=== PATIENT | female | born 1945 | race Hispanic/Latino ===

== ENCOUNTER 2017-02-27 05:41 | Day surgery (SDC) | payer OTHER ==
[2017-02-26 15:01] VITALS: BP 131/53
[2017-02-26 15:30] LABS: BASOPHILS % (AUTO) 0.7 % (0.0-5.0); EOSINOPHILS % (AUTO) 3.9 % (0.0-8.0); HEMATOCRIT 36.3 % (36-48); LYMPHOCYTES % (AUTO) 27.4 % (21.0-51.0); MEAN CORPUSCULAR HEMOGLOBIN 27.2 pg (27.0-33.0); MEAN CORPUSCULAR HGB CONC 32.9 g/dL (32.0-36.0); MEAN CORPUSCULAR VOLUME 82.5 fL (79-99); MONOCYTES % (AUTO) 10.9 % (3.0-13.0); NEUTROPHILS % (AUTO) 57.1 % (40.0-77.0); PLATELET COUNT (AUTO) 232 K/uL (130-400); RED CELL DISTRIBUTION WIDTH 14.5 % (11.0-15.5); WHITE BLOOD COUNT (AUTO) 8.5 K/uL (4.8-10.8)
[2017-02-26 15:44] LABS: INR 0.96 (0.85-1.15); PARTIAL THROMBOPLASTIN TIME 24.7 SEC (26.3-35.5); PROTHROMBIN TIME 10.1 SEC (9.6-11.6)
[2017-02-26 15:48] LABS: POTASSIUM 4.9 mmol/L (3.5-5.1)
[2017-02-26 15:56] LABS: APPEARANCE,URINE Clear (CLEAR); BILIRUBIN,URINE Negative (NEGATIVE); COLOR,URINE Yellow (YELLOW); GLUCOSE, URINE (UA) Negative (NEGATIVE); KETONES,URINE Trace mg/dL (NEGATIVE); LEUKOCYTE ESTERASE ,URINE Negative (NEGATIVE); NITRATE,URINE Negative (NEGATIVE); OCCULT BLOOD,URINE Negative (NEGATIVE); PH,URINE 5.5 (5.0-8.0); PROTEIN,URINE Negative (NEGATIVE)
[~2017-02-27] VITALS: Ht 152.4 cm; Wt 66.0 kg
[2017-02-27] VITALS (11 sets, daily range): BP systolic 111–174; BP diastolic 41–57
[~2017-02-27 05:41] MED LIST: ASPI-1005 PO; ATEN100T PO; ATOR40TA69 PO; CLOP75TA14 PO; HYDR25TA PO; ISOS30TA6 PO; LISI-613 PO; MAGN250T2 PO; SODIUM CHLORIDE 0.9% 500ML 500 ML IV SCH; UBID100C45 PO
[2017-02-27] MEDS ORDERED: SODIUM CHLORIDE 0.9% 1000ML 1,000 ML IV ONE (06:53)
[2017-02-27] MEDS ORDERED: ISOVUE-370 50ML VIAL IV ONE (08:20)
[2017-02-27] MEDS ORDERED: LIDOCAINE HCL 2% 20ML ONE (08:20)
[2017-02-27] MEDS ORDERED: HEPARIN SODIUM 1000UNIT/ML 10ML VIAL ONE (08:20)
[2017-02-27] MEDS ORDERED: IOPAMIDOL-370 100 ML VIAL IV ONE (08:20)
[2017-02-27] MEDS ORDERED: SODIUM BICARB 50MEQ 50ML VIAL ONE (08:20)
[2017-02-27] MEDS ORDERED: SODIUM CHLORIDE 0.9% 1000ML 1,000 ML IV SCH (09:34)
[2017-02-27] MEDS ORDERED: HYDRALAZINE HCL 20 MG/ML VIAL ONE (09:44)
[2017-02-27] MEDS ORDERED: ACETAMINOPHEN 325 MG TAB PO SCH (10:45)
== END 2017-02-27 13:45 | disposition home or self-care (01) ==
LOC: DAH 05:41
PROVIDERS: ATTEND Internal Medicine Cardiovascular Disease
DX: R07.9 Chest pain, unspecified (principal); I10 Essential (primary) hypertension; E78.5 Hyperlipidemia, unspecified; Z85.3 Personal history of malignant neoplasm of breast; I51.89 Other ill-defined heart diseases
CPT/HCPCS: 36415; 71045; 80048; 81003; 85025; 85610; 85730; 93005; 93458; 99156; 99157; C1760; C1894; J0360; J1644; J3490 ×2; J7030; Q9967 ×2

== ENCOUNTER → 2017-04-18 | Outpatient (CLI) | payer OTHER ==
[~2017-04-18] MED LIST changes: -SODIUM CHLORIDE 0.9% 500ML 500 ML IV SCH
== END | disposition home or self-care (01) ==
LOC: RAH 14:11
PROVIDERS: ATTEND Internal Medicine Cardiovascular Disease
DX: M47.22 Other spondylosis with radiculopathy, cervical region (principal); M50.322 Other cervical disc degeneration at C5-C6 level; M48.02 Spinal stenosis, cervical region; M25.78 Osteophyte, vertebrae
CPT/HCPCS: 72141

== ENCOUNTER → 2019-11-27 | Outpatient (CLI) | payer OTHER | END | disposition home or self-care (01) | LOC: RAH 11:38 | PROVIDERS: ATTEND Family Medicine | DX: I70.203 Unspecified atherosclerosis of native arteries of extremities, bilateral legs (principal) | CPT/HCPCS: 93925 ==

== ENCOUNTER → 2020-04-13 | Outpatient (CLI) | payer OTHER ==
[~2020-04-13] MED LIST changes: -ISOS30TA6 PO; +ISOS30TA92 PO; -LISI-613 PO; +LISI20TA24 PO
== END | disposition home or self-care (01) ==
LOC: OIH 15:41
PROVIDERS: ATTEND Family Medicine
DX: M85.88 Other specified disorders of bone density and structure, other site (principal); M25.562 Pain in left knee
CPT/HCPCS: 73560

== ENCOUNTER → 2021-02-18 | Outpatient (CLI) | payer OTHER ==
[~2021-02-18] MED LIST changes: -MAGN250T2 PO; +MAGN250T35 PO; +REGADENOSON 0.4 MG/5 ML PF SYG IVP SCH
== END | disposition home or self-care (01) ==
LOC: SHCH 09:17
PROVIDERS: ATTEND Internal Medicine Cardiovascular Disease
DX: R06.00 Dyspnea, unspecified (principal); R53.83 Other fatigue; R06.02 Shortness of breath
CPT/HCPCS: 78452; 93017; 96374; A9500 ×2; J2785

== ENCOUNTER 2021-03-28 09:30 | Day surgery (SDC) | payer OTHER ==
[2021-03-24 10:45] VITALS: BP 149/81
[2021-03-24 16:58] LABS: BASOPHILS % (AUTO) 0.7 % (0.0-5.0); EOSINOPHILS % (AUTO) 1.4 % (0.0-8.0); HEMATOCRIT 33.4 % (36-48); MEAN CORPUSCULAR HGB CONC 31.1 g/dL (32.0-36.0); MEAN CORPUSCULAR VOLUME 86.8 fL (79-99); MONOCYTES % (AUTO) 12.5 % (3.0-13.0); NEUTROPHILS % (AUTO) 57.2 % (40.0-77.0); PLATELET COUNT (AUTO) 254 K/uL (130-400); RED BLOOD CELL COUNT(AUTO) 3.85 MIL/uL (4.00-5.50); RED CELL DISTRIBUTION WIDTH 14.1 % (11.0-15.5); WHITE BLOOD COUNT (AUTO) 8.8 K/uL (4.8-10.8)
[2021-03-24 16:58] LABS: APPEARANCE,URINE SL CLOUDY (CLEAR); BILIRUBIN,URINE NEGATIVE (NEGATIVE); COLOR,URINE YELLOW (YELLOW); GLUCOSE, URINE (UA) NEGATIVE (NEGATIVE); KETONES,URINE NEGATIVE (NEGATIVE); LEUKOCYTE ESTERASE ,URINE SMALL (NEGATIVE); NITRATE,URINE NEGATIVE (NEGATIVE); OCCULT BLOOD,URINE NEGATIVE (NEGATIVE); PROTEIN,URINE NEGATIVE (NEGATIVE); UROBILINOGEN,URINE 0.2 mg/dL (0.2-1.0)
[2021-03-24 17:05] LABS: RBC,URINE 0-1 /HPF (0-1)
[2021-03-24 17:06] LABS: BACTERIA,URINE Few /HPF (None Seen); MUCUS,URINE Few LPF (None Seen); SQUAMOUS EPITHELIAL CELL,UR Few /HPF (0-2)
[2021-03-24 17:11] LABS: INR 1.03 (0.85-1.15); PROTHROMBIN TIME 11.2 SEC (9.6-11.6)
[2021-03-24 17:12] LABS: PARTIAL THROMBOPLASTIN TIME 23.9 SEC (26.3-35.5)
[2021-03-24 17:15] LABS: CREATININE 1.3 mg/dL (0.5-1.5)
[2021-03-28] VITALS (9 sets, daily range): BP systolic 110–155; BP diastolic 43–55
[~2021-03-28] VITALS: Ht 152.4 cm; Wt 63.2 kg
[~2021-03-28 09:30] MED LIST changes: +0.9%NACL 1000ML 1,000 ML IV SCH; -REGADENOSON 0.4 MG/5 ML PF SYG IVP SCH
[2021-03-28] MEDS ORDERED: SODIUM BICARB 50MEQ 50ML VIAL 0 ML ONE (10:40)
[2021-03-28] MEDS ORDERED: NITROGLYCERIN 50MG VIAL ONE ×2 (10:40→14:41)
[2021-03-28] MEDS ORDERED: IOHEXOL-350 50ML VIAL IV ONE ×2 (10:41→14:41)
[2021-03-28] MEDS ORDERED: IOHEXOL 350 MG/ML 100ML INFUS..BTL IV ONE ×2 (10:41→14:41)
[2021-03-28] MEDS ORDERED: LIDOCAINE HCL 400MG/20ML VIAL ONE ×2 (10:41→14:42)
[2021-03-28] MEDS ORDERED: LISI40TA9 PO (11:04)
[2021-03-28] MEDS ORDERED: GABA-529 PO (11:04)
[2021-03-28] MEDS ORDERED: HYDR25TA PO (11:04)
[2021-03-28] MEDS ORDERED: AMLO-258 PO (11:04)
[2021-03-28] MEDS ORDERED: RANO10005 PO (11:04)
[2021-03-28] MEDS ORDERED: SODIUM BICARB 50MEQ 50ML VIAL 50 ML ONE (14:40)
[2021-03-28] MEDS ORDERED: MEPERIDINE-PF 25 MG/ML SYG ONE ×2 (14:41→15:22)
[2021-03-28] MEDS ORDERED: MIDAZOLAM HCL 1 MG/ML 2ML VIAL ONE ×2 (14:41→15:22)
[2021-03-28] MEDS ORDERED: HEPARIN 10,000 UNIT/10ML (1,000 UNIT/ML) VIAL ONE (14:41)
[2021-03-28] MEDS ORDERED: 0.9%NACL 1000ML 1,000 ML IV SCH (16:00)
== END 2021-03-28 20:00 | disposition home or self-care (01) ==
LOC: DAH 09:30
PROVIDERS: ATTEND Internal Medicine Cardiovascular Disease
DX: I25.119 Atherosclerotic heart disease of native coronary artery with unspecified angina pectoris (principal); I11.0 Hypertensive heart disease with heart failure; I50.32 Chronic diastolic (congestive) heart failure; E78.5 Hyperlipidemia, unspecified; Z79.82 Long term (current) use of aspirin; Z79.84 Long term (current) use of oral hypoglycemic drugs; Z85.3 Personal history of malignant neoplasm of breast; Z95.5 Presence of coronary angioplasty implant and graft; Z79.01 Long term (current) use of anticoagulants
CPT/HCPCS: 36415; 71045; 80048; 81001; 85025; 85610; 85730; 93005; 93458; A4215 ×2; A4216 ×2; A4221 ×2; A4222 ×2; A4223 ×6; A4606 ×2; A4663 ×2; C1760; C1894; J1644; J2175 ×2; J2250 ×2; J3490 ×3; Q9965; Q9967 ×2; 96360; 96361; 99156; 99157

== ENCOUNTER 2021-04-07 11:08 | Emergency (ER) | payer OTHER ==
[~2021-04-07] VITALS: Ht 152.4 cm; Wt 66.2 kg
[~2021-04-07 11:08] MED LIST changes: -0.9%NACL 1000ML 1,000 ML IV SCH; +AMLO-258 PO; -CLOP75TA14 PO; +GABA-529 PO; -LISI20TA24 PO; +LISI40TA9 PO; +RANO10005 PO; -UBID100C45 PO
[2021-04-07 12:15] LABS: APPEARANCE,URINE CLEAR (CLEAR); BILIRUBIN,URINE NEGATIVE (NEGATIVE); COLOR,URINE YELLOW (YELLOW); GLUCOSE, URINE (UA) NEGATIVE (NEGATIVE); KETONES,URINE NEGATIVE (NEGATIVE); LEUKOCYTE ESTERASE ,URINE NEGATIVE (NEGATIVE); NITRATE,URINE NEGATIVE (NEGATIVE); OCCULT BLOOD,URINE NEGATIVE (NEGATIVE); PROTEIN,URINE NEGATIVE (NEGATIVE); UROBILINOGEN,URINE 0.2 mg/dL (0.2-1.0)
[2021-04-07 12:35] LABS: BASOPHILS % (AUTO) 0.2 % (0.0-5.0); EOSINOPHILS % (AUTO) 1.3 % (0.0-8.0); HEMATOCRIT 33.2 % (36-48); LYMPHOCYTES % (AUTO) 17.7 % (21.0-51.0); MEAN CORPUSCULAR HEMOGLOBIN 27.6 pg (27.0-33.0); MONOCYTES % (AUTO) 12.6 % (3.0-13.0); NEUTROPHILS % (AUTO) 67.7 % (40.0-77.0); PLATELET COUNT (AUTO) 192 K/uL (130-400); RED BLOOD CELL COUNT(AUTO) 3.73 MIL/uL (4.00-5.50); RED CELL DISTRIBUTION WIDTH 14.2 % (11.0-15.5); WHITE BLOOD COUNT (AUTO) 8.6 K/uL (4.8-10.8)
[2021-04-07 12:50] LABS: CREATININE 1.7 mg/dL (0.5-1.5); POTASSIUM 4.8 mmol/L (3.5-5.1)
[2021-04-07 12:59] LABS: ALBUMIN 3.4 g/dL (3.5-5.0); BILIRUBIN,TOTAL 0.6 mg/dL (0.2-1.0); TOTAL PROTEIN, SERUM 6.7 g/dL (6.0-8.3)
[2021-04-07 13:23] VITALS: BP 113/58
[2021-04-07] MEDS ORDERED: TIZA-194 PO (13:53)
== END 2021-04-07 14:19 | disposition home or self-care (01) ==
LOC: EDH 11:18
DX: M62.838 Other muscle spasm (principal); E78.00 Pure hypercholesterolemia, unspecified; I10 Essential (primary) hypertension; Z79.82 Long term (current) use of aspirin; Z79.899 Other long term (current) drug therapy
CPT/HCPCS: 36415; 71045; 72040; 80053; 81003; 84484; 85025; 93005

== ENCOUNTER → 2021-04-26 | Outpatient (CLI) | payer OTHER ==
[~2021-04-26] MED LIST changes: +IOHEXOL 350 MG/ML 100ML INFUS..BTL IV ONE; +IOHEXOL-350 50ML VIAL IV ONE; +TIZA-194 PO
== END | disposition home or self-care (01) ==
LOC: RAH 07:32
PROVIDERS: ATTEND Internal Medicine Cardiovascular Disease
DX: I70.213 Atherosclerosis of native arteries of extremities with intermittent claudication, bilateral legs (principal); I70.0 Atherosclerosis of aorta; I70.8 Atherosclerosis of other arteries; I51.7 Cardiomegaly
CPT/HCPCS: 75635; Q9967 ×2

== ENCOUNTER → 2021-08-12 | Outpatient (CLI) | payer OTHER ==
[~2021-08-12] MED LIST changes: -IOHEXOL 350 MG/ML 100ML INFUS..BTL IV ONE; -IOHEXOL-350 50ML VIAL IV ONE
[2021-08-12 12:01] LABS: BASOPHILS % (AUTO) 0.4 % (0.0-5.0); EOSINOPHILS % (AUTO) 1.9 % (0.0-8.0); HEMATOCRIT 39.2 % (36-48); LYMPHOCYTES % (AUTO) 26.6 % (21.0-51.0); MEAN CORPUSCULAR HEMOGLOBIN 26.1 pg (27.0-33.0); MEAN CORPUSCULAR HGB CONC 31.1 g/dL (32.0-36.0); MEAN CORPUSCULAR VOLUME 83.8 fL (79-99); MONOCYTES % (AUTO) 10.9 % (3.0-13.0); NEUTROPHILS % (AUTO) 59.9 % (40.0-77.0); PLATELET COUNT (AUTO) 239 K/uL (130-400); RED BLOOD CELL COUNT(AUTO) 4.68 MIL/uL (4.00-5.50); RED CELL DISTRIBUTION WIDTH 14.2 % (11.0-15.5)
[2021-08-12 12:14] LABS: INR 0.94 (0.85-1.15); PROTHROMBIN TIME 10.3 SEC (9.6-11.6)
[2021-08-12 12:16] LABS: POTASSIUM 5.1 mmol/L (3.5-5.1)
[2021-08-12 12:21] LABS: CREATININE 0.9 mg/dL (0.5-1.5)
== END | disposition home or self-care (01) ==
LOC: LAB 10:02
PROVIDERS: ATTEND Internal Medicine Cardiovascular Disease
DX: I25.10 Atherosclerotic heart disease of native coronary artery without angina pectoris (principal); I51.7 Cardiomegaly
CPT/HCPCS: 36415; 80048; 85025; 85610; 85730

== ENCOUNTER → 2022-05-30 | Outpatient (CLI) | payer OTHER | END | disposition home or self-care (01) | LOC: SHCH 15:16 | PROVIDERS: ATTEND Internal Medicine Cardiovascular Disease | DX: I35.0 Nonrheumatic aortic (valve) stenosis (principal); R07.9 Chest pain, unspecified; I10 Essential (primary) hypertension; E78.5 Hyperlipidemia, unspecified | CPT/HCPCS: 93306 ==

== ENCOUNTER 2022-07-23 08:44 | Observation (INO) | payer OTHER ==
[~2022-07-23] VITALS: Ht 157.5 cm; Wt 63.5 kg
[2022-07-23 09:05] LABS: BASOPHILS % (AUTO) 0.6 % (0.0-5.0); EOSINOPHILS % (AUTO) 2.4 % (0.0-8.0); HEMATOCRIT 33.8 % (36-48); LYMPHOCYTES % (AUTO) 28.5 % (21.0-51.0); MEAN CORPUSCULAR HEMOGLOBIN 25.9 pg (27.0-33.0); MEAN CORPUSCULAR HGB CONC 30.8 g/dL (32.0-36.0); MEAN CORPUSCULAR VOLUME 84.3 fL (79-99); MONOCYTES % (AUTO) 9.4 % (3.0-13.0); NEUTROPHILS % (AUTO) 58.8 % (40.0-77.0); PLATELET COUNT (AUTO) 190 K/uL (130-400); RED BLOOD CELL COUNT(AUTO) 4.01 MIL/uL (4.00-5.50); WHITE BLOOD COUNT (AUTO) 6.7 K/uL (4.8-10.8)
[2022-07-23 09:18] LABS: CREATININE 0.6 mg/dL (0.5-1.5); POTASSIUM 4.6 mmol/L (3.5-5.1)
[2022-07-23 09:20] LABS: MAGNESIUM 1.8 mg/dL (1.80-2.40); TOTAL PROTEIN, SERUM 6.7 g/dL (6.0-8.3)
[2022-07-23] MEDS ORDERED: ASPIRIN 325MG TAB PO ONE ×2 (09:30→13:00)
[2022-07-23] MEDS ORDERED: FUROSEMIDE 40MG VIAL IV ONE (09:30)
[2022-07-23] MEDS ORDERED: NITROGLYCERIN 1GM OINT 1 INCH/1GM TD ONE (09:30)
[2022-07-23 10:05] LABS: APPEARANCE,URINE CLEAR (CLEAR); BILIRUBIN,URINE NEGATIVE (NEGATIVE); GLUCOSE, URINE (UA) NEGATIVE (NEGATIVE); KETONES,URINE NEGATIVE (NEGATIVE); LEUKOCYTE ESTERASE ,URINE NEGATIVE Leu/uL (NEGATIVE); NITRATE,URINE NEGATIVE (NEGATIVE); OCCULT BLOOD,URINE NEGATIVE (NEGATIVE); PROTEIN,URINE NEGATIVE (NEGATIVE); UROBILINOGEN,URINE 0.2 mg/dL (0.2-1.0)
[2022-07-23 10:08] LABS: COLOR,URINE LIGHT-YELLOW (YELLOW)
[2022-07-23] MEDS ORDERED: IOHEXOL 350 MG/ML 100ML INFUS..BTL IV ONE (10:56)
[2022-07-23] MEDS ORDERED: HYDRALAZINE 20MG/ML VIAL IV ONE (11:00)
[2022-07-23] MEDS ORDERED: IPRATROPIUM/ALBUTEROL SULFATE 3 ML SOLUTION IH ONE (11:00)
[2022-07-23] MEDS ORDERED: HYDRALAZINE 20MG/ML VIAL IV PRN (14:30)
[2022-07-23] MEDS ORDERED: ONDANSETRON 4MG INJ IVP PRN (14:30)
[2022-07-23] MEDS ORDERED: DOCUSATE SODIUM 100 MG CAP PO PRN ×2 (14:30)
[2022-07-23] MEDS ORDERED: LACTULOSE 20 GM/30 ML UDCUP PO PRN (14:30)
[2022-07-23] MEDS ORDERED: ACETAMINOPHEN 650 MG SUPPOSITORY RC PRN (14:30)
[2022-07-23] MEDS ORDERED: HYDROCODONE/ACETAMINOPHEN 5/325 MG TAB PO PRN (14:30)
[2022-07-23] MEDS ORDERED: ALBUTEROL 0.083% 2.5 MG/3 ML INH IH PRN (14:30)
[2022-07-23] MEDS ORDERED: CLONIDINE HCL 0.1 MG TABLET PO PRN (14:30)
[2022-07-23] MEDS ORDERED: LABETALOL 20MG SYG IV PRN (14:30)
[2022-07-23] MEDS: ACETAMINOPHEN 325 MG TAB PO PRN (15:49)
[2022-07-23] MEDS: INSULIN HUMULIN R 100 UNIT/ML 3ML SQ SCH ×2 (16:21→21:00)
[2022-07-23] MEDS: ARTIFICAL TEARS SOL 15 ML OU SCH ×2 (16:50→20:30)
[2022-07-23] MEDS ORDERED: [UNRECOGNIZED DRUG - CODE] PO (17:12)
[2022-07-23] MEDS ORDERED: CLOP-31 PO (17:12)
[2022-07-23] MEDS ORDERED: RANO10005 PO (17:12)
[2022-07-23] MEDS: FAMOTIDINE 20MG TAB PO SCH (21:13)
[2022-07-24] MEDS: ARTIFICAL TEARS SOL 15 ML OU SCH (02:30)
[2022-07-24] MEDS: INSULIN HUMULIN R 100 UNIT/ML 3ML SQ SCH ×2 (07:30→11:30)
[2022-07-24 07:33] LABS: HEMATOCRIT 34.6 % (36-48); MEAN CORPUSCULAR HEMOGLOBIN 26.7 pg (27.0-33.0); MEAN CORPUSCULAR HGB CONC 31.2 g/dL (32.0-36.0); MEAN CORPUSCULAR VOLUME 85.4 fL (79-99); RED BLOOD CELL COUNT(AUTO) 4.05 MIL/uL (4.00-5.50); RED CELL DISTRIBUTION WIDTH 15.2 % (11.0-15.5); WHITE BLOOD COUNT (AUTO) 6.6 K/uL (4.8-10.8)
[2022-07-24] MEDS: ACETAMINOPHEN 325 MG TAB PO PRN (07:41)
[2022-07-24 08:13] LABS: PHOSPHORUS 4.2 mg/dL (2.5-4.9); THYROID STIMULATING HORMONE 2.67 uIU/mL (0.36-3.74)
[2022-07-24] MEDS: FAMOTIDINE 20MG TAB PO SCH (08:41)
[2022-07-24] MEDS ORDERED: ISOSORBIDE MONO 30MG SR TAB PO SCH (09:00)
[2022-07-24] MEDS ORDERED: FUROSEMIDE 20MG VIAL IV SCH (09:00)
[2022-07-24] MEDS ORDERED: ASPIRIN 81MG CHEW TAB PO SCH (09:00)
[2022-07-24] MEDS ORDERED: LISINOPRIL 40 MG TABLET PO SCH (09:00)
[2022-07-24] MEDS ORDERED: HYDROCHLOROTHIAZIDE 25 MG TABLET PO SCH (09:00)
[2022-07-24] MEDS ORDERED: CLOPIDOGREL 75MG TAB PO SCH (09:00)
[2022-07-24] MEDS ORDERED: ATENOLOL 50 MG TABLET PO SCH (09:00)
[2022-07-24] MEDS ORDERED: ENOXAPARIN SODIUM 30 MG/0.3 ML SQ SCH (09:00)
[2022-07-24] MEDS ORDERED: RANOLAZINE 500 MG TAB.SR.12H PO SCH (09:00)
[2022-07-24] MEDS ORDERED: HYDRALAZINE 25MG TABLET PO SCH (09:30)
[2022-07-24 14:23] VITALS: BP 132/76
[2022-07-24] MEDS ORDERED: HYDR-4153 PO (14:36)
[2022-07-24] MEDS ORDERED: HYDR50TA PO (14:36)
[2022-07-25] MEDS ORDERED: HYDROCHLOROTHIAZIDE 25 MG TABLET PO SCH (09:00)
== END 2022-07-24 14:58 | disposition home or self-care (01) ==
LOC: EDH 08:44 → EDHIP 14:30
PROVIDERS: ADMIT Internal Medicine Critical Care Medicine; ATTEND Internal Medicine Critical Care Medicine
DX: I16.1 Hypertensive emergency (principal); Z20.822 Contact with and (suspected) exposure to COVID-19; I11.0 Hypertensive heart disease with heart failure; I50.9 Heart failure, unspecified; I25.10 Atherosclerotic heart disease of native coronary artery without angina pectoris; I25.2 Old myocardial infarction; J90 Pleural effusion, not elsewhere classified; E78.00 Pure hypercholesterolemia, unspecified; Z95.5 Presence of coronary angioplasty implant and graft; Z90.710 Acquired absence of both cervix and uterus; Z79.899 Other long term (current) drug therapy; Z98.890 Other specified postprocedural states; Z95.1 Presence of aortocoronary bypass graft; Z79.82 Long term (current) use of aspirin
CPT/HCPCS: 96374; 96375 ×2; 99285; 82550 ×3; 83735 ×2; 83874 ×3; 84484 ×4; 80053; 83880 ×2; 85025; 82948 ×4; 81003; 36415 ×2; 71045; 71270; 93005 ×2; 94640; 94664; 96376; 96372; 84443; 84100; 85027; 87804 ×2; 87635; 70450; G0378 ×24; J0360; J1940 ×2; Q9967; J1650; J2405

== ENCOUNTER 2022-10-20 06:55 | Day surgery (SDC) | payer OTHER ==
[2022-10-18 16:54] LABS: BASOPHILS # (AUTO) 0.05 K/uL (0.00-0.20); BASOPHILS % (AUTO) 0.6 % (0.0-5.0); EOSINOPHILS # (AUTO) 0.23 K/uL (0.00-0.70); EOSINOPHILS % (AUTO) 2.9 % (0.0-8.0); HEMATOCRIT 36.8 % (36-48); IMMATURE GRANULOCYTE ABSOLUTE 0.03 K/uL (0-1); LYMPHOCYTES # (AUTO) 2.5 K/uL (1.0-4.8); LYMPHOCYTES % (AUTO) 31.5 % (21.0-51.0); MEAN CORPUSCULAR HEMOGLOBIN 26.8 pg (27.0-33.0); MEAN CORPUSCULAR VOLUME 86.4 fL (79-99); MONOCYTES # (AUTO) 0.9 K/uL (0.1-1.0); MONOCYTES % (AUTO) 11.8 % (3.0-13.0); NEUTROPHILS # (AUTO) 4.2 K/uL (1.8-7.7); NEUTROPHILS % (AUTO) 52.8 % (40.0-77.0); PLATELET COUNT (AUTO) 248 K/uL (130-400); RED BLOOD CELL COUNT(AUTO) 4.26 MIL/uL (4.00-5.50); RED CELL DISTRIBUTION WIDTH 14.8 % (11.0-15.5)
[2022-10-18 17:04] LABS: APPEARANCE,URINE CLEAR (CLEAR); BILIRUBIN,URINE NEGATIVE (NEGATIVE); COLOR,URINE COLORLESS (YELLOW); GLUCOSE, URINE (UA) NEGATIVE (NEGATIVE); KETONES,URINE NEGATIVE (NEGATIVE); LEUKOCYTE ESTERASE ,URINE 500 Leu/uL (NEGATIVE); NITRATE,URINE NEGATIVE (NEGATIVE); OCCULT BLOOD,URINE NEGATIVE (NEGATIVE); PH,URINE 6.5 (5.0-8.0); PROTEIN,URINE NEGATIVE (NEGATIVE); UROBILINOGEN,URINE 0.2 mg/dL (0.2-1.0)
[2022-10-18 17:04] LABS: INR 0.94 (0.85-1.15); PROTHROMBIN TIME 10.9 SEC (9.6-11.6)
[2022-10-18 17:05] LABS: CREATININE 0.8 mg/dL (0.5-1.5); PARTIAL THROMBOPLASTIN TIME 25.8 SEC (26.3-35.5); POTASSIUM 4.5 mmol/L (3.5-5.1)
[2022-10-18 17:09] LABS: ADD UA MICROSCOPIC YES
[2022-10-18 17:21] LABS: BACTERIA,URINE RARE /HPF (None Seen); SQUAMOUS EPITHELIAL CELL,UR RARE /HPF (0-2); WBC,URINE 51-100 /HPF (0-1)
[2022-10-18 17:38] VITALS: BP 197/74; PULSE 82; RESP 14
[2022-10-18 18:42] LABS: B-TYPE NATRIURETIC PEPTIDE 61 pg/mL (0-100)
[~2022-10-20] VITALS: Ht 154.9 cm; Wt 64.2 kg
[2022-10-20] VITALS (10 sets, daily range): BP systolic 116–195; BP diastolic 46–74; PULSE 51–71; RESP 14–18
[~2022-10-20 06:55] MED LIST changes: +AEC81 PO; -AMLO-258 PO; -ASPI-1005 PO; -ATEN100T PO; +CLOP-31 PO; +HYDR-4153 PO; -HYDR25TA PO; +HYDR50TA PO; -TIZA-194 PO; +UBID50TA3 PO
[2022-10-20] MEDS ORDERED: 0.9%NACL 1000ML 1,000 ML IV ONE (07:39)
[2022-10-20] MEDS ORDERED: ATEN100T PO (08:26)
[2022-10-20] MEDS ORDERED: SODIUM BICARB 50MEQ 50ML VIAL 50 ML ONE (13:31)
[2022-10-20] MEDS ORDERED: NICARDIPINE 25MG INJ IV ONE (13:32)
[2022-10-20] MEDS ORDERED: HEPARIN 10,000 UNIT/10ML (1,000 UNIT/ML) VIAL ONE (13:32)
[2022-10-20] MEDS ORDERED: IOHEXOL 350 MG/ML 100ML INFUS..BTL IV ONE (13:32)
[2022-10-20] MEDS ORDERED: NITROGLYCERIN 50MG VIAL ONE (13:32)
[2022-10-20] MEDS ORDERED: LIDOCAINE HCL 400MG/20ML VIAL ONE (13:33)
[2022-10-20] MEDS ORDERED: MIDAZOLAM HCL 1 MG/ML 2ML VIAL ONE ×2 (13:44→14:04)
[2022-10-20] MEDS ORDERED: MEPERIDINE-PF 25 MG/ML SYG ONE ×2 (13:44→14:04)
== END 2022-10-20 18:40 | disposition home or self-care (01) ==
LOC: DAH 06:55
PROVIDERS: ATTEND Internal Medicine Cardiovascular Disease
DX: I25.119 Atherosclerotic heart disease of native coronary artery with unspecified angina pectoris (principal); I11.0 Hypertensive heart disease with heart failure; I50.32 Chronic diastolic (congestive) heart failure; E78.5 Hyperlipidemia, unspecified; Z79.899 Other long term (current) drug therapy; Z79.01 Long term (current) use of anticoagulants; Z95.5 Presence of coronary angioplasty implant and graft; Z98.890 Other specified postprocedural states; Z79.82 Long term (current) use of aspirin
CPT/HCPCS: 80048; 83880; 85025; 85610; 85730; 87088; 81001; 36415; 71045; 93005; 93458; 87077; 87186; C1769; A4649; C1894; Q9965; J3490 ×4; J7030; J1644 ×2; J2250; J2175; Q9967; A4215; A4222; A4221; A4663; A4216; A4606; A4223 ×3; 99156; 99157

== ENCOUNTER → 2022-12-11 | Outpatient (CLI) | payer OTHER ==
[~2022-12-11] MED LIST changes: +ATEN100T PO; -HYDR50TA PO
[2022-12-11 12:43] LABS: B-TYPE NATRIURETIC PEPTIDE 138 pg/mL (0-100)
[2022-12-11 12:44] LABS: ALBUMIN 3.8 g/dL (3.5-5.0); BILIRUBIN,TOTAL 0.3 mg/dL (0.2-1.0); POTASSIUM 4.5 mmol/L (3.5-5.1); TOTAL PROTEIN, SERUM 7.6 g/dL (6.0-8.3)
[2022-12-11 12:45] LABS: BASOPHILS # (AUTO) 0.05 K/uL (0.00-0.20); BASOPHILS % (AUTO) 0.7 % (0.0-5.0); EOSINOPHILS # (AUTO) 0.22 K/uL (0.00-0.70); HEMATOCRIT 39.4 % (36-48); IMMATURE GRANULOCYTE ABSOLUTE 0.02 K/uL (0-1); LYMPHOCYTES # (AUTO) 2.3 K/uL (1.0-4.8); LYMPHOCYTES % (AUTO) 31.3 % (21.0-51.0); MEAN CORPUSCULAR HEMOGLOBIN 26.9 pg (27.0-33.0); MEAN CORPUSCULAR HGB CONC 30.7 g/dL (32.0-36.0); MEAN CORPUSCULAR VOLUME 87.8 fL (79-99); MONOCYTES # (AUTO) 0.7 K/uL (0.1-1.0); NEUTROPHILS % (AUTO) 54.7 % (40.0-77.0); PLATELET COUNT (AUTO) 242 K/uL (130-400); RED BLOOD CELL COUNT(AUTO) 4.49 MIL/uL (4.00-5.50); RED CELL DISTRIBUTION WIDTH 14.3 % (11.0-15.5); WHITE BLOOD COUNT (AUTO) 7.4 K/uL (4.8-10.8)
== END | disposition home or self-care (01) ==
LOC: LAB 08:14
PROVIDERS: ATTEND Internal Medicine Cardiovascular Disease
DX: I11.0 Hypertensive heart disease with heart failure (principal); I25.10 Atherosclerotic heart disease of native coronary artery without angina pectoris
CPT/HCPCS: 36415; 80053; 83735; 83880; 85025

== ENCOUNTER → 2022-12-23 | Outpatient (CLI) | payer OTHER | END | disposition home or self-care (01) | LOC: SHCH 07:47 | PROVIDERS: ATTEND Internal Medicine Cardiovascular Disease | DX: I10 Essential (primary) hypertension (principal) | CPT/HCPCS: 93975 ==

== ENCOUNTER 2023-03-28 14:16 | Emergency (ER) | payer OTHER ==
[~2023-03-28] VITALS: Ht 149.9 cm; Wt 59.9 kg
[~2023-03-28 14:16] MED LIST changes: -HYDR-4153 PO; +HYDR25TA67 PO
[2023-03-28 14:20] VITALS: BP 122/43; PULSE 65; RESP 14; O2SAT 99
[2023-03-28 14:41] LABS: BASOPHILS # (AUTO) 0.05 K/uL (0.00-0.20); BASOPHILS % (AUTO) 0.3 % (0.0-5.0); EOSINOPHILS # (AUTO) 0.12 K/uL (0.00-0.70); EOSINOPHILS % (AUTO) 0.6 % (0.0-8.0); HEMATOCRIT 34.4 % (36-48); IMMATURE GRANULOCYTE ABSOLUTE 0.11 K/uL (0-1); LYMPHOCYTES # (AUTO) 1.9 K/uL (1.0-4.8); LYMPHOCYTES % (AUTO) 9.9 % (21.0-51.0); MEAN CORPUSCULAR HEMOGLOBIN 26.8 pg (27.0-33.0); MEAN CORPUSCULAR VOLUME 83.9 fL (79-99); MONOCYTES # (AUTO) 1.7 K/uL (0.1-1.0); MONOCYTES % (AUTO) 8.7 % (3.0-13.0); NEUTROPHILS # (AUTO) 15.3 K/uL (1.8-7.7); NEUTROPHILS % (AUTO) 79.9 % (40.0-77.0); PLATELET COUNT (AUTO) 396 K/uL (130-400); RED CELL DISTRIBUTION WIDTH 14.1 % (11.0-15.5); WHITE BLOOD COUNT (AUTO) 19.1 K/uL (4.8-10.8)
[2023-03-28 14:50] LABS: INR 0.94 (0.85-1.15); PROTHROMBIN TIME 10.9 SEC (9.6-11.6)
[2023-03-28 14:51] LABS: PARTIAL THROMBOPLASTIN TIME 27.4 SEC (26.3-35.5)
[2023-03-28 14:58] LABS: ALBUMIN 3.4 g/dL (3.5-5.0); BILIRUBIN,TOTAL 0.5 mg/dL (0.2-1.0); CREATININE 1.4 mg/dL (0.5-1.5); POTASSIUM 5.9 mmol/L (3.5-5.1)
[2023-03-28] MEDS: KETOROLAC 30MG VIAL (30MG/ML) IVP ONE (18:06)
[2023-03-28] MEDS: ZOSYN 3.375GM +NS 50ML IV ONE (18:06)
[2023-03-28] MEDS: 0.9%NACL 1000ML 1,000 ML IV ONE (18:06)
[2023-03-28] MEDS ORDERED: IOHEXOL-350 75 ML VIAL IV ONE (18:19)
[2023-03-28 20:31] LABS: CREATININE 1.2 mg/dL (0.5-1.5); POTASSIUM 5.3 mmol/L (3.5-5.1)
[2023-03-28] MEDS ORDERED: HYDR30SU8 RC (20:38)
== END 2023-03-28 20:51 | disposition home or self-care (01) ==
LOC: EDH 14:16
DX: K59.00 Constipation, unspecified (principal); K62.89 Other specified diseases of anus and rectum; R74.02 Elevation of levels of lactic acid dehydrogenase [LDH]
CPT/HCPCS: 99285; 74177; 96365; 96366; 80053; 83690; 85025; 85610; 85730; 87040 ×2; 83605 ×2; 36415; 80048; J7030; J1885; J2543; Q9967

== ENCOUNTER → 2023-08-28 | Outpatient (CLI) | payer OTHER ==
[~2023-08-28] MED LIST changes: +HYDR30SU8 RC
[2023-08-28] MEDS: REGADENOSON 0.4 MG/5 ML PF SYG IVP ONE (11:49)
== END | disposition home or self-care (01) ==
LOC: SHCH 07:49
PROVIDERS: ATTEND Internal Medicine Cardiovascular Disease
DX: I25.10 Atherosclerotic heart disease of native coronary artery without angina pectoris (principal); R94.31 Abnormal electrocardiogram [ECG] [EKG]; R06.00 Dyspnea, unspecified
CPT/HCPCS: 78452; 96374; 93017; J2785; A9500 ×2

== ENCOUNTER 2023-10-24 10:45 | Emergency (ER) | payer OTHER ==
[~2023-10-24] VITALS: Ht 149.9 cm; Wt 61.2 kg
[2023-10-24 11:13] LABS: BASOPHILS # (AUTO) 0.03 K/uL (0.00-0.20); BASOPHILS % (AUTO) 0.4 % (0.0-5.0); EOSINOPHILS # (AUTO) 0.16 K/uL (0.00-0.70); EOSINOPHILS % (AUTO) 2.3 % (0.0-8.0); HEMATOCRIT 35.8 % (36-48); IMMATURE GRANULOCYTE ABSOLUTE 0.03 K/uL (0-1); LYMPHOCYTES # (AUTO) 1.9 K/uL (1.0-4.8); LYMPHOCYTES % (AUTO) 26.8 % (21.0-51.0); MEAN CORPUSCULAR HEMOGLOBIN 28.5 pg (27.0-33.0); MEAN CORPUSCULAR HGB CONC 31.6 g/dL (32.0-36.0); MEAN CORPUSCULAR VOLUME 90.2 fL (79-99); MONOCYTES # (AUTO) 0.6 K/uL (0.1-1.0); MONOCYTES % (AUTO) 9.2 % (3.0-13.0); NEUTROPHILS # (AUTO) 4.2 K/uL (1.8-7.7); NEUTROPHILS % (AUTO) 60.9 % (40.0-77.0); PLATELET COUNT (AUTO) 240 K/uL (130-400); RED BLOOD CELL COUNT(AUTO) 3.97 MIL/uL (4.00-5.50); RED CELL DISTRIBUTION WIDTH 14.6 % (11.0-15.5); WHITE BLOOD COUNT (AUTO) 6.9 K/uL (4.8-10.8)
[2023-10-24 11:21] LABS: CREATININE 1.4 mg/dL (0.5-1.0)
[2023-10-24 11:26] LABS: BILIRUBIN,TOTAL 0.4 mg/dL (0.2-1.0)
[2023-10-24 11:42] LABS: B-TYPE NATRIURETIC PEPTIDE 424 pg/mL (0-100)
[2023-10-24] MEDS: furoSEMIDE 40MG VIAL IV ONE (13:17)
[2023-10-24 13:27] LABS: APPEARANCE,URINE CLEAR (CLEAR); BILIRUBIN,URINE NEGATIVE (NEGATIVE); COLOR,URINE COLORLESS (YELLOW); GLUCOSE, URINE (UA) NEGATIVE (NEGATIVE); KETONES,URINE NEGATIVE (NEGATIVE); LEUKOCYTE ESTERASE ,URINE NEGATIVE Leu/uL (NEGATIVE); NITRATE,URINE NEGATIVE (NEGATIVE); OCCULT BLOOD,URINE NEGATIVE (NEGATIVE); PH,URINE 6.5 (5.0-8.0); PROTEIN,URINE NEGATIVE (NEGATIVE); UROBILINOGEN,URINE 0.2 mg/dL (0.2-1.0)
[2023-10-24 13:29] LABS: ADD UA MICROSCOPIC NO
[2023-10-24 13:33] VITALS: BP 153/58; PULSE 80; RESP 18; TEMP 98.2; O2SAT 100
[2023-10-27] MEDS ORDERED: FURO40TA5 PO (17:27)
[2023-10-27] MEDS ORDERED: LETR2.5T7 PO (17:27)
[2023-10-27] MEDS ORDERED: SPIR25TA6 PO (17:27)
[2023-11-01] MEDS ORDERED: AMOX1TAB16 PO (11:48)
[2023-11-01] MEDS ORDERED: CILO100T3 PO (11:48)
[2023-11-01] MEDS ORDERED: VERA240T96 PO (11:48)
[2023-11-01] MEDS ORDERED: APIX5TAB PO (11:48)
[2023-11-01] MEDS ORDERED: GABApentin 300 MG CAP PO (11:48)
[2023-11-01] MEDS ORDERED: FURO40TA7 PO (11:48)
== END 2023-10-24 13:36 | disposition home or self-care (01) ==
LOC: EDH 10:45
DX: I11.0 Hypertensive heart disease with heart failure (principal); I50.9 Heart failure, unspecified; M25.512 Pain in left shoulder; M25.511 Pain in right shoulder; E78.5 Hyperlipidemia, unspecified; I25.10 Atherosclerotic heart disease of native coronary artery without angina pectoris; Z79.82 Long term (current) use of aspirin; Z79.899 Other long term (current) drug therapy; Z95.5 Presence of coronary angioplasty implant and graft; Z98.890 Other specified postprocedural states
CPT/HCPCS: 99285; 96374; 71045; 82550; 84484 ×3; 80053; 83880; 85025; 81003; 36415; 93005 ×2; J1940

== ENCOUNTER 2024-02-28 13:49 | Emergency (ER) | payer OTHER ==
[~2024-02-28] VITALS: Ht 152.4 cm; Wt 59.0 kg
[~2024-02-28 13:49] MED LIST changes: -AEC81 PO; +APIX5TAB PO; -ATEN100T PO; +CILO100T3 PO; +FURO40TA7 PO; -HYDR30SU8 RC; -LISI40TA9 PO; +SPIR25TA6 PO; +VERA80TA11 PO
--- NOTE | 2024-02-28 14:06 | EKG ---
[facility] Test Date: 2024-02-28 Test Time: 14:03:06 Pat Name: JOSUE SOSA Department: ED Room: Gender: F Youth Specialist: [id number] : [id number] Requested By: NANCY DIOR Order Number: [id number] Reading MD: Jabier Xiong Measurements Intervals [place] Rate: 63 P: 65 HI: 212 QRS: 60 QRSD: 112 T: 40 QT: 431 QTc: 443 Interpretive Statements Sinus rhythm Borderline prolonged HI interval Incomplete left bundle branch block Low voltage, extremity leads Anterior Q waves, possibly due to ILBBB Compared to ECG 11/10/2023 14:20:53 Left bundle-branch block now present Low QRS voltage now present Q waves now present Atrial premature complex(es) no longer present Electronically Signed On 03-01-2024 07:55:30 LEARNING FACILITATOR by Jabier Xiong Please click the below link to view image of tracing.
--- NOTE | 2024-02-28 14:10 | ERN ---
ED Note History of Present Illness Stated Complaint: WEAKNESS Chief Complaint: Weakness Time Seen by MD: 14:02 Dictation: Patient coming in with dizziness and generalized body weakness onset 2-3 hours prior to arrival. No headache no chest pain no back pain no SOB. Per the daughter, patient is was at a home making arrangements for her brother's who just the other day when she had the onset. She is neurologically intact speech is clear and moving all extremities 5/5 bilaterally. No ataxic gait Allergies: Coded Allergies: No Known Allergies (Unverified Allergy, Unknown, 05/12/14) Home Meds Active Scripts Verapamil HCl (Calan/Isoptin) 80 Mg Tab, 40 MG PO BID, #60 TAB Prov:BETINA ADEN 11/14/23 Furosemide (Lasix 40Mg Tab) 40 Mg Tablet, 40 MG PO DAILY, #30 TAB 0 Refills Prov:MEGHA DORAN COMBINATION MACHINE TENDER 11/01/23 Cilostazol (Cilostazol) 100 Mg Tablet, 100 MG PO BID, #60 TAB 1 Refill Prov:MEGHA DORAN [facility] 11/01/23 Apixaban (Eliquis) 5 Mg Tablet, 5 MG PO BID, #60 TAB 1 Refill Prov:MEGHA DORAN [facility] 11/01/23 Hydralazine HCl (Hydralazine HCl) 25 Mg Tablet, 25 MG PO Q8H PRN for IF SBP GREATER THAN 170, #30 TAB Prov:EMMA PERAZA PRINTED CIRCUIT BOARDS PINNER 07/24/22 Isosorbide Mononitrate (Isosorbide Mononitrate ER) 30 Mg Tab.er.24h, 30 MG PO DAILY, #30 TAB 3 Refills Prov:Izabela HARVEY II, MD 05/13/14 Reported Medications Gabapentin (Gabapentin) 100 Mg Capsule, 100 MG PO BID, CAP 11/04/23 Spironolactone (Spironolactone) 25 Mg Tablet, 25 MG PO BID, TAB 10/27/23 Ubidecarenone (Coq10) 50 Mg Tab.chew, 200 MG PO AM, TAB.CHEW 10/18/22 Clopidogrel Bisulfate (Plavix) 75 Mg Tablet, 75 MG PO DAILY, TAB 07/23/22 Ranolazine (Ranolazine ER) 1,000 Mg Tab.er.12h, 1000 MG PO BID, TAB 07/23/22 Magnesium (Magnesium) 250 Mg Tablet, 250 MG PO DAILY, TAB 02/26/17 Atorvastatin Calcium (LIPITOR) 40 Mg Tablet, 40 MG PO DAILY, TAB 05/12/14 Past Medical History Past Medical History: High Cholesterol, Hypertension, Other Additional Past Medical Hx: HX OF IRREGULAR HEARTBEAT Surgical History: Other Surgical History Other: RT MASTECTOMY Social History: Negative History: Not Applicable RN Note Reviewed/Agreed w/PFSH: Yes Review of System Dictation CONSTITUTIONAL: Negative except for HPI weak HEAD/FACE: Negative except for HPI EENT: Negative except for HPI RESPIRATORY: Negative except for HPI GASTROINTESTINAL/ABDOMINAL: Negative except for HPI GENITOURINARY: Negative except for HPI MUSCULOSKELETAL: Negative except for HPI INTEGUMENTARY: Negative except for HPI NEUROLOGICAL/PSYCH: Negative except for HPI dizzy HEMATOLOGIC/LYMPHATIC: Negative except for HPI All Systems Negative, Except as noted above. 13 point review of systems assessed and all negative except for above. Initial Vital Sign VS Vital Signs Date Time Temp Pulse Resp B/P (MAP) Pulse Ox O2 Delivery O2 Flow Rate FiO2 02/28/24 13:51 98.1 59 16 144/64 98 Room Air* 0 21 Physical Exam Dictation Vital Signs reviewed General Appearance: Alert, oriented x 3, no acute distress, well developed, nourished. Head and Face: non-traumatic. Eyes: PERRL, pink conjunctivas, eyelid no trauma, anterior chamber with arcus senilis. No nystagmus Ears: Pinnas intact and no signs of trauma or erythema ear canals clear and no discharge TM no erythema Nose: No discharge, no bleeding. Oropharynx: Mouth normal, tongue pink, pharynx clear,no erythema, tonsils no exudates, no abscesses noted, mucous membrane moist Neck: Supple, non-tender, no thyromegaly, no masses, no JVD, no bruits Breast:Deferred Chest:No tenderness, no crepitus, no paradoxical movement, no retractions Lungs:Clear, well-ventilated, symmetric, no rales, no wheezing, no rhonchi, no stridor, good breath sounds bilaterally Heart: Regular rate, regular rhythm, no murmur, no gallops Vascular: no peripheral edema, Abdomen: Soft, positive bowel sounds, nondistended, no guarding, nontender, no rebound, no masses no hepatomegaly, no splenomegaly, no Ellis's sign, no hernias. Rectal: Deferred Genital: Deferred Neurological: Normal speech, motor function intact, sensory function intact NIH is 0 Musculoskeletal: Neck nontender, full range of motion, back nontender, full range of motion, Extremities: nontender, full range of motion Skin: Color pink, dry, no turgor, no rash, no lacerations, no abrasions, no contusions. Lymphatic: Deferred Results (Laboratory/Radiology) Laboratory/Radiology Laboratory Tests Test 02/28/24 13:52 02/28/24 14:25 02/28/24 15:15 Whole Blood Glucose 113 MG/DL (70-110) H White Blood Count 7.0 K/uL (4.8-10.8) Red Blood Count 3.66 MIL/uL (4.00-5.50) L Hemoglobin 10.9 g/dL (12.0-16.0) L Hematocrit 33.7 % (36-48) L Mean Corpuscular Volume 92.1 fL (79-99) Mean Corpuscular Hemoglobin 29.8 pg (27.0-33.0) Mean Corpuscular Hemoglobin Concent 32.3 g/dL (32.0-36.0) Red Cell Distribution Width 13.7 % (11.0-15.5) Platelet Count 167 K/uL (130-400) Mean Platelet Volume 11.1 fL (7.5-10.5) H Immature Granulocyte % (Auto) 0.1 % (0-1) Neutrophils (%) (Auto) 62.9 % (40.0-77.0) Lymphocytes (%) (Auto) 22.4 % (21.0-51.0) Monocytes (%) (Auto) 13.9 % (3.0-13.0) H Eosinophils (%) (Auto) 0.4 % (0.0-8.0) Basophils (%) (Auto) 0.3 % (0.0-5.0) Neutrophils # (Auto) 4.4 K/uL (1.8-7.7) Lymphocytes # (Auto) 1.6 K/uL (1.0-4.8) Monocytes # (Auto) 1.0 K/uL (0.1-1.0) Eosinophils # (Auto) 0.03 K/uL (0.00-0.70) Basophils # (Auto) 0.02 K/uL (0.00-0.20) Absolute Immature Granulocyte (auto 0.01 K/uL (0-1) Nucleated Red Blood Cells 0.0 % (0.0-0.19) Sodium Level 138 mmol/L (136-145) Potassium Level 4.5 mmol/L (3.5-5.1) Chloride Level 101 mmol/L (101-111) Carbon Dioxide Level 26 mmol/L (21-32) Blood Urea Nitrogen 23 mg/dL (7-18) H Creatinine 1.2 mg/dL (0.5-1.0) H Glomerular Filtration Rate Calc 47 mL/min (>90) Random Glucose 112 mg/dL (70-105) H Total Calcium 9.0 mg/dL (8.5-10.1) Troponin I High Sensitivity 7 ng/L (4-50) Urine Color LIGHT-YELLOW (YELLOW) Urine Appearance CLEAR (CLEAR) Urine pH 5.5 (5.0-8.0) Urine Specific [place] 1.010 (1.001-1.031) Urine Protein NEGATIVE mg/dL (NEGATIVE) Urine Glucose (UA) NEGATIVE mg/dL (NEGATIVE) Urine Ketones NEGATIVE mg/dL (NEGATIVE) Urine Occult Blood NEGATIVE (NEGATIVE) Urine Nitrate 1+ (NEGATIVE) H Urine Bilirubin NEGATIVE mg/dL (NEGATIVE) Urine Urobilinogen 0.2 mg/dL (0.2-1.0) Urine Leukocyte Esterase 25 Micheline/uL (NEGATIVE) H Urine RBC 0-1 /HPF (0-1) Urine WBC 11-25 /HPF (0-1) H Urine Squamous Epithelial Cells FEW /HPF (0-2) Urine Bacteria FEW /HPF (None Seen) CHEST 1VW REASON: Chest pain COMPARISON: 11/13/2023 FINDINGS: Single view of the chest was obtained. Lungs are clear. Heart size is normal. There is no pulmonary vascular congestion. Mediastinum and bony thorax appear unremarkable. IMPRESSION: 1. Normal single view chest x-ray. FINDINGS: There is normal appearing brain parenchyma. There are no focal mass lesions. There is is no evidence of intracranial hemorrhage or acute stroke. Ventricles and sulci appear normal. Posterior fossa and brainstem structures are unremarkable. Paranasal sinuses and remaining extracranial soft tissues appear normal as well. IMPRESSION: 1. Normal noncontrast CT br Labs Reviewed?: Yes EKG Comment: EKG sinus rhythm/heart rate 63/incomplete left bundle branch block ED Course ED Course Orders Procedure Category Date Status Time 12 Lead Ekg Tracing- EKG 02/28/24 Complete Technical 13:50 Ct Head/Brain W/O CT 02/28/24 Resulted Contrast 14:06 Cbc With Differential LAB 02/28/24 Complete 14:06 Troponin I High LAB 02/28/24 Complete Sensitivity 14:06 Urinalysis Profile LAB 02/28/24 Complete 14:06 12 Lead Ekg Tracing- EKG 02/28/24 Logged Technical 14:06 0.9%Nacl 1000ml (Ns PHA 02/28/24 Complete 1000ml) 14:30 Chest 1vw RAD 02/28/24 Resulted 14:06 Basic Metabolic Panel LAB 02/28/24 Complete 14:06 Culture Urine TRI 02/28/24 In Process 15:24 Amox/Clav 875/125mg PHA 02/28/24 Complete Tab (Augmentin 875-1 15:30 Current Medications Medications (Trade) Dose Ordered Sig/Senia Route PRN Reason Start Time Stop Time Status Last Admin Dose Admin Amoxicillin/ Clavulanate Potassium (Augmentin 875-125 Tablet) 1 each ONCE ONCE PO 02/28/24 15:30 02/28/24 15:35 DC 02/28/24 15:38 Sodium Chloride 1,000 ml @ 0 mls/hr ONCE ONCE IV 02/28/24 14:30 02/28/24 14:31 DC 02/28/24 15:15 Vital Signs Date Time Temp Pulse Resp B/P (MAP) Pulse Ox O2 Delivery O2 Flow Rate FiO2 02/28/24 15:31 98.4 62 18 134/62 96 Room Air* 0 21 02/28/24 14:30 98.8 60 20 137/65 96 Room Air* 0 21 02/28/24 13:51 98.1 59 16 144/64 98 Room Air 0 02/28/24 13:51 98.1 59 16 144/64 98 Room Air* 0 21 FIFTEEN 50 SPOKE WITH PATIENT AND DAUGHTER AT LENGTH SHE FEELS 100% BETTER, NEUROLOGICALLY INTACT FLUIDS WERE GIVEN AN AUGMENTIN WAS INITIATED. HEART Score Response (Comments) Value EKG: Repolarization changes 1 Age: > 65yrs (+2) 2 Risk Factors: 1-2 risk factors (+1) 1 Initial Troponin: Normal limit (0) 0 Total 4 Medical Decision Making MDM MDM: DIFFERENTIAL DIAGNOSIS: CVA/ACS/AMI/ARRHYTHMIA/UTI/ELECTROLYTE IMBALANCE/D EHYDRATION RATIONALE: TESTS CONSIDERED AND ORDERED SECONDARY TO SHARED DECISION MAKING INCLUDE: RADIOLOGY/LABS/EKG PREVIOUS OUTSIDE RECORDS REVIEWED: OLD ER VISITS. RISK OF COMPLICATION AND/OR MORBIDITY OR MORTALITY OF PATIENT MANAGEMENT: NONE MEDICATIONS-PER MEDICATION RECONCILIATION NEED FOR HOSPITALIZATION: PATIENT DOES NOT MEET CRITERIA FOR HOSPITALIZATION. NO NEED FOR EMERGENCY MAJOR/MINOR SURGERY: NO THERE ARE NO SOCIAL CONCERNS WITH THIS PATIENT. PRESCRIPTION DRUG MANAGEMENT AUGMENTIN PRESCRIPTIONS WILL INCLUDE SYMPTOMATIC CARE PATIENT'S PRIOR EXTERNAL MEDICAL RECORDS FROM OTHER ER VISITS WERE REVIEWED BY ME INDICATED. PRIOR TESTING AND RESULTS FROM PREVIOUS VISITS WERE REVIEWED. PRIOR TESTS WERE TAKEN INTO ACCOUNT WITH MEDICAL DECISION MAKING AND RESOURCE UTILIZATION, INDEPENDENT HISTORIAN/HISTORIANS WERE USED TO OBTAIN COMPLETE MEDICAL HISTORY. I INDEPENDENTLY INTERPRETED THE TEST THAT WERE PERFORMED, RESULTS WERE REVIEWED BY ME AND CONSIDERED FINDINGS ON RADIOLOGY IF ORDERED. MEDICAL MANAGEMENT AND EXAMINATION INTERPRETATION DISCUSSIONS WERE HAD BY ME WITH OTHER QUALIFIED HEALTHCARE PROFESSIONALS INDICATED FOR THE PATIENT'S CARE. DX & DISP Disposition: Discharge Departure Impression: Primary Impression: Acute cystitis with hematuria Additional Impressions: Dehydration, Hyperglycemia Condition: Stable Scripts Amoxicillin/Potassium Clav (Amox Tr-K Clv 875-125 mg Tab) 875 Mg-125 Mg Tablet 1 EACH PO BID for 7 Days, #14 TAB 0 Refills Prov: LAXMI MARIE RESOURCE CENTER TEACHER 02/28/24 Additional Instructions: FOLLOW-UP WITH PRIMARY CARE PROVIDER IN 1 TO 2 DAYS. TAKE MEDICATIONS DIRECTED HERE IN THE EMERGENCY ROOM. OKAY TO CONTINUE HOME MEDICATIONS UNLESS OTHERWISE DISCUSSED DURING YOUR VISIT IN THE EMERGENCY ROOM TODAY. RETURN TO YOUR NEAREST EMERGENCY ROOM IF SYMPTOMS WORSEN OR IF THERE IS NO IMPROVEMENT. CALL 911 IF YOU NEED IMMEDIATE ASSISTANCE. TAKE TYLENOL OR MOTRIN [id number] NEEDED AND IF NO CONTRAINDICATIONS ARE PRESENT. INCREASE O RAL HYDRATION. A WOUND CULTURE OR URINE CULTURE WAS ORDERED HERE IN THE EMERGENCY ROOM DEPARTMENT PLEASE FOLLOW-UP WITH PRIMARY CARE PROVIDER AND ADVISE THEM TO GET REPEAT PORTS FROM OUR FACILITY. IF YOU HAD ANY MILLER WRAP/SPLINTS THAT WERE APPLIED HERE, PLEASE DO NOT REMOVE THEM UNTIL YOU SEE YOUR PRIMARY CARE OR SPECIALTY. INCREASE YOUR WATER INTAKE., TAKE ANTIBIOTICS DIRECTED UNTIL GONE., SEE YOUR PRIMARY CARE DOCTOR IN 1-2 DAYS. Referrals: TRISTEN RODGERS MD (PCP) LAXMI MARIE NP Feb 28, 2024 14:10
--- NOTE | 2024-02-28 14:32 | HMCIMG ---
CHEST 1VW REASON: Chest pain COMPARISON: 11/13/2023 FINDINGS: Single view of the chest was obtained. Lungs are clear. Heart size is normal. There is no pulmonary vascular congestion. Mediastinum and bony thorax appear unremarkable. IMPRESSION: 1. Normal single view chest x-ray.
[2024-02-28 14:49] LABS: BASOPHILS # (AUTO) 0.02 K/uL (0.00-0.20); BASOPHILS % (AUTO) 0.3 % (0.0-5.0); EOSINOPHILS # (AUTO) 0.03 K/uL (0.00-0.70); EOSINOPHILS % (AUTO) 0.4 % (0.0-8.0); HEMATOCRIT 33.7 % (36-48); IMMATURE GRANULOCYTE ABSOLUTE 0.01 K/uL (0-1); LYMPHOCYTES # (AUTO) 1.6 K/uL (1.0-4.8); LYMPHOCYTES % (AUTO) 22.4 % (21.0-51.0); MEAN CORPUSCULAR HEMOGLOBIN 29.8 pg (27.0-33.0); MEAN CORPUSCULAR HGB CONC 32.3 g/dL (32.0-36.0); MEAN CORPUSCULAR VOLUME 92.1 fL (79-99); MONOCYTES % (AUTO) 13.9 % (3.0-13.0); NEUTROPHILS # (AUTO) 4.4 K/uL (1.8-7.7); NEUTROPHILS % (AUTO) 62.9 % (40.0-77.0); PLATELET COUNT (AUTO) 167 K/uL (130-400); RED BLOOD CELL COUNT(AUTO) 3.66 MIL/uL (4.00-5.50); RED CELL DISTRIBUTION WIDTH 13.7 % (11.0-15.5)
[2024-02-28 15:04] LABS: CREATININE 1.2 mg/dL (0.5-1.0); POTASSIUM 4.5 mmol/L (3.5-5.1)
--- NOTE | 2024-02-28 15:11 | HMCIMG ---
Exam: NONCONTRAST CT BRAIN REASON: Acute onset dizziness. COMPARISON: 07/24/2022 TECHNIQUE: Images are obtained from vertex to the skull base. The exam was performed without IV contrast. FINDINGS: There is normal appearing brain parenchyma. There are no focal mass lesions. There is is no evidence of intracranial hemorrhage or acute stroke. Ventricles and sulci appear normal. Posterior fossa and brainstem structures are unremarkable. Paranasal sinuses and remaining extracranial soft tissues appear normal as well. IMPRESSION: 1. Normal noncontrast CT brain. CT was performed with one or more following dose reduction techniques: automated exposure control, adjustment of the mA and kv according to patient's size, or use of a iterative reconstruction technique.
[2024-02-28] MEDS: 0.9%NACL 1000ML 1,000 ML IV ONE (15:15)
[2024-02-28 15:22] LABS: APPEARANCE,URINE CLEAR (CLEAR); BILIRUBIN,URINE NEGATIVE (NEGATIVE); COLOR,URINE LIGHT-YELLOW (YELLOW); GLUCOSE, URINE (UA) NEGATIVE (NEGATIVE); KETONES,URINE NEGATIVE (NEGATIVE); LEUKOCYTE ESTERASE ,URINE 25 Leu/uL (NEGATIVE); NITRATE,URINE 1+ (NEGATIVE); OCCULT BLOOD,URINE NEGATIVE (NEGATIVE); PH,URINE 5.5 (5.0-8.0); PROTEIN,URINE NEGATIVE (NEGATIVE); UROBILINOGEN,URINE 0.2 mg/dL (0.2-1.0)
[2024-02-28 15:23] LABS: ADD UA MICROSCOPIC YES
[2024-02-28 15:25] LABS: BACTERIA,URINE FEW /HPF (None Seen); MUCUS,URINE RARE LPF (None Seen); RBC,URINE 0-1 /HPF (0-1); SQUAMOUS EPITHELIAL CELL,UR FEW /HPF (0-2)
[2024-02-28] MEDS: AMOX/CLAV 875/125MG TAB PO ONE (15:38)
[2024-02-28] MEDS ORDERED: AMOX1TAB16 PO (15:55)
[2024-02-28 17:01] VITALS: BP 131/65; PULSE 72; RESP 20; TEMP 98.1; O2SAT 97
== END 2024-02-28 17:01 | disposition home or self-care (01) ==
LOC: EDH 13:49
DX: N30.01 Acute cystitis with hematuria (principal); E86.0 Dehydration; E78.00 Pure hypercholesterolemia, unspecified; I10 Essential (primary) hypertension; Z79.01 Long term (current) use of anticoagulants; Z79.02 Long term (current) use of antithrombotics/antiplatelets; Z79.899 Other long term (current) drug therapy
CPT/HCPCS: 99285; 70450; 71045; 84484; 80048; 85025; 87086 ×2; 87186; 82948; 81001; 36415; 93005; J7030

== ENCOUNTER 2024-05-15 14:49 | Emergency (ER) | payer OTHER ==
[~2024-05-15] VITALS: Ht 149.9 cm; Wt 61.2 kg
[~2024-05-15 14:49] MED LIST changes: +AMOX1TAB16 PO
[2024-05-15 15:26] VITALS: BP 136/48; PULSE 70; RESP 20; TEMP 97.8; O2SAT 99
[2024-05-15] MEDS: acetaMINOPHEN 325 MG TAB PO ONE (16:04)
--- NOTE | 2024-05-15 16:29 | ERN ---
ED Note History of Present Illness Stated Complaint: LUMP ON KNEE Chief Complaint: Knee Injury/Swelling Time Seen by MD: 14:50 Time Seen by Midlevel: 14:50 Dictation: The patient is a 78-year-old female with a history of AFib on Eliquis, hy pertension, hyperlipidemia who presents to the emergency department with complaints of left knee pain after she accidentally bent down on her left knee and hit the floor. Patient denies completely falling. Denies any head trauma or LOC. no other injuries reported. Allergies: Coded Allergies: No Known Allergies (Unverified Allergy, Unknown, 05/12/14) Home Meds Active Scripts Amoxicillin/Potassium Clav (Amox Tr-K Clv 875-125 mg Tab) 875 Mg-125 Mg Tablet, 1 EACH PO BID for 7 Days, #14 TAB 0 Refills Prov:LAXMI MARIE ORTHODONTIC TECHNICIAN 02/28/24 Verapamil HCl (Calan/Isoptin) 80 Mg Tab, 40 MG PO BID, #60 TAB Prov:BETINA ADEN PA 11/14/23 Furosemide (Lasix 40Mg Tab) 40 Mg Tablet, 40 MG PO DAILY, #30 TAB 0 Refills Prov:MEGHA DORAN MEDICAL OPERATIONS SUPERVISOR 11/01/23 Cilostazol (Cilostazol) 100 Mg Tablet, 100 MG PO BID, #60 TAB 1 Refill Prov:MEGHA DORAN MEDICAL OPERATIONS SUPERVISOR 11/01/23 Apixaban (Eliquis) 5 Mg Tablet, 5 MG PO BID, #60 TAB 1 Refill Prov:MEGHA DORAN MEDICAL OPERATIONS SUPERVISOR 11/01/23 Hydralazine HCl (Hydralazine HCl) 25 Mg Tablet, 25 MG PO Q8H PRN for IF SBP GREATER THAN 170, #30 TAB Prov:EMMA PERAZA ORTHODONTIC TECHNICIAN 07/24/22 Isosorbide Mononitrate (Isosorbide Mononitrate ER) 30 Mg Tab.er.24h, 30 MG PO DAILY, #30 TAB 3 Refills Prov:Izabela HARVEY II, MD 05/13/14 Reported Medications Gabapentin (Gabapentin) 100 Mg Capsule, 100 MG PO BID, CAP 11/04/23 Spironolactone (Spironolactone) 25 Mg Tablet, 25 MG PO BID, TAB 10/27/23 Ubidecarenone (Coq10) 50 Mg Tab.chew, 200 MG PO AM, TAB.CHEW 10/18/22 Clopidogrel Bisulfate (Plavix) 75 Mg Tablet, 75 MG PO DAILY, TAB 07/23/22 Ranolazine (Ranolazine ER) 1,000 Mg Tab.er.12h, 1000 MG PO BID, TAB 07/23/22 Magnesium (Magnesium) 250 Mg Tablet, 250 MG PO DAILY, TAB 02/26/17 Atorvastatin Calcium (LIPITOR) 40 Mg Tablet, 40 MG PO DAILY, TAB 05/12/14 Past Medical History Past Medical History: A-Fib, High Cholesterol, Hypertension, Other Additional Past Medical Hx: HX OF IRREGULAR HEARTBEAT Surgical History: Hysterectomy, Other Surgical History Other: RT MASTECTOMY, STENTS Social History: Negative History: Not Applicable RN Note Reviewed/Agreed w/PFSH: Yes Review of System Dictation Constitutional: Negative for fever,chills, and weight loss Eyes: Negative for injury, pain,redness, and discharge ENT: Negative for injury,pain or swelling Cardiovascular: Negative for chest pain, palpitations, and edema Respiratory: Negative for shortness of breath, cough, and wheezing, Abdomen/GI: Negative for abdominal pain, nausea, vomiting, diarrhea, and constipation Back: Negative for injury and pain : Negative for injury, bleeding and discharge MS/Extremity: Positive for right knee pain Skin: Negative for rash, and discoloration Neuro: Negative for headache, weakness, numbness, tingling, and seizure Psych: Negative for suicide ideation, homicidal ideation, and hallucinations Initial Vital Sign VS Vital Signs Date Time Temp Pulse Resp B/P (MAP) Pulse Ox O2 Delivery O2 Flow Rate FiO2 05/15/24 15:17 97.9 70 20 136/48 99 Room Air 0 05/15/24 15:26 21 Physical Exam Dictation Vital Signs reviewed General Appearance: Alert, oriented x 3, no acute distress, well developed, nourished. Head and Face: non-traumatic. Eyes: PERRL, pink conjunctivas, eyelid no trauma, anterior chamber with arcus senilis. Ears: Pinnas intact and no signs of trauma or erythema ear canals clear and no discharge TM no erythema Nose: No discharge, no bleeding. Oropharynx: Mouth normal, tongue pink. pharynx clear,no erythema, tonsils no exudates, no abscesses noted, mucous membrane moist Neck: Supple, non-tender, no thyromegaly, no masses, no JVD, no bruits Breast:Deferred Chest:No tenderness, no crepitus, no paradoxical movement, no retractions Lungs:Clear, well-ventilated, symmetric, no rales, no wheezing, no rhonchi, no stridor, good breath sounds bilaterally Heart: Regular rate, regular rhythm, no murmur, no gallops Vascular: no peripheral edema, dorsalis pedis 3+. Labs Abdomen: Soft, positive bowel sounds, nondistended, no guarding, nontender, no rebound, no masses no hepatomegaly, no splenomegaly, no Ellis's sign, no hernias. Rectal: Deferred Genital: Deferred Neurological: Normal speech, motor function intact, sensory function intact Musculoskeletal: Neck nontender, full range of motion, back nontender, full range of motion, Extremities: nontender, full range of motion , swelling to right knee, full range of motion, cap refill less than 2 seconds Skin: Color pink, dry, no turgor, no rash, no lacerations, no abrasions, no contusions. Lymphatic: Deferred Results (Laboratory/Radiology) Labs Reviewed?: Yes ED Course ED Course Orders Procedure Category Date Status Time Knee 3vws Lt RAD 05/15/24 Taken 15:13 Tibia/Fibula 2vws Lt RAD 05/15/24 Taken 15:13 Acetaminophen 325 Tab PHA 05/15/24 Complete (Tylenol 325mg Tab 15:30 Apply Savage Wrap (Er) CPOE 05/15/24 Transmitted 16:22 Current Medications Medications (Trade) Dose Ordered Sig/Senia Route PRN Reason Start Time Stop Time Status Last Admin Dose Admin Acetaminophen (TYLenol 325MG TAB) 650 mg ONCE ONCE PO 05/15/24 15:30 05/15/24 15:31 DC 05/15/24 16:04 Vital Signs Date Time Temp Pulse Resp B/P (MAP) Pulse Ox O2 Delivery O2 Flow Rate FiO2 05/15/24 15:26 97.9 70 20 136/48 99 Room Air* 0 21 05/15/24 15:17 97.9 70 20 136/48 99 Room Air 0 Medical Decision Making MDM The patient is a 78-year-old female with a history of AFib on Eliquis, hypertension, hyperlipidemia who presents to the emergency department with complaints of left knee pain after she accidentally bent down on her left knee and hit the floor. Patient denies completely falling. Denies any head trauma or LOC. no other injuries reported. X-ray showed no acute fractures or dislocation. Patient with full range of motion to knee, ambulatory, good pedal pulses. We will be discharged to follow up with PCP and orthopedic Differential diagnosis: Knee dislocation, tib-fib fracture, knee contusion Need for hospitalization: Patient does not meet criteria for hospitalization. There are no social concerns with this patient. DX & DISP Disposition: Discharge Departure Impression: Primary Impression: Contusion of right knee Condition: Stable Additional Instructions: Is follow up with the primary doctor in 1-2 days. If symptoms worsen please return to ER. FOLLOW-UP WITH PRIMARY CARE PROVIDER IN 1 TO 2 DAYS. TAKE MEDICATIONS DIRECTED HERE IN THE EMERGENCY ROOM. OKAY TO CONTINUE HOME MEDICATIONS UNLESS OTHERWISE DISCUSSED DURING YOUR VISIT IN THE EMERGENCY ROOM TODAY. RETURN TO YOUR NEAREST EMERGENCY ROOM IF SYMPTOMS WORSEN OR IF THERE IS NO IMPROVEMENT. CALL 911 IF YOU NEED IMMEDIATE ASSISTANCE. TAKE TYLENOL OR MOTRIN [id number] NEEDED AND IF NO CONTRAINDICATIONS ARE PRESENT. INCREASE ORAL HYDRATION. A WOUND CULTURE OR URINE CULTURE WAS ORDERED HERE IN THE EMERGENCY ROOM DEPARTMENT PLEASE FOLLOW-UP WITH PRIMARY CARE PROVIDER AND ADVISE THEM TO GET REPEAT PORTS FROM OUR FACILITY. IF YOU HAD ANY SAVAGE WRAP/SPLINTS THAT WERE APPLIED HERE, PLEASE DO NOT REMOVE THEM UNTIL YOU SEE YOUR PRIMARY CARE OR SPECIALTY. Referrals: TRISTEN RODGERS MD (PCP) BOLIVAR VERGARA MD Time of Disposition: 16:28 I have reviewed the case, and I agree with, Diagnosis and Plan [facility] May 15, 2024 16:29
--- NOTE | 2024-05-15 16:35 | HMCIMG ---
TIBIA/FIBULA 2VWS LT HISTORY: Status post fall COMPARISON: None TECHNIQUE: 2 images of the left tibia and fibula were obtained. FINDINGS: There is no acute displaced fracture or dislocation. Degenerative changes are seen. IMPRESSION: 1. Findings as described above.
--- NOTE | 2024-05-15 16:38 | HMCIMG ---
KNEE 3VWS LT HISTORY: Status post fall COMPARISON: None TECHNIQUE: 3 images of the left knee were obtained. FINDINGS: There is no acute displaced fracture or dislocation. There is soft tissue swelling. Vascular calcifications are seen. Degenerative changes are seen. IMPRESSION: 1. Findings as described above.
== END 2024-05-15 16:55 | disposition home or self-care (01) ==
LOC: EDH 14:49
DX: S80.02XA Contusion of left knee, initial encounter (principal); I48.91 Unspecified atrial fibrillation; I10 Essential (primary) hypertension; E78.00 Pure hypercholesterolemia, unspecified; Z90.710 Acquired absence of both cervix and uterus; Z79.899 Other long term (current) drug therapy; Z79.01 Long term (current) use of anticoagulants; Z79.02 Long term (current) use of antithrombotics/antiplatelets; W18.39XA Other fall on same level, initial encounter; Y93.89 Activity, other specified; Y92.89 Other specified places as the place of occurrence of the external cause; Y99.0 Civilian activity done for income or pay
CPT/HCPCS: 73562; 73590; 99284

== ENCOUNTER 2024-10-26 09:13 | Inpatient (IN) | payer OTHER ==
[~2024-10-26] VITALS: Ht 157.5 cm; Wt 61.8 kg
--- NOTE | 2024-10-26 09:25 | NUR ---
PREPARRING TO ADMINISTER ADENOSINE 6MG/2ML AT THIS TIME, CRASH CART AT BEDSIDE, PATIENT PLACED ON PADDLES, AUTOMOTIVE PARTS INTERPRETER AT BEDSIDE WITH EKG WOOD BUFFER, 2 ED NURSES AND ED MD AT BEDSIDE. PROCEDURE EXPLAINED TO PATIENT AND IS IN AGREEMENT WITH PROCEDURE. PATIENT TOLERATED PROCEDURE WELL. EKGS READ BY ED MD POST PROCEDURE./WIL
[2024-10-26 09:49] LABS: IMMATURE GRANULOCYTE ABSOLUTE 0.03 K/uL (0-1); NUCLEATED RED BLOOD CELLS 0.0 % (0.0-0.19); PLATELET COUNT (AUTO) 265 K/uL (130-400); RED BLOOD CELL COUNT(AUTO) 4.53 MIL/uL (4.00-5.50); RED CELL DISTRIBUTION WIDTH 13.9 % (11.0-15.5); WHITE BLOOD COUNT (AUTO) 8.3 K/uL (4.8-10.8)
[2024-10-26 09:54] LABS: CREATININE 1.3 mg/dL (0.5-1.0); GLOMERULAR FILTR. RATE CALC 42.0 mL/min (>90); GLUCOSE,RANDOM 153.0 mg/dL (70-105); SODIUM SERUM 138.0 mmol/L (136-145); UREA NITROGEN, BLOOD 27.0 mg/dL (7-18)
[2024-10-26 09:56] LABS: RAPID GROUP A STREP negative (NEGATIVE)
[2024-10-26] MEDS: ADENOSINE 6MG VIAL IV ONE ×2 (09:56→10:00)
[2024-10-26 10:00] LABS: ASPARTATE AMINOTRANSFERASE 19.0 U/L (10-37); TOTAL PROTEIN, SERUM 7.7 g/dL (6.0-8.3)
[2024-10-26 10:06] LABS: INFLUENZA TYPE A Negative For Type A (NEGATIVE); INFLUENZA TYPE B Negative For Type B (NEGATIVE)
[2024-10-26 10:07] LABS: COVID19 (SARS ANTIGEN RAPID) PRESUMPTIVE NEGATIVE (NEGATIVE)
[2024-10-26] MEDS ORDERED: VERA240T95 PO (10:58)
[2024-10-26] MEDS ORDERED: ESOM40CA66 PO (11:08)
[2024-10-26] MEDS ORDERED: SUCR1TAB2 PO (11:08)
[2024-10-26] MEDS ORDERED: PANT40TA54 PO (11:08)
[2024-10-26] MEDS ORDERED: ATEN100T PO (11:08)
[2024-10-26] MEDS ORDERED: ASPI-1197 PO (11:08)
[2024-10-26] MEDS ORDERED: FURO40TA5 PO (11:08)
[2024-10-26] MEDS ORDERED: HYDR25TA67 PO (11:17)
[2024-10-26] MEDS ORDERED: LETR2.5T7 PO (11:17)
[2024-10-26] MEDS ORDERED: LOSA25TA41 PO (11:17)
--- NOTE | 2024-10-26 11:17 | HMCIMG ---
EXAM: CR Chest, 1 View. CLINICAL HISTORY: cp COMPARISON: Radiograph dated February 28, 2024 FINDINGS: LUNGS: There is no mass, infiltrate, or acute pulmonary abnormality. PLEURAL SPACES: No pleural effusion or pneumothorax. MEDIASTINUM: Heart size is stable. Pulmonary vessels are within normal limits. BONES: No acute osseous abnormality. IMPRESSION: No acute cardiopulmonary pathology is evident. /[place]
[2024-10-26] MEDS ORDERED: UBID300C3 PO (11:22)
[2024-10-26] MEDS ORDERED: MAGN100T PO (11:22)
--- NOTE | 2024-10-26 11:49 | NUR ---
ACHS DONE ORDERED,PT'S BG 110. PT STATES SHE HAS NOT GOT DIABETES.
--- NOTE | 2024-10-26 12:04 | ERN ---
ED Note History of Present Illness Stated Complaint: AFIB RVR Chief Complaint: Chest Pain Time Seen by MD: 09:16 Dictation: 79-year-old female presenting to the emergency department with intermittent chest pain palpitations since yesterday history of atrial fibrillation on multiple medications for blood pressure, says she gets exertional shortness a breath with this recent episode. Allergies: Coded Allergies: No Known Allergies (Unverified Allergy, Unknown, 05/12/14) Home Meds Active Scripts Apixaban (Eliquis) 5 Mg Tablet, 5 MG PO BID, #60 TAB 1 Refill Prov:MEGHA DORAN COMMERCIAL LOAN SPECIALIST 11/01/23 Isosorbide Mononitrate (Isosorbide Mononitrate ER) 30 Mg Tab.er.24h, 30 MG PO DAILY, #30 TAB 3 Refills Prov:Izabela HARVEY II, MD 05/13/14 Reported Medications Magnesium Glycinate (Mag Glycinate) 100 Mg Tablet, 200 MG PO BID, TAB 10/26/24 Ubidecarenone (Co Q-10) 300 Mg Capsule, 1 CAP PO DAILY for 30 Days, #60 CAP 0 Refills 10/26/24 Letrozole (Letrozole) 2.5 Mg Tablet, 1 TAB PO DAILY for 30 Days, #30 TAB 0 Refills 10/26/24 Hydralazine HCl (Hydralazine HCl) 25 Mg Tablet, 1 TAB PO BID for 30 Days, #60 TAB 0 Refills 10/26/24 Losartan Potassium (Losartan Potassium) 25 Mg Tablet, 1 TAB PO DAILY for 30 Days, #30 TAB 0 Refills 10/26/24 Furosemide (Furosemide) 40 Mg Tablet, 1 TAB PO BID for 30 Days, #30 TAB 0 Refills 10/26/24 Esomeprazole Magnesium (Esomeprazole Magnesium) 40 Mg Capsule.dr, 1 CAP PO DAILY for 30 Days, #30 CAP 0 Refills 10/26/24 Pantoprazole Sodium (Pantoprazole Sodium) 40 Mg Tablet.dr, 1 TAB PO DAILY for 30 Days, #30 TAB 0 Refills 10/26/24 Sucralfate (Sucralfate) 1 Gram Tablet, 1 TAB PO QID for 30 Days, #120 TAB 0 Refills 10/26/24 Aspirin (Aspirin) 81 Mg Tab.chew, 1 TAB PO DAILY for 30 Days, #30 TAB 0 Refills 10/26/24 Atenolol (Atenolol) 100 Mg Tablet, 0.5 TAB PO DAILY for 30 Days, #30 TAB 0 Refills 10/26/24 Verapamil HCl (Verapamil ER) 240 Mg Tablet.er, 1 TAB PO BID for 30 Days, #30 TAB 0 Refills 10/26/24 Gabapentin (Gabapentin) 100 Mg Capsule, 100 MG PO BID, CAP 11/04/23 Spironolactone (Spironolactone) 25 Mg Tablet, 25 MG PO BID, TAB 10/27/23 Clopidogrel Bisulfate (Plavix) 75 Mg Tablet, 75 MG PO DAILY, TAB 07/23/22 Atorvastatin Calcium (LIPITOR) 40 Mg Tablet, 40 MG PO DAILY, TAB 05/12/14 Discontinued Reported Medications Ubidecarenone (Coq10) 50 Mg Tab.chew, 200 MG PO AM, TAB.CHEW 10/18/22 Ranolazine (Ranolazine ER) 1,000 Mg Tab.er.12h, 1000 MG PO BID, TAB 07/23/22 Magnesium (Magnesium) 250 Mg Tablet, 250 MG PO DAILY, TAB 02/26/17 Discontinued Scripts Amoxicillin/Potassium Clav (Amox Tr-K Clv 875-125 mg Tab) 875 Mg-125 Mg Tablet, 1 EACH PO BID for 7 Days, #14 TAB 0 Refills Prov:LAXMI MARIE FACING BASTER 02/28/24 Verapamil HCl (Calan/Isoptin) 80 Mg Tab, 40 MG PO BID, #60 TAB Prov:BETINA ADEN PA 11/14/23 Furosemide (Lasix 40Mg Tab) 40 Mg Tablet, 40 MG PO DAILY, #30 TAB 0 Refills Prov:MEGHA DORAN COMMERCIAL LOAN SPECIALIST 11/01/23 Cilostazol (Cilostazol) 100 Mg Tablet, 100 MG PO BID, #60 TAB 1 Refill Prov:MEGHA DORAN COMMERCIAL LOAN SPECIALIST 11/01/23 Hydralazine HCl (Hydralazine HCl) 25 Mg Tablet, 25 MG PO Q8H PRN for IF SBP GREATER THAN 170, #30 TAB Prov:EMMA PERAZA FACING BASTER 07/24/22 Past Medical History Past Medical History: GERD, High Cholesterol, Hypertension Additional Past Medical Hx: PAD, Surgical History: Other Surgical History Other: RT BREAST MAST/ HYST/ HEMORRHOIDS Social History: Negative History: Not Applicable Review of System Dictation Constitutional: Negative for fever,chills, and weight loss Eyes: Negative for injury, pain,redness, and discharge ENT: Negative for injury,pain or swelling Cardiovascular: Per HPI Respiratory: Per HPI Abdomen/GI: Negative for abdominal pain, nausea, vomiting, diarrhea, and constipation Back: Negative for injury and pain : Negative for injury, bleeding and discharge MS/Extremity: Negative for injury and deformity Skin: Negative for rash, and discoloration Neuro: Negative for headache, weakness, numbness, tingling, and seizure Psych: Negative for suicide ideation, homicidal ideation, and hallucinations Initial Vital Sign VS Vital Signs Date Time Temp Pulse Resp B/P (MAP) Pulse Ox O2 Delivery O2 Flow Rate FiO2 10/26/24 09:25 98.2 161 18 137/81 77 10/26/24 10:01 Room Air* 0 21 Physical Exam Dictation General: awake, alert, NAD Head/Face: Normocephalic, atraumatic Eyes: PERRL, EOMI, vision at baseline ENT: oral cavity clear, TMs clear, no signs of infection Neck: Trachea midline, supple, no nuchal rigidity Cardiovascular: Tachycardic irregularly irregular no JVD Respiratory: CTAB, no respiratory distress, No rales or wheezes Abdomen: Soft, non-tender, non-distended, normal bowel sounds, no guarding or rebound. Skin: Warm, dry, normal turgor, no rash MS/Extremity: Pulses equal, no cyanosis, neurovascular intact, FROM Neuro: COAx4, GCS 15, strength 5/5, CN 2-12 intact, normal cerebellar exam, normal gait, Psych: Normal behavior, mood, and affect normal Results (Laboratory/Radiology) Laboratory/Radiology Laboratory Tests Test 10/26/24 09:23 10/26/24 09:37 10/26/24 11:44 Influenza Type A Antigen Negative For Type A Influenza Type B Antigen Negative For Type B SARS-CoV-2 Antigen (Rapid) PRESUMPTIVE NEGATIVE Group A Streptococcus Rapid negative (NEGATIVE) White Blood Count 8.3 K/uL (4.8-10.8) Red Blood Count 4.53 MIL/uL (4.00-5.50) Hemoglobin 12.7 g/dL (12.0-16.0) Hematocrit 39.7 % (36-48) Mean Corpuscular Volume 87.6 fL (79-99) Mean Corpuscular Hemoglobin 28.0 pg (27.0-33.0) Mean Corpuscular Hemoglobin Concent 32.0 g/dL (32.0-36.0) Red Cell Distribution Width 13.9 % (11.0-15.5) Platelet Count 265 K/uL (130-400) Mean Platelet Volume 11.0 fL (7.5-10.5) H Immature Granulocyte % (Auto) 0.4 % (0-1) Neutrophils (%) (Auto) 57.3 % (40.0-77.0) Lymphocytes (%) (Auto) 32.4 % (21.0-51.0) Monocytes (%) (Auto) 6.2 % (3.0-13.0) Eosinophils (%) (Auto) 3.1 % (0.0-8.0) Basophils (%) (Auto) 0.6 % (0.0-5.0) Neutrophils # (Auto) 4.7 K/uL (1.8-7.7) Lymphocytes # (Auto) 2.7 K/uL (1.0-4.8) Monocytes # (Auto) 0.5 K/uL (0.1-1.0) Eosinophils # (Auto) 0.26 K/uL (0.00-0.70) Basophils # (Auto) 0.05 K/uL (0.00-0.20) Absolute Immature Granulocyte (auto 0.03 K/uL (0-1) Nucleated Red Blood Cells 0.0 % (0.0-0.19) Sodium Level 138 mmol/L (136-145) Potassium Level 4.4 mmol/L (3.5-5.1) Chloride Level 101 mmol/L (101-111) Carbon Dioxide Level 31 mmol/L (21-32) Blood Urea Nitrogen 27 mg/dL (7-18) H Creatinine 1.3 mg/dL (0.5-1.0) H Glomerular Filtration Rate Calc 42 mL/min (>90) Random Glucose 153 mg/dL (70-105) H Total Calcium 9.5 mg/dL (8.5-10.1) Total Bilirubin 0.4 mg/dL (0.2-1.0) Direct Bilirubin 0.1 mg/dL (0.0-0.3) Aspartate Amino Transf (AST/SGOT) 19 U/L (10-37) Alanine Aminotransferase (ALT/SGPT) 24 U/L (12-78) Alkaline Phosphatase 116 U/L (50-136) Troponin I High Sensitivity 12 ng/L (4-50) B-Type Natriuretic Peptide 420 pg/mL (0-100) H Total Protein 7.7 g/dL (6.0-8.3) Albumin 3.8 g/dL (3.5-5.0) Whole Blood Glucose 110 MG/DL (70-110) Labs Reviewed?: Yes EKG Comment: Heart rate 159 SVT no STEMI Next EKG HR 131 atrial fibrillation with rapid ventricular response ED Course ED Course Orders Procedure Category Date Status Time B-Type Natriuretic LAB 10/26/24 Complete Peptide 09:16 12 Lead Ekg Tracing- EKG 10/26/24 Logged Technical 09:16 Basic Metabolic Panel LAB 10/26/24 Complete 09:16 Cbc With Differential LAB 10/26/24 Complete 09:16 Hepatic Function Panel LAB 10/26/24 Complete 09:16 Troponin I High LAB 10/26/24 Complete Sensitivity 09:16 Chest 1vw RAD 10/26/24 Resulted 09:16 Influenza Type A & B, LAB 10/26/24 Complete Rapid 09:16 Covid19 (Sars Antigen LAB 10/26/24 Complete Rapid) 09:16 Rapid (Group A Strep) LAB 10/26/24 Complete 09:16 Adenosine 6mg Vial PHA 10/26/24 Complete (Adenocard 6mg Vial) 09:34 Metoprolol Tartrate PHA 10/26/24 Complete (Lopressor) 09:43 12 Lead Ekg Tracing- EKG 10/26/24 Transmitted Technical 09:44 Adenosine 6mg Vial PHA 10/26/24 Complete (Adenocard 6mg Vial) 10:00 Metoprolol Tartrate PHA 10/26/24 Complete (Lopressor) 10:00 Admit Orders ADM 10/26/24 Transmitted 11:17 Vital Signs Every 4 CPOE 10/26/24 Transmitted Hours 11:18 I&O Q Shift CPOE 10/26/24 Transmitted 11:18 Activity: Bed Rest CPOE 10/26/24 Transmitted 11:18 Heart Healthy Diet DIET 10/26/24 Transmitted Lunch O2 Order RT 10/26/24 Transmitted 11:18 Cbc Without LAB 10/27/24 Verified Differential 04:00 Basic Metabolic Panel LAB 10/27/24 Verified 04:00 Magnesium LAB 10/27/24 Verified 04:00 Phosphorus LAB 10/27/24 Verified 04:00 Echo 2-D Complete ECHO 10/26/24 Logged 11:18 Famotidine 20mg Tab PHA 10/26/24 In Process (Pepcid 20mg Tab) 21:00 Aspirin 81mg Chew Tab PHA 10/27/24 In Process (Aspirin 81mg Chew 09:00 Acetaminophen 325 Tab PHA 10/26/24 In Process (Tylenol 325mg Tab 11:30 Acetaminophen 650mg PHA 10/26/24 In Process Supp (Tylenol 650mg 11:30 Lactulose 20 Gm/30 Ml PHA 10/26/24 In Process Udcup (Constulose 11:30 Docusate Sodium 100 PHA 10/26/24 In Process Mg Cap (Colace 100mg 11:30 Temazepam 15 Mg Cap PHA 10/26/24 In Process (Restoril 15 Mg Cap) 11:30 Labetalol 20mg Syg PHA 10/26/24 In Process (Trandate 20mg Syg) 11:30 Telemetry Monitoring CPOE 10/26/24 Transmitted 11:18 Initiate JESSICA 10/26/24 In Process Hyperglycemia Protoco 11:18 Insulin Regular, PHA 10/26/24 In Process Human 3ml (Humulin R 11:30 Hydralazine 20mg Inj PHA 10/26/24 Complete (Apresoline 20mg In 11:30 Current Medications Medications (Trade) Dose Ordered Sig/Senia Route PRN Reason Start Time Stop Time Status Last Admin Dose Admin Adenosine (Adenocard 6mg Vial) 6 mg ONCE ONCE IV 10/26/24 10:00 10/26/24 10:01 DC 10/26/24 09:56 Adenosine (Adenocard 6mg Vial) 6 mg STK-MED ONCE IV 10/26/24 09:34 10/26/24 09:35 DC Metoprolol Tartrate (loprESSOR) 5 mg ONCE ONCE IV 10/26/24 10:00 10/26/24 10:01 DC 10/26/24 10:00 Metoprolol Tartrate (loprESSOR) 5 mg STK-MED ONCE IV 10/26/24 09:43 10/26/24 09:43 DC Vital Signs Date Time Temp Pulse Resp B/P (MAP) Pulse Ox O2 Delivery O2 Flow Rate FiO2 10/26/24 10:01 104 18 146/60 98 Room Air* 0 21 10/26/24 10:00 131 10/26/24 09:56 167 10/26/24 09:25 98.2 161 18 137/81 77 Medical Decision Making MDM MDM: Differential diagnosis: Rationale: Tests considered and ordered secondary to shared decision making include: labs, ECG and radiology Previous outside records reviewed: Old ER visits. Risk of complication and/or morbidity or mortality of patient management: None Medications-Per medication reconciliation Need for hospitalization: Patient does meet criteria for hospitalization. Need for emergency major/minor surgery: No There are no social concerns with this patient. Prescription drug management Prescriptions will include symptomatic care Patient's prior external medical records from other ER visits were reviewed by me as indicated. Prior testing and results from previous visits were reviewed. Prior tests were taken into account with medical decision making and resource utilization, independent historian/historians were used to obtain complete medical history. I independently interpreted the test that were performed, results were reviewed by me and considered findings on radiology if ordered. Medical management and examination interpretation discussions were had by me with other qualified healthcare professionals as indicated for the patient's care. 79-year-old female with tachycardia, SVT/paroxysmal AFib RVR tried adenosine with minimal improvement and transition to Lopressor x3 rate controlled admitting to Medicine for further care and evaluation Critical Care Note Comment(s) Total critical care time was 33 minutes. Excluding time for procedures. Management of critically ill patient with concern for acute decompensation. Management included interpretation of laboratory values and imaging, hemodynami cs, time for consultation with consultants and admitting physician. DX & DISP Disposition: Inpatient Departure Impression: Primary Impression: Atrial fibrillation with RVR Condition: Stable Referrals: TRISTEN RODGERS MD (PCP) GREG CAST MD Oct 26, 2024 12:04
[2024-10-26] MEDS: VERAPAMIL HCL 240 MG SRTAB PO SCH (13:00)
[2024-10-26] MEDS: SUCRALFATE 1 GM TABLET PO SCH (13:08)
[2024-10-26] MEDS: ATENOLOL 50 MG TABLET PO ONE (13:08)
--- NOTE | 2024-10-26 13:13 | HP ---
[facility] HISTORY & PHYSICAL Date Patient Seen: Oct 26, 2024 Time of Visit: 13:12 Supervising Physician: Dr. Pernell Vidal Primary Care Physician: Dr. Jordon Ortiz Outpatient Specialists: Dr. Demond Dejesus, [facility] Inpatient Consults: Dr. Demond Kirby, [facility] PROBLEM LIST: AFib with RVR, POA, on chronic anticoagulation with Eliquis SVT, POA Unstable angina, POA CHF with acute exacerbation, POA LVEF 55-60%, grade 3 diastolic dysfunction per 12/15/2023 Uncontrolled hypertension, POA Acute on chronic kidney disease, GFR 42 Hyperglycemia CAD s/p PCI with MICHAEL placement (Promus Premier 2.5x20 mm) in the mid LAD done on 05/13/2014 Chronic problem list: s/p LHC/coronary angiogram done on 10/20/2022 which identified significant stenosis in the ostial OM1 (tiny vessel), a patent stent in the mid LAD, and otherwise normal coronary arteries Normal Lexiscan stress test done 08/28/2023 HFpEF (LVEF: 55% by echo done 05/30/2022) Right sided breast CA s/p right lumpectomy PAD s/p left lower extremity peripheral intervention on 08/19/2021 History of GI bleed, (+) melena s/p EGD 11/07/2023 and push enteroscopy 11/11/2023 with findings of gastritis, no active bleed identified s/p colonoscopy 11/11/2023 with findings of non-bleeding AVM which was cauterized Bilateral lower extremity weakness and paresthesia with multilevel lumbar spondylosis with cord compression per MRI 11/06/2023 HPI: Ms. Castro is a 79-year-old female with a history of atrial fibrillation, HTN on multiple BP meds, hypercholesteremia, GERD, PAD who presented to [facility] ED for evaluation of worsening chest pain, shortness of breath, and palpitations onset Sunday. The patient reported that the shortness of breath is worse with exertion. The patient stated that due to worsening shortness of breath has she did not take any of her medications this morning. She says Dr. Demond Dejesus, passenger car inspector at [facility] who she last saw about 1 month ago when he put a stent in her left leg. ED provider reported that the patient presented to the ED with SVT, heart rate of 160s (161-167 bpm), BP 137/81, respirations 18, 97% on RA, 98.2 F.. He stated that the patient was administered adenosine 6 mg at 9:56 a.m. and then followed by metoprolol 5 mg at 10:00 a.m.. with improvement of heart rate in 130s bpm. Troponin 12, BNP 420, chest x-ray no acute cardiopulmonary pathology is evident. Initial EKG: SVT, HR 156. 2nd EKG: afib HR 131. ED provider requested patient to be admitted to the hospital with the diagnosis of AFib RVR. RN called to report that the patient's heart rate improved to 130s bpm, then 105 bpm, then increase to 160s bpm again. Metoprolol 5 mg IV ordered and administered. I assessed the patient at bedside in ED 10. Significant other was at bedside. The patient was connected to the defibrillator. The patient breathing was even, unlabored up, appeared comfortable, and in no distress. The patient's heart rate was in the 124s bpm, BP 167/115, respirations 16 bpm, 97% on room air. The patient reported ongoing jaw pain and chest pain. The patient was started on nitroglycerin. Administered Lasix 40 mg IV and aspirin 324 mg. The home medications verapamil 240 mg, atenolol 50 mg, Eliquis5 mg p.o. Dr. Dejesus, passenger car inspector was consulted by RN. I informed the patient and significant others of labs, diagnostics, and plan of care. They verbalized understanding and are in agreement with the plan. Plan and assessment are listed below. PAST MEDICAL HX: see above PAST SURGICAL HX: Coronary stent, which was a drug-eluting as well as peripheral vascular intervention lumpectomy for breast cancer SOCIAL HISTORY: No tobacco, ETOH, or illicit drug use FAMILY HISTORY: The patient's mother of heart disease. Coded Allergies: No Known Allergies (Unverified Allergy, Unknown, 05/12/14) REVIEW OF SYSTEMS: 12 point ROS reviewed with patient. Pertinent positives mentioned above. Otherwise negative. PHYSICAL EXAM: GENERAL: Alert, weak, awake oriented x 3 HEENT: EOMI, Sclera non icteric, moist mucosa NECK: Supple, no JVD, trachea midline LUNGS: Clear breath sounds bilaterally. No wheezes HEART: Regular rate and rhythm. Normal S1 and S2, without murmurs ABD: Abdomen soft, nontender. Bowel sounds present EXT: No clubbing cyanosis or edema NEURO: Alert and oriented X3, follows commands Vital Signs (last 8hr) Date Time Temp Pulse Resp B/P (MAP) Pulse Ox O2 Delivery O2 Flow Rate FiO2 10/26/24 13:08 124 159/78 10/26/24 12:31 161 10/26/24 11:50 97.5 105 14 171/57 97 Room Air* 0 21 10/26/24 11:00 98 17 192/65 98 Room Air* 0 21 10/26/24 10:01 104 18 146/60 98 Room Air* 0 21 10/26/24 10:00 131 10/26/24 09:56 167 10/26/24 09:25 98.2 161 18 137/81 77 LABS: Hematology Labs: Test 10/26/24 09:37 Range/Units White Blood Count 8.3 4.8-10.8 K/uL Red Blood Count 4.53 4.00-5.50 MIL/uL Hemoglobin 12.7 12.0-16.0 g/dL Hematocrit 39.7 36-48 % Mean Corpuscular Volume 87.6 79-99 fL Mean Corpuscular Hemoglobin 28.0 27.0-33.0 pg Mean Corpuscular Hemoglobin Concent 32.0 32.0-36.0 g/dL Red Cell Distribution Width 13.9 11.0-15.5 % Platelet Count 265 130-400 K/uL Mean Platelet Volume 11.0 H 7.5-10.5 fL Immature Granulocyte % (Auto) 0.4 0-1 % Neutrophils (%) (Auto) 57.3 40.0-77.0 % Lymphocytes (%) (Auto) 32.4 21.0-51.0 % Monocytes (%) (Auto) 6.2 3.0-13.0 % Eosinophils (%) (Auto) 3.1 0.0-8.0 % Basophils (%) (Auto) 0.6 0.0-5.0 % Neutrophils # (Auto) 4.7 1.8-7.7 K/uL Lymphocytes # (Auto) 2.7 1.0-4.8 K/uL Monocytes # (Auto) 0.5 0.1-1.0 K/uL Eosinophils # (Auto) 0.26 0.00-0.70 K/uL Basophils # (Auto) 0.05 0.00-0.20 K/uL Absolute Immature Granulocyte (auto 0.03 0-1 K/uL Nucleated Red Blood Cells 0.0 0.0-0.19 % Chemistry Labs: Test 10/26/24 11:44 10/26/24 09:37 Range/Units Whole Blood Glucose 110 70-110 MG/DL Sodium Level 138 136-145 mmol/L Potassium Level 4.4 3.5-5.1 mmol/L Chloride Level 101 101-111 mmol/L Carbon Dioxide Level 31 21-32 mmol/L Blood Urea Nitrogen 27 H 7-18 mg/dL Creatinine 1.3 H 0.5-1.0 mg/dL Glomerular Filtration Rate Calc 42 >90 mL/min Random Glucose 153 H 70-105 mg/dL Total Calcium 9.5 8.5-10.1 mg/dL Total Bilirubin 0.4 0.2-1.0 mg/dL Direct Bilirubin 0.1 0.0-0.3 mg/dL Aspartate Amino Transf (AST/SGOT) 19 10-37 U/L Alanine Aminotransferase (ALT/SGPT) 24 12-78 U/L Alkaline Phosphatase 116 50-136 U/L Troponin I High Sensitivity 12 4-50 ng/L B-Type Natriuretic Peptide 420 H 0-100 pg/mL Total Protein 7.7 6.0-8.3 g/dL Albumin 3.8 3.5-5.0 g/dL DIAGNOSTICS / RADIOLOGY RESULTS: [ ] PLAN -Admit to ICU with continuous telemetry monitoring. -Troponin levels and EKG series. -Start nitroglycerin IV drip. -Start patient's home medications: Aspirin, Atenolol, Verapamil, Lasix, Hydralazine, Losartan, magnesium Glycinate, Protonix, sucralfate, CoQ-10, Gabapentin, Eliquis, Spironolactone, Plavix, Isosorbide Mononitrate, Atorvastatin. -Cardiology consult. -2D echo in a.m. with heart clinic to read. -PRN medications for pain management, fever, N/V, constipation, hypertension. -Oxygen supplement as needed to maintain oxygen levels equal to or greater than 92% -Strict I&O. -Fluid restriction 1,200 mls in 24 hours. -V/S per ICU. -Glucometer checks before meals and at bedtime with insulin regular sliding scale. -Blood pressure checks every 4 hours and as needed. -Monitor renal and liver function. -Monitor electrolytes and treat accordingly PRN -AM labs. -GI and DVT prophylaxis -Further plan/orders per hospitalization course. NEURO: Minimize central acting medications as possible. Maintain fall precautions, adequate lighting during the day PULMONARY: Supplemental 02 as needed. Maintain aspiration precautions at all times CARDIOVASCULAR: Follow hemodynamics. Vital signs per facility protocol GI & NUTRITION: Continue with nutritional support. Continue stool softeners and laxatives as needed. KIDNEYS & ELECTROLYTES: Strict monitoring of intake, output and overall fluid balance. Avoid nephrotoxic medications to the extent possible. Medications to be dosed according to renal function. Monitor electrolytes and replace as needed ENDOCRINE: Maintain blood glucose between 100-180 at all times. Hypoglycemia protocol in place INFECTIOUS DISEASE: Trend temperature, WBC and procalcitonin level Follow cultures, deescalate antibiotics as soon as possible. Panculture if new onset fever ONCOLOGY/HEMATOLOGY/COAGULATION: Monitor for s/s of bleeding Monitor hemoglobin, coagulation studies as needed SKIN: Pressure ulcer prevention per facility protocol Specialty mattress ORTHO/REHAB: Continue PT/OT Prophylaxis: Continue GI and DVT prophylaxis Code Status: Full Resuscitation Disposition: TBD ATTESTATION BY PHYSICIAN The patient has been seen and evaluated, the case has been discussed with the SILK PRESSER, I agree with the clinical findings and plan of care. Pernell Vidal MD, LUCIA M CANDY DEPARTMENT MANAGER Oct 26, 2024 13:13
[2024-10-26] MEDS: ASPIRIN 81MG CHEW TAB PO ONE (13:46)
[2024-10-26] MEDS: NITROGLYCERIN 50MG/D5W 250ML 250 BOT IV SCH (13:53)
--- NOTE | 2024-10-26 15:00 | NUR ---
Cardiology Dr Dejesus saw the patient. He will be putting his orders in [facility].
--- NOTE | 2024-10-26 15:03 | CONS ---
Cardiac Consult Note CONSULT NOTE DATE OF SERVICE: Oct 26, 2024 at 09:13 REFERRING PROVIDER: MICHAEL HOUSE MD REASON FOR CONSULT: We have been asked to see this patient in regards to episodes of chest pain which have been plaguing her all weekend HPI: 79-year-old female who is well known to [facility] who has a history known of coronary artery disease and actually has had an LAD stent placed in 2014 who suffered a non ST segment elevation myocardial infarction in October of 2023 and underwent coronary angiography in that setting revealing a patent LAD stent with nonobstructive disease noted in the right coronary artery and a 90% stenosis noted in an obtuse marginal branch 1 lesion which was felt to be small and best treated medically. Patient does have a history of persistent atrial fibrillation and has been maintained on anticoagulation therapy specifically with the apixaban at 5 mg twice daily. Patient is on significant AV valentina blocking agents at home for rate control to include atenolol at 100 mg half a tab daily and verapamil at 240 mg daily extended release. Patient states she has been compliant with her medications. Patient states her chest pains that she is describing is a pressure in the center of her chest associated with some nausea and shortness of breath. Patient does not have any associated palpitations with this chest discomfort nor does she think it brings it on. Patient does have a history of bilateral iliac vein compression as well as superficial venous insufficiency and peripheral arterial disease and has had an ablation done to a right smaller saphenous vein and a peripheral arterial int ervention to her left popliteal artery. She is pending iliac vein stent placement for iliac vein compression of severe degree bilaterally. Since she has been placed in the emergency room she has had several episodes where she has fast heart rates requiring IV medication. When she presented she was in atrial fibrillation with rapid ventricular response. She has received her oral verapamil and atenolol and heart rate seems to be less than 100 upon my evaluation today. She is on a nitro drip and denies any further pain discomfort or tightness. Patient's home medications listed include pantoprazole 40 mg half tab daily Pletal 100 mg twice daily Eliquis 5 mg twice daily spironolactone 25 mg twice daily clopidogrel 75 mg daily atorvastatin 40 mg nightly aspirin 81 mg daily atenolol 100 mg half tab daily hydralazine 25 mg prn, furosemide 40 mg 1 tab daily, isosorbide mononitrate 30 mg 1 tablet daily , verapamil ER 241 g daily, letrozole 2.5 mg daily Patient has no known drug allergies. ROS: No fever, headache, chest pain, abdominal pain, nausea, vomiting, or diarrhea. PMHX: Hypertension Dyslipidemia Breast cancer with prior history of remote right lumpectomy Coronary artery status post mid LAD stent placement May 13, [address] segment elevation myocardial infarction on October 30, 2023 with repeat coronary angiogram revealing a patent LAD stent, patent RCA, 90% stenosis of a small obtuse branch 1. Peripheral arterial disease with laser atherectomy cutting balloon angioplasty and drug coated balloon angioplasty to the proximal and mid left popliteal artery with three-vessel runoff noted bilaterally Severe iliac vein compression of left common and right external iliac vein on 09/22/2024 Varithena ablation to right smaller saphenous vein on 10/03/2024 PSHX: Noncontributory FH: [] Noncontributory SOCIAL: [] Nonsmoker nondrinker PHYSICAL EXAMINATION: GENERAL: No acute distress. HEENT: Normocephalic, atraumatic. CARDIAC: Positive S1 and S2 irregularly irregular. No murmurs. LUNGS: Clear to auscultation bilaterally. ABDOMEN: Bowel sounds present, soft, nontender. EXTREMITIES: Chronic venous stasis changes noted with hyperpigmentation seen and minimal edema NEUROLOGIC: Cranial nerves 2-12 grossly intact. PSYCHIATRIC: Calm. ASSESSMENT: Unstable angina Known coronary artery disease with prior LAD stent placed 2014 Atrial fibrillation persistent with the episodes of rapid ventricular response Acute congestive heart failure likely diastolic PLAN: [] We will schedule patient for cardiac workup to be performed considering her known history of coronary artery disease as well as the unstable angina symptoms. Patient may best be served with coronary CT angiography to assess patency of LAD stent and any progression of disease involving patient's right coronary artery or body of left circumflex artery. We do know that she has a 90% stenosis involving obtuse marginal branch which is unchanged would likely be our warrant continued medical therapy. Patient will be continued on guideline directed medical therapy and we will optimize blood pressure and heart rate control. Before we can proceed with coronary CT angiography we will have to optimize heart rate control and adjustments will be made to medications here while patient has been admitted. We will check 2D echocardiography in a.m.. In regards to patient's acute diastolic congestive heart failure I do agree with Lasix 40 mg IV dosing and see how patient does in response. We will order 2D echocardiogram In regards to patient's atrial fibrillation we will continue with verapamil and atenolol at current dosing but I will write for some p.r.n. IV Lopressor and consider diltiazem drip if patient's heart rate becomes uncontrolled. Again we will repeat 2D echocardiogram. We will hold Eliquis therapy and initiate anticoagulation with low-molecular weight heparin in preparation for possible studies to be performed invasively if necessary based on coronary CT angiogram report. Vital Signs 10/26/24 10/26/24 10/26/24 10/26/24 09:25 09:56 10:00 10:01 Temp 98.2 Pulse 161 167 131 104 Resp 18 18 B/P (MAP) 137/81 146/60 Pulse Ox 77 98 O2 Delivery Room Air* O2 Flow Rate 0 FiO2 21 10/26/24 10/26/24 10/26/24 10/26/24 11:00 11:50 12:31 13:08 Temp 97.5 Pulse 98 105 161 124 Resp 17 14 B/P (MAP) 192/65 171/57 159/78 Pulse Ox 98 97 O2 Delivery Room Air* Room Air* O2 Flow Rate 0 0 FiO2 21 21 10/26/24 13:35 Temp 97.5 Pulse 124 Resp 14 B/P (MAP) 167/115 Pulse Ox 94 O2 Delivery Room Air* O2 Flow Rate 0 FiO2 21 Laboratory Tests Test 10/26/24 09:23 10/26/24 09:37 10/26/24 11:44 Influenza Type A Antigen Negative For Type A Influenza Type B Antigen Negative For Type B SARS-CoV-2 Antigen (Rapid) PRESUMPTIVE NEGATIVE Group A Streptococcus Rapid negative (NEGATIVE) White Blood Count 8.3 K/uL (4.8-10.8) Red Blood Count 4.53 MIL/uL (4.00-5.50) Hemoglobin 12.7 g/dL (12.0-16.0) Hematocrit 39.7 % (36-48) Mean Corpuscular Volume 87.6 fL (79-99) Mean Corpuscular Hemoglobin 28.0 pg (27.0-33.0) Mean Corpuscular Hemoglobin Concent 32.0 g/dL (32.0-36.0) Red Cell Distribution Width 13.9 % (11.0-15.5) Platelet Count 265 K/uL (130-400) Mean Platelet Volume 11.0 fL (7.5-10.5) Immature Granulocyte % (Auto) 0.4 % (0-1) Neutrophils (%) (Auto) 57.3 % (40.0-77.0) Lymphocytes (%) (Auto) 32.4 % (21.0-51.0) Monocytes (%) (Auto) 6.2 % (3.0-13.0) Eosinophils (%) (Auto) 3.1 % (0.0-8.0) Basophils (%) (Auto) 0.6 % (0.0-5.0) Neutrophils # (Auto) 4.7 K/uL (1.8-7.7) Lymphocytes # (Auto) 2.7 K/uL (1.0-4.8) Monocytes # (Auto) 0.5 K/uL (0.1-1.0) Eosinophils # (Auto) 0.26 K/uL (0.00-0.70) Basophils # (Auto) 0.05 K/uL (0.00-0.20) Absolute Immature Granulocyte (auto 0.03 K/uL (0-1) Nucleated Red Blood Cells 0.0 % (0.0-0.19) Sodium Level 138 mmol/L (136-145) Potassium Level 4.4 mmol/L (3.5-5.1) Chloride Level 101 mmol/L (101-111) Carbon Dioxide Level 31 mmol/L (21-32) Blood Urea Nitrogen 27 mg/dL (7-18) Creatinine 1.3 mg/dL (0.5-1.0) Glomerular Filtration Rate Calc 42 mL/min (>90) Random Glucose 153 mg/dL (70-105) Total Calcium 9.5 mg/dL (8.5-10.1) Total Bilirubin 0.4 mg/dL (0.2-1.0) Direct Bilirubin 0.1 mg/dL (0.0-0.3) Aspartate Amino Transf (AST/SGOT) 19 U/L (10-37) Alanine Aminotransferase (ALT/SGPT) 24 U/L (12-78) Alkaline Phosphatase 116 U/L (50-136) Troponin I High Sensitivity 12 ng/L (4-50) B-Type Natriuretic Peptide 420 pg/mL (0-100) Total Protein 7.7 g/dL (6.0-8.3) Albumin 3.8 g/dL (3.5-5.0) Whole Blood Glucose 110 MG/DL (70-110) Current Medications Medications Dose Ordered Sig/Senia Route PRN Reason Start Time Stop Time Status Last Admin Adenosine 6 mg STK-MED ONCE IV 10/26/24 09:34 10/26/24 09:35 DC Metoprolol Tartrate 5 mg STK-MED ONCE IV 10/26/24 09:43 10/26/24 09:43 DC Adenosine 6 mg ONCE ONCE IV 10/26/24 10:00 10/26/24 10:01 DC 10/26/24 09:56 Metoprolol Tartrate 5 mg ONCE ONCE IV 10/26/24 10:00 10/26/24 10:01 DC 10/26/24 10:00 Famotidine 20 mg Q48H PO 10/26/24 21:00 11/25/24 20:59 Aspirin 81 mg DAILY PO 10/27/24 09:00 11/26/24 08:59 Insulin Human Regular INSULIN SLIDING SCAL... ACHS SQ 10/26/24 11:30 11/25/24 11:29 Hydralazine HCl 10 mg ONCE ONCE IV 10/26/24 11:30 10/26/24 11:34 DC 10/26/24 11:42 Metoprolol Tartrate 5 mg ONCE ONCE IV 10/26/24 12:30 10/26/24 12:31 DC 10/26/24 12:31 Apixaban 5 mg BID PO 10/26/24 21:00 11/25/24 20:59 Aspirin 81 mg DAILY PO 10/27/24 09:00 10/26/24 12:49 DC Atorvastatin Calcium 40 mg DAILY PO 10/27/24 09:00 11/26/24 08:59 Clopidogrel Bisulfate 75 mg DAILY PO 10/27/24 09:00 11/26/24 08:59 Furosemide 40 mg BID PO 10/26/24 21:00 11/25/24 20:59 Gabapentin 100 mg BID PO 10/26/24 21:00 11/25/24 20:59 Hydralazine HCl 25 mg BID PO 10/26/24 21:00 11/25/24 20:59 Isosorbide Mononitrate 30 mg DAILY PO 10/27/24 09:00 11/26/24 08:59 Losartan Potassium 25 mg DAILY PO 10/27/24 09:00 11/26/24 08:59 Spironolactone 25 mg BID PO 10/26/24 21:00 11/25/24 20:59 Sucralfate 1 gm QID PO 10/26/24 13:00 11/25/24 12:59 10/26/24 13:08 Verapamil HCl 240 mg BID PO 10/26/24 12:30 11/25/24 12:29 10/26/24 13:00 Atenolol 50 mg DAILY PO 10/27/24 09:00 11/26/24 08:59 Pantoprazole Sodium 40 mg DAILY PO 10/27/24 09:00 11/26/24 08:59 Magnesium Oxide 200 mg DAILY PO 10/27/24 09:00 11/26/24 08:59 Home Med Ubidecarenone (Co Q-10) 1 CAP DAILY PO 10/27/24 09:00 11/26/24 08:59 Atenolol 50 mg ONCE ONCE PO 10/26/24 13:00 10/26/24 13:01 DC 10/26/24 13:08 Pharmacy Profile Note HOME MED: DRUG-DRUG Interaction BID MISC 10/26/24 21:00 11/02/24 20:59 Nitroglycerin/ Dextrose 250 ml @ 0 mls/hr PROTOCOL IV 10/26/24 13:30 11/25/24 13:29 10/26/24 13:53 Apixaban 5 mg ONCE ONCE PO 10/26/24 13:30 10/26/24 13:32 OK 10/26/24 13:55 Aspirin 324 mg ONCE ONCE PO 10/26/24 13:30 10/26/24 13:32 DC 10/26/24 13:46 Furosemide 40 mg ONCE ONCE IV 10/26/24 13:30 10/26/24 13:32 OK 10/26/24 13:47 Active Scripts Apixaban (Eliquis) 5 Mg Tablet, 5 MG PO BID, #60 TAB 1 Refill Prov:MEGHA DORAN UNATTENDED GROUND SENSOR SPECIALIST 11/01/23 Isosorbide Mononitrate (Isosorbide Mononitrate ER) 30 Mg Tab.er.24h, 30 MG PO DAILY, #30 TAB 3 Refills Prov:HILMY,M S II MD 05/13/14 Reported Medications Magnesium Glycinate (Mag Glycinate) 100 Mg Tablet, 200 MG PO BID, TAB 10/26/24 Ubidecarenone (Co Q-10) 300 Mg Capsule, 1 CAP PO DAILY for 30 Days, #60 CAP 0 Refills 10/26/24 Letrozole (Letrozole) 2.5 Mg Tablet, 1 TAB PO DAILY for 30 Days, #30 TAB 0 Refills 10/26/24 Hydralazine HCl (Hydralazine HCl) 25 Mg Tablet, 1 TAB PO BID for 30 Days, #60 TAB 0 Refills 10/26/24 Losartan Potassium (Losartan Potassium) 25 Mg Tablet, 1 TAB PO DAILY for 30 Days, #30 TAB 0 Refills 10/26/24 Furosemide (Furosemide) 40 Mg Tablet, 1 TAB PO BID for 30 Days, #30 TAB 0 Refills 10/26/24 Esomeprazole Magnesium (Esomeprazole Magnesium) 40 Mg Capsule.dr, 1 CAP PO DAILY for 30 Days, #30 CAP 0 Refills 10/26/24 Pantoprazole Sodium (Pantoprazole Sodium) 40 Mg Tablet.dr, 1 TAB PO DAILY for 30 Days, #30 TAB 0 Refills 10/26/24 Sucralfate (Sucralfate) 1 Gram Tablet, 1 TAB PO QID for 30 Days, #120 TAB 0 Refills 10/26/24 Aspirin (Aspirin) 81 Mg Tab.chew, 1 TAB PO DAILY for 30 Days, #30 TAB 0 Refills 10/26/24 Atenolol (Atenolol) 100 Mg Tablet, 0.5 TAB PO DAILY for 30 Days, #30 TAB 0 Re fills 10/26/24 Verapamil HCl (Verapamil ER) 240 Mg Tablet.er, 1 TAB PO BID for 30 Days, #30 TAB 0 Refills 10/26/24 Gabapentin (Gabapentin) 100 Mg Capsule, 100 MG PO BID, CAP 11/04/23 Spironolactone (Spironolactone) 25 Mg Tablet, 25 MG PO BID, TAB 10/27/23 Clopidogrel Bisulfate (Plavix) 75 Mg Tablet, 75 MG PO DAILY, TAB 07/23/22 Atorvastatin Calcium (LIPITOR) 40 Mg Tablet, 40 MG PO DAILY, TAB 05/12/14 Discontinued Reported Medications Ubidecarenone (Coq10) 50 Mg Tab.chew, 200 MG PO AM, TAB.CHEW 10/18/22 Ranolazine (Ranolazine ER) 1,000 Mg Tab.er.12h, 1000 MG PO BID, TAB 07/23/22 Magnesium (Magnesium) 250 Mg Tablet, 250 MG PO DAILY, TAB 02/26/17 Discontinued Scripts Amoxicillin/Potassium Clav (Amox Tr-K Clv 875-125 mg Tab) 875 Mg-125 Mg Tablet, 1 EACH PO BID for 7 Days, #14 TAB 0 Refills Prov:LAXMI MARIE CARDIOLOGY COORDINATOR 02/28/24 Verapamil HCl (Calan/Isoptin) 80 Mg Tab, 40 MG PO BID, #60 TAB Prov:BETINA ADEN 11/14/23 Furosemide (Lasix 40Mg Tab) 40 Mg Tablet, 40 MG PO DAILY, #30 TAB 0 Refills Prov:MEGHA DORAN UNATTENDED GROUND SENSOR SPECIALIST 11/01/23 Cilostazol (Cilostazol) 100 Mg Tablet, 100 MG PO BID, #60 TAB 1 Refill Prov:MEGHA DORAN UNATTENDED GROUND SENSOR SPECIALIST 11/01/23 Hydralazine HCl (Hydralazine HCl) 25 Mg Tablet, 25 MG PO Q8H PRN for IF SBP GREATER THAN 170, #30 TAB Prov:EMMA PERAZA NP 07/24/22 MICHAEL HOUSE MD Oct 26, 2024 15:03
--- NOTE | 2024-10-26 15:25 | EKG ---
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: [id number] : 1945 Requested By: GREG CAST Order Number: [id number] Reading MD: Jabier Xiong Measurements Intervals [place] Rate: 159 P: 0 SD: 0 QRS: 33 QRSD: 91 T: -4 QT: 291 QTc: 475 Interpretive Statements Supraventricular tachycardia Low voltage, extremity leads Repolarization abnormality, prob rate related Compared to ECG 02/28/2024 14:03:06 Early repolarization now present Sinus rhythm no longer present Left bundle-branch block no longer present Q waves no longer present Electronically Signed On 10-28-2024 07:16:01 CDT by Jabier Xiong Please click the below link to view image of tracing.
--- NOTE | 2024-10-26 16:42 | EKG ---
[facility] Test Date: 2024-10-26 Test Time: 09:38:08 Pat Name: JOSUE SOSA Department: EDHIP Room: 214 Gender: F Oncology Physician Assistant: [id number] : 1945 Requested By: GREG CAST Order Number: [id number] Reading MD: Jabier Xiong Measurements Intervals [place] Rate: 131 P: 0 ID: 0 QRS: 40 QRSD: 87 T: 31 QT: 313 QTc: 462 Interpretive Statements Atrial fibrillation Anterior infarct, old Minimal ST depression, diffuse leads Compared to ECG 10/26/2024 09:26:02 Myocardial infarct finding now present ST (T wave) deviation now present Supraventricular tachycardia no longer present Early repolarization no longer present Electronically Signed On 10-28-2024 07:16:10 CDT by Jabier Xiong Please click the below link to view image of tracing.
--- NOTE | 2024-10-26 16:56 | EKG ---
[facility] Test Date: 2024-10-26 Test Time: 12:13:19 Pat Name: JOSUE SOSA Department: EDHIP Room: 214 Gender: F Livestock Handler: [id number] : 1945 Requested By: GREG CAST Order Number: [id number] Reading MD: Jabier Xiong Measurements Intervals [place] Rate: 161 P: 0 GA: 0 QRS: 68 QRSD: 91 T: 251 QT: 277 QTc: 454 Interpretive Statements Atrial fibrillation with rapid V-rate Ventricular premature complex Anteroseptal infarct, old Repolarization abnormality, prob rate related Compared to ECG 10/26/2024 09:26:02 Ventricular premature complex(es) now present Myocardial infarct finding now present Supraventricular tachycardia no longer present Electronically Signed On 10-28-2024 07:18:09 CDT by Jabier Xiong Please click the below link to view image of tracing.
--- NOTE | 2024-10-26 16:57 | EKG ---
[facility] Test Date: 2024-10-26 Test Time: 15:21:22 Pat Name: JOSUE SOSA Department: EDHIP Room: 214 Gender: F Customer Logistics Manager: [id number] : 1945 Requested By: EDWAR DALY Order Number: [id number] Reading MD: Jabier Xiong Measurements Intervals [place] Rate: 79 P: 258 MD: 198 QRS: 50 QRSD: 91 T: 14 QT: 364 QTc: 418 Interpretive Statements Sinus or ectopic atrial rhythm Septal infarct Compared to ECG 10/26/2024 12:13:19 Ectopic atrial rhythm now present Atrial fibrillation no longer present Ventricular premature complex(es) no longer present Early repolarization no longer present Electronically Signed On 10-28-2024 07:22:22 CDT by Jabier Xiong Please click the below link to view image of tracing.
--- NOTE | 2024-10-26 18:00 | NUR ---
BENCHMARK,ANJEL MADE AWARE OF TROPONIN LEVEL 69
[2024-10-26 19:16] LABS: APPEARANCE,URINE CLEAR (CLEAR); GLUCOSE, URINE (UA) NEGATIVE (NEGATIVE); LEUKOCYTE ESTERASE ,URINE 250 Leu/uL (NEGATIVE); NITRATE,URINE NEGATIVE (NEGATIVE); OCCULT BLOOD,URINE NEGATIVE (NEGATIVE)
[2024-10-26 19:18] LABS: ADD UA MICROSCOPIC YES
[2024-10-26] MEDS: FAMOTIDINE 20MG TAB PO SCH (20:18)
[2024-10-26] MEDS: ATENOLOL 50 MG TABLET PO SCH (20:20)
[2024-10-26] MEDS: SPIRONOLACTONE 25 MG TAB PO SCH (20:21)
[2024-10-26] MEDS: ENOXAPARIN SODIUM 60 MG/0.6 ML SQ SCH (20:22)
[2024-10-26] MEDS ORDERED: PHARMACY COMMUNICATION MISC SCH (21:00)
--- NOTE | 2024-10-26 22:10 | NUR ---
REPORT GIVEN TO NURSE NADIRA MAURO RN WILL CONT TO MONITOR
--- NOTE | 2024-10-26 22:30 | NUR ---
PATIENT TRANSFERRED TO ROOM 214 NURSE NADIRA RN AT BEDSIDE, NO C/O PAIN, VS STABLE, WILL CONT TO MONITOR
[2024-10-26 22:40] VITALS: BP 147/69; PULSE 77; RESP 18
[2024-10-26 22:45] VITALS: O2SAT 99
[2024-10-26 22:55] VITALS: BP 134/64; PULSE 76; RESP 16; TEMP 98
[2024-10-26 23:10] VITALS: BP 135/45; PULSE 75; RESP 20
[2024-10-26 23:25] VITALS: BP 140/59; PULSE 65; RESP 23
[2024-10-26 23:40] VITALS: BP 129/57; PULSE 73; RESP 32
--- NOTE | 2024-10-26 23:52 | NUR ---
INFORMED DAUGHTER HARIS VIA TELEPHONE, OF PTS CURRENT CONDITIONS, CURRENT VS. PT CURRENTLY SLEEPING, DENIES CHEST PAIN, HARIS INSTRUCTED ON PLAN OF CARE, PENDING FURTHER EVALUATION BY MD PROVIDERS FOR FURTHER PLAN OF CARE AT THIS TIME. ALL QUESTIONS AND CONCERNED ANSWERED.
[2024-10-27] VITALS (55 sets, daily range): BP systolic 95–147; BP diastolic 40–83; PULSE 43–82; RESP 19–51; TEMP 97.7–98.7; O2SAT 97–99
--- NOTE | 2024-10-27 01:17 | EKG ---
[facility] Test Date: 2024-10-27 Test Time: 01:05:04 Pat Name: JOSUE SOSA Department: 2CV Room: 214 1 Gender: F Grab Jack Man: Naren MAURO RN : 1945 Requested By: YAQUELIN PERAZA Order Number: [id number] Reading MD: Jabier Xiong Measurements Intervals [place] Rate: 76 P: 71 WV: 340 QRS: 120 QRSD: 84 T: 154 QT: 412 QTc: 463 Interpretive Statements Sinus rhythm with 1st degree AV block Lateral infarct , age undetermined vs lead reversal Compared to ECG 10/26/2024 15:21:22 First degree AV block now present Myocardial infarct finding now present Ectopic atrial rhythm no longer present Electronically Signed On 10-28-2024 07:25:23 CDT by Jabier Xiong Please click the below link to view image of tracing.
--- NOTE | 2024-10-27 02:03 | NUR ---
NOTIFIED DR. MICHAEL HOUSE, OF PTS CURRENT EKG READING, CURRENT HEART RATE IN THE 40S SUSTAINING, WITH OCCASIONAL DROPS TO 30S, 32 BEING THE LOWEST RECORDED NONSUSTAINING. BP WNL, PT IS ASYMPTOMATIC CURRENTLY SLEEPING, ORDERS TO HOLD AM DOSE OF ATENOLOL.
[2024-10-27 05:03] LABS: NUCLEATED RED BLOOD CELLS 0.0 % (0.0-0.19); PLATELET COUNT (AUTO) 233.0 K/uL (130-400); RED BLOOD CELL COUNT(AUTO) 4.34 MIL/uL (4.00-5.50); RED CELL DISTRIBUTION WIDTH 14.1 % (11.0-15.5); WHITE BLOOD COUNT (AUTO) 9.4 K/uL (4.8-10.8)
[2024-10-27 05:53] LABS: CREATININE 1.1 mg/dL (0.5-1.0); GLOMERULAR FILTR. RATE CALC 52.0 mL/min (>90); GLUCOSE,RANDOM 103.0 mg/dL (70-105); PHOSPHORUS 3.5 mg/dL (2.5-4.9); SODIUM SERUM 139.0 mmol/L (136-145); UREA NITROGEN, BLOOD 21.0 mg/dL (7-18)
[2024-10-27] MEDS ORDERED: PoTASSium chl 10% ELIXIR 20MEQ 20 MEQ/15 ML UDCUP PO PRN (07:00)
[2024-10-27] MEDS ORDERED: MAGNESIUM 2GM PREMIX 50ML 50 ML IV PRN (07:00)
[2024-10-27] MEDS: MAGNESIUM OXIDE 400 MG TABLET PO SCH (08:51)
[2024-10-27] MEDS: ISOSORBIDE MONO 30MG SR TAB PO SCH (08:52)
[2024-10-27] MEDS: PoTASSium chloRIDE 10MEQ SR 10 MEQ/TAB TAB.SR.24H PO PRN (08:52)
[2024-10-27] MEDS: ASPIRIN 81MG CHEW TAB PO SCH (08:53)
[2024-10-27] MEDS: UBIDECARENONE PO SCH (08:54)
[2024-10-27] MEDS ORDERED: ATENOLOL 50 MG TABLET PO SCH (09:00)
[2024-10-27] MEDS ORDERED: ASPIRIN 81MG CHEW TAB PO SCH (09:00)
--- NOTE | 2024-10-27 11:35 | NUR ---
DCP: hOME Pt lives independently at home with her Jose Cruz Castro [phone]. pt reports she is able to complete her ADLS, home management and meal prep on her own. Drives self as needed. No need for any DME at this time states pt. No HH or HD services either. PCP is Nile Ortiz and uses [facility] for rx. Pt denies need for SNF and will return home at pa. [facility] [phone] Addendum: 10/27/24 at 1140 by KIMANI GOLDMAN Amended: Links added.
--- NOTE | 2024-10-27 22:37 | PN ---
[facility] PROGRESS NOTE Date Patient Seen: Oct 27, 2024 Time of Visit: 12:32 Supervising Physician: DR. CHADWICK GURROLA Primary Care Physician: Dr. Jordon Ortiz Outpatient Specialists: Dr. Demond Dejesus, [facility] Inpatient Consults: Dr. Demond Kirby, [facility] PROBLEM LIST: AFib with RVR, POA, on chronic anticoagulation with Eliquis SVT, POA Unstable angina, POA CHF with acute exacerbation, POA LVEF 55-60%, grade 3 diastolic dysfunction per 12/15/2023 Uncontrolled hypertension, POA Acute on chronic kidney disease, GFR 42 Hyperglycemia CAD s/p PCI with MICHAEL placement (Promus Premier 2.5x20 mm) in the mid LAD done on 05/13/2014 Chronic problem list: s/p LHC/coronary angiogram done on 10/20/2022 which identified significant stenosis in the ostial OM1 (tiny vessel), a patent stent in the mid LAD, and otherwise normal coronary arteries Normal Lexiscan stress test done 08/28/2023 HFpEF (LVEF: 55% by echo done 05/30/2022) Right sided breast CA s/p right lumpectomy PAD s/p left lower extremity peripheral intervention on 08/19/2021 History of GI bleed, (+) melena s/p EGD 11/07/2023 and push enteroscopy 11/11/2023 with findings of gastritis, no active bleed identified s/p colonoscopy 11/11/2023 with findings of non-bleeding AVM which was cauterized Bilateral lower extremity weakness and paresthesia with multilevel lumbar spondylosis with cord compression per MRI 11/06/2023 INTERVAL HISTORY: Medical chart, laboratory and laboratory data reviewed. Patient seen and examined at the bedside, patient is awake,alert, well oriented, not in distress, denies chest pain, hx of Afib with RVR on Eliquis, still pending for cardiac evaluation plan is to downgraded, no new issues, no chest pain or SOB, we will continue monitoring closely. REVIEW OF SYSTEMS: 12 point ROS reviewed with patient. Pertinent positives mentioned above. Otherwise negative. PHYSICAL EXAM: GENERAL: Alert, weak, awake oriented x 3 HEENT: EOMI, Sclera non icteric, moist mucosa NECK: Supple, no JVD, trachea midline LUNGS: Clear breath sounds bilaterally. No wheezes HEART: Regular rate and rhythm. Normal S1 and S2, without murmurs ABD: Abdomen soft, nontender. Bowel sounds present EXT: No clubbing cyanosis or edema NEURO: Alert and oriented X3, follows commands Vital Signs (last 8hr) Date Time Temp Pulse Resp B/P (MAP) Pulse Ox O2 Delivery O2 Flow Rate FiO2 10/27/24 21:24 61 114/56 10/27/24 18:30 82 19 122/57 96 Room Air 10/27/24 18:00 81 19 129/59 97 Room Air 10/27/24 17:30 82 19 114/51 97 Room Air 10/27/24 17:00 81 19 117/52 97 Room Air 10/27/24 16:30 81 19 121/58 96 Room Air 10/27/24 16:00 97.7 81 19 115/51 95 Room Air 10/27/24 15:30 82 19 115/59 97 Room Air 10/27/24 15:00 64 19 109/51 97 Room Air LABS: Hematology Labs: Test 10/27/24 04:47 10/26/24 09:37 Range/Units White Blood Count 9.4 4.8-10.8 K/uL Red Blood Count 4.34 4.00-5.50 MIL/uL Hemoglobin 12.1 12.0-16.0 g/dL Hematocrit 36.8 36-48 % Mean Corpuscular Volume 84.8 79-99 fL Mean Corpuscular Hemoglobin 27.9 27.0-33.0 pg Mean Corpuscular Hemoglobin Concent 32.9 32.0-36.0 g/dL Red Cell Distribution Width 14.1 11.0-15.5 % Platelet Count 233 130-400 K/uL Mean Platelet Volume 10.8 H 7.5-10.5 fL Nucleated Red Blood Cells 0.0 0.0-0.19 % Immature Granulocyte % (Auto) 0.4 0-1 % Neutrophils (%) (Auto) 57.3 40.0-77.0 % Lymphocytes (%) (Auto) 32.4 21.0-51.0 % Monocytes (%) (Auto) 6.2 3.0-13.0 % Eosinophils (%) (Auto) 3.1 0.0-8.0 % Basophils (%) (Auto) 0.6 0.0-5.0 % Neutrophils # (Auto) 4.7 1.8-7.7 K/uL Lymphocytes # (Auto) 2.7 1.0-4.8 K/uL Monocytes # (Auto) 0.5 0.1-1.0 K/uL Eosinophils # (Auto) 0.26 0.00-0.70 K/uL Basophils # (Auto) 0.05 0.00-0.20 K/uL Absolute Immature Granulocyte (auto 0.03 0-1 K/uL Chemistry Labs: Test 10/27/24 15:58 10/27/24 04:47 10/26/24 15:20 10/26/24 09:37 Range/Units Whole Blood Glucose 96 70-110 MG/DL Sodium Level 139 136-145 mmol/L Potassium Level 3.5 3.5-5.1 mmol/L Chloride Level 105 101-111 mmol/L Carbon Dioxide Level 27 21-32 mmol/L Blood Urea Nitrogen 21 H 7-18 mg/dL Creatinine 1.1 H 0.5-1.0 mg/dL Glomerular Filtration Rate Calc 52 >90 mL/min Random Glucose 103 70-105 mg/dL Hemoglobin A1c 6.1 H 4.0-6.0 % Estimated Average Glucose (eAG) 128 H 70-126 mg/dL Total Calcium 9.5 8.5-10.1 mg/dL Phosphorus Level 3.5 2.5-4.9 mg/dL Magnesium Level 2.00 1.80-2.40 mg/dL Troponin I High Sensitivity 104 *H 4-50 ng/L Thyroid Stimulating Hormone (TSH) 1.11 # 0.36-3.74 uIU/mL Total Bilirubin 0.4 0.2-1.0 mg/dL Direct Bilirubin 0.1 0.0-0.3 mg/dL Aspartate Amino Transf (AST/SGOT) 19 10-37 U/L Alanine Aminotransferase (ALT/SGPT) 24 12-78 U/L Alkaline Phosphatase 116 50-136 U/L B-Type Natriuretic Peptide 420 H 0-100 pg/mL Total Protein 7.7 6.0-8.3 g/dL Albumin 3.8 3.5-5.0 g/dL DIAGNOSTICS / RADIOLOGY RESULTS: [ ] PLAN Cardiac evaluation downgraded to PCCU continue with eliquis monitor for any signs of bleeding NEURO: Minimize central acting medications as possible. Fall Precautions. Well lighted room through the day and minimize interruptions through the night to prevent acute delirium. PULMONARY: Supplemental 02 as needed Titrate Fio2 to keep Spo2 > or = 90% DuoNebs and CPT as needed IS hourly while awake for pulmonary hygiene Out of bed to chair as tolerated VAP Bundle Vent/BIPAP Settings: [ ] Driving pressure: [ ] P Plat: [ ] Static C: [ ] Static R: [ ] P/F Ratio: [ ] CARDIOVASCULAR: Follow hemodynamics. Titrate vasopressor to keep MAP >65 or systolic blood pressure >95mmHg DIPS: [ ] LINES: [ ] GI & NUTRITION: Continue nutritional support Aspirations precautions Prokinetic agents and laxatives as needed KIDNEYS & ELECTROLYTES: Strict monitoring of intake and output Daily weights Avoid nephrotoxic agents Monitor electrolytes and replace as needed Goal urine output of 30mL/hr or 0.5mL/kg/hr Urine output: [ ] Fluid Balance: [ ] ENDOCRINE: Maintain blood glucose between 100-180 at all times. Insulin sliding scale for blood glucose management INFECTIOUS DISEASE: Trend temperature. Edouard-culture if febrile. Micro: [ ] Antibiotics: [ ] HEMATOLOGY & COAGULATION: Monitor H&H. Keep Hgb > 7 Transfuse 1 unit of PRBC for Hgb < 7 Transfuse 1 pack of platelets of platelets < 20, 000 Watch for any signs and symptoms of bleeding SKIN: Pressure ulcer prevention per facility protocol Rehab: PT/OT Prophylaxis: GI: [ ] DVT: [ ] Code Status: Full Resuscitation Disposition: [ ] Other: Total patient care time 35 minutes excluding all procedures. ATTESTATION BY PHYSICIAN Documentation assistance provided by a scribe, information recorded by the scribe was done at my direction and has been reviewed and validated by me." SIENA GURROLA MD I personally scribed for CHADWICK GURROLA MD ([email or web address]) on 10/27/24 at 22:37. Electronically submitted by Nancy Walker ([id number]). CHADWICK GURROLA MD Oct 27, 2024 22:37
[2024-10-28] VITALS (30 sets, daily range): BP systolic 101–133; BP diastolic 38–64; PULSE 46–76; RESP 12–26; TEMP 97.7–98.4; O2SAT 96–97
[2024-10-28 03:55] LABS: NUCLEATED RED BLOOD CELLS 0.0 % (0.0-0.19); PLATELET COUNT (AUTO) 255.0 K/uL (130-400); RED BLOOD CELL COUNT(AUTO) 4.19 MIL/uL (4.00-5.50); RED CELL DISTRIBUTION WIDTH 14.2 % (11.0-15.5); WHITE BLOOD COUNT (AUTO) 10.2 K/uL (4.8-10.8)
[2024-10-28 04:18] LABS: CREATININE 1.4 mg/dL (0.5-1.0); GLOMERULAR FILTR. RATE CALC 39.0 mL/min (>90); GLUCOSE,RANDOM 113.0 mg/dL (70-105); SODIUM SERUM 136.0 mmol/L (136-145); UREA NITROGEN, BLOOD 29.0 mg/dL (7-18)
--- NOTE | 2024-10-28 07:14 | HMCSR ---
APPROVED REPORT EXAM: Two-dimensional and M-mode echocardiogram with Doppler and color Doppler. INDICATION ICD: Atrial fibrillation with rapid ventricular response 2D Dimensions RVDd4.2 cmLVEF(%)68.9 (>50%)LA ESV INDEX (BP)40.17 mL/m2 IVSd1.0 (0.7-1.1cm)FS(%)39 % LVDd4.8 (3.8-5.6cm)LA (2D)4.6 (1.6-4.0cm) PWd0.9 (0.7-1.1cm)Ao Root(2D)2.5 (2.0-3.7cm) IVSs1.4 cmLVOT diam1.8 (1.8-2.4cm) LVDs2.9 (2.5-4.0cm)IVC diam1.2 cm PWs1.5 cm Deformation Strain Apical 4-14.8 % Apical 2-14.4 % Apical 3-11.7 % Global Strain-13.7 % M-Mode Dimensions EPSS0.3 cm LA (MM)4.3 (1.6-4.0cm) Ao Root(MM)2.9 (2.0-3.7cm) Aortic Valve AoV Vmax1.7 m/Jan Peak GR11.1 mmHgLVOT Vmax0.9 m/s AoV VTI0.4 mAo Mean GR6.0 mmHgLVOT VTI0.21 m JULIO CESAR (VMAX)1.29 cm2Al P1/2T489 msAVA (VTI) 1.4 cm2 Mitral Valve MV E Mjjw451.8 cm/sDECEL Zxcz617 ms MV A Vmax51.1 cm/sP 1/2 T61 ms E/A ratio2.1MVA (PHT)3.6 cm2 TDI E/E' Tfbihj11.8E/E' Tqbdkfk22.9 Medial E' Peak V5.80 cm/sLateral E' Peak V7.29 cm/s Pulmonary Valve PV Vmax0.8 m/sPV VTI0.15 mPV Mean GR1.4 mmHg PV Peak GR2.4 mmHg Tricuspid Valve TR Vmax2.5 m/sRAP (EST) 3 qhOfWHTG08.8 mmHg TR Peak GR28.8 mmHg Left Ventricle The left ventricle is normal size. GLS -14.0% There is normal LV segmental wall motion. There is norm al left ventricular wall thickness. LVEF is 55-60%. Stage III diastolic dysfunction. Right Ventricle The right ventricle is mildly dilated. The right ventricular systolic function is normal. Atria The left atrium is mildly dilated. The right atrium is mildly dilated. Aortic Valve The aortic valve is normal in structure. Mild aortic regurgitation is present. There is no aortic sandra vular stenosis. Mitral Valve The mitral valve is normal in structure. There is trace of mitral valve regurgitation noted. There is no mitral valve stenosis. Tricuspid Valve The tricuspid valve is normal in structure. There is trivial tricuspid valve regurgitation noted. Pulmonic Valve The pulmonary valve is normal in structure. There is no pulmonic valvular regurgitation. Great Vessels The aortic root is normal in size. The IVC is normal in size and collapses >50% with inspiration. Pericardium There is no pericardial effusion. Other Information Quality : Adequate Conclusion LVEF is 55-60%. Stage III diastolic dysfunction. The left atrium is mildly dilated.
--- NOTE | 2024-10-28 11:52 | PN ---
[facility] CARDIOLOGY PROGRESS NOTE Cardiology progress note dictated for Demond Dejesus MD Date Patient Seen: Oct 28, 2024 Interval History: The patient denied any chest, chest pressure, palpitations, dizziness, or shortness of breath. Telemetry currently demonstrating normal sinus rhythm/first-degree AV block with heart rate in the 60s. Telemetry strip in the chart for 10/28/2024 at 3:54 a.m. demonstrated possible atrial flutter with heart rate of 51bpm. Physical Examination: GENERAL: No acute distress. HEAD: Normal with no signs of head trauma. EYES: PERRLA, EOMI, conjunctiva and sclera normal. NECK: Supple without JVD. There is no tenderness, lymphadenopathy, or masses. No thyromegaly. Normal carotid upstrokes without bruits. LUNGS: Clear breath sounds bilaterally. No wheezes, or rhonchi. HEART: Normal rate and rhythm. Normal S1 and S2 without murmurs, gallop or rub. VASC: Peripheral pulses +2 bilaterally. EXT: No clubbing, cyanosis or edema. NEURO: Awake, alert, and oriented x3. No focal neurological deficits noted. Laboratory: Hematology Labs: Test 10/28/24 03:36 Range/Units White Blood Count 10.2 4.8-10.8 K/uL Red Blood Count 4.19 4.00-5.50 MIL/uL Hemoglobin 11.7 L 12.0-16.0 g/dL Hematocrit 35.8 L 36-48 % Mean Corpuscular Volume 85.4 79-99 fL Mean Corpuscular Hemoglobin 27.9 27.0-33.0 pg Mean Corpuscular Hemoglobin Concent 32.7 32.0-36.0 g/dL Red Cell Distribution Width 14.2 11.0-15.5 % Platelet Count 255 130-400 K/uL Mean Platelet Volume 11.0 H 7.5-10.5 fL Nucleated Red Blood Cells 0.0 0.0-0.19 % Chemistry Labs: Test 10/28/24 11:19 10/28/24 08:43 10/28/24 03:36 10/27/24 04:47 Range/Units Whole Blood Glucose 142 H 70-110 MG/DL Troponin I High Sensitivity 46 4-50 ng/L Sodium Level 136 136-145 mmol/L Potassium Level 4.0 3.5-5.1 mmol/L Chloride Level 100 L 101-111 mmol/L Carbon Dioxide Level 27 21-32 mmol/L Blood Urea Nitrogen 29 H 7-18 mg/dL Creatinine 1.4 H 0.5-1.0 mg/dL Glomerular Filtration Rate Calc 39 >90 mL/min Random Glucose 113 H 70-105 mg/dL Total Calcium 8.9 8.5-10.1 mg/dL Magnesium Level 2.00 1.80-2.40 mg/dL Hemoglobin A1c 6.1 H 4.0-6.0 % Estimated Average Glucose (eAG) 128 H 70-126 mg/dL Phosphorus Level 3.5 2.5-4.9 mg/dL Test 10/26/24 15:20 Range/Units Thyroid Stimulating Hormone (TSH) 1.11 # 0.36-3.74 uIU/mL Diagnostics / Radiology: 2D echocardiogram on 10/27/2024 Conclusion LVEF is 55-60%. Stage III diastolic dysfunction. The left atrium is mildly dilated. DICTATED BY: ELLI SOMMER MD DATE: 10/27/24 0725 Impression and Plan: Unstable angina Known coronary artery disease with prior LAD stent placed 2014 Atrial fibrillation persistent with the episodes of rapid ventricular response Acute congestive heart failure likely diastolic Unstable angina Troponin peak at 119, down trended to 46 -Obtain Coronary CT angiography to assess patency of LAD stent and any progression of disease involving patient's right coronary artery or body of left circumflex artery. We do know that she has a 90% stenosis involving obtuse mar ginal branch which is unchanged and would likely warrant continued medical therapy. -continue aspirin, atorvastatin, clopidogrel, and atenolol Acute on chronic diastolic heart failure BNP 420, benign chest x-ray on admission -The patient has been transitioned to Lasix 40mg po bid Atrial fibrillation persistent with the episodes of rapid ventricular response -Continue with Verapamil ER 240mg daily and Atenolol 50mg bid -Hold Eliquis, continue Lovenox 1mg/kg bid in case coronary angiography is needed [facility] Oct 28, 2024 11:52
[2024-10-28] MEDS ORDERED: IOHEXOL 350 MG/ML 100ML INFUS..BTL IV ONE (13:03)
--- NOTE | 2024-10-28 13:35 | PN ---
[facility] PROGRESS NOTE Date Patient Seen: Today, October Supervising Physician: Dr Cory Flynn Assessment: AFib with RVR, POA, on chronic anticoagulation with Eliquis SVT, POA Unstable angina, POA CHF with acute exacerbation, POA LVEF 55-60%, grade 3 diastolic dysfunction per 12/15/2023 Uncontrolled hypertension, POA Acute on chronic kidney disease, GFR 42 Hyperglycemia CAD s/p PCI with MICHAEL placement (Promus Premier 2.5x20 mm) in the mid LAD done on 05/13/2014 Chronic problem list: s/p LHC/coronary angiogram done on 10/20/2022 which identified significant stenosis in the ostial OM1 (tiny vessel), a patent stent in the mid LAD, and otherwise normal coronary arteries Normal Lexiscan stress test done 08/28/2023 HFpEF (LVEF: 55% by echo done 05/30/2022) Right sided breast CA s/p right lumpectomy PAD s/p left lower extremity peripheral intervention on 08/19/2021 History of GI bleed, (+) melena s/p EGD 11/07/2023 and push enteroscopy 11/11/2023 with findings of gastritis, no active bleed identified s/p colonoscopy 11/11/2023 with findings of non-bleeding AVM which was cauterized Bilateral lower extremity weakness and paresthesia with multilevel lumbar spondylosis with cord compression per MRI 11/06/2023 INTERVAL HISTORY: Patient was seen and examined, all labs and imaging have been reviewed, patient is comfortable, reporting no chest pain or shortness of breath Troponins have trended down Pending a coronary CT angiography She continues on Lasix 40 mg b.i.d., pending a repeat chest x-ray She is on verapamil ER 240 mg daily with atenolol 50 mg b.i.d. Currently on Lovenox 1 milligram/kg LVEF is 55-60%. Stage III diastolic dysfunction. The left atrium is mildly dilated. Plan: Follow cardiology recommendations, possible coronary angiography Lovenox Antihypertensives and antiarrhythmics adjustments per Cardiology Continue diuresis, follow I&Os, chest x-ray Continues on aspirin, statin, Plavix Code Status: Full Resuscitation GI & DVT Prophylaxis REVIEW OF SYSTEMS: General: No malaise or fever. Neurological: + for anxiety overnight. HEENT: No nasal congestion or nasal secretion. Respiratory: No cough, shortness of breath, or wheezing Cardiac: No chest pain or palpitations. Gastrointestinal: No vomiting or diarrhea. Genitourinary: No dysuria hematuria. Skin: No rashes or lesions. Hematological: No bruises or bleeding. Musculoskeletal: No joint pains or arthralgias. Psychiatric: No depression or panic attacks. PHYSICAL EXAM: GENERAL: alert, weak, awake oriented x 3 HEENT: EOMI, Sclera non icteric, moist mucosa NECK: Supple, no JVD, trachea midline LUNGS: Clear breath sounds bilaterally. No wheezes HEART: Regular rate and rhythm. Normal S1 and S2, without murmurs ABD: Obese Abdomen soft, nontender. Bowel sounds present EXT: No clubbing cyanosis or edema. RT femoral IABP, no edema. Pedal pulse per Doppler on right foot, NEURO: Alert and oriented to person, follows commands PLAN GI & NUTRITION: Continue nutritional support Aspirations precautions Prokinetic agents and laxatives as needed KIDNEYS & ELECTROLYTES: Strict monitoring of intake and output NEURO: Minimize central acting medications as possible. Fall Precautions. Well lighted room through the day and minimize interruptions through the night to prevent acute delirium. PULMONARY: Supplemental 02 as needed Titrate Fio2 to keep Spo2 > or = 90% DuoNebs and CPT as needed CARDIOVASCULAR: Follow hemodynamics. Titrate vasopressor to keep MAP >65 or systolic blood pressure >95mmHg ENDOCRINE: Maintain blood glucose between 100-180 at all times. Insulin sliding scale for blood glucose management Renal: I&Os, Avoid nephrotoxic agents INFECTIOUS DISEASE: Trend temperature. Edouard-culture if febrile. HEMATOLOGY & COAGULATION: Monitor H&H. Keep Hgb > 7 Transfuse 1 unit of PRBC for Hgb < 7 Watch for any signs and symptoms of bleeding SKIN: Pressure ulcer prevention per facility protocol Total patient critical care time 45 minutes excluding all procedures. ATTESTATION BY PHYSICIAN The patient has been seen and evaluated, the case has been discussed with the PA, I agree with the clinical findings and plan of care. Vitals/Labs Vital Signs Date Time Temp Pulse Resp B/P (MAP) Pulse Ox O2 Delivery O2 Flow Rate FiO2 10/28/24 09:00 59 10/28/24 06:30 17 124/47 94 10/28/24 06:00 Room Air 21 10/28/24 04:00 97.7 10/28/24 00:00 2.0 Laboratory Tests 10/28/24 03:36 Medications Current Medications Adenosine 6 mg STK-MED ONCE IV; Start 10/26/24 at 09:34; Stop 10/26/24 at 09:35; Status DC Metoprolol Tartrate 5 mg STK-MED ONCE IV; Start 10/26/24 at 09:43; Stop 10/26/24 at 09:43; Status DC Adenosine 6 mg ONCE ONCE IV Last administered on 10/26/24at 09:56; Start 10/26/24 at 10:00; Stop 10/26/24 at 10:01; Status DC Metoprolol Tartrate 5 mg ONCE ONCE IV Last administered on 10/26/24at 10:00; Start 10/26/24 at 10:00; Stop 10/26/24 at 10:01; Status DC Famotidine 20 mg Q48H PO Last administered on 10/26/24at 20:18; Start 10/26/24 at 21:00; Stop 11/25/24 at 20:59 Aspirin 81 mg DAILY PO Last administered on 10/28/24at 09:29; Start 10/27/24 at 09:00; Stop 11/26/24 at 08:59 Acetaminophen 650 mg Q6H PRN PO Last administered on 10/26/24at 13:47; Start 10/26/24 at 11:30; Stop 11/25/24 at 11:29 Acetaminophen 650 mg Q6H PRN RC; Start 10/26/24 at 11:30; Stop 11/25/24 at 11:29 Lactulose 20 gm Q6H PRN PO; Start 10/26/24 at 11:30; Stop 11/25/24 at 11:29 Docusate Sodium 100 mg BID PRN PO; Start 10/26/24 at 11:30; Stop 11/25/24 at 11:29 Temazepam 15 mg HS PRN PO Last administered on 10/28/24at 00:40; Start 10/26/24 at 11:30; Stop 11/25/24 at 11:29 Labetalol HCl 10 mg Q2H PRN IV; Start 10/26/24 at 11:30; Stop 11/25/24 at 11:29 Insulin Human Regular INSULIN SLIDING SCAL... ACHS SQ; Start 10/26/24 at 11:30; Stop 11/25/24 at 11:29 Hydralazine HCl 10 mg ONCE ONCE IV Last administered on 10/26/24at 11:42; Start 10/26/24 at 11:30; Stop 10/26/24 at 11:34; Status DC Metoprolol Tartrate 5 mg ONCE ONCE IV Last administered on 10/26/24at 12:31; Start 10/26/24 at 12:30; Stop 10/26/24 at 12:31; Status DC Apixaban 5 mg BID PO; Start 10/26/24 at 21:00; Stop 10/26/24 at 15:06; Status DC Aspirin 81 mg DAILY PO; Start 10/27/24 at 09:00; Stop 10/26/24 at 12:49; Status DC Atorvastatin Calcium 40 mg DAILY PO Last administered on 10/28/24at 09:27; Start 10/27/24 at 09:00; Stop 11/26/24 at 08:59 Clopidogrel Bisulfate 75 mg DAILY PO Last administered on 10/28/24at 09:29; Start 10/27/24 at 09:00; Stop 11/26/24 at 08:59 Furosemide 40 mg BID PO Last administered on 10/28/24at 09:29; Start 10/26/24 at 21:00; Stop 11/25/24 at 20:59 Gabapentin 100 mg BID PO Last administered on 10/28/24at 09:29; Start 10/26/24 at 21:00; Stop 11/25/24 at 20:59 Hydralazine HCl 25 mg BID PO Last administered on 10/28/24at 09:28; Start 10/26/24 at 21:00; Stop 11/25/24 at 20:59 Isosorbide Mononitrate 30 mg DAILY PO Last administered on 10/28/24at 09:28; Start 10/27/24 at 09:00; Stop 11/26/24 at 08:59 Losartan Potassium 25 mg DAILY PO Last administered on 10/28/24at 09:29; Start 10/27/24 at 09:00; Stop 11/26/24 at 08:59 Spironolactone 25 mg BID PO Last administered on 10/28/24at 09:28; Start 10/26/24 at 21:00; Stop 11/25/24 at 20:59 Sucralfate 1 gm QID PO Last administered on 10/28/24at 13:27; Start 10/26/24 at 13:00; Stop 11/25/24 at 12:59 Verapamil HCl 240 mg BID PO Last administered on 10/28/24at 09:28; Start 10/26/24 at 12:30; Stop 11/25/24 at 12:29 Atenolol 50 mg DAILY PO; Start 10/27/24 at 09:00; Stop 10/26/24 at 15:06; Status DC Pantoprazole Sodium 40 mg DAILY PO; Start 10/27/24 at 09:00; Stop 10/27/24 at 07:48; Status DC Magnesium Oxide 200 mg DAILY PO Last administered on 10/28/24at 09:28; Start 10/27/24 at 09:00; Stop 11/26/24 at 08:59 Home Med Ubidecarenone (Co Q-10) 1 CAP DAILY PO; Start 10/27/24 at 09:00; Stop 11/26/24 at 08:59 Atenolol 50 mg ONCE ONCE PO Last administered on 10/26/24at 13:08; Start 10/26/24 at 13:00; Stop 10/26/24 at 13:01; Status DC Pharmacy Profile Note HOME MED: DRUG-DRUG Interaction BID MISC; Start 10/26/24 at 21:00; Stop 10/27/24 at 06:55; Status DC Nitroglycerin/ Dextrose 250 ml @ 0 mls/hr PROTOCOL IV Last administered on 10/26/24at 13:53; Start 10/26/24 at 13:30; Stop 11/25/24 at 13:29 Apixaban 5 mg ONCE ONCE PO Last administered on 10/26/24at 13:55; Start 10/26/24 at 13:30; Stop 10/26/24 at 13:32; Status DC Aspirin 324 mg ONCE ONCE PO Last administered on 10/26/24at 13:46; Start 10/26/24 at 13:30; Stop 10/26/24 at 13:32; Status DC Furosemide 40 mg ONCE ONCE IV Last administered on 10/26/24at 13:47; Start 10/26/24 at 13:30; Stop 10/26/24 at 13:32; Status DC Atenolol 50 mg BID PO Last administered on 10/27/24at 21:24; Start 10/26/24 at 21:00; Stop 11/26/24 at 08:59 Enoxaparin Sodium 60 mg BID SQ Last administered on 10/28/24at 09:30; Start 10/26/24 at 21:00; Stop 11/25/24 at 20:59 Potassium Chloride 100 ml @ 100 mls/hr AD PRN IV; Start 10/27/24 at 07:00; Stop 11/26/24 at 06:59 Potassium Chloride 10 meq AD PRN PO; Start 10/27/24 at 07:00; Stop 11/26/24 at 06:59 Potassium Chloride 10 meq AD PRN PO Last administered on 10/27/24at 11:53; Start 10/27/24 at 07:00; Stop 11/26/24 at 06:59 Magnesium Sulfate 50 ml @ 0 mls/hr PROTOCOL PRN IV; Start 10/27/24 at 07:00; Stop 11/26/24 at 06:59 Iohexol 35,000 mg STK-MED ONCE IV; Start 10/28/24 at 13:03; Stop 10/28/24 at 13:03; Status CAREN MORRISON Oct 28, 2024 13:35
[2024-10-28] MEDS: ATENOLOL 50 MG TABLET PO SCH (22:10)
[2024-10-29] VITALS (22 sets, daily range): BP systolic 100–156; BP diastolic 36–66; PULSE 49–71; RESP 13–27; TEMP 97.7–98.3; O2SAT 96–98
--- NOTE | 2024-10-29 07:33 | NUR ---
Radhika rounding on patient. Verbal orders given and entered.
--- NOTE | 2024-10-29 07:51 | PN ---
PROBLEM LIST: * Unstable anginal presentation. * Known history of coronary artery disease, status post remote angioplasty and stent placement in 2014. * Persistent atrial fibrillation with periods of sinus rhythm with AV dissociation and marked bradycardia on this admission. * Diastolic congestive heart failure. * Borderline troponin elevation. * History of chronic anticoagulation with Eliquis for paroxysmal atrial fibrillation and SVT. * History of preserved LV systolic function with grade III diastolic dysfunction by echocardiography in 12/2023. * Hypertension, poorly controlled on presentation. * Chronic kidney disease, stage III. * Hyperglycemia. * Cardiac catheterization 10/20/2020, identified stenosis in the ostial M1, which was felt to be a tiny vessel with a patent stent in the mid LAD and no other significant lesions. * Normal Lexiscan Cardiolite in 08/2023. * History of right breast CA, status post remote lumpectomy and followup mastectomy. * Peripheral artery disease with left lower extremity intervention in 08/2021. * History of GI bleed with melena with EGD in 2023, with push enteroscopy, finding gastritis and no active bleeding. * Colonoscopy 10/2023, identifying non-bleeding AV malformation, which was cauterized. * Lumbosacral disease with neuropathy. This patient was hospitalized because of severe chest discomfort. She was initially noted to be in atrial fibrillation with variable ventricular response; however, she converted to what appeared to be sinus rhythm with AV dissociation. She is currently in likely atrial rhythm. She is not having any active chest pain at this time; however, she states that her symptoms were very severe when she first came in. On assessing her this morning, she is comfortable and in no apparent distress. Her vital signs are stable. She is afebrile. Heart rate is in the 40s. Respiratory rate is 17-20. Blood pressure is 100-110 systolic range. She is saturating at 97% on room air. The patient's exam reflects a soft systolic murmur. She has no stigmata of congestive heart failure. The patient is currently maintained on atenolol 50 mg p.o. daily. She is also on CoQ10, magnesium, losartan, isosorbide, clopidogrel, atorvastatin, aspirin, Lovenox, spironolactone, hydralazine, furosemide, famotidine, nitro drip, sucralfate, verapamil, insulin and additional p.r.n. medications. Laboratory studies were remarkable for a sodium of 136, potassium of 4.0, with a chloride of 100, CO2 is 27, her BUN was 29, and creatinine is 1.4, with a GFR of 39. The patient's hemoglobin A1c is 6.1. Liver enzymes were normal. The iron was low at 37 and the saturation was low at 11.5 and the TIBC was normal at 319. Ferritin was 40. The troponins have been negative, but minimal elevation was noted on the 14th and 15th consistent with nontransmural CO. The patient's BNP was 420 and the lipid profile was in adequate range. TSH was normal. The white count yesterday was 10.2 with an H and H of 11.7 and 35.8 respectively. The platelet count was 255,000. Given the patient's elevated troponin and her prior history of coronary artery disease, she was being considered for repeat nuclear imaging or coronary CT angiography. Given her elevated creatinine and her irregular rhythm, coronary CT angiography would probably not be the most appropriate approach at this time. She may benefit from cardiac catheterization and coronary arteriography as the most appropriate approach at this time given her presentation. I have also recommended that we hold her verapamil given her bradycardia and episode of high-grade AV block. I will consider reducing the atenolol to 25 daily. I have discussed the procedure of cardiac catheterization with the patient, which she has had before and is quite familiar with it. All the benefits and risks have been reviewed. All the patient's and family's questions were invited and answered. TID: [id number] RECEIPT: [id number]
--- NOTE | 2024-10-29 08:14 | EKG ---
[facility] Test Date: 2024-10-29 Test Time: 07:14:13 Pat Name: JOSUE SOSA Department: [facility] Room: 208 1 Gender: F Thread Checker: [id number] : [id number] Requested By: Izabela HARVEY Order Number: [id number] Reading MD: Max Perkins Measurements Intervals [place] Rate: 43 P: 0 AK: 0 QRS: -76 QRSD: 103 T: 63 QT: 477 QTc: 421 Interpretive Statements AV block, complete (third degree) Supraventricular bigeminy Inferior infarct, old Consider anteroseptal infarct Compared to ECG 10/27/2024 01:05:04 Atrial premature complex(es) now present Sinus rhythm no longer present First degree AV block no longer present Myocardial infarct finding still present Electronically Signed On 10-29-2024 14:42:21 CDT by Max Perkins Please click the below link to view image of tracing.
[2024-10-29 08:26] LABS: INR 1.01 (0.85-1.15)
[2024-10-29 09:11] LABS: ASPARTATE AMINOTRANSFERASE 13.0 U/L (10-37); CREATININE 1.3 mg/dL (0.5-1.0); GLOMERULAR FILTR. RATE CALC 42.0 mL/min (>90); GLUCOSE,RANDOM 113.0 mg/dL (70-105); SODIUM SERUM 137.0 mmol/L (136-145); TOTAL PROTEIN, SERUM 7.0 g/dL (6.0-8.3); UREA NITROGEN, BLOOD 34.0 mg/dL (7-18)
[2024-10-29] MEDS: ATENOLOL 50 MG TABLET PO SCH (09:53)
--- NOTE | 2024-10-29 12:04 | PN ---
[facility] PROGRESS NOTE Date Patient Seen: Today, October Supervising Physician: Dr Cory Flynn Assessment: AFib with RVR, POA, on chronic anticoagulation with Eliquis SVT, POA Unstable angina, POA CHF with acute exacerbation, POA LVEF 55-60%, grade 3 diastolic dysfunction per 12/15/2023 Uncontrolled hypertension, POA Acute on chronic kidney disease, GFR 42 Hyperglycemia CAD s/p PCI with MICHAEL placement (Promus Premier 2.5x20 mm) in the mid LAD done on 05/13/2014 Chronic problem list: s/p LHC/coronary angiogram done on 10/20/2022 which identified significant stenosis in the ostial OM1 (tiny vessel), a patent stent in the mid LAD, and otherwise normal coronary arteries Normal Lexiscan stress test done 08/28/2023 HFpEF (LVEF: 55% by echo done 05/30/2022) Right sided breast CA s/p right lumpectomy PAD s/p left lower extremity peripheral intervention on 08/19/2021 History of GI bleed, (+) melena s/p EGD 11/07/2023 and push enteroscopy 11/11/2023 with findings of gastritis, no active bleed identified s/p colonoscopy 11/11/2023 with findings of non-bleeding AVM which was cauterized Bilateral lower extremity weakness and paresthesia with multilevel lumbar spondylosis with cord compression per MRI 11/06/2023 INTERVAL HISTORY: Patient seen and examined, patient resting comfortably in bed, currently NPO for left heart catheterization Patient reporting no chest pain or shortness of breath. Patient on room air. Nursing reports no acute events overnight Afebrile Off any pressors Heart rate is in the 50s, patient with a heart block rate ranges between 40 and 60 LVEF is 55-60%. Stage III diastolic dysfunction. The left atrium is mildly dilated. Plan: Unable to perform the CTA, patient going for left heart catheterization today. Follow cardiology recs Follow postprocedure Resume diet when cleared by Cardiology and no additional procedure scheduled Continue diuresis, follow I&Os, labs and daily chest x-ray Code Status: Full Resuscitation GI & DVT Prophylaxis REVIEW OF SYSTEMS: General: No malaise or fever. Neurological: - anxiety - HEENT: No nasal congestion or nasal secretion. Respiratory: No cough, shortness of breath, or wheezing Cardiac: No chest pain or palpitations. Gastrointestinal: No vomiting or diarrhea. Genitourinary: No dysuria hematuria. Skin: No rashes or lesions. Hematological: No bruises or bleeding. Musculoskeletal: No joint pains or arthralgias. Psychiatric: No depression or panic attacks. PHYSICAL EXAM: GENERAL: alert, weak, awake oriented x 3 HEENT: EOMI, Sclera non icteric, moist mucosa NECK: Supple, no JVD, trachea midline LUNGS: Clear breath sounds bilaterally. No wheezes HEART: Regular rate and rhythm. Normal S1 and S2, without murmurs ABD: Obese Abdomen soft, nontender. Bowel sounds present EXT: No clubbing cyanosis or edema. NEURO: Alert and oriented to person, follows commands PLAN GI & NUTRITION: Continue nutritional support Aspirations precautions Prokinetic agents and laxatives as needed KIDNEYS & ELECTROLYTES: Strict monitoring of intake and output NEURO: Minimize central acting medications as possible. Fall Precautions. Well lighted room through the day and minimize interruptions through the night to prevent acute delirium. PULMONARY: Supplemental 02 as needed Titrate Fio2 to keep Spo2 > or = 90% DuoNebs and CPT as needed CARDIOVASCULAR: Follow hemodynamics. Titrate vasopressor to keep MAP >65 or systolic blood pressure >95mmHg ENDOCRINE: Maintain blood glucose between 100-180 at all times. Insulin sliding scale for blood glucose management RENAL: Avoid nephrotoxic agents INFECTIOUS DISEASE: Trend temperature. Edouard-culture if febrile. HEMATOLOGY & COAGULATION: Monitor H&H. Keep Hgb > 7 Transfuse 1 unit of PRBC for Hgb < 7 Watch for any signs and symptoms of bleeding SKIN: Pressure ulcer prevention per facility protocol Total patient critical care time 45 minutes excluding all procedures. ATTESTATION BY PHYSICIAN The patient has been seen and evaluated, the case has been discussed with the PA, I agree with the clinical findings and plan of care. Vitals/Labs Vital Signs Date Time Temp Pulse Resp B/P (MAP) Pulse Ox O2 Delivery O2 Flow Rate FiO2 10/29/24 11:00 60 15 123/56 (78) 98 10/29/24 09:49 98.1 Room Air 10/28/24 20:14 0.0 10/28/24 20:00 21 Laboratory Tests 10/29/24 07:57 Medications Current Medications Adenosine 6 mg STK-MED ONCE IV; Start 10/26/24 at 09:34; Stop 10/26/24 at 09:35; Status DC Metoprolol Tartrate 5 mg STK-MED ONCE IV; Start 10/26/24 at 09:43; Stop 10/26/24 at 09:43; Status DC Adenosine 6 mg ONCE ONCE IV Last administered on 10/26/24at 09:56; Start 10/26/24 at 10:00; Stop 10/26/24 at 10:01; Status DC Metoprolol Tartrate 5 mg ONCE ONCE IV Last administered on 10/26/24at 10:00; Start 10/26/24 at 10:00; Stop 10/26/24 at 10:01; Status DC Famotidine 20 mg Q48H PO Last administered on 10/28/24at 20:15; Start 10/26/24 at 21:00; Stop 11/25/24 at 20:59 Aspirin 81 mg DAILY PO Last administered on 10/29/24at 09:53; Start 10/27/24 at 09:00; Stop 11/26/24 at 08:59 Acetaminophen 650 mg Q6H PRN PO Last administered on 10/26/24at 13:47; Start 10/26/24 at 11:30; Stop 11/25/24 at 11:29 Acetaminophen 650 mg Q6H PRN RC; Start 10/26/24 at 11:30; Stop 11/25/24 at 11:29 Lactulose 20 gm Q6H PRN PO; Start 10/26/24 at 11:30; Stop 11/25/24 at 11:29 Docusate Sodium 100 mg BID PRN PO; Start 10/26/24 at 11:30; Stop 11/25/24 at 11:29 Temazepam 15 mg HS PRN PO Last administered on 10/28/24at 22:11; Start 10/26/24 at 11:30; Stop 11/25/24 at 11:29 Labetalol HCl 10 mg Q2H PRN IV; Start 10/26/24 at 11:30; Stop 11/25/24 at 11:29 Insulin Human Regular INSULIN SLIDING SCAL... ACHS SQ; Start 10/26/24 at 11:30; Stop 11/25/24 at 11:29 Hydralazine HCl 10 mg ONCE ONCE IV Last administered on 10/26/24at 11:42; Start 10/26/24 at 11:30; Stop 10/26/24 at 11:34; Status DC Metoprolol Tartrate 5 mg ONCE ONCE IV Last administered on 10/26/24at 12:31; Start 10/26/24 at 12:30; Stop 10/26/24 at 12:31; Status DC Apixaban 5 mg BID PO; Start 10/26/24 at 21:00; Stop 10/26/24 at 15:06; Status DC Aspirin 81 mg DAILY PO; Start 10/27/24 at 09:00; Stop 10/26/24 at 12:49; Status DC Atorvastatin Calcium 40 mg DAILY PO Last administered on 10/28/24at 09:27; Start 10/27/24 at 09:00; Stop 11/26/24 at 08:59 Clopidogrel Bisulfate 75 mg DAILY PO Last administered on 10/29/24at 09:53; Start 10/27/24 at 09:00; Stop 11/26/24 at 08:59 Furosemide 40 mg BID PO Last administered on 10/28/24at 20:15; Start 10/26/24 at 21:00; Stop 11/25/24 at 20:59 Gabapentin 100 mg BID PO Last administered on 10/28/24at 20:15; Start 10/26/24 at 21:00; Stop 11/25/24 at 20:59 Hydralazine HCl 25 mg BID PO Last administered on 10/28/24at 20:15; Start 10/26/24 at 21:00; Stop 11/25/24 at 20:59 Isosorbide Mononitrate 30 mg DAILY PO Last administered on 10/28/24at 09:28; Start 10/27/24 at 09:00; Stop 11/26/24 at 08:59 Losartan Potassium 25 mg DAILY PO Last administered on 10/28/24at 09:29; Start 10/27/24 at 09:00; Stop 11/26/24 at 08:59 Spironolactone 25 mg BID PO Last administered on 10/28/24at 20:15; Start 10/26/24 at 21:00; Stop 11/25/24 at 20:59 Sucralfate 1 gm QID PO Last administered on 10/28/24at 20:15; Start 10/26/24 at 13:00; Stop 11/25/24 at 12:59 Verapamil HCl 240 mg BID PO Last administered on 10/28/24at 20:15; Start 10/26/24 at 12:30; Stop 11/25/24 at 12:29; Status Hold Atenolol 50 mg DAILY PO; Start 10/27/24 at 09:00; Stop 10/26/24 at 15:06; Status DC Pantoprazole Sodium 40 mg DAILY PO; Start 10/27/24 at 09:00; Stop 10/27/24 at 07:48; Status DC Magnesium Oxide 200 mg DAILY PO Last administered on 10/28/24at 09:28; Start 10/27/24 at 09:00; Stop 11/26/24 at 08:59 Home Med Ubidecarenone (Co Q-10) 1 CAP DAILY PO; Start 10/27/24 at 09:00; Stop 11/26/24 at 08:59 Atenolol 50 mg ONCE ONCE PO Last administered on 10/26/24at 13:08; Start 10/26/24 at 13:00; Stop 10/26/24 at 13:01; Status DC Pharmacy Profile Note HOME MED: DRUG-DRUG Interaction BID MISC; Start 10/26/24 at 21:00; Stop 10/27/24 at 06:55; Status DC Nitroglycerin/ Dextrose 250 ml @ 0 mls/hr PROTOCOL IV Last administered on 10/26/24at 13:53; Start 10/26/24 at 13:30; Stop 11/25/24 at 13:29 Apixaban 5 mg ONCE ONCE PO Last administered on 10/26/24at 13:55; Start 10/26/24 at 13:30; Stop 10/26/24 at 13:32; Status DC Aspirin 324 mg ONCE ONCE PO Last administered on 10/26/24at 13:46; Start 10/26/24 at 13:30; Stop 10/26/24 at 13:32; Status DC Furosemide 40 mg ONCE ONCE IV Last administered on 10/26/24at 13:47; Start 10/26/24 at 13:30; Stop 10/26/24 at 13:32; Status DC Atenolol 50 mg BID PO Last administered on 10/27/24at 21:24; Start 10/26/24 at 21:00; Stop 10/28/24 at 19:10; Status DC Enoxaparin Sodium 60 mg BID SQ Last administered on 10/28/24at 20:15; Start 10/26/24 at 21:00; Stop 11/25/24 at 20:59 Potassium Chloride 100 ml @ 100 mls/hr AD PRN IV; Start 10/27/24 at 07:00; Stop 11/26/24 at 06:59 Potassium Chloride 10 meq AD PRN PO; Start 10/27/24 at 07:00; Stop 11/26/24 at 06:59 Potassium Chloride 10 meq AD PRN PO Last administered on 10/27/24at 11:53; Start 10/27/24 at 07:00; Stop 11/26/24 at 06:59 Magnesium Sulfate 50 ml @ 0 mls/hr PROTOCOL PRN IV; Start 10/27/24 at 07:00; Stop 11/26/24 at 06:59 Iohexol 35,000 mg STK-MED ONCE IV; Start 10/28/24 at 13:03; Stop 10/28/24 at 13:03; Status DC Metoprolol Tartrate 5 mg STK-MED ONCE IV; Start 10/28/24 at 13:31; Stop 10/28/24 at 13:32; Status DC Atenolol 50 mg DAILY PO Last administered on 10/28/24at 22:10; Start 10/28/24 at 21:00; Stop 10/29/24 at 07:38; Status DC Atenolol 25 mg DAILY PO Last administered on 10/29/24at 09:53; Start 10/29/24 at 09:00; Stop 11/28/24 at 08:59 CAREN VILLALOBOS Oct 29, 2024 12:04
[2024-10-29] MEDS ORDERED: IOHEXOL 350 MG/ML 100ML INFUS..BTL IV ONE (12:30)
[2024-10-29] MEDS ORDERED: LIDOCAINE HCL 400MG/20ML VIAL ONE (12:30)
[2024-10-29] MEDS ORDERED: HEParin-NS 1,000 UNIT/500 ML 1,000 ML IV ONE (12:30)
[2024-10-29] MEDS ORDERED: NITROGLYCERIN 50MG VIAL ONE (12:31)
--- NOTE | 2024-10-29 12:50 | NUR ---
patient taken to [facility]
--- NOTE | 2024-10-29 13:19 | PRN ---
Cath Procedure Report CATH PROCEDURE REPORT CARDIAC CATHETERIZATION REPORT Date of Service: Oct 29, 2024 After informed consent the patient was prepped and draped in the usual fashion. She received a total of 15 cc of 2% xylocaine in the right inguinal area. A six Norwegian sheath was introduced into the right femoral artery using modified Seldinger technique. A Anthony four right six Norwegian diagnostic catheter was advanced over guidewire to the aortic root. Wire was removed and catheter engaged into the nondalton right coronary artery which was visualized in multiple planes. The catheter was removed and a Anthony four left six Norwegian diagnostic catheter was then advanced over guidewire to the aortic root. Wire was removed and catheter engaged into the nondalton left main coronary artery. The left coronary system was visualized in multiple planes the catheter was removed. A pigtail catheter was then advanced over guidewire across the aortic valve. Wire was removed and hemodynamics measured. A pullback with continuous hemodynamic monitoring was performed and catheter was removed. A sheathogram performed. Initial attempts to close the arteriotomy with Angio-Seal were unsuccessful due to significant scar tissue. The patient then had the arteriotomy closed with a Vascade. The entire procedure was well tolerated without complications. Findings: The right coronary artery is a right-dominant vessel. It is free of obstruction gives rise to normal PDA and posterolateral branches. The left main coronary artery is a short vessel free of obstruction. Left anterior descending artery has a mid LAD stent which is widely patent. There was a 30% distal InStent stenosis present which is unchanged from her last angiogram. The diagonal arteries are free of obstruction. The circumflex artery is a nondomi nant vessel free of obstruction gives rise to normal obtuse marginal artery and a normal high lateral branch. There was no evidence of aortic stenosis. In summary patent LAD stent with a 30% distal InStent restenosis unchanged. Report dictated by CAREN Zuniga MD, MD Oct 29, 2024 13:19
[2024-10-30] VITALS (9 sets, daily range): BP systolic 95–153; BP diastolic 45–93; PULSE 56–99; RESP 16–24; TEMP 98.1–98.7; O2SAT 98–99
[2024-10-30 05:10] LABS: IMMATURE GRANULOCYTE ABSOLUTE 0.03 K/uL (0-1); NUCLEATED RED BLOOD CELLS 0.0 % (0.0-0.19); PLATELET COUNT (AUTO) 218 K/uL (130-400); RED BLOOD CELL COUNT(AUTO) 4.40 MIL/uL (4.00-5.50); RED CELL DISTRIBUTION WIDTH 14.0 % (11.0-15.5); WHITE BLOOD COUNT (AUTO) 9.0 K/uL (4.8-10.8)
[2024-10-30 05:21] LABS: ASPARTATE AMINOTRANSFERASE 21.0 U/L (10-37); CREATININE 1.2 mg/dL (0.5-1.0); GLOMERULAR FILTR. RATE CALC 47.0 mL/min (>90); GLUCOSE,RANDOM 106.0 mg/dL (70-105); SODIUM SERUM 139.0 mmol/L (136-145); TOTAL PROTEIN, SERUM 7.2 g/dL (6.0-8.3); UREA NITROGEN, BLOOD 35.0 mg/dL (7-18)
--- NOTE | 2024-10-30 08:28 | PN ---
PROBLEM LIST: * Presentation with unstable angina. * History of severe coronary artery disease with remote angioplasty and stent placement in 2014, mid LAD. * Persistent atrial fibrillation with periods of sinus rhythm with AV dissociation and marked bradycardia on this admission. * Diastolic congestive heart failure. * Borderline troponin elevation. * Repeat cardiac catheterization, 10/29/2024, identifying patent stents with no other significant coronary lesions. * Preserved LV systolic function with grade 3 diastolic dysfunction by echocardiography in 12/2023. * Hypertension, poorly controlled. * Chronic kidney disease, stage 3. * Hyperglycemia. * History of right breast CA, status post remote lumpectomy followed by mastectomy. * Peripheral artery disease with left lower extremity intervention in 08/2021. * History of GI bleed with melena, EGD in 2023 and push endoscopy identifying gastritis with no active bleeding with followup colonoscopy identifying non-bleeding AV malformation, which were cauterized. * Lumbosacral spine disease and neuropathy. This patient has undergone cardiac catheterization and coronary arteriography yesterday by Dr. Max Perkins. The patient had no significant coronary lesions and the stent in the LAD was patent. The patient has had persistent periods of hypertension with heart rates in the 60 to 70 per minute rate. She is afebrile. Her respiratory rate is in the 18 to 25. Blood pressure is 105/51 today. She is saturating at 97% on room air. The patient is currently maintained on atenolol at 25 mg p.o. daily, magnesium, Cozaar at 25 mg p.o. daily, isosorbide, clopidogrel, atorvastatin, baby aspirin, and p.r.n. medications. She had been on verapamil as an outpatient, which has been held because of the development of complete heart block and periods of AV dissociation. She is also on insulin, Restoril, lactulose, and additional p.r.n. medications. The patient's laboratory studies this morning reveal a white count of 9.0 with an H and H of 12.1 and 38.2 respectively. The platelet count is currently 218,000. The H and H has been stable. The chemistries have revealed a sodium of 139, a potassium of 3.7 with a chloride of 103, CO2 is 26, BUN is 35, creatinine is 1.2 with a GFR of 47. The patient's liver enzymes are normal. The albumin is borderline low at 3.4. In reviewing the patient's GFR trends, it had been as low as 42 and as high as 62 during this admission. The patient has had no problems with her groin access site. She has no hematoma or ecchymosis. The distal pulses are intact. Today, I have recommended that we continue to hold verapamil. The patient is on low-dose metoprolol, which may be held. We may need to adjust her losartan dose or initiate non-dihydropyridine calcium channel blockers given her periods of AV dissociation and sinus bradycardia. I have recommended a consultation with Dr. Ben Huff prior to discharge. TID: [id number] RECEIPT: [id number]
--- NOTE | 2024-10-30 12:15 | PN ---
[facility] PROGRESS NOTE Date Patient Seen: Today, October Supervising Physician: Dr Dariel Quintanilla Assessment: Status post left heart catheterization 10/29/2024 AFib with RVR, POA, on chronic anticoagulation with Eliquis SVT, POA Unstable angina, POA CHF with acute exacerbation, POA LVEF 55-60%, grade 3 diastolic dysfunction per 12/15/2023 Uncontrolled hypertension, POA Acute on chronic kidney disease, GFR 42 Hyperglycemia CAD s/p PCI with MICHAEL placement (Promus Premier 2.5x20 mm) in the mid LAD done on 05/13/2014 Chronic problem list: s/p LHC/coronary angiogram done on 10/20/2022 which identified significant stenosis in the ostial OM1 (tiny vessel), a patent stent in the mid LAD, and otherwise normal coronary arteries Normal Lexiscan stress test done 08/28/2023 HFpEF (LVEF: 55% by echo done 05/30/2022) Right sided breast CA s/p right lumpectomy PAD s/p left lower extremity peripheral intervention on 08/19/2021 History of GI bleed, (+) melena s/p EGD 11/07/2023 and push enteroscopy 11/11/2023 with findings of gastritis, no active bleed identified s/p colonoscopy 11/11/2023 with findings of non-bleeding AVM which was cauterized Bilateral lower extremity weakness and paresthesia with multilevel lumbar spondylosis with cord compression per MRI 11/06/2023 INTERVAL HISTORY: Patient seen and examined, patient resting comfortably in bed, patient undergoing left heart catheterization yesterday. Revealing stents are open, no blockage, cardiology is holding beta-blockers, Dr. Lay has been consulted Patient currently on room air, heart rate in the 70s, tolerating cardiac diet Discussion with patient and at bedside. Patient reporting no chest pain or shortness of breath. Comfortable. LVEF is 55-60%. Stage III diastolic dysfunction. The left atrium is mildly dilated. Plan: Follow cardiology recs, pending eval by Dr. Lay Telemetry Cardiac diet I&Os Patient on aspirin, statin, Plavix GI prophylaxis with Protonix DVT prophylaxis with SCDs and Lovenox. REVIEW OF SYSTEMS: General: No malaise or fever. Neurological: - anxiety - HEENT: No nasal congestion or nasal secretion. Respiratory: No cough, shortness of breath, or wheezing Cardiac: No chest pain or palpitations. Gastrointestinal: No vomiting or diarrhea. Genitourinary: No dysuria hematuria. Skin: No rashes or lesions. Hematological: No bruises or bleeding. Musculoskeletal: No joint pains or arthralgias. Psychiatric: No depression or panic attacks. PHYSICAL EXAM: GENERAL: alert, weak, awake oriented x 3 HEENT: EOMI, Sclera non icteric, moist mucosa NECK: Supple, no JVD, trachea midline LUNGS: Clear breath sounds bilaterally. No wheezes HEART: Regular rate and rhythm. Normal S1 and S2, without murmurs ABD: Obese Abdomen soft, nontender. Bowel sounds present EXT: No clubbing cyanosis or edema. NEURO: Alert and oriented to person, follows commands PLAN GI & NUTRITION: Continue nutritional support Aspirations precautions Prokinetic agents and laxatives as needed KIDNEYS & ELECTROLYTES: Strict monitoring of intake and output NEURO: Minimize central acting medications as possible. Fall Precautions. Well lighted room through the day and minimize interruptions through the night to prevent acute delirium. PULMONARY: Supplemental 02 as needed Titrate Fio2 to keep Spo2 > or = 90% DuoNebs and CPT as needed CARDIOVASCULAR: Follow hemodynamics. Titrate vasopressor to keep MAP >65 or systolic blood pressure >95mmHg ENDOCRINE: Maintain blood glucose between 100-180 at all times. Insulin sliding scale for blood glucose management RENAL: Avoid nephrotoxic agents INFECTIOUS DISEASE: Trend temperature. Edouard-culture if febrile. HEMATOLOGY & COAGULATION: Monitor H&H. Keep Hgb > 7 Transfuse 1 unit of PRBC for Hgb < 7 Watch for any signs and symptoms of bleeding SKIN: Pressure ulcer prevention per facility protocol Total time spent in the care of this patient greater than 40 minutes, this excludes any time spent on procedures teaching or education. ATTESTATION BY PHYSICIAN The patient has been seen and evaluated, the case has been discussed with the PA, I agree with the clinical findings and plan of care. Vitals/Labs Vital Signs Date Time Temp Pulse Resp B/P (MAP) Pulse Ox O2 Delivery O2 Flow Rate FiO2 10/30/24 11:25 110 153/45 10/30/24 04:00 98.8 18 97 Room Air 10/29/24 20:00 0 21 Laboratory Tests 10/30/24 04:35 Medications Current Medications Adenosine 6 mg STK-MED ONCE IV; Start 10/26/24 at 09:34; Stop 10/26/24 at 09:35; Status DC Metoprolol Tartrate 5 mg STK-MED ONCE IV; Start 10/26/24 at 09:43; Stop 10/26/24 at 09:43; Status DC Adenosine 6 mg ONCE ONCE IV Last administered on 10/26/24at 09:56; Start 10/26/24 at 10:00; Stop 10/26/24 at 10:01; Status DC Metoprolol Tartrate 5 mg ONCE ONCE IV Last administered on 10/26/24at 10:00; Start 10/26/24 at 10:00; Stop 10/26/24 at 10:01; Status DC Famotidine 20 mg Q48H PO Last administered on 10/28/24at 20:15; Start 10/26/24 at 21:00; Stop 11/25/24 at 20:59 Aspirin 81 mg DAILY PO Last administered on 10/30/24at 11:23; Start 10/27/24 at 09:00; Stop 11/26/24 at 08:59 Acetaminophen 650 mg Q6H PRN PO Last administered on 10/26/24at 13:47; Start 10/26/24 at 11:30; Stop 11/25/24 at 11:29 Acetaminophen 650 mg Q6H PRN RC; Start 10/26/24 at 11:30; Stop 11/25/24 at 11:29 Lactulose 20 gm Q6H PRN PO; Start 10/26/24 at 11:30; Stop 11/25/24 at 11:29 Docusate Sodium 100 mg BID PRN PO; Start 10/26/24 at 11:30; Stop 11/25/24 at 11:29 Temazepam 15 mg HS PRN PO Last administered on 10/29/24at 22:27; Start 10/26/24 at 11:30; Stop 11/25/24 at 11:29 Labetalol HCl 10 mg Q2H PRN IV; Start 10/26/24 at 11:30; Stop 11/25/24 at 11:29 Insulin Human Regular INSULIN SLIDING SCAL... ACHS SQ; Start 10/26/24 at 11:30; Stop 11/25/24 at 11:29 Hydralazine HCl 10 mg ONCE ONCE IV Last administered on 10/26/24at 11:42; Start 10/26/24 at 11:30; Stop 10/26/24 at 11:34; Status DC Metoprolol Tartrate 5 mg ONCE ONCE IV Last administered on 10/26/24at 12:31; Start 10/26/24 at 12:30; Stop 10/26/24 at 12:31; Status DC Apixaban 5 mg BID PO; Start 10/26/24 at 21:00; Stop 10/26/24 at 15:06; Status DC Aspirin 81 mg DAILY PO; Start 10/27/24 at 09:00; Stop 10/26/24 at 12:49; Status DC Atorvastatin Calcium 40 mg DAILY PO Last administered on 10/30/24at 11:27; Start 10/27/24 at 09:00; Stop 11/26/24 at 08:59 Clopidogrel Bisulfate 75 mg DAILY PO Last administered on 10/30/24at 11:28; Start 10/27/24 at 09:00; Stop 11/26/24 at 08:59 Furosemide 40 mg BID PO Last administered on 10/30/24at 11:27; Start 10/26/24 at 21:00; Stop 11/25/24 at 20:59 Gabapentin 100 mg BID PO Last administered on 10/30/24at 11:28; Start 10/26/24 at 21:00; Stop 11/25/24 at 20:59 Hydralazine HCl 25 mg BID PO Last administered on 10/30/24at 11:23; Start 10/26/24 at 21:00; Stop 11/25/24 at 20:59 Isosorbide Mononitrate 30 mg DAILY PO Last administered on 10/30/24at 11:27; Start 10/27/24 at 09:00; Stop 11/26/24 at 08:59 Losartan Potassium 25 mg DAILY PO Last administered on 10/30/24at 11:25; Start 10/27/24 at 09:00; Stop 11/26/24 at 08:59 Spironolactone 25 mg BID PO Last administered on 10/30/24at 11:22; Start 10/26/24 at 21:00; Stop 11/25/24 at 20:59 Sucralfate 1 gm QID PO Last administered on 10/30/24at 11:25; Start 10/26/24 at 13:00; Stop 11/25/24 at 12:59 Verapamil HCl 240 mg BID PO Last administered on 10/28/24at 20:15; Start 10/26/24 at 12:30; Stop 11/25/24 at 12:29; Status Hold Atenolol 50 mg DAILY PO; Start 10/27/24 at 09:00; Stop 10/26/24 at 15:06; Status DC Pantoprazole Sodium 40 mg DAILY PO; Start 10/27/24 at 09:00; Stop 10/27/24 at 07:48; Status DC Magnesium Oxide 200 mg DAILY PO Last administered on 10/30/24at 11:28; Start 10/27/24 at 09:00; Stop 11/26/24 at 08:59 Home Med Ubidecarenone (Co Q-10) 1 CAP DAILY PO; Start 10/27/24 at 09:00; Stop 11/26/24 at 08:59 Atenolol 50 mg ONCE ONCE PO Last administered on 10/26/24at 13:08; Start 10/26/24 at 13:00; Stop 10/26/24 at 13:01; Status DC Pharmacy Profile Note HOME MED: DRUG-DRUG Interaction BID MISC; Start 10/26/24 at 21:00; Stop 10/27/24 at 06:55; Status DC Nitroglycerin/ Dextrose 250 ml @ 0 mls/hr PROTOCOL IV Last administered on 10/26/24at 13:53; Start 10/26/24 at 13:30; Stop 11/25/24 at 13:29 Apixaban 5 mg ONCE ONCE PO Last administered on 10/26/24at 13:55; Start 10/26/24 at 13:30; Stop 10/26/24 at 13:32; Status DC Aspirin 324 mg ONCE ONCE PO Last administered on 10/26/24at 13:46; Start 10/26/24 at 13:30; Stop 10/26/24 at 13:32; Status DC Furosemide 40 mg ONCE ONCE IV Last administered on 10/26/24at 13:47; Start 10/26/24 at 13:30; Stop 10/26/24 at 13:32; Status DC Atenolol 50 mg BID PO Last administered on 10/27/24at 21:24; Start 10/26/24 at 21:00; Stop 10/28/24 at 19:10; Status DC Enoxaparin Sodium 60 mg BID SQ Last administered on 10/30/24at 11:29; Start 10/26/24 at 21:00; Stop 11/25/24 at 20:59 Potassium Chloride 100 ml @ 100 mls/hr AD PRN IV; Start 10/27/24 at 07:00; Stop 11/26/24 at 06:59 Potassium Chloride 10 meq AD PRN PO; Start 10/27/24 at 07:00; Stop 11/26/24 at 06:59 Potassium Chloride 10 meq AD PRN PO Last administered on 10/30/24at 06:11; Start 10/27/24 at 07:00; Stop 11/26/24 at 06:59 Magnesium Sulfate 50 ml @ 0 mls/hr PROTOCOL PRN IV; Start 10/27/24 at 07:00; Stop 11/26/24 at 06:59 Iohexol 35,000 mg STK-MED ONCE IV; Start 10/28/24 at 13:03; Stop 10/28/24 at 13:03; Status DC Metoprolol Tartrate 5 mg STK-MED ONCE IV; Start 10/28/24 at 13:31; Stop 10/28/24 at 13:32; Status DC Atenolol 50 mg DAILY PO Last administered on 10/28/24at 22:10; Start 10/28/24 at 21:00; Stop 10/29/24 at 07:38; Status DC Atenolol 25 mg DAILY PO Last administered on 10/30/24at 11:25; Start 10/29/24 at 09:00; Stop 11/28/24 at 08:59 Lidocaine HCl 20 ml STK-MED ONCE .ROUTE; Start 10/29/24 at 12:30; Stop 10/29/24 at 12:30; Status DC Iohexol 35,000 mg STK-MED ONCE IV; Start 10/29/24 at 12:30; Stop 10/29/24 at 12:30; Status DC Heparin Sodium (Porcine) 10,000 unit STK-MED ONCE .ROUTE; Start 10/29/24 at 12:30; Stop 10/29/24 at 12:30; Status DC Heparin Sodium/ Sodium Chloride 1,000 ml @ As Directed STK-MED ONCE IV; Start 9/17/25 at 12:30; Stop 10/29/24 at 12:31; Status DC Nitroglycerin 50 mg STK-MED ONCE .ROUTE; Start 10/29/24 at 12:31; Stop 10/29/24 at 12:31; Status DC CAREN VILLALOBOS Oct 30, 2024 12:15
--- NOTE | 2024-10-30 13:00 | NUR ---
Patient transferred to room 222. Report given to Law Maher LVN. All questions answered. Patient transferred via bed. All patient belongings taken with her on bed. Left patient in care of nurse at bedside.
[2024-10-31] VITALS (10 sets, daily range): BP systolic 109–151; BP diastolic 46–67; PULSE 48–94; RESP 18–20; TEMP 97.9–98.7; O2SAT 98
--- NOTE | 2024-10-31 05:33 | HMCIMG ---
EXAM: CR Chest, 1 views. CLINICAL HISTORY: Cough. COMPARISON: None provided. FINDINGS: The lungs show no infiltrate or other acute findings. No pleural effusion or pneumothorax. The cardiomediastinal silhouette is within normal limits. Atherosclerotic aortic calcification is noted. No acute osseous abnormality. IMPRESSION: Atherosclerotic aortic calcification is noted. /[place]
[2024-10-31] MEDS: LACTULOSE 20 GM/30 ML UDCUP PO PRN (06:00)
--- NOTE | 2024-10-31 06:42 | NUR ---
Patient states she has not had a bowel movement in 4 days. Lactulose given.
--- NOTE | 2024-10-31 13:33 | HMCIMG ---
CHEST 1VW REASON: pp COMPARISON: Prior chest radiograph from 10/30/2024 is available. FINDINGS: Single view of the chest was obtained. Lungs are clear. Heart size is normal. There is no pulmonary vascular congestion. Mediastinum and bony thorax appear unremarkable. The bony thorax demonstrate osteopenia. There are surgical clips in the right axillary region from prior surgery. IMPRESSION: 1. No acute cardiopulmonary process.
--- NOTE | 2024-10-31 14:15 | PN ---
[facility] PROGRESS NOTE Date Patient Seen: Today, October Supervising Physician: Dr Dariel Quintanilla Assessment: Status post left heart catheterization 10/29/2024 AFib with RVR, POA, on chronic anticoagulation with Eliquis SVT, POA Unstable angina, POA CHF with acute exacerbation, POA LVEF 55-60%, grade 3 diastolic dysfunction per 12/15/2023 Uncontrolled hypertension, POA Acute on chronic kidney disease, GFR 42 Hyperglycemia CAD s/p PCI with MICHAEL placement (Promus Premier 2.5x20 mm) in the mid LAD done on 05/13/2014 Chronic problem list: s/p LHC/coronary angiogram done on 10/20/2022 which identified significant stenosis in the ostial OM1 (tiny vessel), a patent stent in the mid LAD, and otherwise normal coronary arteries Normal Lexiscan stress test done 08/28/2023 HFpEF (LVEF: 55% by echo done 05/30/2022) Right sided breast CA s/p right lumpectomy PAD s/p left lower extremity peripheral intervention on 08/19/2021 History of GI bleed, (+) melena s/p EGD 11/07/2023 and push enteroscopy 11/11/2023 with findings of gastritis, no active bleed identified s/p colonoscopy 11/11/2023 with findings of non-bleeding AVM which was cauterized Bilateral lower extremity weakness and paresthesia with multilevel lumbar spo ndylosis with cord compression per MRI 11/06/2023 INTERVAL HISTORY: Patient seen and examined, patient is resting comfortably in bed, heart rate in the 70s and sinus, Chest x-ray is clear Tolerating her diet She is awake alert and oriented x4, vital signs stable Afebrile Nursing reports no acute events overnight. Discussion with patient and her at bedside. Plan: Follow cardiology recs, pending eval by Dr. Lay Telemetry Cardiac diet I&Os Patient on aspirin, statin, Plavix GI prophylaxis with Protonix DVT prophylaxis with SCDs and Lovenox. REVIEW OF SYSTEMS: General: No malaise or fever. Neurological: - anxiety - HEENT: No nasal congestion or nasal secretion. Respiratory: No cough, shortness of breath, or wheezing Cardiac: No chest pain or palpitations. Gastrointestinal: No vomiting or diarrhea. Genitourinary: No dysuria hematuria. Skin: No rashes or lesions. Hematological: No bruises or bleeding. Musculoskeletal: No joint pains or arthralgias. Psychiatric: No depression or panic attacks. PHYSICAL EXAM: GENERAL: alert, weak, awake oriented x 3 HEENT: EOMI, Sclera non icteric, moist mucosa NECK: Supple, no JVD, trachea midline LUNGS: Clear breath sounds bilaterally. No wheezes HEART: Regular rate and rhythm. Normal S1 and S2, without murmurs ABD: Obese Abdomen soft, nontender. Bowel sounds present EXT: No clubbing cyanosis or edema. NEURO: Alert and oriented to person, follows commands PLAN GI & NUTRITION: Continue nutritional support Aspirations precautions Prokinetic agents and laxatives as needed KIDNEYS & ELECTROLYTES: Strict monitoring of intake and output NEURO: Minimize central acting medications as possible. Fall Precautions. Well lighted room through the day and minimize interruptions through the night to prevent acute delirium. PULMONARY: Supplemental 02 as needed Titrate Fio2 to keep Spo2 > or = 90% DuoNebs and CPT as needed CARDIOVASCULAR: Follow hemodynamics. Titrate vasopressor to keep MAP >65 or systolic blood pressure >95mmHg ENDOCRINE: Maintain blood glucose between 100-180 at all times. Insulin sliding scale for blood glucose management RENAL: Avoid nephrotoxic agents INFECTIOUS DISEASE: Trend temperature. Edouard-culture if febrile. HEMATOLOGY & COAGULATION: Monitor H&H. Keep Hgb > 7 Transfuse 1 unit of PRBC for Hgb < 7 Watch for any signs and symptoms of bleeding SKIN: Pressure ulcer prevention per facility protocol Total patient critical care time 45 minutes excluding all procedures. ATTESTATION BY PHYSICIAN The patient has been seen and evaluated, the case has been discussed with the PA, I agree with the clinical findings and plan of care. Vitals/Labs Vital Signs Date Time Temp Pulse Resp B/P (MAP) Pulse Ox O2 Delivery O2 Flow Rate FiO2 10/31/24 12:00 98.6 85 20 130/65 97 Room Air 10/31/24 08:00 0 21 Medications Current Medications Adenosine 6 mg STK-MED ONCE IV; Start 10/26/24 at 09:34; Stop 10/26/24 at 09:35; Status DC Metoprolol Tartrate 5 mg STK-MED ONCE IV; Start 10/26/24 at 09:43; Stop 10/26/24 at 09:43; Status DC Adenosine 6 mg ONCE ONCE IV Last administered on 10/26/24at 09:56; Start 10/26/24 at 10:00; Stop 10/26/24 at 10:01; Status DC Metoprolol Tartrate 5 mg ONCE ONCE IV Last administered on 10/26/24at 10:00; Start 10/26/24 at 10:00; Stop 10/26/24 at 10:01; Status DC Famotidine 20 mg Q48H PO Last administered on 10/30/24at 21:01; Start 10/26/24 at 21:00; Stop 11/25/24 at 20:59 Aspirin 81 mg DAILY PO Last administered on 10/31/24at 09:42; Start 10/27/24 at 09:00; Stop 11/26/24 at 08:59 Acetaminophen 650 mg Q6H PRN PO Last administered on 10/26/24at 13:47; Start 10/26/24 at 11:30; Stop 11/25/24 at 11:29 Acetaminophen 650 mg Q6H PRN RC; Start 10/26/24 at 11:30; Stop 11/25/24 at 11:29 Lactulose 20 gm Q6H PRN PO Last administered on 10/31/24at 06:00; Start 10/26/24 at 11:30; Stop 11/25/24 at 11:29 Docusate Sodium 100 mg BID PRN PO Last administered on 10/30/24at 21:23; Start 10/26/24 at 11:30; Stop 11/25/24 at 11:29 Temazepam 15 mg HS PRN PO Last administered on 10/29/24at 22:27; Start 10/26/24 at 11:30; Stop 11/25/24 at 11:29 Labetalol HCl 10 mg Q2H PRN IV; Start 10/26/24 at 11:30; Stop 11/25/24 at 11:29 Insulin Human Regular INSULIN SLIDING SCAL... ACHS SQ; Start 10/26/24 at 11:30; Stop 11/25/24 at 11:29 Hydralazine HCl 10 mg ONCE ONCE IV Last administered on 10/26/24at 11:42; Start 10/26/24 at 11:30; Stop 10/26/24 at 11:34; Status DC Metoprolol Tartrate 5 mg ONCE ONCE IV Last administered on 10/26/24at 12:31; Start 10/26/24 at 12:30; Stop 10/26/24 at 12:31; Status DC Apixaban 5 mg BID PO; Start 10/26/24 at 21:00; Stop 10/26/24 at 15:06; Status DC Aspirin 81 mg DAILY PO; Start 10/27/24 at 09:00; Stop 10/26/24 at 12:49; Status DC Atorvastatin Calcium 40 mg DAILY PO Last administered on 10/31/24at 09:42; Start 10/27/24 at 09:00; Stop 11/26/24 at 08:59 Clopidogrel Bisulfate 75 mg DAILY PO Last administered on 10/31/24at 09:43; Start 10/27/24 at 09:00; Stop 11/26/24 at 08:59 Furosemide 40 mg BID PO Last administered on 10/31/24at 09:43; Start 10/26/24 at 21:00; Stop 11/25/24 at 20:59 Gabapentin 100 mg BID PO Last administered on 10/31/24at 09:42; Start 10/26/24 at 21:00; Stop 11/25/24 at 20:59 Hydralazine HCl 25 mg BID PO Last administered on 10/31/24at 09:41; Start 10/26/24 at 21:00; Stop 11/25/24 at 20:59 Isosorbide Mononitrate 30 mg DAILY PO Last administered on 10/31/24at 09:42; Start 10/27/24 at 09:00; Stop 11/26/24 at 08:59 Losartan Potassium 25 mg DAILY PO Last administered on 10/31/24at 09:42; Start 10/27/24 at 09:00; Stop 11/26/24 at 08:59 Spironolactone 25 mg BID PO Last administered on 10/31/24at 09:42; Start 10/26/24 at 21:00; Stop 11/25/24 at 20:59 Sucralfate 1 gm QID PO Last administered on 10/31/24at 13:27; Start 10/26/24 at 13:00; Stop 11/25/24 at 12:59 Verapamil HCl 240 mg BID PO Last administered on 10/28/24at 20:15; Start 10/26/24 at 12:30; Stop 10/31/24 at 09:58; Status DC Atenolol 50 mg DAILY PO; Start 10/27/24 at 09:00; Stop 10/26/24 at 15:06; Status DC Pantoprazole Sodium 40 mg DAILY PO; Start 10/27/24 at 09:00; Stop 10/27/24 at 07:48; Status DC Magnesium Oxide 200 mg DAILY PO Last administered on 10/31/24at 09:43; Start 10/27/24 at 09:00; Stop 11/26/24 at 08:59 Home Med Ubidecarenone (Co Q-10) 1 CAP DAILY PO Last administered on 10/31/24at 09:00; Start 10/27/24 at 09:00; Stop 11/26/24 at 08:59 Atenolol 50 mg ONCE ONCE PO Last administered on 10/26/24at 13:08; Start 10/26/24 at 13:00; Stop 10/26/24 at 13:01; Status DC Pharmacy Profile Note HOME MED: DRUG-DRUG Interaction BID MISC; Start 10/26/24 at 21:00; Stop 10/27/24 at 06:55; Status DC Nitroglycerin/ Dextrose 250 ml @ 0 mls/hr PROTOCOL IV Last administered on 10/26/24at 13:53; Start 10/26/24 at 13:30; Stop 11/25/24 at 13:29 Apixaban 5 mg ONCE ONCE PO Last administered on 10/26/24at 13:55; Start 10/26/24 at 13:30; Stop 10/26/24 at 13:32; Status DC Aspirin 324 mg ONCE ONCE PO Last administered on 10/26/24at 13:46; Start 10/26/24 at 13:30; Stop 10/26/24 at 13:32; Status DC Furosemide 40 mg ONCE ONCE IV Last administered on 10/26/24at 13:47; Start 10/26/24 at 13:30; Stop 10/26/24 at 13:32; Status DC Atenolol 50 mg BID PO Last administered on 10/27/24at 21:24; Start 10/26/24 at 21:00; Stop 10/28/24 at 19:10; Status DC Enoxaparin Sodium 60 mg BID SQ Last administered on 10/31/24at 09:48; Start 10/26/24 at 21:00; Stop 11/25/24 at 20:59 Potassium Chloride 100 ml @ 100 mls/hr AD PRN IV; Start 10/27/24 at 07:00; S top 11/26/24 at 06:59 Potassium Chloride 10 meq AD PRN PO; Start 10/27/24 at 07:00; Stop 11/26/24 at 06:59 Potassium Chloride 10 meq AD PRN PO Last administered on 10/30/24at 06:11; Start 10/27/24 at 07:00; Stop 11/26/24 at 06:59 Magnesium Sulfate 50 ml @ 0 mls/hr PROTOCOL PRN IV; Start 10/27/24 at 07:00; Stop 11/26/24 at 06:59 Iohexol 35,000 mg STK-MED ONCE IV; Start 10/28/24 at 13:03; Stop 10/28/24 at 13:03; Status DC Metoprolol Tartrate 5 mg STK-MED ONCE IV; Start 10/28/24 at 13:31; Stop 10/28/24 at 13:32; Status DC Atenolol 50 mg DAILY PO Last administered on 10/28/24at 22:10; Start 10/28/24 at 21:00; Stop 10/29/24 at 07:38; Status DC Atenolol 25 mg DAILY PO Last administered on 10/31/24at 09:41; Start 10/29/24 at 09:00; Stop 11/28/24 at 08:59 Lidocaine HCl 20 ml STK-MED ONCE .ROUTE; Start 10/29/24 at 12:30; Stop 10/29/24 at 12:30; Status DC Iohexol 35,000 mg STK-MED ONCE IV; Start 10/29/24 at 12:30; Stop 10/29/24 at 12:30; Status DC Heparin Sodium (Porcine) 10,000 unit STK-MED ONCE .ROUTE; Start 10/29/24 at 12:30; Stop 10/29/24 at 12:30; Status DC Heparin Sodium/ Sodium Chloride 1,000 ml @ As Directed STK-MED ONCE IV; Start 10/29/24 at 12:30; Stop 10/29/24 at 12:31; Status DC Nitroglycerin 50 mg STK-MED ONCE .ROUTE; Start 10/29/24 at 12:31; Stop 10/29/24 at 12:31; Status DC Morphine Sulfate 1 mg Q4HWA PRN IVP Last administered on 10/31/24at 13:46; Start 10/31/24 at 10:00; Stop 11/07/24 at 09:59 CAREN VILLALOBOS Oct 31, 2024 14:15
--- NOTE | 2024-10-31 17:24 | PN ---
[facility] CARDIOLOGY PROGRESS NOTE Cardiology progress note dictated for Elli Sommer MD Date Patient Seen: Oct 31, 2024 Interval History: The patient denied any chest, chest pressure, palpitations, dizziness, or shortness of breath. Telemetry currently demonstrating normal sinus rhythm/first-degree AV block with heart rate in the 60s. Physical Examination: GENERAL: No acute distress. HEAD: Normal with no signs of head trauma. EYES: PERRLA, EOMI, conjunctiva and sclera normal. NECK: Supple without JVD. There is no tenderness, lymphadenopathy, or masses. No thyromegaly. Normal carotid upstrokes without bruits. LUNGS: Clear breath sounds bilaterally. No wheezes, or rhonchi. HEART: Normal rate and rhythm. Normal S1 and S2 without murmurs, gallop or rub. VASC: Peripheral pulses +2 bilaterally. EXT: No clubbing, cyanosis or edema. NEURO: Awake, alert, and oriented x3. No focal neurological deficits noted. Laboratory: Hematology Labs: Test 10/30/24 04:35 Range/Units White Blood Count 9.0 4.8-10.8 K/uL Red Blood Count 4.40 4.00-5.50 MIL/uL Hemoglobin 12.1 12.0-16.0 g/dL Hematocrit 38.2 36-48 % Mean Corpuscular Volume 86.8 79-99 fL Mean Corpuscular Hemoglobin 27.5 27.0-33.0 pg Mean Corpuscular Hemoglobin Concent 31.7 L 32.0-36.0 g/dL Red Cell Distribution Width 14.0 11.0-15.5 % Platelet Count 218 130-400 K/uL Mean Platelet Volume 10.8 H 7.5-10.5 fL Immature Granulocyte % (Auto) 0.3 0-1 % Neutrophils (%) (Auto) 63.7 40.0-77.0 % Lymphocytes (%) (Auto) 23.9 21.0-51.0 % Monocytes (%) (Auto) 8.6 3.0-13.0 % Eosinophils (%) (Auto) 2.9 0.0-8.0 % Basophils (%) (Auto) 0.6 0.0-5.0 % Neutrophils # (Auto) 5.7 1.8-7.7 K/uL Lymphocytes # (Auto) 2.1 1.0-4.8 K/uL Monocytes # (Auto) 0.8 0.1-1.0 K/uL Eosinophils # (Auto) 0.26 0.00-0.70 K/uL Basophils # (Auto) 0.05 0.00-0.20 K/uL Absolute Immature Granulocyte (auto 0.03 0-1 K/uL Nucleated Red Blood Cells 0.0 0.0-0.19 % Chemistry Labs: Test 10/31/24 16:00 10/31/24 10:37 10/30/24 04:35 Range/Units Whole Blood Glucose 121 H 70-110 MG/DL Troponin I High Sensitivity 12 4-50 ng/L Sodium Level 139 136-145 mmol/L Potassium Level 3.7 3.5-5.1 mmol/L Chloride Level 103 101-111 mmol/L Carbon Dioxide Level 26 21-32 mmol/L Blood Urea Nitrogen 35 H 7-18 mg/dL Creatinine 1.2 H 0.5-1.0 mg/dL Glomerular Filtration Rate Calc 47 >90 mL/min Random Glucose 106 H 70-105 mg/dL Total Calcium 9.6 8.5-10.1 mg/dL Total Bilirubin 0.3 # 0.2-1.0 mg/dL Aspartate Amino Transf (AST/SGOT) 21 10-37 U/L Alanine Aminotransferase (ALT/SGPT) 21 # 12-78 U/L Alkaline Phosphatase 109 50-136 U/L Total Protein 7.2 6.0-8.3 g/dL Albumin 3.4 L 3.5-5.0 g/dL Diagnostics / Radiology: 2D echocardiogram on 10/27/2024 Conclusion LVEF is 55-60%. Stage III diastolic dysfunction. The left atrium is mildly dilated. DICTATED BY: ELLI SOMMER MD DATE: 10/27/24 0725 Impression and Plan: * Presentation with unstable angina. * History of severe coronary artery disease with remote angioplasty and stent placement in 2014, mid LAD. * Persistent atrial fibrillation with periods of sinus rhythm with AV dissociation and marked bradycardia on this admission. * Diastolic congestive heart failure. * Borderline troponin elevation. * Repeat cardiac catheterization, 10/29/2024, identifying patent stents with no other significant coronary lesions. * Preserved LV systolic function with grade 3 diastolic dysfunction by echocardiography in 12/2023. * Hypertension, poorly controlled. * Chronic kidney disease, stage 3. * Hyperglycemia. * History of right breast CA, status post remote lumpectomy followed by mastectomy. * Peripheral artery disease with left lower extremity intervention in 08/2021. * History of GI bleed with melena, EGD in 2023 and push endoscopy identifying gastritis with no active bleeding with followup colonoscopy identifying non- bleeding AV malformation, which were cauterized. * Lumbosacral spine disease and neuropathy. Unstable angina S/p cardiac catheterization and coronary arteriography on 10/29/[address] Max Perkins that had no significant coronary lesions and the stent in the LAD was patent. At this point the patient does not appear to have unstable angina. Patient had prolonged symptoms with normal troponins, not likely presentation for ischemia. Episodes of complete heart block and periods of AV dissociation -Hold Verapamil -Pending consultation with Dr. Ben Huff prior to discharge. He was out of town today and will not be available until Sunday. Paroxysmal atrial fibrillation Currently in NSR with hr in the 80's with frequent PACs -Continue Atenolol 25 mg daily and Lovenox 1 mg/kg b.i.d. -Hold Verapamil due to complete heart block and periods of AV dissociation, pending evaluation by EP Dr. Ben Huff ATTESTATION BY PHYSICIAN I have seen and examined the patient, reviewed the above documentation, partici pated in medical decision making, made necessary modifications, and agree with the treatment plan as documented by my mid-level provider above. I modified the note to suit my impression. MD ZAHRAA Wells [facility] Oct 31, 2024 17:24 ELLI SOMMER MD Oct 31, 2024 19:59
--- NOTE | 2024-10-31 19:22 | EKG ---
[facility] Test Date: 2024-10-31 Test Time: 09:28:55 Pat Name: JOSUE SOSA Department: [facility] Room: 222 1 Gender: F Gui Developer: [id number] : 1945 Requested By: YAQUELIN PERAZA Order Number: [id number] Reading MD: Jabier Xiong Measurements Intervals [place] Rate: 110 P: -27 RI: 239 QRS: 15 QRSD: 90 T: 178 QT: 297 QTc: 403 Interpretive Statements Second degree AV block, Mobitz II Low voltage, extremity and precordial leads Consider anterior infarct Nonspecific repol abnormality, lateral leads Compared to ECG 10/29/2024 07:14:13 Second-degree AV block, Mobitz type I (Wenckebach) now present Low QRS voltage now present Early repolarization now present Atrial premature complex(es) no longer present Myocardial infarct finding still present Electronically Signed On 11-02-2024 21:36:45 CDT by Jabier Xiong Please click the below link to view image of tracing.
[2024-11-01] VITALS (11 sets, daily range): BP systolic 97–134; BP diastolic 42–63; PULSE 45–130; RESP 16–23; TEMP 97.6–98.4; O2SAT 98–99
[2024-11-01 09:25] LABS: IMMATURE GRANULOCYTE ABSOLUTE 0.01 K/uL (0-1); NUCLEATED RED BLOOD CELLS 0.0 % (0.0-0.19); PLATELET COUNT (AUTO) 198 K/uL (130-400); RED BLOOD CELL COUNT(AUTO) 4.27 MIL/uL (4.00-5.50); RED CELL DISTRIBUTION WIDTH 13.9 % (11.0-15.5); WHITE BLOOD COUNT (AUTO) 5.8 K/uL (4.8-10.8)
--- NOTE | 2024-11-01 09:27 | HMCIMG ---
CHEST 1VW REASON: pp COMPARISON: Prior chest radiograph from 10/31/2024 is available. FINDINGS: Single view of the chest was obtained. Lungs are clear. Heart size is normal. There appears to be a coronary stent seen along the left heart. There is uncoiling atherosclerotic change of thoracic aorta. There is no pulmonary vascular congestion. Mediastinum and bony thorax appear unremarkable. IMPRESSION: 1. Unchanged from prior study with no acute cardiopulmonary process..
[2024-11-01 09:46] LABS: ASPARTATE AMINOTRANSFERASE 16.0 U/L (10-37); CREATININE 1.2 mg/dL (0.5-1.0); GLOMERULAR FILTR. RATE CALC 47.0 mL/min (>90); GLUCOSE,RANDOM 105.0 mg/dL (70-105); SODIUM SERUM 137.0 mmol/L (136-145); TOTAL PROTEIN, SERUM 7.1 g/dL (6.0-8.3); UREA NITROGEN, BLOOD 29.0 mg/dL (7-18)
--- NOTE | 2024-11-01 15:31 | PN ---
[facility] CARDIOLOGY PROGRESS NOTE Date Patient Seen: Nov 01, 2024 Time of Visit: 15:15 Interval History: This is a 79-year-old Latin-Bulgar[place] female with a past medical history of hypertension, hyperlipidemia, breast cancer status post remote right lumpectomy, coronary artery disease status post prior LAD stent placed in 2014 who suffered a non ST segment elevation myocardial infarction in October of 2023 and underwent coronary angiography in that setting revealing a patent LAD stent with nonobstructive disease noted in the right coronary artery and a 90% stenosis noted in an obtuse marginal branch 1 lesion which was felt to be small and best treated medically, paroxysmal atrial fibrillation on long-term anticoagulation with Eliquis, she has required atenolol 50 mg daily and verapamil 240 mg daily as part of her medical regimen, bilateral iliac vein compression as well as superficial venous insufficiency and peripheral arterial disease and has had an ablation done to a right smaller saphenous vein and a peripheral arterial intervention to her left popliteal artery. She is pending iliac vein stent placement for iliac vein compression of severe degree bilaterally. She initially presented describing as substernal chest pressure with nausea, dyspnea and jaw discomfort. She also develops dizziness and dyspnea on exertion. She has undergone a left heart catheterization on 10/29/2024 demonstrating mid LAD stent to be widely patent, 30% distal InStent stenosis unchanged from prior angiogram, and otherwise no significant coronary artery disease. She has had paroxysmal atrial fibrillation and intermittent second-degree AV block Wenckebach pattern and AV dissociation. She is pending consultation by Dr. Ben Huff. She has continued to report orthostatic dizziness and dyspnea on exertion just while ambulating in the room. Blood pressures have been variable with some blood pressures in the 90 systolic range. Physical Examination: GENERAL: No acute distress. HEAD: Normal with no signs of head trauma. EYES: PERRLA, EOMI, conjunctiva and sclera normal. NECK: Supple without JVD. There is no tenderness, lymphadenopathy, or masses. No thyromegaly. Normal carotid upstrokes without bruits. LUNGS: Clear breath sounds bilaterally. No wheezes, or rhonchi. HEART: Normal rate and rhythm. Normal S1 and S2 without murmurs, gallop or rub. VASC: Peripheral pulses week bilaterally. EXT: No clubbing, cyanosis or edema. NEURO: Awake, alert, and oriented x3. No focal neurological deficits noted. Laboratory: Hematology Labs: Test 9/20/25 09:14 Range/Units White Blood Count 5.8 4.8-10.8 K/uL Red Blood Count 4.27 4.00-5.50 MIL/uL Hemoglobin 11.9 L 12.0-16.0 g/dL Hematocrit 36.6 36-48 % Mean Corpuscular Volume 85.7 79-99 fL Mean Corpuscular Hemoglobin 27.9 27.0-33.0 pg Mean Corpuscular Hemoglobin Concent 32.5 32.0-36.0 g/dL Red Cell Distribution Width 13.9 11.0-15.5 % Platelet Count 198 130-400 K/uL Mean Platelet Volume 10.9 H 7.5-10.5 fL Immature Granulocyte % (Auto) 0.2 0-1 % Neutrophils (%) (Auto) 59.9 40.0-77.0 % Lymphocytes (%) (Auto) 23.6 21.0-51.0 % Monocytes (%) (Auto) 13.0 3.0-13.0 % Eosinophils (%) (Auto) 2.8 0.0-8.0 % Basophils (%) (Auto) 0.5 0.0-5.0 % Neutrophils # (Auto) 3.5 1.8-7.7 K/uL Lymphocytes # (Auto) 1.4 1.0-4.8 K/uL Monocytes # (Auto) 0.8 0.1-1.0 K/uL Eosinophils # (Auto) 0.16 0.00-0.70 K/uL Basophils # (Auto) 0.03 0.00-0.20 K/uL Absolute Immature Granulocyte (auto 0.01 0-1 K/uL Nucleated Red Blood Cells 0.0 0.0-0.19 % Chemistry Labs: Test 11/01/24 11:49 11/01/24 09:14 10/31/24 10:37 Range/Units Whole Blood Glucose 124 H 70-110 MG/DL Sodium Level 137 136-145 mmol/L Potassium Level 3.8 3.5-5.1 mmol/L Chloride Level 102 101-111 mmol/L Carbon Dioxide Level 28 21-32 mmol/L Blood Urea Nitrogen 29 H 7-18 mg/dL Creatinine 1.2 H 0.5-1.0 mg/dL Glomerular Filtration Rate Calc 47 >90 mL/min Random Glucose 105 70-105 mg/dL Total Calcium 9.3 8.5-10.1 mg/dL Total Bilirubin 0.3 0.2-1.0 mg/dL Aspartate Amino Transf (AST/SGOT) 16 10-37 U/L Alanine Aminotransferase (ALT/SGPT) 24 12-78 U/L Alkaline Phosphatase 114 50-136 U/L Total Protein 7.1 6.0-8.3 g/dL Albumin 3.3 L 3.5-5.0 g/dL Troponin I High Sensitivity 12 4-50 ng/L Diagnostics / Radiology: 2D echocardiogram on 10/27/2024 Conclusion LVEF is 55-60%. Stage III diastolic dysfunction. The left atrium is mildly dilated. DICTATED BY: ELLI SOMMER MD DATE: 10/27/24724 Impression and Plan: Concern for unstable angina on presentation: Coronary artery disease status post remote angioplasty and stent placement in 2014, to the mid LAD: Patent LAD stent with distal 30% InStent restenosis by follow-up cardiac catheterization 10/29/2024 otherwise no other significant coronary lesions: -continue dual antiplatelet therapy, statin therapy and atenolol therapy for now Persistent orthostatic dizziness, headache and dyspnea on exertion: -given no other significant coronary lesions, we will withdraw isosorbide -orthostatic vital signs demonstrated a supine blood pressure 119/54 with pulse of 108, standing blood pressure at 1 minute of 119/53 with pulse of 116, standing blood pressure at 3 minutes of 106/42 -discontinue hydralazine to allow more permissive blood pressure Paroxysmal atrial fibrillation with periods of second-degree AV block Wenckebach and AV dissociation and bradycardia: -verapamil ER 240 mg has been discontinued -continues on atenolol 50 mg p.o. daily -await consultation with Dr. Ben Huff -anticoagulation currently on hold and continues on Lovenox subQ q.12 hours Hypertension: Chronic diastolic congestive heart failure: -currently stable and appears compensated -continue furosemide -consider SGLT2 inhibitor if no contraindication -continue spironolactone 25 mg p.o. b.i.d., losartan 25 mg daily, atenolol 25 mg daily and furosemide 40 mg p.o. b.i.d. -given her slight orthostatic drop with orthostatic dizziness and headache, oral nitrates and hydralazine will be discontinued Comorbidities: Chronic kidney disease stage 3 History of right breast CA, status post remote lumpectomy followed by mastectomy. Peripheral artery disease status post prior lower extremity intervention Chronic venous insufficiency History of GI bleed with melena, EGD in 2023 and push endoscopy identifying gastritis with no active bleeding with followup colonoscopy identifying non- bleeding AV malformation, which were cauterized. Lumbosacral spine disease and neuropathy. PHYSICIAN ATTESTATION OF PHYSICIAN PL SQL PROGRAMMER DOCUMENTATION: I attest that I was physically present for the lott portions of the service and evaluated the patient with the Physician Square Shear Operator, and I reviewed and discussed the case with the Physician Square Shear Operator and made modifications to the Physician Square Shear Operator's findings and plans of care as documented above JELLY BHATIA Nov 01, 2024 15:31 ADRY MAKI MD Nov 02, 2024 14:04
--- NOTE | 2024-11-01 17:50 | PN ---
[facility] PROGRESS NOTE Date Patient Seen: Today, November 01, 2024 Supervising Physician: Dr Dariel Quintanilla Assessment: Status post left heart catheterization 10/29/2024 AFib with RVR, POA, on chronic anticoagulation with Eliquis SVT, POA Unstable angina, POA CHF with acute exacerbation, POA LVEF 55-60%, grade 3 diastolic dysfunction per 12/15/2023 Uncontrolled hypertension, POA Acute on chronic kidney disease, GFR 42 Hyperglycemia CAD s/p PCI with MICHAEL placement (Promus Premier 2.5x20 mm) in the mid LAD done on 05/13/2014 Chronic problem list: s/p LHC/coronary angiogram done on 10/20/2022 which identified significant stenosis in the ostial OM1 (tiny vessel), a patent stent in the mid LAD, and otherwise normal coronary arteries Normal Lexiscan stress test done 08/28/2023 HFpEF (LVEF: 55% by echo done 05/30/2022) Right sided breast CA s/p right lumpectomy PAD s/p left lower extremity peripheral intervention on 08/19/2021 History of GI bleed, (+) melena s/p EGD 11/07/2023 and push enteroscopy 11/11/2023 with findings of gastritis, no active bleed identified s/p colonoscopy 11/11/2023 with findings of non-bleeding AVM which was cauterized Bilateral lower extremity weakness and paresthesia with multilevel lumbar spondylosis with cord compression per MRI 11/06/2023 INTERVAL HISTORY: Patient was seen and examined, patient is resting comfortably in bed. at bedside Patient reporting episode of dizziness while brushing her teeth. Nursing reports continued PACs Off any drips, tolerating her diet, denying any chest pain or shortness breast at time my examination, no palpitations Plan: Follow cardiology recs, pending eval by Dr. Lay Lovenox 60 b.i.d. Continues on atenolol and labetalol Continues on Lasix, spironolactone, follow I&Os Cardiac diet Patient on aspirin, statin, Plavix GI prophylaxis with Protonix DVT prophylaxis with SCDs REVIEW OF SYSTEMS: General: No malaise or fever. Neurological: no distrss HEENT: No nasal congestion or nasal secretion. Respiratory: No cough, shortness of breath, or wheezing Cardiac: Palpitations Gastrointestinal: No vomiting or diarrhea. Genitourinary: No dysuria hematuria. Skin: No rashes or lesions. Hematological: No bruises or bleeding. Musculoskeletal: No joint pains or arthralgias. Psychiatric: No depression or panic attacks. PHYSICAL EXAM: GENERAL: alert, weak, awake oriented x 3 HEENT: EOMI, Sclera non icteric, moist mucosa NECK: Supple, no JVD, trachea midline LUNGS: Clear breath sounds bilaterally. No wheezes HEART: Regular rate and rhythm. Normal S1 and S2, without murmurs ABD: Obese Abdomen soft, nontender. Bowel sounds present EXT: No clubbing cyanosis or edema. NEURO: Alert and oriented to person, follows commands PLAN GI & NUTRITION: Continue nutritional support Aspirations precautions Prokinetic agents and laxatives as needed KIDNEYS & ELECTROLYTES: Strict monitoring of intake and output NEURO: Minimize central acting medications as possible. Fall Precautions. Well lighted room through the day and minimize interruptions through the night to prevent acute delirium. PULMONARY: Supplemental 02 as needed Titrate Fio2 to keep Spo2 > or = 90% DuoNebs and CPT as needed CARDIOVASCULAR: Follow hemodynamics. Titrate vasopressor to keep MAP >65 or systolic blood pressure >95mmHg ENDOCRINE: Maintain blood glucose between 100-180 at all times. Insulin sliding scale for blood glucose management RENAL: Avoid nephrotoxic agents INFECTIOUS DISEASE: Trend temperature. Edouard-culture if febrile. HEMATOLOGY & COAGULATION: Monitor H&H. Keep Hgb > 7 Transfuse 1 unit of PRBC for Hgb < 7 Watch for any signs and symptoms of bleeding SKIN: Pressure ulcer prevention per facility protocol Total critical care time spent greater than 40 minutes, this excludes any procedures performed or any time spent in educational or teaching. ATTESTATION BY PHYSICIAN The patient has been seen and evaluated, the case has been discussed with the PA, I agree with the clinical findings and plan of care. Vitals/Labs Vital Signs Date Time Temp Pulse Resp B/P (MAP) Pulse Ox O2 Delivery O2 Flow Rate FiO2 11/01/24 15:30 116 116/42 99 Room Air 11/01/24 15:22 98.2 16 11/01/24 08:00 0 21 Laboratory Tests 11/01/24 09:14 Medications Current Medications Adenosine 6 mg STK-MED ONCE IV; Start 10/26/24 at 09:34; Stop 10/26/24 at 09:35; Status DC Metoprolol Tartrate 5 mg STK-MED ONCE IV; Start 10/26/24 at 09:43; Stop 10/26/24 at 09:43; Status DC Adenosine 6 mg ONCE ONCE IV Last administered on 10/26/24at 09:56; Start 10/26/24 at 10:00; Stop 10/26/24 at 10:01; Status DC Metoprolol Tartrate 5 mg ONCE ONCE IV Last administered on 10/26/24at 10:00; Start 10/26/24 at 10:00; Stop 10/26/24 at 10:01; Status DC Famotidine 20 mg Q48H PO Last administered on 10/30/24at 21:01; Start 10/26/24 at 21:00; Stop 11/25/24 at 20:59 Aspirin 81 mg DAILY PO Last administered on 11/01/24at 08:40; Start 10/27/24 at 09:00; Stop 11/26/24 at 08:59 Acetaminophen 650 mg Q6H PRN PO Last administered on 11/01/24at 16:59; Start 10/26/24 at 11:30; Stop 11/25/24 at 11:29 Acetaminophen 650 mg Q6H PRN RC; Start 10/26/24 at 11:30; Stop 11/25/24 at 11:29 Lactulose 20 gm Q6H PRN PO Last administered on 10/31/24at 06:00; Start 10/26/24 at 11:30; Stop 11/25/24 at 11:29 Docusate Sodium 100 mg BID PRN PO Last administered on 10/30/24at 21:23; Start 10/26/24 at 11:30; Stop 11/25/24 at 11:29 Temazepam 15 mg HS PRN PO Last administered on 10/31/24at 21:02; Start 10/26/24 at 11:30; Stop 11/25/24 at 11:29 Labetalol HCl 10 mg Q2H PRN IV; Start 10/26/24 at 11:30; Stop 11/25/24 at 11:29 Insulin Human Regular INSULIN SLIDING SCAL... ACHS SQ; Start 10/26/24 at 11:30; Stop 11/25/24 at 11:29 Hydralazine HCl 10 mg ONCE ONCE IV Last administered on 10/26/24at 11:42; Start 10/26/24 at 11:30; Stop 10/26/24 at 11:34; Status DC Metoprolol Tartrate 5 mg ONCE ONCE IV Last administered on 10/26/24at 12:31; Start 10/26/24 at 12:30; Stop 10/26/24 at 12:31; Status DC Apixaban 5 mg BID PO; Start 10/26/24 at 21:00; Stop 10/26/24 at 15:06; Status DC Aspirin 81 mg DAILY PO; Start 10/27/24 at 09:00; Stop 10/26/24 at 12:49; Status DC Atorvastatin Calcium 40 mg DAILY PO Last administered on 11/01/24at 08:39; Start 10/27/24 at 09:00; Stop 11/26/24 at 08:59 Clopidogrel Bisulfate 75 mg DAILY PO Last administered on 11/01/24at 08:41; Start 10/27/24 at 09:00; Stop 11/26/24 at 08:59 Furosemide 40 mg BID PO Last administered on 11/01/24at 08:40; Start 10/26/24 at 21:00; Stop 11/25/24 at 20:59 Gabapentin 100 mg BID PO Last administered on 11/01/24at 08:40; Start 10/26/24 at 21:00; Stop 11/25/24 at 20:59 Hydralazine HCl 25 mg BID PO Last administered on 11/01/24at 08:41; Start 10/26/24 at 21:00; Stop 11/01/24 at 15:40; Status DC Isosorbide Mononitrate 30 mg DAILY PO Last administered on 11/01/24at 08:40; Start 10/27/24 at 09:00; Stop 11/01/24 at 15:32; Status DC Losartan Potassium 25 mg DAILY PO Last administered on 11/01/24at 08:41; Start 10/27/24 at 09:00; Stop 11/26/24 at 08:59 Spironolactone 25 mg BID PO Last administered on 11/01/24at 08:40; Start 10/26/24 at 21:00; Stop 11/25/24 at 20:59 Sucralfate 1 gm QID PO Last administered on 11/01/24at 16:50; Start 10/26/24 at 13:00; Stop 11/25/24 at 12:59 Verapamil HCl 240 mg BID PO Last administered on 10/28/24at 20:15; Start 10/26/24 at 12:30; Stop 10/31/24 at 09:58; Status DC Atenolol 50 mg DAILY PO; Start 10/27/24 at 09:00; Stop 10/26/24 at 15:06; Status DC Pantoprazole Sodium 40 mg DAILY PO; Start 10/27/24 at 09:00; Stop 10/27/24 at 07:48; Status DC Magnesium Oxide 200 mg DAILY PO Last administered on 11/01/24at 08:42; Start 10/27/24 at 09:00; Stop 11/26/24 at 08:59 Home Med Ubidecarenone (Co Q-10) 1 CAP DAILY PO Last administered on 10/31/24at 09:00; Start 10/27/24 at 09:00; Stop 11/26/24 at 08:59 Atenolol 50 mg ONCE ONCE PO Last administered on 10/26/24at 13:08; Start 10/26/24 at 13:00; Stop 10/26/24 at 13:01; Status DC Pharmacy Profile Note HOME MED: DRUG-DRUG Interaction BID MISC; Start 10/26/24 at 21:00; Stop 10/27/24 at 06:55; Status DC Nitroglycerin/ Dextrose 250 ml @ 0 mls/hr PROTOCOL IV Last administered on 10/26/24at 13:53; Start 10/26/24 at 13:30; Stop 11/25/24 at 13:29 Apixaban 5 mg ONCE ONCE PO Last administered on 10/26/24at 13:55; Start 10/26/24 at 13:30; Stop 10/26/24 at 13:32; Status DC Aspirin 324 mg ONCE ONCE PO Last administered on 10/26/24at 13:46; Start 10/26/24 at 13:30; Stop 10/26/24 at 13:32; Status DC Furosemide 40 mg ONCE ONCE IV Last administered on 10/26/24at 13:47; Start 10/26/24 at 13:30; Stop 10/26/24 at 13:32; Status DC Atenolol 50 mg BID PO Last administered on 10/27/24at 21:24; Start 10/26/24 at 21:00; Stop 10/28/24 at 19:10; Status DC Enoxaparin Sodium 60 mg BID SQ Last administered on 11/01/24at 08:39; Start 10/26/24 at 21:00; Stop 11/25/24 at 20:59 Potassium Chloride 100 ml @ 100 mls/hr AD PRN IV; Start 10/27/24 at 07:00; Stop 11/26/24 at 06:59 Potassium Chloride 10 meq AD PRN PO; Start 10/27/24 at 07:00; Stop 11/26/24 at 06:59 Potassium Chloride 10 meq AD PRN PO Last administered on 10/31/24at 21:04; Start 10/27/24 at 07:00; Stop 11/26/24 at 06:59 Magnesium Sulfate 50 ml @ 0 mls/hr PROTOCOL PRN IV; Start 10/27/24 at 07:00; Stop 11/26/24 at 06:59 Iohexol 35,000 mg STK-MED ONCE IV; Start 10/28/24 at 13:03; Stop 10/28/24 at 13:03; Status DC Metoprolol Tartrate 5 mg STK-MED ONCE IV; Start 10/28/24 at 13:31; Stop 10/28/24 at 13:32; Status DC Atenolol 50 mg DAILY PO Last administered on 10/28/24at 22:10; Start 10/28/24 at 21:00; Stop 10/29/24 at 07:38; Status DC Atenolol 25 mg DAILY PO Last administered on 11/01/24at 08:42; Start 10/29/24 at 09:00; Stop 11/01/24 at 15:15; Status DC Lidocaine HCl 20 ml STK-MED ONCE .ROUTE; Start 10/29/24 at 12:30; Stop 10/29/24 at 12:30; Status DC Iohexol 35,000 mg STK-MED ONCE IV; Start 10/29/24 at 12:30; Stop 10/29/24 at 12:30; Status DC Heparin Sodium (Porcine) 10,000 unit STK-MED ONCE .ROUTE; Start 10/29/24 at 12:30; Stop 10/29/24 at 12:30; Status DC Heparin Sodium/ Sodium Chloride 1,000 ml @ As Directed STK-MED ONCE IV; Start 10/29/24 at 12:30; Stop 10/29/24 at 12:31; Status DC Nitroglycerin 50 mg STK-MED ONCE .ROUTE; Start 10/29/24 at 12:31; Stop 10/29/24 at 12:31; Status DC Morphine Sulfate 1 mg Q4HWA PRN IVP Last administered on 10/31/24at 13:46; Start 10/31/24 at 10:00; Stop 11/07/24 at 09:59 Atenolol 25 mg DAILY PO; Start 11/02/24 at 09:00; Stop 11/28/24 at 08:59 CAREN VILLALOBOS Nov 01, 2024 17:50
--- NOTE | 2024-11-01 18:50 | NUR ---
Patient c/o chest pain/noted A-fib 140s Patient called out stating she had chest pain and feeling numbness/tingling on bilateral upper arms, feeling tingling on her throat. Telemetry called stating patient's heart rate up to 147 sustaining A-fib RVR. Damaris Saini NP notified as there were no orders for Nitrostat PRN chest pain. Received this patient previously from other floor RN around 1700. According to report, patient had been having episodes of A-fib RVR, but would not sustain, no report that patient was having chest pain simultaneously. VS taken and blood pressure 155/59. Spoke to Damaris and orders for stat EKG and to call back with results. EKG results given back to Damaris, and no new further orders; only to call Dr. Xiong who is now lining ironer for any further A-fib RVR. Report handed off to night assistant RN.
--- NOTE | 2024-11-01 20:53 | EKG ---
[facility] Test Date: 2024-11-01 Test Time: 18:47:51 Pat Name: JOSUE SOSA Department: [facility] Room: 222 1 Gender: F Pantograph I Engraver: ELVIE : 1945 Requested By: JELLY BHATIA Order Number: [id number] Reading MD: Jabier Xiong Measurements Intervals [place] Rate: 117 P: 0 OH: 203 QRS: 50 QRSD: 102 T: 211 QT: 329 QTc: 460 Interpretive Statements Undetermined rhythm. LVH with secondary repolarization abnormality Nonspecific STT abnormality Compared to ECG 10/31/2024 09:28:55 Left ventricular hypertrophy now present Second-degree AV block, Mobitz type I (Wenckebach) no longer present Myocardial infarct finding no longer present Electronically Signed On 11-02-2024 21:52:25 CDT by Jabier Xiong Please click the below link to view image of tracing.
[2024-11-02] VITALS (8 sets, daily range): BP systolic 100–159; BP diastolic 46–60; PULSE 74–120; RESP 16–20; TEMP 97.5–98.1; O2SAT 98–99
[2024-11-02 03:51] LABS: IMMATURE GRANULOCYTE ABSOLUTE 0.02 K/uL (0-1); NUCLEATED RED BLOOD CELLS 0.0 % (0.0-0.19); PLATELET COUNT (AUTO) 215 K/uL (130-400); RED BLOOD CELL COUNT(AUTO) 4.21 MIL/uL (4.00-5.50); RED CELL DISTRIBUTION WIDTH 13.9 % (11.0-15.5); WHITE BLOOD COUNT (AUTO) 7.0 K/uL (4.8-10.8)
[2024-11-02 04:10] LABS: ASPARTATE AMINOTRANSFERASE 16.0 U/L (10-37); CREATININE 1.3 mg/dL (0.5-1.0); GLOMERULAR FILTR. RATE CALC 42.0 mL/min (>90); GLUCOSE,RANDOM 108.0 mg/dL (70-105); SODIUM SERUM 139.0 mmol/L (136-145); TOTAL PROTEIN, SERUM 6.8 g/dL (6.0-8.3); UREA NITROGEN, BLOOD 33.0 mg/dL (7-18)
[2024-11-02] MEDS: ATENOLOL 25 MG TABLET PO SCH (08:25)
--- NOTE | 2024-11-02 08:37 | HMCIMG ---
EXAM: CR Chest, 1 View. CLINICAL HISTORY: p COMPARISON: Radiograph dated October 31, 2024 FINDINGS: LUNGS: The lungs show no infiltrate or other acute finding. PLEURAL SPACES: No evidence of pleural effusion or pneumothorax. MEDIASTINUM: Cardiac size and mediastinal contours within normal limits. BONES: No aggressive appearing osseous lesion seen. IMPRESSION: No acute cardiopulmonary pathology is evident. /[place]
--- NOTE | 2024-11-02 08:49 | HMCIMG ---
EXAM: CR Chest, 1 View. CLINICAL HISTORY: pp COMPARISON: None provided. FINDINGS: LUNGS: The lungs show no infiltrate or other acute finding. PLEURAL SPACES: No pleural effusion or pneumothorax. MEDIASTINUM: Cardiac size and mediastinal contours within normal limits. BONES: No acute osseous abnormality. IMPRESSION: No acute cardiopulmonary pathology is evident. /[place]
--- NOTE | 2024-11-02 11:09 | PN ---
[facility] CARDIOLOGY PROGRESS NOTE Date Patient Seen: Nov 02, 2024 Time of Visit: 11:05 Interval History: This is a 79-year-old [place] female, patient of Dr. Chelsea Garrido, with a past medical history of hypertension, hyperlipidemia, breast cancer status post remote right lumpectomy, coronary artery disease status post prior LAD stent placed in 2014, paroxysmal atrial fibrillation on long-term anticoagulation with Eliquis, bilateral iliac vein compression (pending iliac vein stent placement bilaterally), as well as superficial venous insufficiency and peripheral arterial disease and has had an ablation done to a right smaller saphenous vein and a peripheral arterial intervention to her left popliteal artery. She initially presented describing as substernal chest pressure with unstable angina pectoris. She has undergone a left heart catheterization on 10/29/2024 demonstrating mid LAD stent to be widely patent, 30% distal In-stent stenosis unchanged from prior angiogram, and otherwise no significant coronary artery disease. She has had paroxysmal atrial fibrillation and intermittent second-degree AV block Wenckebach pattern and AV dissociation. She is pending consultation by Dr. Ben Huff. She has continued to report orthostatic dizziness and dyspnea on exertion just while ambulating in the room. Blood pressures have been variable with some blood pressures in the 90 systolic range. Isosorbide and hydralazine were withdrawn yesterday due to a slight drop in blood pressure on orthostatic vital signs. This morning, she continues to report dyspnea and fatigue with minimal activity such as going to the bathroom or after utilizing the toilet. Last night, she had an episode of tachycardia with the associated chest pain. Her EKG demonstrated sinus tachycardia with PACs. Physical Examination: GENERAL: No acute distress. HEAD: Normal with no signs of head trauma. EYES: PERRLA, EOMI, conjunctiva and sclera normal. NECK: Supple without JVD. There is no tenderness, lymphadenopathy, or masses. No thyromegaly. Normal carotid upstrokes without bruits. LUNGS: Clear breath sounds bilaterally. No wheezes, or rhonchi. HEART: Normal rate and rhythm. Normal S1 and S2 without murmurs, gallop or rub. VASC: Peripheral pulses week bilaterally. EXT: No clubbing, cyanosis or edema. NEURO: Awake, alert, and oriented x3. No focal neurological deficits noted. Laboratory: Hematology Labs: Test 11/02/24 03:14 Range/Units White Blood Count 7.0 4.8-10.8 K/uL Red Blood Count 4.21 4.00-5.50 MIL/uL Hemoglobin 11.6 L 12.0-16.0 g/dL Hematocrit 36.0 36-48 % Mean Corpuscular Volume 85.5 79-99 fL Mean Corpuscular Hemoglobin 27.6 27.0-33.0 pg Mean Corpuscular Hemoglobin Concent 32.2 32.0-36.0 g/dL Red Cell Distribution Width 13.9 11.0-15.5 % Platelet Count 215 130-400 K/uL Mean Platelet Volume 11.2 H 7.5-10.5 fL Immature Granulocyte % (Auto) 0.3 0-1 % Neutrophils (%) (Auto) 48.8 40.0-77.0 % Lymphocytes (%) (Auto) 34.0 21.0-51.0 % Monocytes (%) (Auto) 12.2 3.0-13.0 % Eosinophils (%) (Auto) 4.1 0.0-8.0 % Basophils (%) (Auto) 0.6 0.0-5.0 % Neutrophils # (Auto) 3.4 1.8-7.7 K/uL Lymphocytes # (Auto) 2.4 1.0-4.8 K/uL Monocytes # (Auto) 0.9 0.1-1.0 K/uL Eosinophils # (Auto) 0.29 0.00-0.70 K/uL Basophils # (Auto) 0.04 0.00-0.20 K/uL Absolute Immature Granulocyte (auto 0.02 0-1 K/uL Nucleated Red Blood Cells 0.0 0.0-0.19 % Chemistry Labs: Test 11/02/24 05:45 11/02/24 03:14 Range/Units Whole Blood Glucose 98 70-110 MG/DL Sodium Level 139 136-145 mmol/L Potassium Level 3.5 3.5-5.1 mmol/L Chloride Level 103 101-111 mmol/L Carbon Dioxide Level 26 21-32 mmol/L Blood Urea Nitrogen 33 H 7-18 mg/dL Creatinine 1.3 H 0.5-1.0 mg/dL Glomerular Filtration Rate Calc 42 >90 mL/min Random Glucose 108 H 70-105 mg/dL Total Calcium 9.0 8.5-10.1 mg/dL Total Bilirubin 0.2 # 0.2-1.0 mg/dL Aspartate Amino Transf (AST/SGOT) 16 10-37 U/L Alanine Aminotransferase (ALT/SGPT) 23 12-78 U/L Alkaline Phosphatase 102 50-136 U/L Total Protein 6.8 6.0-8.3 g/dL Albumin 3.2 L 3.5-5.0 g/dL Diagnostics / Radiology: 2D echocardiogram on 10/27/2024 Conclusion LVEF is 55-60%. Stage III diastolic dysfunction. The left atrium is mildly dilated. DICTATED BY: ELLI SOMMER MD DATE: 10/27/24 0725 Impression and Plan: Concern for unstable angina on presentation: Coronary artery disease status post remote angioplasty and stent placement in 2014, to the mid LAD: Patent LAD stent with distal 30% In-stent restenosis by follow-up cardiac catheterization 10/29/2024 otherwise no other significant coronary lesions: -symptoms likely secondary to SVT (possible AVNRT on admission EKG 10/26/2024), followed by an ectopic atrial tachycardia with intermittent AV block with grouped beats: -continue dual antiplatelet therapy, statin therapy and atenolol therapy for now -pending consultation with Dr. Ben Huff in a.m. to review multiple EKG tracings Persistent orthostatic dizziness, headache and dyspnea on exertion: -orthostatic vital signs 11/01/2024 demonstrated no significant orthostatic drop -hydralazine and nitrates discontinued to allow more permissive blood pressure Paroxysmal atrial fibrillation (by history) with periods of second-degree AV block Wenckebach and AV dissociation and bradycardia: -verapamil ER 240 mg has been discontinued -continues on atenolol 50 mg p.o. daily -await consultation with Dr. Ben Huff -Xarelto on hold pending EP assessment. Continue low-dose Lovenox DVT prophylaxis Hypertension: Chronic diastolic congestive heart failure: -BNP on admission was only 420 -she has continued on furosemide 40 mg p.o. b.i.d. and spironolactone 25 mg p.o. b.i.d. -chest x-ray this morning demonstrates mild pulmonary vascular congestion but overall unchanged from prior chest x-rays -we will trend BNP -consider SGLT2 inhibitor if no contraindication Comorbidities: Chronic kidney disease stage 3 History of right breast CA, status post remote lumpectomy followed by mastectomy. Peripheral artery disease status post prior lower extremity intervention Chronic venous insufficiency History of GI bleed with melena, EGD in 2023 and push endoscopy identifying gastritis with no active bleeding with followup colonoscopy identifying non-blee ding AV malformation, which were cauterized. Lumbosacral spine disease and neuropathy. PHYSICIAN ATTESTATION OF PHYSICIAN PEDIATRIC NP DOCUMENTATION: I attest that I was physically present for the lott portions of the service and evaluated the patient with the Physician Medical Record Consultant, and I reviewed and discussed the case with the Physician Medical Record Consultant and made modifications to the Physician E xtender's findings and plans of care as documented above JELLY BHATIA Nov 02, 2024 11:09 ADRY MAKI MD Nov 02, 2024 13:21
--- NOTE | 2024-11-02 11:13 | PN ---
[facility] PROGRESS NOTE Date Patient Seen: Today, October Supervising Physician: Dr Dariel Quintanilla Assessment: Status post left heart catheterization 10/29/2024 AFib with RVR, POA, on chronic anticoagulation with Eliquis SVT, POA Unstable angina, POA CHF with acute exacerbation, POA LVEF 55-60%, grade 3 diastolic dysfunction per 12/15/2023 Uncontrolled hypertension, POA Acute on chronic kidney disease, GFR 42 Hyperglycemia CAD s/p PCI with MICHAEL placement (Promus Premier 2.5x20 mm) in the mid LAD done on 05/13/2014 Chronic problem list: s/p LHC/coronary angiogram done on 10/20/2022 which identified significant stenosis in the ostial OM1 (tiny vessel), a patent stent in the mid LAD, and otherwise normal coronary arteries Normal Lexiscan stress test done 08/28/2023 HFpEF (LVEF: 55% by echo done 05/30/2022) Right sided breast CA s/p right lumpectomy PAD s/p left lower extremity peripheral intervention on 08/19/2021 History of GI bleed, (+) melena s/p EGD 11/07/2023 and push enteroscopy 11/11/2023 with findings of gastritis, no active bleed identified s/p colonoscopy 11/11/2023 with findings of non-bleeding AVM which was cauterized Bilateral lower extremity weakness and paresthesia with multilevel lumbar spondylosis with cord compression per MRI 11/06/2023 INTERVAL HISTORY: Patient was seen and examined, patient is resting comfortably in bed. at bedside Orthostatics performed yesterday with normal range Labs stable Vital signs stable Tolerating diet Nursing reports no acute events overnight Plan: Follow cardiology recs, pending eval by Dr. Lay Continues on atenolol and labetalol Continues on Lasix, spironolactone, follow I&Os Cardiac diet Patient on aspirin, statin, Plavix GI prophylaxis with Protonix DVT prophylaxis with SCDs Lovenox Code Status: Full Resuscitation GI & DVT Prophylaxis REVIEW OF SYSTEMS: 12 point ROS reviewed , only + as per above PHYSICAL EXAM: GENERAL: alert, weak, awake oriented x 3 HEENT: EOMI, Sclera non icteric, moist mucosa NECK: Supple, no JVD, trachea midline LUNGS: Clear breath sounds bilaterally. No wheezes HEART: Regular rate and rhythm. Normal S1 and S2, without murmurs ABD: Obese Abdomen soft, nontender. Bowel sounds present EXT: No clubbing cyanosis or edema. NEURO: Alert and oriented to person, follows commands PLAN GI & NUTRITION: Continue nutritional support Aspirations precautions Prokinetic agents and laxatives as needed KIDNEYS & ELECTROLYTES: Strict monitoring of intake and output NEURO: Minimize central acting medications as possible. Fall Precautions. Well lighted room through the day and minimize interruptions through the night to prevent acute delirium. PULMONARY: Supplemental 02 as needed Titrate Fio2 to keep Spo2 > or = 90% DuoNebs and CPT as needed CARDIOVASCULAR: Follow hemodynamics. Titrate vasopressor to keep MAP >65 or systolic blood pressure >95mmHg ENDOCRINE: Maintain blood glucose between 100-180 at all times. Insulin sliding scale for blood glucose management RENAL: Avoid nephrotoxic agents INFECTIOUS DISEASE: Trend temperature. Edouard-culture if febrile. HEMATOLOGY & COAGULATION: Monitor H&H. Keep Hgb > 7 Transfuse 1 unit of PRBC for Hgb < 7 Watch for any signs and symptoms of bleeding SKIN: Pressure ulcer prevention per facility protocol Total time spent in the care of this patient greater than 40 minutes, this excludes any time spent on procedures teaching or education. ATTESTATION BY PHYSICIAN The patient has been seen and evaluated, the case has been discussed with the PA, I agree with the clinical findings and plan of care. Vitals/Labs Vital Signs Date Time Temp Pulse Resp B/P (MAP) Pulse Ox O2 Delivery O2 Flow Rate FiO2 11/02/24 08:25 76 119/56 11/02/24 08:00 97.9 17 98 Room Air 11/01/24 20:00 0 21 Laboratory Tests 11/02/24 03:14 Medications Current Medications Adenosine 6 mg STK-MED ONCE IV; Start 10/26/24 at 09:34; Stop 10/26/24 at 09:35; Status DC Metoprolol Tartrate 5 mg STK-MED ONCE IV; Start 10/26/24 at 09:43; Stop 10/26/24 at 09:43; Status DC Adenosine 6 mg ONCE ONCE IV Last administered on 10/26/24at 09:56; Start 10/26/24 at 10:00; Stop 10/26/24 at 10:01; Status DC Metoprolol Tartrate 5 mg ONCE ONCE IV Last administered on 10/26/24at 10:00; Start 10/26/24 at 10:00; Stop 10/26/24 at 10:01; Status DC Famotidine 20 mg Q48H PO Last administered on 11/01/24at 21:17; Start 10/26/24 at 21:00; Stop 11/25/24 at 20:59 Aspirin 81 mg DAILY PO Last administered on 11/02/24at 08:26; Start 10/27/24 at 09:00; Stop 11/26/24 at 08:59 Acetaminophen 650 mg Q6H PRN PO Last administered on 11/01/24at 16:59; Start 10/26/24 at 11:30; Stop 11/25/24 at 11:29 Acetaminophen 650 mg Q6H PRN RC; Start 10/26/24 at 11:30; Stop 11/25/24 at 11:29 Lactulose 20 gm Q6H PRN PO Last administered on 11/02/24at 05:21; Start 10/26/24 at 11:30; Stop 11/25/24 at 11:29 Docusate Sodium 100 mg BID PRN PO Last administered on 10/30/24at 21:23; Start 10/26/24 at 11:30; Stop 11/25/24 at 11:29 Temazepam 15 mg HS PRN PO Last administered on 11/01/24at 22:15; Start 10/26/24 at 11:30; Stop 11/25/24 at 11:29 Labetalol HCl 10 mg Q2H PRN IV; Start 10/26/24 at 11:30; Stop 11/25/24 at 11:29 Insulin Human Regular INSULIN SLIDING SCAL... ACHS SQ; Start 10/26/24 at 11:30; Stop 11/25/24 at 11:29 Hydralazine HCl 10 mg ONCE ONCE IV Last administered on 10/26/24at 11:42; Start 10/26/24 at 11:30; Stop 10/26/24 at 11:34; Status DC Metoprolol Tartrate 5 mg ONCE ONCE IV Last administered on 10/26/24at 12:31; Start 10/26/24 at 12:30; Stop 10/26/24 at 12:31; Status DC Apixaban 5 mg BID PO; Start 10/26/24 at 21:00; Stop 10/26/24 at 15:06; Status DC Aspirin 81 mg DAILY PO; Start 10/27/24 at 09:00; Stop 10/26/24 at 12:49; Status DC Atorvastatin Calcium 40 mg DAILY PO Last administered on 11/02/24at 08:27; Start 10/27/24 at 09:00; Stop 11/26/24 at 08:59 Clopidogrel Bisulfate 75 mg DAILY PO Last administered on 11/02/24at 08:26; Start 10/27/24 at 09:00; Stop 11/26/24 at 08:59 Furosemide 40 mg BID PO Last administered on 11/02/24at 08:27; Start 10/26/24 at 21:00; Stop 11/25/24 at 20:59 Gabapentin 100 mg BID PO Last administered on 11/02/24at 08:26; Start 10/26/24 at 21:00; Stop 11/25/24 at 20:59 Hydralazine HCl 25 mg BID PO Last administered on 11/01/24at 08:41; Start 10/26/24 at 21:00; Stop 11/01/24 at 15:40; Status DC Isosorbide Mononitrate 30 mg DAILY PO Last administered on 11/01/24at 08:40; Start 10/27/24 at 09:00; Stop 11/01/24 at 15:32; Status DC Losartan Potassium 25 mg DAILY PO Last administered on 11/02/24at 08:27; Start 10/27/24 at 09:00; Stop 11/26/24 at 08:59 Spironolactone 25 mg BID PO Last administered on 11/02/24at 08:26; Start 10/26/24 at 21:00; Stop 11/25/24 at 20:59 Sucralfate 1 gm QID PO Last administered on 11/02/24at 08:28; Start 10/26/24 at 13:00; Stop 11/25/24 at 12:59 Verapamil HCl 240 mg BID PO Last administered on 10/28/24at 20:15; Start 10/26/24 at 12:30; Stop 10/31/24 at 09:58; Status DC Atenolol 50 mg DAILY PO; Start 10/27/24 at 09:00; Stop 10/26/24 at 15:06; Status DC Pantoprazole Sodium 40 mg DAILY PO; Start 10/27/24 at 09:00; Stop 10/27/24 at 07:48; Status DC Magnesium Oxide 200 mg DAILY PO Last administered on 11/02/24at 08:26; Start 10/27/24 at 09:00; Stop 11/26/24 at 08:59 Home Med Ubidecarenone (Co Q-10) 1 CAP DAILY PO Last administered on 10/31/24at 09:00; Start 10/27/24 at 09:00; Stop 11/26/24 at 08:59 Atenolol 50 mg ONCE ONCE PO Last administered on 10/26/24at 13:08; Start 10/26/24 at 13:00; Stop 10/26/24 at 13:01; Status DC Pharmacy Profile Note HOME MED: DRUG-DRUG Interaction BID MISC; Start 10/26/24 at 21:00; Stop 10/27/24 at 06:55; Status DC Nitroglycerin/ Dextrose 250 ml @ 0 mls/hr PROTOCOL IV Last administered on 10/26/24at 13:53; Start 10/26/24 at 13:30; Stop 11/25/24 at 13:29 Apixaban 5 mg ONCE ONCE PO Last administered on 10/26/24at 13:55; Start 10/26/24 at 13:30; Stop 10/26/24 at 13:32; Status DC Aspirin 324 mg ONCE ONCE PO Last administered on 10/26/24at 13:46; Start 10/26/24 at 13:30; Stop 10/26/24 at 13:32; Status DC Furosemide 40 mg ONCE ONCE IV Last administered on 10/26/24at 13:47; Start 10/26/24 at 13:30; Stop 10/26/24 at 13:32; Status DC Atenolol 50 mg BID PO Last administered on 10/27/24at 21:24; Start 10/26/24 at 21:00; Stop 10/28/24 at 19:10; Status DC Enoxaparin Sodium 60 mg BID SQ Last administered on 11/02/24at 08:24; Start 10/26/24 at 21:00; Stop 11/25/24 at 20:59 Potassium Chloride 100 ml @ 100 mls/hr AD PRN IV; Start 10/27/24 at 07:00; Stop 11/26/24 at 06:59 Potassium Chloride 10 meq AD PRN PO; Start 10/27/24 at 07:00; Stop 11/26/24 at 06:59 Potassium Chloride 10 meq AD PRN PO Last administered on 11/02/24at 08:27; Start 10/27/24 at 07:00; Stop 11/26/24 at 06:59 Magnesium Sulfate 50 ml @ 0 mls/hr PROTOCOL PRN IV; Start 10/27/24 at 07:00; Stop 11/26/24 at 06:59 Iohexol 35,000 mg STK-MED ONCE IV; Start 10/28/24 at 13:03; Stop 10/28/24 at 13:03; Status DC Metoprolol Tartrate 5 mg STK-MED ONCE IV; Start 10/28/24 at 13:31; Stop 10/28/24 at 13:32; Status DC Atenolol 50 mg DAILY PO Last administered on 10/28/24at 22:10; Start 10/28/24 at 21:00; Stop 10/29/24 at 07:38; Status DC Atenolol 25 mg DAILY PO Last administered on 11/01/24at 08:42; Start 10/29/24 at 09:00; Stop 11/01/24 at 15:15; Status DC Lidocaine HCl 20 ml STK-MED ONCE .ROUTE; Start 10/29/24 at 12:30; Stop 10/29/24 at 12:30; Status DC Iohexol 35,000 mg STK-MED ONCE IV; Start 10/29/24 at 12:30; Stop 10/29/24 at 12:30; Status DC Heparin Sodium (Porcine) 10,000 unit STK-MED ONCE .ROUTE; Start 10/29/24 at 12:30; Stop 10/29/24 at 12:30; Status DC Heparin Sodium/ Sodium Chloride 1,000 ml @ As Directed STK-MED ONCE IV; Start 10/29/24 at 12:30; Stop 10/29/24 at 12:31; Status DC Nitroglycerin 50 mg STK-MED ONCE .ROUTE; Start 10/29/24 at 12:31; Stop 10/29/24 at 12:31; Status DC Morphine Sulfate 1 mg Q4HWA PRN IVP Last administered on 10/31/24at 13:46; Start 10/31/24 at 10:00; Stop 11/07/24 at 09:59 Atenolol 25 mg DAILY PO Last administered on 11/02/24at 08:25; Start 11/02/24 at 09:00; Stop 11/28/24 at 08:59 CAREN VILLALOBOS Nov 02, 2024 11:13
[2024-11-03] VITALS (8 sets, daily range): BP systolic 102–134; BP diastolic 45–62; PULSE 77–120; RESP 16–20; TEMP 97.4–98.4; O2SAT 97–100
[2024-11-03 03:53] LABS: IMMATURE GRANULOCYTE ABSOLUTE 0.02 K/uL (0-1); NUCLEATED RED BLOOD CELLS 0.0 % (0.0-0.19); PLATELET COUNT (AUTO) 214 K/uL (130-400); RED BLOOD CELL COUNT(AUTO) 4.23 MIL/uL (4.00-5.50); RED CELL DISTRIBUTION WIDTH 13.9 % (11.0-15.5); WHITE BLOOD COUNT (AUTO) 7.2 K/uL (4.8-10.8)
[2024-11-03 04:17] LABS: ASPARTATE AMINOTRANSFERASE 17.0 U/L (10-37); CREATININE 1.3 mg/dL (0.5-1.0); GLOMERULAR FILTR. RATE CALC 42.0 mL/min (>90); GLUCOSE,RANDOM 139.0 mg/dL (70-105); SODIUM SERUM 139.0 mmol/L (136-145); TOTAL PROTEIN, SERUM 6.8 g/dL (6.0-8.3); UREA NITROGEN, BLOOD 30.0 mg/dL (7-18)
[2024-11-03] MEDS: ENOXAPARIN SODIUM 30 MG/0.3 ML SQ SCH (08:13)
--- NOTE | 2024-11-03 08:56 | PN ---
[facility] CARDIOLOGY PROGRESS NOTE Date: Nov 03, 2024 Problem List: Patient presented with chest pain, underwent LHC showing patent prior LAD stent and no obstructive disease, with SVT/Wenckebach/AV dissociation pending EP evaluation. History of pAF, Xarelto on hold. Patient of Dr Garrido. Laboratory: [ ] Hematology Labs: Test 11/03/24 02:54 Range/Units White Blood Count 7.2 4.8-10.8 K/uL Red Blood Count 4.23 4.00-5.50 MIL/uL Hemoglobin 11.6 L 12.0-16.0 g/dL Hematocrit 37.2 36-48 % Mean Corpuscular Volume 87.9 79-99 fL Mean Corpuscular Hemoglobin 27.4 27.0-33.0 pg Mean Corpuscular Hemoglobin Concent 31.2 L 32.0-36.0 g/dL Red Cell Distribution Width 13.9 11.0-15.5 % Platelet Count 214 130-400 K/uL Mean Platelet Volume 11.2 H 7.5-10.5 fL Immature Granulocyte % (Auto) 0.3 0-1 % Neutrophils (%) (Auto) 51.8 40.0-77.0 % Lymphocytes (%) (Auto) 32.0 21.0-51.0 % Monocytes (%) (Auto) 12.0 3.0-13.0 % Eosinophils (%) (Auto) 3.3 0.0-8.0 % Basophils (%) (Auto) 0.6 0.0-5.0 % Neutrophils # (Auto) 3.7 1.8-7.7 K/uL Lymphocytes # (Auto) 2.3 1.0-4.8 K/uL Monocytes # (Auto) 0.9 0.1-1.0 K/uL Eosinophils # (Auto) 0.24 0.00-0.70 K/uL Basophils # (Auto) 0.04 0.00-0.20 K/uL Absolute Immature Granulocyte (auto 0.02 0-1 K/uL Nucleated Red Blood Cells 0.0 0.0-0.19 % Chemistry Labs: Test 11/03/24 05:24 11/03/24 02:54 11/02/24 03:14 Range/Units Whole Blood Glucose 88 70-110 MG/DL Sodium Level 139 136-145 mmol/L Potassium Level 3.4 L 3.5-5.1 mmol/L Chloride Level 104 101-111 mmol/L Carbon Dioxide Level 27 21-32 mmol/L Blood Urea Nitrogen 30 H 7-18 mg/dL Creatinine 1.3 H 0.5-1.0 mg/dL Glomerular Filtration Rate Calc 42 >90 mL/min Random Glucose 139 H 70-105 mg/dL Total Calcium 9.2 8.5-10.1 mg/dL Total Bilirubin 0.2 0.2-1.0 mg/dL Aspartate Amino Transf (AST/SGOT) 17 10-37 U/L Alanine Aminotransferase (ALT/SGPT) 22 12-78 U/L Alkaline Phosphatase 103 50-136 U/L Total Protein 6.8 6.0-8.3 g/dL Albumin 3.2 L 3.5-5.0 g/dL B-Type Natriuretic Peptide 250 H 0-100 pg/mL ECHOCARDIOGRAM Conclusion LVEF is 55-60%. Stage III diastolic dysfunction. The left atrium is mildly dilated. DICTATED BY: ELLI SOMMER MD DATE: 10/27/24 0725 Impression and Plan: Concern for unstable angina on presentation: , Coronary artery disease status post remote angioplasty and stent placement in 2014, to the mid LAD, with patent LAD stent with distal 30% In-stent restenosis by follow-up cardiac catheterization 10/29/2024 otherwise no other significant coronary lesions: Symptoms likely secondary to SVT (possible AVNRT on admission EKG 10/26/2024), followed by an ectopic atrial tachycardia with intermittent AV block with grouped beats: -continue dual antiplatelet therapy, statin therapy and atenolol therapy for now -pending consultation with Dr. Ben Huff Persistent orthostatic dizziness, headache and dyspnea on exertion: -orthostatic vital signs 11/01/2024 negative -hydralazine and nitrates discontinued to allow more permissive BP Paroxysmal atrial fibrillation (by history) with periods of second-degree AV block Wenckebach and AV dissociation and bradycardia: -verapamil ER 240 mg has been discontinued. Continues on atenolol 50 mg p.o. daily -Xarelto on hold pending EP assessment. Continue low-dose Lovenox DVT prophylaxis Hypertension: Chronic diastolic congestive heart failure: -BNP on admission 420. Continue furosemide 40 mg p.o. b.i.d. and spironolactone 25 mg p.o. b.i.d. -CXR overall unchanged from prior -consider SGLT2 inhibitor if no contraindication Comorbidities: Chronic kidney disease stage 3 History of right breast CA, status post remote lumpectomy followed by mastectomy. Peripheral artery disease status post prior lower extremity intervention Chronic venous insufficiency History of GI bleed with melena, EGD in 2023 and push endoscopy identifying gastritis with no active bleeding with followup colonoscopy identifying non- bleeding AV malformation, which were cauterized. Lumbosacral spine disease and neuropathy. STEVEN WATSON DO Nov 03, 2024 08:56
--- NOTE | 2024-11-03 09:00 | NUR ---
WENCESLAO ALTAMIRANO FOR DR. GARCIA IN TO SEE PATIENT. PLAN FOR DCCV AND REGINE TOMORROW. ADARSH BILLY WILL CALL PATIENT'S DAUGHTER, HARIS TO UPDATE HER.
[2024-11-03] MEDS ORDERED: ENOXAPARIN SODIUM 30 MG/0.3 ML SQ ONE (09:30)
--- NOTE | 2024-11-03 09:54 | CONS ---
HPI: This is a 79-year-old female with a history of coronary artery disease status post PCI to the mid LAD in 2014 with subsequent non-STEMI with patent LAD stent and 90% stenosis to the obtuse marginal one by left heart catheterization 10/30/2023, hypertension, hyperlipidemia, peripheral arterial disease status post left popliteal intervention, bilateral venous insufficiency pending bilateral iliac stents and history of breast cancer. She was admitted 10/26/2024 secondary to recurrent chest pain and shortness or breath of one week duration. Her initial EKG showed supraventricular tachycardia with IVCD, ventri cular rate of 159 beats per minute. There were no discernible P waves on the initial EKG. Subsequent EKG shows atrial tachycardia (versus atypical atrial flutter) with a ventricular rate of 131 beats per minute. An EKG 10/26/2024 at 12:12 p.m. shows atrial fibrillation with a ventricular rate of 136 beats per minute. EKG 10/27/2024 at 1:02 a.m. atrial tachycardia with 2:1 and 3:1 block, ventricular rate 55 beats per minute. An EKG 11/01/2024 shows atrial tachycardia with IVCD, ventricular rate of 117 beats per minute. The atrial tachycardia has a cycle length of 440 ms. There is also a rhythm strip 10/27/2023 showing atrial tachycardia versus atrial fibrillation with a 5.2nd pause followed by atrial tachycardia in the setting of adenosine. On telemetry she has persistent atrial tachycardia with ventricular rates currently in the 70s to 80s. She is episodes of rapid ventricular response as well as 1:1 conduction seen on 11/02/2024. She underwent echocardiogram 10/27/2024 which shows an ejection fraction of 55- 60% with stage III diastolic dysfunction, mildly dilated left atrium, mild aortic valve regurgitation and trace mitral valve regurgitation. She underwent left heart catheterization 10/29/2024 which showed right coronary artery which was free of obstruction with patent PDA and PLB, left main free of obstruction, patent mid LAD stent with 30% distal InStent stenosis unchanged from prior angiogram in October 2023, diagonal free of obstruction, left circumflex free of obstruction, normal obtuse marginal and high lateral branch. No evidence of aortic stenosis. Of note, she was found to have small caliber 80% stenosis in the ostial OM1 not in amenable to percutaneous or surgical revascularization on left heart catheterization 10/30/2023. Her most recent blood pressure is 104/52. Chest x-ray 11/02/2024 is negative for acute cardiopulmonary process. White blood count 7.2, hemoglobin 11.6, hematocrit 37.2, platelets 214, creatinine 1.3, potassium 3.4. Troponin trend as follows: 14 - 69 - 119 - 104 - 46 - 12. She reports recurrent chest pain, shortness of breath and palpitations that began two weeks ago. She states that she has been maintained on Eliquis 5 mg twice daily but admits to missing doses doing to running out of the prescription and having difficulty obtaining refills. She has had recurrent chest pain in the past including an admission for non-STEMI in October of last year. At that time she was found to have atrial fibrillation but states that the symptoms had been minimal until two weeks ago. Patient History: PAST MEDICAL HISTORY: As noted above. SOCIAL HISTORY: She is a nonsmoker, nondrinker. SURGICAL HISTORY: As noted above. Allergies: Coded Allergies: No Known Allergies (Unverified Allergy, Unknown, 05/12/14) Additional RoS: Negative with the exception of HPI. Vital Signs Vital Signs 11/02/24 11/03/24 11/03/24 20:00 07:00 08:12 Temp 97.5 Pulse 77 Resp 16 B/P (MAP) 104/52 Pulse Ox 100 O2 Delivery Room Air O2 Flow Rate 0 FiO2 21 Appearance: Well dev, well nourished Eyes: EOM Normal, Normal Conjuctivae/eyelid Ear/Nose/Mouth/Throat: Landmarks WNL Neck: Symmetric, trach midline Cardiovascular: Regular Rate Respiratory: Lungs clear Laboratory Tests Test 11/01/24 11:49 11/01/24 15:22 11/01/24 19:19 11/02/24 03:14 Range/Units Whole Blood Glucose 124 145 177 70-110 MG/DL White Blood Count 7.0 4.8-10.8 K/uL Red Blood Count 4.21 4.00-5.50 MIL/uL Hemoglobin 11.6 12.0-16.0 g/dL Hematocrit 36.0 36-48 % Mean Corpuscular Volume 85.5 79-99 fL Mean Corpuscular Hemoglobin 27.6 27.0-33.0 pg Mean Corpuscular Hemoglobin Concent 32.2 32.0-36.0 g/dL Red Cell Distribution Width 13.9 11.0-15.5 % Platelet Count 215 130-400 K/uL Mean Platelet Volume 11.2 7.5-10.5 fL Immature Granulocyte % (Auto) 0.3 0-1 % Neutrophils (%) (Auto) 48.8 40.0-77.0 % Lymphocytes (%) (Auto) 34.0 21.0-51.0 % Monocytes (%) (Auto) 12.2 3.0-13.0 % Eosinophils (%) (Auto) 4.1 0.0-8.0 % Basophils (%) (Auto) 0.6 0.0-5.0 % Neutrophils # (Auto) 3.4 1.8-7.7 K/uL Lymphocytes # (Auto) 2.4 1.0-4.8 K/uL Monocytes # (Auto) 0.9 0.1-1.0 K/uL Eosinophils # (Auto) 0.29 0.00-0.70 K/uL Basophils # (Auto) 0.04 0.00-0.20 K/uL Absolute Immature Granulocyte (auto 0.02 0-1 K/uL Nucleated Red Blood Cells 0.0 0.0-0.19 % Sodium Level 139 136-145 mmol/L Potassium Level 3.5 3.5-5.1 mmol/L Chloride Level 103 101-111 mmol/L Carbon Dioxide Level 26 21-32 mmol/L Blood Urea Nitrogen 33 7-18 mg/dL Creatinine 1.3 0.5-1.0 mg/dL Glomerular Filtration Rate Calc 42 >90 mL/min Random Glucose 108 70-105 mg/dL Total Calcium 9.0 8.5-10.1 mg/dL Total Bilirubin 0.2 0.2-1.0 mg/dL Aspartate Amino Transf (AST/SGOT) 16 10-37 U/L Alanine Aminotransferase (ALT/SGPT) 23 12-78 U/L Alkaline Phosphatase 102 50-136 U/L B-Type Natriuretic Peptide 250 0-100 pg/mL Total Protein 6.8 6.0-8.3 g/dL Albumin 3.2 3.5-5.0 g/dL Test 11/02/24 05:45 11/02/24 12:13 11/02/24 16:57 11/02/24 20:31 Range/Units Whole Blood Glucose 98 112 151 113 70-110 MG/DL Test 11/03/24 02:54 11/03/24 05:24 Range/Units White Blood Count 7.2 4.8-10.8 K/uL Red Blood Count 4.23 4.00-5.50 MIL/uL Hemoglobin 11.6 12.0-16.0 g/dL Hematocrit 37.2 36-48 % Mean Corpuscular Volume 87.9 79-99 fL Mean Corpuscular Hemoglobin 27.4 27.0-33.0 pg Mean Corpuscular Hemoglobin Concent 31.2 32.0-36.0 g/dL Red Cell Distribution Width 13.9 11.0-15.5 % Platelet Count 214 130-400 K/uL Mean Platelet Volume 11.2 7.5-10.5 fL Immature Granulocyte % (Auto) 0.3 0-1 % Neutrophils (%) (Auto) 51.8 40.0-77.0 % Lymphocytes (%) (Auto) 32.0 21.0-51.0 % Monocytes (%) (Auto) 12.0 3.0-13.0 % Eosinophils (%) (Auto) 3.3 0.0-8.0 % Basophils (%) (Auto) 0.6 0.0-5.0 % Neutrophils # (Auto) 3.7 1.8-7.7 K/uL Lymphocytes # (Auto) 2.3 1.0-4.8 K/uL Monocytes # (Auto) 0.9 0.1-1.0 K/uL Eosinophils # (Auto) 0.24 0.00-0.70 K/uL Basophils # (Auto) 0.04 0.00-0.20 K/uL Absolute Immature Granulocyte (auto 0.02 0-1 K/uL Nucleated Red Blood Cells 0.0 0.0-0.19 % Sodium Level 139 136-145 mmol/L Potassium Level 3.4 3.5-5.1 mmol/L Chloride Level 104 101-111 mmol/L Carbon Dioxide Level 27 21-32 mmol/L Blood Urea Nitrogen 30 7-18 mg/dL Creatinine 1.3 0.5-1.0 mg/dL Glomerular Filtration Rate Calc 42 >90 mL/min Random Glucose 139 70-105 mg/dL Total Calcium 9.2 8.5-10.1 mg/dL Total Bilirubin 0.2 0.2-1.0 mg/dL Aspartate Amino Transf (AST/SGOT) 17 10-37 U/L Alanine Aminotransferase (ALT/SGPT) 22 12-78 U/L Alkaline Phosphatase 103 50-136 U/L Total Protein 6.8 6.0-8.3 g/dL Albumin 3.2 3.5-5.0 g/dL Whole Blood Glucose 88 70-110 MG/DL ASSESSMENT: 1. Atrial tachycardia (versus atypical atrial flutter). 2. Paroxysmal atrial fibrillation. 3. Recurrent chest pain. 4. Preserved LVEF. 5. Stable coronary artery disease with a history of mid LAD stenting in 2014 and non-STEMI in October 2023. PLAN: 1. She has persistent atrial tachycardia, cycle length 440 milliseconds. She has been on a rate control strategy with the atenolol but continues to have episodes of rapid ventricular response up to the 120s. We recommend synagogue of sinus rhythm via REGINE guided cardioversion. If the REGINE is negative for left atrial appendage thrombus, she will be initiated on Multaq 400 mg twice daily and cardioverted. 2. In the meantime, we will add verapamil 40 mg every 8 hours for rate control. 3. Catheter ablation of paroxysmal atrial fibrillation as well as atrial tachycardia can be arranged as an outpatient at least 30 days after undergoing cardioversion. 4. Perform EKG 2 hours after Multaq. 5. Anticipate discharge home tomorrow. MINA BENSON Nov 03, 2024 09:54
[2024-11-03] MEDS: ENOXAPARIN SODIUM 30 MG/0.3 ML SQ ONE (10:08)
[2024-11-03] MEDS: VERAPAMIL HCL 80 MG TABLET PO SCH (11:16)
--- NOTE | 2024-11-03 11:30 | PN ---
[facility] PROGRESS NOTE Date Patient Seen: Today, October Supervising Physician: Dr Guillermo Maki Assessment: Status post left heart catheterization 10/29/2024 AFib with RVR, POA, on chronic anticoagulation with Eliquis SVT, POA Unstable angina, POA CHF with acute exacerbation, POA LVEF 55-60%, grade 3 diastolic dysfunction per 12/15/2023 Uncontrolled hypertension, POA Acute on chronic kidney disease, GFR 42 Hyperglycemia CAD s/p PCI with MICHAEL placement (Promus Premier 2.5x20 mm) in the mid LAD done on 05/13/2014 Chronic problem list: s/p LHC/coronary angiogram done on 10/20/2022 which identified significant stenosis in the ostial OM1 (tiny vessel), a patent stent in the mid LAD, and otherwise normal coronary arteries Normal Lexiscan stress test done 08/28/2023 HFpEF (LVEF: 55% by echo done 05/30/2022) Right sided breast CA s/p right lumpectomy PAD s/p left lower extremity peripheral intervention on 08/19/2021 History of GI bleed, (+) melena s/p EGD 11/07/2023 and push enteroscopy 11/11/2023 with findings of gastritis, no active bleed identified s/p colonoscopy 11/11/2023 with findings of non-bleeding AVM which was cauterized Bilateral lower extremity weakness and paresthesia with multilevel lumbar spondylosis with cord compression per MRI 11/06/2023 INTERVAL HISTORY: Patient was seen and examined, patient is resting comfortably in bed. Nursing reports no acute events overnight Patient is ambulating without assistance, talking with her at bedside Patient has spoke with Cardiology this morning, planning a REGINE tomorrow and with a cardioversion Patient NPO midnight Afebrile Plan: Plan is for a REGINE tomorrow with cardioversion Cardiology requesting pre dose Lovenox 60 Continue to follow I&Os Cardiac diet Antiplatelet therapy per Cardiology GI prophylaxis with Protonix DVT prophylaxis with SCDs Code Status: Full Resuscitation GI & DVT Prophylaxis REVIEW OF SYSTEMS: 12 point ROS reviewed , only + as per above PHYSICAL EXAM: GENERAL: alert, weak, awake oriented x 3 HEENT: EOMI, Sclera non icteric, moist mucosa NECK: Supple, no JVD, trachea midline LUNGS: Clear breath sounds bilaterally. No wheezes HEART: Regular rate and rhythm. Normal S1 and S2, without murmurs ABD: Obese Abdomen soft, nontender. Bowel sounds present EXT: No clubbing cyanosis or edema. NEURO: Alert and oriented to person, follows commands PLAN GI & NUTRITION: Continue nutritional support Aspirations precautions Prokinetic agents and laxatives as needed KIDNEYS & ELECTROLYTES: Strict monitoring of intake and output NEURO: Minimize central acting medications as possible. Fall Precautions. Well lighted room through the day and minimize interruptions through the night to prevent acute delirium. PULMONARY: Supplemental 02 as needed Titrate Fio2 to keep Spo2 > or = 90% DuoNebs and CPT as needed CARDIOVASCULAR: Follow hemodynamics. Titrate vasopressor to keep MAP >65 or systolic blood pressure >95mmHg ENDOCRINE: Maintain blood glucose between 100-180 at all times. Insulin sliding scale for blood glucose management RENAL: Avoid nephrotoxic agents INFECTIOUS DISEASE: Trend temperature. Edouard-culture if febrile. HEMATOLOGY & COAGULATION: Monitor H&H. Keep Hgb > 7 Transfuse 1 unit of PRBC for Hgb < 7 Watch for any signs and symptoms of bleeding SKIN: Pressure ulcer prevention per facility protocol Total time spent in the care of this patient greater than 40 minutes, this excludes any time spent on procedures teaching or education. ATTESTATION BY PHYSICIAN The patient has been seen and evaluated, the case has been discussed with the PA, I agree with the clinical findings and plan of care. Vitals/Labs Vital Signs Date Time Temp Pulse Resp B/P (MAP) Pulse Ox O2 Delivery O2 Flow Rate FiO2 11/03/24 08:12 77 104/52 11/03/24 08:00 100 Room Air* 0 21 11/03/24 07:00 97.5 16 Laboratory Tests 11/03/24 02:54 Medications Current Medications Adenosine 6 mg STK-MED ONCE IV; Start 10/26/24 at 09:34; Stop 10/26/24 at 09:35; Status DC Metoprolol Tartrate 5 mg STK-MED ONCE IV; Start 10/26/24 at 09:43; Stop 10/26/24 at 09:43; Status DC Adenosine 6 mg ONCE ONCE IV Last administered on 10/26/24at 09:56; Start 10/26/24 at 10:00; Stop 10/26/24 at 10:01; Status DC Metoprolol Tartrate 5 mg ONCE ONCE IV Last administered on 10/26/24at 10:00; Start 10/26/24 at 10:00; Stop 10/26/24 at 10:01; Status DC Famotidine 20 mg Q48H PO Last administered on 11/01/24at 21:17; Start 10/26/24 at 21:00; Stop 11/25/24 at 20:59 Aspirin 81 mg DAILY PO Last administered on 11/03/24at 08:10; Start 10/27/24 at 09:00; Stop 11/26/24 at 08:59 Acetaminophen 650 mg Q6H PRN PO Last administered on 11/02/24at 23:58; Start 10/26/24 at 11:30; Stop 11/25/24 at 11:29 Acetaminophen 650 mg Q6H PRN RC; Start 10/26/24 at 11:30; Stop 11/25/24 at 11:29 Lactulose 20 gm Q6H PRN PO Last administered on 11/02/24at 05:21; Start 10/26/24 at 11:30; Stop 11/25/24 at 11:29 Docusate Sodium 100 mg BID PRN PO Last administered on 10/30/24at 21:23; Start 10/26/24 at 11:30; Stop 11/25/24 at 11:29 Temazepam 15 mg HS PRN PO Last administered on 11/02/24at 22:57; Start 10/26/24 at 11:30; Stop 11/25/24 at 11:29 Labetalol HCl 10 mg Q2H PRN IV; Start 10/26/24 at 11:30; Stop 11/25/24 at 11:29 Insulin Human Regular INSULIN SLIDING SCAL... ACHS SQ; Start 10/26/24 at 11:30; Stop 11/25/24 at 11:29 Hydralazine HCl 10 mg ONCE ONCE IV Last administered on 10/26/24at 11:42; Start 10/26/24 at 11:30; Stop 10/26/24 at 11:34; Status DC Metoprolol Tartrate 5 mg ONCE ONCE IV Last administered on 10/26/24at 12:31; Start 10/26/24 at 12:30; Stop 10/26/24 at 12:31; Status DC Apixaban 5 mg BID PO; Start 10/26/24 at 21:00; Stop 10/26/24 at 15:06; Status DC Aspirin 81 mg DAILY PO; Start 10/27/24 at 09:00; Stop 10/26/24 at 12:49; Status DC Atorvastatin Calcium 40 mg DAILY PO Last administered on 11/03/24at 08:12; Start 10/27/24 at 09:00; Stop 11/26/24 at 08:59 Clopidogrel Bisulfate 75 mg DAILY PO Last administered on 11/03/24at 08:11; Start 10/27/24 at 09:00; Stop 11/26/24 at 08:59 Furosemide 40 mg BID PO Last administered on 11/03/24at 08:11; Start 10/26/24 at 21:00; Stop 11/25/24 at 20:59 Gabapentin 100 mg BID PO Last administered on 11/03/24at 08:12; Start 10/26/24 at 21:00; Stop 11/25/24 at 20:59 Hydralazine HCl 25 mg BID PO Last administered on 11/01/24at 08:41; Start 10/26/24 at 21:00; Stop 11/01/24 at 15:40; Status DC Isosorbide Mononitrate 30 mg DAILY PO Last administered on 11/01/24at 08:40; Start 10/27/24 at 09:00; Stop 11/01/24 at 15:32; Status DC Losartan Potassium 25 mg DAILY PO Last administered on 11/03/24at 08:12; Start 10/27/24 at 09:00; Stop 11/26/24 at 08:59 Spironolactone 25 mg BID PO Last administered on 11/03/24at 08:11; Start 10/26/24 at 21:00; Stop 11/25/24 at 20:59 Sucralfate 1 gm QID PO Last administered on 11/03/24at 08:15; Start 10/26/24 at 13:00; Stop 11/25/24 at 12:59 Verapamil HCl 240 mg BID PO Last administered on 10/28/24at 20:15; Start 10/26/24 at 12:30; Stop 10/31/24 at 09:58; Status DC Atenolol 50 mg DAILY PO; Start 10/27/24 at 09:00; Stop 10/26/24 at 15:06; Status DC Pantoprazole Sodium 40 mg DAILY PO; Start 10/27/24 at 09:00; Stop 10/27/24 at 07:48; Status DC Magnesium Oxide 200 mg DAILY PO Last administered on 11/03/24at 08:11; Start 10/27/24 at 09:00; Stop 11/26/24 at 08:59 Home Med Ubidecarenone (Co Q-10) 1 CAP DAILY PO Last administered on 10/31/24at 09:00; Start 10/27/24 at 09:00; Stop 11/26/24 at 08:59 Atenolol 50 mg ONCE ONCE PO Last administered on 10/26/24at 13:08; Start 10/26/24 at 13:00; Stop 10/26/24 at 13:01; Status DC Pharmacy Profile Note HOME MED: DRUG-DRUG Interaction BID MISC; Start 10/26/24 at 21:00; Stop 10/27/24 at 06:55; Status DC Nitroglycerin/ Dextrose 250 ml @ 0 mls/hr PROTOCOL IV Last administered on 10/26/24at 13:53; Start 10/26/24 at 13:30; Stop 11/25/24 at 13:29 Apixaban 5 mg ONCE ONCE PO Last administered on 10/26/24at 13:55; Start 10/26/24 at 13:30; Stop 10/26/24 at 13:32; Status DC Aspirin 324 mg ONCE ONCE PO Last administered on 10/26/24at 13:46; Start 10/26/24 at 13:30; Stop 10/26/24 at 13:32; Status DC Furosemide 40 mg ONCE ONCE IV Last administered on 10/26/24at 13:47; Start 10/26/24 at 13:30; Stop 10/26/24 at 13:32; Status DC Atenolol 50 mg BID PO Last administered on 10/27/24at 21:24; Start 10/26/24 at 21:00; Stop 10/28/24 at 19:10; Status DC Enoxaparin Sodium 60 mg BID SQ Last administered on 11/02/24at 08:24; Start 10/26/24 at 21:00; Stop 11/02/24 at 13:22; Status DC Potassium Chloride 100 ml @ 100 mls/hr AD PRN IV; Start 10/27/24 at 07:00; Stop 11/26/24 at 06:59 Potassium Chloride 10 meq AD PRN PO; Start 10/27/24 at 07:00; Stop 11/26/24 at 06:59 Potassium Chloride 10 meq AD PRN PO Last administered on 11/03/24at 08:16; Start 10/27/24 at 07:00; Stop 11/26/24 at 06:59 Magnesium Sulfate 50 ml @ 0 mls/hr PROTOCOL PRN IV; Start 10/27/24 at 07:00; Stop 11/26/24 at 06:59 Iohexol 35,000 mg STK-MED ONCE IV; Start 10/28/24 at 13:03; Stop 10/28/24 at 13:03; Status DC Metoprolol Tartrate 5 mg STK-MED ONCE IV; Start 10/28/24 at 13:31; Stop 10/28/24 at 13:32; Status DC Atenolol 50 mg DAILY PO Last administered on 10/28/24at 22:10; Start 10/28/24 at 21:00; Stop 10/29/24 at 07:38; Status DC Atenolol 25 mg DAILY PO Last administered on 11/01/24at 08:42; Start 10/29/24 at 09:00; Stop 11/01/24 at 15:15; Status DC Lidocaine HCl 20 ml STK-MED ONCE .ROUTE; Start 10/29/24 at 12:30; Stop 10/29/24 at 12:30; Status DC Iohexol 35,000 mg STK-MED ONCE IV; Start 10/29/24 at 12:30; Stop 10/29/24 at 12:30; Status DC Heparin Sodium (Porcine) 10,000 unit STK-MED ONCE .ROUTE; Start 10/29/24 at 12:30; Stop 10/29/24 at 12:30; Status DC Heparin Sodium/ Sodium Chloride 1,000 ml @ As Directed STK-MED ONCE IV; Start 10/29/24 at 12:30; Stop 10/29/24 at 12:31; Status DC Nitroglycerin 50 mg STK-MED ONCE .ROUTE; Start 10/29/24 at 12:31; Stop 10/29/24 at 12:31; Status DC Morphine Sulfate 1 mg Q4HWA PRN IVP Last administered on 10/31/24at 13:46; Start 10/31/24 at 10:00; Stop 11/07/24 at 09:59 Atenolol 25 mg DAILY PO Last administered on 11/03/24at 08:12; Start 11/02/24 at 09:00; Stop 11/03/24 at 08:41; Status DC Enoxaparin Sodium 30 mg DAILY SQ Last administered on 11/03/24at 08:13; Start 11/03/24 at 09:00; Stop 12/03/24 at 08:59 Enoxaparin Sodium 30 mg ONCE ONCE SQ; Start 11/03/24 at 09:30; Stop 11/03/24 at 09:35; Status DC Enoxaparin Sodium 30 mg ONCE ONCE SQ Last administered on 11/03/24at 10:08; Start 11/03/24 at 09:30; Stop 11/03/24 at 09:36; Status DC Verapamil HCl 40 mg TID PO Last administered on 11/03/24at 11:16; Start 11/03/24 at 10:00; Stop 12/03/24 at 09:59 CAREN VILLALOBOS Nov 03, 2024 11:30
[2024-11-04] VITALS (21 sets, daily range): BP systolic 95–164; BP diastolic 41–104; PULSE 54–156; RESP 10–20; TEMP 97.5–98.7; O2SAT 98–100
[2024-11-04 04:30] LABS: IMMATURE GRANULOCYTE ABSOLUTE 0.02 K/uL (0-1); NUCLEATED RED BLOOD CELLS 0.0 % (0.0-0.19); PLATELET COUNT (AUTO) 227 K/uL (130-400); RED BLOOD CELL COUNT(AUTO) 4.22 MIL/uL (4.00-5.50); RED CELL DISTRIBUTION WIDTH 13.8 % (11.0-15.5); WHITE BLOOD COUNT (AUTO) 7.5 K/uL (4.8-10.8)
[2024-11-04 05:01] LABS: ASPARTATE AMINOTRANSFERASE 23.0 U/L (10-37); CREATININE 1.2 mg/dL (0.5-1.0); GLOMERULAR FILTR. RATE CALC 47.0 mL/min (>90); GLUCOSE,RANDOM 100.0 mg/dL (70-105); SODIUM SERUM 136.0 mmol/L (136-145); TOTAL PROTEIN, SERUM 7.0 g/dL (6.0-8.3); UREA NITROGEN, BLOOD 29.0 mg/dL (7-18)
--- NOTE | 2024-11-04 08:27 | HMCIMG ---
EXAM: CR Chest, 1 View. CLINICAL HISTORY: pp COMPARISON: 11/03. FINDINGS: LUNGS: There is no mass, infiltrate, or acute pulmonary abnormality. PLEURAL SPACES: No evidence of pleural effusion or pneumothorax. MEDIASTINUM: Cardiac size and mediastinal contours within normal limits. BONES: No acute osseous abnormality. MISCELLANEOUS: Right axillary surgical clips. IMPRESSION: 1. No acute cardiopulmonary findings. 2. Right axillary surgical clips. /Rand
--- NOTE | 2024-11-04 11:01 | PN ---
[facility] PROGRESS NOTE Date Patient Seen: Nov 04, 2024 Time of Visit: 11:01 Supervising Physician: Tra Flynn MD Primary Care Physician: Dr. Jordon Ortiz Outpatient Specialists: Dr. Demond Dejesus, [facility] Inpatient Consults: Dr. Demond Kirby, [facility] PROBLEM LIST: AFib with RVR, POA, on chronic anticoagulation with Eliquis SVT, POA S/P REGINE w/ findings of thrombus formation in the FITZ Unstable angina, POA CHF with acute exacerbation, POA LVEF 55-60%, grade 3 diastolic dysfunction per 12/15/2023 Uncontrolled hypertension, POA Acute on chronic kidney disease, GFR 42 Hyperglycemia Chronic problem list: s/p LHC/coronary angiogram done on 10/20/2022 which identified significant stenosis in the ostial OM1 (tiny vessel), a patent stent in the mid LAD, and otherwise normal coronary arteries CAD s/p PCI with MICHAEL placement (Promus Premier 2.5x20 mm) in the mid LAD done on 05/13/2014 Right sided breast CA s/p right lumpectomy PAD s/p left lower extremity peripheral intervention on 08/19/2021 History of GI bleed, (+) melena s/p EGD 11/07/2023 and push enteroscopy 11/11/2023 with findings of gastritis, no active bleed identified s/p colonoscopy 11/11/2023 with findings of non-bleeding AVM which was cauterized Bilateral lower extremity weakness and paresthesia with multilevel lumbar spondylosis with cord compression per MRI 11/06/2023 INTERVAL HISTORY: He is awake alert and oriented current heart rate of 103 beats per minute AFib, no apparent distress. She is hemodynamically stable saturating 99% on room air and afebrile. CBC unremarkable, chemistries with creatinine of 1.2 BUN of 29 GFR of 47 kidneys appear to be baseline function. She underwent REGINE per Dr. Salinas today with findings of thrombus formation on the left atrial appendage. Not a candidate for cardioversion.Per Cardiology optimize heart failure medication, rate control and continue anticoagulation with the Eliquis. We will continue to follow cardiology recommendations. REVIEW OF SYSTEMS: 12 point ROS reviewed with patient. Pertinent positives mentioned above. Otherwise negative. PHYSICAL EXAM: GENERAL: Alert, weak, awake oriented x 3 HEENT: EOMI, Sclera non icteric, moist mucosa NECK: Supple, no JVD, trachea midline LUNGS: Clear breath sounds bilaterally. No wheezes HEART: Regular rate and rhythm. Normal S1 and S2, without murmurs ABD: Abdomen soft, nontender. Bowel sounds present EXT: No clubbing cyanosis or edema NEURO: Alert and oriented X3, follows commands Vital Signs (last 8hr) Date Time Temp Pulse Resp B/P (MAP) Pulse Ox O2 Delivery O2 Flow Rate FiO2 11/04/24 07:41 97.9 80 20 152/68 100 Room Air 11/04/24 04:00 98.2 78 20 126/64 97 Room Air LABS: Hematology Labs: Test 11/04/24 04:11 Range/Units White Blood Count 7.5 4.8-10.8 K/uL Red Blood Count 4.22 4.00-5.50 MIL/uL Hemoglobin 11.7 L 12.0-16.0 g/dL Hematocrit 35.7 L 36-48 % Mean Corpuscular Volume 84.6 79-99 fL Mean Corpuscular Hemoglobin 27.7 27.0-33.0 pg Mean Corpuscular Hemoglobin Concent 32.8 32.0-36.0 g/dL Red Cell Distribution Width 13.8 11.0-15.5 % Platelet Count 227 130-400 K/uL Mean Platelet Volume 11.0 H 7.5-10.5 fL Immature Granulocyte % (Auto) 0.3 0-1 % Neutrophils (%) (Auto) 52.6 40.0-77.0 % Lymphocytes (%) (Auto) 32.0 21.0-51.0 % Monocytes (%) (Auto) 10.6 3.0-13.0 % Eosinophils (%) (Auto) 4.0 0.0-8.0 % Basophils (%) (Auto) 0.5 0.0-5.0 % Neutrophils # (Auto) 4.0 1.8-7.7 K/uL Lymphocytes # (Auto) 2.4 1.0-4.8 K/uL Monocytes # (Auto) 0.8 0.1-1.0 K/uL Eosinophils # (Auto) 0.30 0.00-0.70 K/uL Basophils # (Auto) 0.04 0.00-0.20 K/uL Absolute Immature Granulocyte (auto 0.02 0-1 K/uL Nucleated Red Blood Cells 0.0 0.0-0.19 % Chemistry Labs: Test 11/04/24 05:25 11/04/24 04:11 11/03/24 11:22 Range/Units Whole Blood Glucose 106 70-110 MG/DL Sodium Level 136 136-145 mmol/L Potassium Level 3.8 3.5-5.1 mmol/L Chloride Level 102 101-111 mmol/L Carbon Dioxide Level 25 21-32 mmol/L Blood Urea Nitrogen 29 H 7-18 mg/dL Creatinine 1.2 H 0.5-1.0 mg/dL Glomerular Filtration Rate Calc 47 >90 mL/min Random Glucose 100 70-105 mg/dL Total Calcium 9.3 8.5-10.1 mg/dL Total Bilirubin 0.2 0.2-1.0 mg/dL Aspartate Amino Transf (AST/SGOT) 23 10-37 U/L Alanine Aminotransferase (ALT/SGPT) 30 12-78 U/L Alkaline Phosphatase 109 50-136 U/L Total Protein 7.0 6.0-8.3 g/dL Albumin 3.4 L 3.5-5.0 g/dL Bedside Glucose Comment Notified Nurse DIAGNOSTICS / RADIOLOGY RESULTS: [ [place] [address] [address] IMAGING REPORT Signed PATIENT: JOSUE SOSA MR#: [id number] : 1945 SEX: F AGE: 79 LOCATION: [facility] ORDER 2300 STATUS: ADM IN REPORT#: [id number] SERVICE 0730 REASON: Atrial fibrillation/atrial tachycardia ORDERING PHYSICIAN: MINA BENSON PROCEDURE: ECHO REGINE - ECHO REGINE--TRANSESOPHAGEAL APPROVED REPORT EXAM: Transesophageal echocardiogram with color flow Doppler. Study Details: 3D/2D transesophageal echocardiogram and Doppler with color Doppler. INDICATION ICD: Atrial fibrillation Reason For Test : Rule out Intracardiac Thrombus. PROCEDURE After obtaining informed consent, patient underwent transesophageal echo in the 222 15 mL 2% Viscous Lidocaine was given as a topical anesthetic prior to the a dministration of the conscious sedation. Type of Sedation: Conscious Sedation Sedation was administered by Please refer to medication administration record. . Sedation was achieved with Please refer to medication administration record. intravenously. Transesophageal probe was inserted and advanced into esophagus without difficulty by Max Salinas MD . REGINE was performed and images were obtained, probe was removed without complications. Throughout the procedure, the blood pressure, pulse oximetry, cardiac rhythm, and rate were monitored. Left Ventricle The left ventricle is normal in size. There is normal LV segmental wall motion. Mild concentric left ventricular hypertrophy. Left ventricle systolic function is low normal, estimated LVEF is 50-55%. Indeterminate diastolic function. Right Ventricle The right ventricle is normal size. Right ventricular systolic function is ronna ssly normal. Atria The left atrium is severely dilated. There is spontaneous contrast (rouleaux/smoke formation) seen in the left atrium. No thrombus was seen in the left atrium. The left atrial appendage is normal in size. Decreased velocity seen in the left atrial appendage. There is thrombus formation (1.2 x 1.0 cm) seen at the orifice of the left atrial appendage. No evidence of PFO/ASD by color doppler. The right atrium is dilated. There is no mass or thrombus suspected in the right atrium. Aortic Valve Aortic valve is trileaflet. The leaflets are mildly thickened and calcified. Mild aortic regurgitation. There is no aortic valvular stenosis. Mitral Valve The mitral valve is normal in structure and function. Trace mitral regurgitation. There is no mitral valve stenosis. Tricuspid Valve The tricuspid valve is normal in structure and function. Trace tricuspid regurgitation. Pulmonic Valve Pulmonic valve is not well visualized. Great Vessels The aortic root is normal in size. The descending thoracic aorta is normal in size. There is mild atheromatous plaque seen in the descending thoracic aorta. Pericardium No pericardial effusion. Conclusion The left atrium is severely dilated. There is spontaneous contrast (rouleaux/smoke formation) seen in the left atrium. No thrombus was seen in the left atrium. The left atrial appendage is normal in size. Decreased velocity seen in the left atrial appendage. There is thrombus formation (1.2 x 1.0 cm) seen at the orifice of the left atrial appendage. The right atrium is dilated. There is no mass or thrombus suspected in the right atrium. No evidence of PFO/ASD by color doppler. Mild concentric left ventricular hypertrophy. There is normal LV segmental wall motion. Left ventricle systolic function is low normal, estimated LVEF is 50-55%. Indeterminate diastolic function. Mild aortic regurgitation. Trace mitral regurgitation. Trace tricuspid regurgitation. No pericardial effusion. Conclusions: Thrombus formation seen in the left atrial appendage Paroxysmal atrial fibrillation, on anticoagulation Paroxysmal SVT (atrial tachycardia) DC cardioversion was not attempted because of the above-mentioned thrombus formation in the left atrial appendage. Recommendations: Optimize heart rate control medication. Management will be under the direction of EP Continue full-dose anticoagulation (currently on Lovenox). Recommend converting to Eliquis 5 mg BID DICTATED BY: MAX SALINAS MD DATE: 11/04/24 1052 ELECTRONICALLY SIGNED BY: MAX SALINAS MD DATE: 11/04/24 1245 ] PLAN Follow cardiology recommendations continue family service caseworker continue AC with eliquis wean o2 as possible NEURO: Minimize central acting medications as possible. Maintain fall precautions, adequate lighting during the day PULMONARY: Supplemental 02 as needed. Maintain aspiration precautions at all times CARDIOVASCULAR: Follow hemodynamics. Vital signs per facility protocol GI & NUTRITION: Continue with nutritional support. Continue stool softeners and laxatives as needed. KIDNEYS & ELECTROLYTES: Strict monitoring of intake, output and overall fluid balance. Avoid nephrotoxic medications to the extent possible. Medications to be dosed according to renal function. Monitor electrolytes and replace as needed ENDOCRINE: Maintain blood glucose between 100-180 at all times. Hypoglycemia protocol in place INFECTIOUS DISEASE: Trend temperature, WBC and procalcitonin level Follow cultures, deescalate antibiotics as soon as possible. Panculture if new onset fever ONCOLOGY/HEMATOLOGY/COAGULATION: Monitor for s/s of bleeding Monitor hemoglobin, coagulation studies as needed SKIN: Pressure ulcer prevention per facility protocol Specialty mattress ORTHO/REHAB: Continue PT/OT Prophylaxis: Continue GI and DVT prophylaxis Code Status: Full Resuscitation Disposition: JESSICA BENNETT Nov 04, 2024 11:01
[2024-11-04] MEDS: LIDOCAINE HCL 2% VISCOUS 15 ML UDCUP PO STA (11:04)
--- NOTE | 2024-11-04 11:25 | NUR ---
PT CARE 1125 - 1245 Bedside REGINE performed by . Refer to sedation flow sheet for documentation of time out and medication administration. procedure start time 1128, completed procedure at 1145. Pt monitored at bedside by this RN per protocol. At 1201, pt briskly awake, oriented and appropriate. Denied pain. Pt positioned to upright position with HOB @30-degrees. spoke to pt and updated her on results of REGINE. Pt observation completed at 1245. Pt's family at bedside - pt interacting appropriately with them. Denied chest pain, pressure or palpitations. No SOB reported at rest. Side rails up x3 for pt safety. Pt left with needed items, call light within reach. No complaints voiced by pt. Care of pt endorsed to primary nurse.
--- NOTE | 2024-11-04 12:26 | HMCIMG ---
EXAM: CR Chest, 1 views. CLINICAL HISTORY: Cough. COMPARISON: None provided. FINDINGS: The lungs show no infiltrate or other acute findings. No pleural effusion or pneumothorax. The cardiomediastinal silhouette is within normal limits. No acute osseous abnormality. IMPRESSION: 1. No acute cardiopulmonary pathology is evident. /[place]
--- NOTE | 2024-11-04 12:48 | HMCSR ---
APPROVED REPORT EXAM: Transesophageal echocardiogram with color flow Doppler. Study Details: 3D/2D transesophageal echocardiogram and Doppler with color Doppler. INDICATION ICD: Atrial fibrillation Reason For Test : Rule out Intracardiac Thrombus. PROCEDURE After obtaining informed consent, patient underwent transesophageal echo in the 222 15 mL 2% Viscous Lidocaine was given as a topical anesthetic prior to the administration of the consc ious sedation. Type of Sedation: Conscious Sedation Sedation was administered by Please refer to medication administration record. . Sedation was achieved with Please refer to medication administration record. intravenously. Transesophageal probe was inserted and advanced into esophagus without difficulty by Sariah Virk MD . REGINE was performed and images were obtained, probe was removed without complications. Throughout the procedure, the blood pressure, pulse oximetry, cardiac rhythm, and rate were monitored . Left Ventricle The left ventricle is normal in size. There is normal LV segmental wall motion. Mild concentric left ventricular hypertrophy. Left ventricle systolic function is low normal, estimated LVEF is 50-55%. In determinate diastolic function. Right Ventricle The right ventricle is normal size. Right ventricular systolic function is grossly normal. Atria The left atrium is severely dilated. There is spontaneous contrast (rouleaux/smoke formation) seen in the left atrium. No thrombus was seen in the left atrium. The left atrial appendage is normal in si ze. Decreased velocity seen in the left atrial appendage. There is thrombus formation (1.2 x 1.0 cm) seen at the orifice of the left atrial appendage. No evidence of PFO/ASD by color doppler. The right atrium is dilated. There is no mass or thrombus suspected in the right atrium. Aortic Valve Aortic valve is trileaflet. The leaflets are mildly thickened and calcified. Mild aortic regurgitatio n. There is no aortic valvular stenosis. Mitral Valve The mitral valve is normal in structure and function. Trace mitral regurgitation. There is no mitral valve stenosis. Tricuspid Valve The tricuspid valve is normal in structure and function. Trace tricuspid regurgitation. Pulmonic Valve Pulmonic valve is not well visualized. Great Vessels The aortic root is normal in size. The descending thoracic aorta is normal in size. There is mild ath eromatous plaque seen in the descending thoracic aorta. Pericardium No pericardial effusion. Conclusion The left atrium is severely dilated. There is spontaneous contrast (rouleaux/smoke formation) seen i n the left atrium. No thrombus was seen in the left atrium. The left atrial appendage is normal in size. Decreased velocity seen in the left atrial appendage. There is thrombus formation (1.2 x 1.0 cm) seen at the orifice of the left atrial appendage. The right atrium is dilated. There is no mass or thrombus suspected in the right atrium. No evidence of PFO/ASD by color doppler. Mild concentric left ventricular hypertrophy. There is normal LV segmental wall motion. Left ventricle systolic function is low normal, estimated L VEF is 50-55%. Indeterminate diastolic function. Mild aortic regurgitation. Trace mitral regurgitation. Trace tricuspid regurgitation. No pericardial effusion. Conclusions: Thrombus formation seen in the left atrial appendage Paroxysmal atrial fibrillation, on anticoagulation Paroxysmal SVT (atrial tachycardia) DC cardioversion was not attempted because of the above-mentioned thrombus formation in the left atri al appendage. Recommendations: Optimize heart rate control medication. Management will be under the direction of EP Continue full-dose anticoagulation (currently on Lovenox). Recommend converting to Eliquis 5 mg BID
[2024-11-04] MEDS: MIDAZOLAM HCL 1 MG/ML 2ML VIAL IVP STA (12:54)
[2024-11-04] MEDS: VERAPAMIL HCL 80 MG TABLET PO SCH (20:52)
[2024-11-04] MEDS ORDERED: VERAPAMIL HCL 80 MG TABLET PO SCH (21:00)
--- NOTE | 2024-11-04 23:03 | NUR ---
Hospitalist Notification Notified police surgeon Soham CHILD about patient's increase in heart rate. A-Fib in the 160s. EHR TRAINER ordered 5mg Lopressor IVP times three doses every five minutes for a total of up to 15mg for a goal heart rate in the 120s.
--- NOTE | 2024-11-04 23:03 | NUR ---
Information Release As per patient, daughter Sera may receive information via telephone.
[2024-11-05] VITALS (8 sets, daily range): BP systolic 94–124; BP diastolic 50–64; PULSE 81–107; RESP 16–20; TEMP 97–98.9; O2SAT 98
[2024-11-05 04:20] LABS: IMMATURE GRANULOCYTE ABSOLUTE 0.02 K/uL (0-1); NUCLEATED RED BLOOD CELLS 0.0 % (0.0-0.19); PLATELET COUNT (AUTO) 252 K/uL (130-400); RED BLOOD CELL COUNT(AUTO) 4.34 MIL/uL (4.00-5.50); RED CELL DISTRIBUTION WIDTH 13.8 % (11.0-15.5); WHITE BLOOD COUNT (AUTO) 8.2 K/uL (4.8-10.8)
[2024-11-05 04:36] LABS: ASPARTATE AMINOTRANSFERASE 22.0 U/L (10-37); CREATININE 1.3 mg/dL (0.5-1.0); GLOMERULAR FILTR. RATE CALC 42.0 mL/min (>90); GLUCOSE,RANDOM 118.0 mg/dL (70-105); SODIUM SERUM 134.0 mmol/L (136-145); TOTAL PROTEIN, SERUM 7.1 g/dL (6.0-8.3); UREA NITROGEN, BLOOD 33.0 mg/dL (7-18)
--- NOTE | 2024-11-05 08:55 | HMCIMG ---
EXAM: CR Chest, 1 View. CLINICAL HISTORY: pp COMPARISON: None provided. FINDINGS: LUNGS: There is no mass, infiltrate, or acute pulmonary abnormality. PLEURAL SPACES: No evidence of pleural effusion or pneumothorax. MEDIASTINUM: Cardiac size and mediastinal contours within normal limits. BONES: No acute osseous abnormality. MISCELLANEOUS: Right axillary surgical clips. IMPRESSION: 1. No acute cardiopulmonary findings. 2. Right axillary surgical clips. /[place]
--- NOTE | 2024-11-05 08:58 | EKG ---
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
--- NOTE | 2024-11-05 10:00 | NUR ---
DAUGHTER CALLED TO GET UPDATE ON PATIENT. SHE ASKED TO BE CALLED WITH ANY CHANGES. SHE WAS MADE AWARE OF DR GARCIA CALLED ABOUT ELEVATED HEART RATE.
--- NOTE | 2024-11-05 11:17 | PN ---
[facility] PROGRESS NOTE Date Patient Seen: Nov 05, 2024 Time of Visit: 11:17 Supervising Physician: JUVENAL IRWIN MD Primary Care Physician: Dr. Jordon Ortiz Outpatient Specialists: Dr. Demond Dejesus, [facility] Inpatient Consults: Dr. Demond Kirby, [facility] PROBLEM LIST: AFib with RVR, POA, on chronic anticoagulation with Eliquis SVT, POA S/P REGINE w/ findings of thrombus formation in the FITZ Unstable angina, POA CHF with acute exacerbation, POA LVEF 55-60%, grade 3 diastolic dysfunction per 12/15/2023 Uncontrolled hypertension, POA Acute on chronic kidney disease, GFR 42 Hyperglycemia Chronic problem list: s/p LHC/coronary angiogram done on 10/20/2022 which identified significant stenosis in the ostial OM1 (tiny vessel), a patent stent in the mid LAD CAD s/p PCI with MICHAEL placement (Promus Premier 2.5x20 mm) in the mid LAD done on 05/13/2014 Right sided breast CA s/p right lumpectomy PAD s/p left lower extremity peripheral intervention on 08/19/2021 History of GI bleed, (+) melena s/p EGD 11/07/2023 and push enteroscopy 11/11/2023 with findings of gastritis, no active bleed identified s/p colonoscopy 11/11/2023 with findings of non-bleeding AVM which was cauterized Bilateral lower extremity weakness and paresthesia with multilevel lumbar spondylosis with cord compression per MRI 11/06/2023 INTERVAL HISTORY: Chart reviewed including all laboratory and imaging results. Patient assessed at bedside. Denies chest pain, palpitation, or shortness for breath at this time. She does report an episode of chest pain with diaphoresis and palpitations overnight. As per RN she had an episode this morning of SVT 170 beats per minute when getting up from bed. Currently heart rate between 107 and episodes of 130's. Hemodynamically stable. She is on metoprolol 5 mg IV for heart rate greater than 120bpm. RN made aware. We will continue to follow cardiology recommendations. For now bedrest. REVIEW OF SYSTEMS: 12 point ROS reviewed with patient. Pertinent positives mentioned above. Otherwise negative. PHYSICAL EXAM: GENERAL: Alert, weak, awake oriented x 3 HEENT: EOMI, Sclera non icteric, moist mucosa NECK: Supple, no JVD, trachea midline LUNGS: Clear breath sounds bilaterally. No wheezes HEART: Regular rate and rhythm. Normal S1 and S2, without murmurs ABD: Abdomen soft, nontender. Bowel sounds present EXT: No clubbing cyanosis or edema NEURO: Alert and oriented X3, follows commands Vital Signs (last 8hr) Date Time Temp Pulse Resp B/P (MAP) Pulse Ox O2 Delivery O2 Flow Rate FiO2 11/05/24 07:00 98.1 85 16 105/55 98 Room Air 11/05/24 03:20 99.0 81 18 94/56 98 Room Air LABS: Hematology Labs: Test 11/05/24 03:57 Range/Units White Blood Count 8.2 4.8-10.8 K/uL Red Blood Count 4.34 4.00-5.50 MIL/uL Hemoglobin 11.9 L 12.0-16.0 g/dL Hematocrit 36.3 36-48 % Mean Corpuscular Volume 83.6 79-99 fL Mean Corpuscular Hemoglobin 27.4 27.0-33.0 pg Mean Corpuscular Hemoglobin Concent 32.8 32.0-36.0 g/dL Red Cell Distribution Width 13.8 11.0-15.5 % Platelet Count 252 130-400 K/uL Mean Platelet Volume 11.1 H 7.5-10.5 fL Immature Granulocyte % (Auto) 0.2 0-1 % Neutrophils (%) (Auto) 61.8 40.0-77.0 % Lymphocytes (%) (Auto) 28.8 21.0-51.0 % Monocytes (%) (Auto) 7.7 3.0-13.0 % Eosinophils (%) (Auto) 1.0 0.0-8.0 % Basophils (%) (Auto) 0.5 0.0-5.0 % Neutrophils # (Auto) 5.1 1.8-7.7 K/uL Lymphocytes # (Auto) 2.4 1.0-4.8 K/uL Monocytes # (Auto) 0.6 0.1-1.0 K/uL Eosinophils # (Auto) 0.08 0.00-0.70 K/uL Basophils # (Auto) 0.04 0.00-0.20 K/uL Absolute Immature Granulocyte (auto 0.02 0-1 K/uL Nucleated Red Blood Cells 0.0 0.0-0.19 % Chemistry Labs: Test 11/05/24 10:45 11/05/24 03:57 11/03/24 11:22 Range/Units Whole Blood Glucose 102 70-110 MG/DL Sodium Level 134 L 136-145 mmol/L Potassium Level 4.0 3.5-5.1 mmol/L Chloride Level 101 101-111 mmol/L Carbon Dioxide Level 24 21-32 mmol/L Blood Urea Nitrogen 33 H 7-18 mg/dL Creatinine 1.3 H 0.5-1.0 mg/dL Glomerular Filtration Rate Calc 42 >90 mL/min Random Glucose 118 H 70-105 mg/dL Total Calcium 9.5 8.5-10.1 mg/dL Magnesium Level 2.30 1.80-2.40 mg/dL Total Bilirubin 0.3 # 0.2-1.0 mg/dL Aspartate Amino Transf (AST/SGOT) 22 10-37 U/L Alanine Aminotransferase (ALT/SGPT) 30 12-78 U/L Alkaline Phosphatase 104 50-136 U/L Total Protein 7.1 6.0-8.3 g/dL Albumin 3.4 L 3.5-5.0 g/dL Bedside Glucose Comment Notified Nurse DIAGNOSTICS / RADIOLOGY RESULTS: [ [place] [address] [address] IMAGING REPORT Signed PATIENT: JOSUE SOSA MR#: [id number] : 1945 SEX: F AGE: 79 LOCATION: 2DH ORDER 2300 STATUS: ADM IN REPORT#: [id number] SERVICE 0600 REASON: pp ORDERING PHYSICIAN: CAREN VILLALOBOS PROCEDURE: CXR1VW - CHEST 1VW EXAM: CR Chest, 1 View. CLINICAL HISTORY: pp COMPARISON: None provided. FINDINGS: LUNGS: There is no mass, infiltrate, or acute pulmonary abnormality. PLEURAL SPACES: No evidence of pleural effusion or pneumothorax. MEDIASTINUM: Cardiac size and mediastinal contours within normal limits. BONES: No acute osseous abnormality. MISCELLANEOUS: Right axillary surgical clips. IMPRESSION: 1. No acute cardiopulmonary findings. 2. Right axillary surgical clips. /[place] DICTATED BY: FINN ROPER MD DATE: 11/05/24953 ELECTRONICALLY SIGNED BY: FINN ROPER MD DATE: 11/05/24953 ] PLAN Follow cardiology recommendations continue site monitor continue AC with eliquis wean o2 as possible NEURO: Minimize central acting medications as possible. Maintain fall precautions, adequate lighting during the day PULMONARY: Supplemental 02 as needed. Maintain aspiration precautions at all times CARDIOVASCULAR: Follow hemodynamics. Vital signs per facility protocol GI & NUTRITION: Continue with nutritional support. Continue stool softeners and laxatives as needed. KIDNEYS & ELECTROLYTES: Strict monitoring of intake, output and overall fluid balance. Avoid nephrotoxic medications to the extent possible. Medications to be dosed according to renal function. Monitor electrolytes and replace as needed ENDOCRINE: Maintain blood glucose between 100-180 at all times. Hypoglycemia protocol in place INFECTIOUS DISEASE: Trend temperature, WBC and procalcitonin level Follow cultures, deescalate antibiotics as soon as possible. Panculture if new onset fever ONCOLOGY/HEMATOLOGY/COAGULATION: Monitor for s/s of bleeding Monitor hemoglobin, coagulation studies as needed SKIN: Pressure ulcer prevention per facility protocol Specialty mattress ORTHO/REHAB: Continue PT/OT Prophylaxis: Continue GI and DVT prophylaxis Code Status: Full Resuscitation Disposition: JESSICA BENNETT Nov 05, 2024 11:17
--- NOTE | 2024-11-05 13:14 | NUR ---
DR GARCIA AT BEDSIDE TALKING TO PATIENT, AND DAUGHTER IS ON THE PHONE, CALLED BY PT .
[2024-11-05 15:11] LABS: CREATINE KINASE, TOTAL 26.0 U/L (21-232)
[2024-11-06 03:50] LABS: IMMATURE GRANULOCYTE ABSOLUTE 0.03 K/uL (0-1); NUCLEATED RED BLOOD CELLS 0.0 % (0.0-0.19); PLATELET COUNT (AUTO) 232 K/uL (130-400); RED BLOOD CELL COUNT(AUTO) 4.13 MIL/uL (4.00-5.50); RED CELL DISTRIBUTION WIDTH 13.7 % (11.0-15.5); WHITE BLOOD COUNT (AUTO) 10.1 K/uL (4.8-10.8)
[2024-11-06 04:00] VITALS: BP 118/56; PULSE 79; RESP 18; TEMP 98
[2024-11-06 04:13] LABS: ASPARTATE AMINOTRANSFERASE 19.0 U/L (10-37); CREATININE 1.5 mg/dL (0.5-1.0); GLOMERULAR FILTR. RATE CALC 36.0 mL/min (>90); GLUCOSE,RANDOM 112.0 mg/dL (70-105); SODIUM SERUM 133.0 mmol/L (136-145); TOTAL PROTEIN, SERUM 6.9 g/dL (6.0-8.3); UREA NITROGEN, BLOOD 34.0 mg/dL (7-18)
[2024-11-06 07:00] VITALS: BP 113/61; PULSE 85; RESP 18; TEMP 98.4
[2024-11-06 07:25] VITALS: O2SAT 98
--- NOTE | 2024-11-06 10:07 | PN ---
[facility] PROGRESS NOTE Date Patient Seen: Nov 06, 2024 Time of Visit: 09:59 Supervising Physician: Dr Suhail Vidal Primary Care Physician: Dr. Jordon Ortiz Outpatient Specialists: Dr. Demond Dejesus, [facility] Inpatient Consults: Dr. Demond Dejesus, [facility] PROBLEM LIST: AFib with RVR, POA, on chronic anticoagulation with Eliquis SVT, POA S/P REGINE w/ findings of thrombus formation in the FITZ Unstable angina, POA CHF with acute exacerbation, POA LVEF 55-60%, grade 3 diastolic dysfunction per 12/15/2023 Uncontrolled hypertension, POA Acute on chronic kidney disease, GFR 42 Hyperglycemia Chronic problem list: s/p LHC/coronary angiogram done on 10/20/2022 which identified significant stenosis in the ostial OM1 (tiny vessel), a patent stent in the mid LAD CAD s/p PCI with MICHAEL placement (Promus Premier 2.5x20 mm) in the mid LAD done on 05/13/2014 Right sided breast CA s/p right lumpectomy PAD s/p left lower extremity peripheral intervention on 08/19/2021 History of GI bleed, (+) melena s/p EGD 11/07/2023 and push enteroscopy 11/11/2023 with findings of gastritis, no active bleed identified s/p colonoscopy 11/11/2023 with findings of non-bleeding AVM which was cauterized Bilateral lower extremity weakness and paresthesia with multilevel lumbar spondylosis with cord compression per MRI 11/06/2023 PLAN SUMMARY: Supplemental oxygen as needed Wean off as tolerated Continue Eliquis Continue atorvastatin Continue Plavix Continue Lasix Metoprolol Follow Cardiology recommendation PT as tolerated Out of bed to chair and ambulate Follow up with Dr. Huff recommendations INTERVAL HISTORY: Chart reviewed including all laboratory and imaging results. Patient assessed at bedside. Denies chest pain, palpitation, or shortness for breath at this time. She does report an episode of chest pain with diaphoresis and palpitations overnight. As per RN she had an episode this morning of SVT 170 beats per minute when getting up from bed. Currently heart rate between 107 and episodes of 130's. Hemodynamically stable. She is on metoprolol 5 mg IV for heart rate greater than 120bpm. RN made aware. We will continue to follow cardiology recommendations. For now bedrest. 11/06 - patient is seen sitting up in bed appears to be weak and hypoxemic currently on 2 L via nasal cannula. Patient reports she was placed on oxygen yesterday afternoon she had an episode of SVT. Currently patient's heart rate is 85 beats per minute. No acute changes reported overnight. Instructed nursing to wean off O2 as tolerated. Patient was evaluated by Cardiology and recommended EP evaluation. Patient had a REGINE performed and patient was found to have thrombus formation in the left atrial appendage. Cardioversion was not attempted secondary to the above-mentioned thrombus formation in the left atrial appendage. Recommendations are to start patient to Eliquis5 b.i.d. continue management as per Dr. Huff. Currently pending his evaluation and rec ommendations. We will continue current treatment plan for now. REVIEW OF SYSTEMS: 12 point ROS reviewed with patient. Pertinent positives mentioned above. Otherwise negative. PHYSICAL EXAM: GENERAL: Alert, weak, awake oriented x 3 HEENT: EOMI, Sclera non icteric, moist mucosa NECK: Supple, no JVD, trachea midline LUNGS: Clear breath sounds bilaterally. No wheezes HEART: Regular rate and rhythm. Normal S1 and S2, without murmurs ABD: Abdomen soft, nontender. Bowel sounds present EXT: No clubbing cyanosis or edema NEURO: Alert and oriented X3, follows commands Vital Signs (last 8hr) Date Time Temp Pulse Resp B/P (MAP) Pulse Ox O2 Delivery O2 Flow Rate FiO2 11/06/24 07:00 98.4 85 18 113/61 100 Room Air 11/06/24 04:00 98.1 79 18 118/56 100 Nasal Cannula 4.0 LABS: Hematology Labs: Test 11/06/24 03:13 Range/Units White Blood Count 10.1 4.8-10.8 K/uL Red Blood Count 4.13 4.00-5.50 MIL/uL Hemoglobin 11.3 L 12.0-16.0 g/dL Hematocrit 35.7 L 36-48 % Mean Corpuscular Volume 86.4 79-99 fL Mean Corpuscular Hemoglobin 27.4 27.0-33.0 pg Mean Corpuscular Hemoglobin Concent 31.7 L 32.0-36.0 g/dL Red Cell Distribution Width 13.7 11.0-15.5 % Platelet Count 232 130-400 K/uL Mean Platelet Volume 11.2 H 7.5-10.5 fL Immature Granulocyte % (Auto) 0.3 0-1 % Neutrophils (%) (Auto) 56.7 40.0-77.0 % Lymphocytes (%) (Auto) 31.0 21.0-51.0 % Monocytes (%) (Auto) 9.4 3.0-13.0 % Eosinophils (%) (Auto) 1.9 0.0-8.0 % Basophils (%) (Auto) 0.7 0.0-5.0 % Neutrophils # (Auto) 5.7 1.8-7.7 K/uL Lymphocytes # (Auto) 3.1 1.0-4.8 K/uL Monocytes # (Auto) 1.0 0.1-1.0 K/uL Eosinophils # (Auto) 0.19 0.00-0.70 K/uL Basophils # (Auto) 0.07 0.00-0.20 K/uL Absolute Immature Granulocyte (auto 0.03 0-1 K/uL Nucleated Red Blood Cells 0.0 0.0-0.19 % Chemistry Labs: Test 11/06/24 06:15 11/06/24 03:13 11/05/24 15:59 11/05/24 14:48 Range/Units Whole Blood Glucose 125 H 70-110 MG/DL Sodium Level 133 L 136-145 mmol/L Potassium Level 3.9 3.5-5.1 mmol/L Chloride Level 99 L 101-111 mmol/L Carbon Dioxide Level 27 21-32 mmol/L Blood Urea Nitrogen 34 H 7-18 mg/dL Creatinine 1.5 H 0.5-1.0 mg/dL Glomerular Filtration Rate Calc 36 >90 mL/min Random Glucose 112 H 70-105 mg/dL Total Calcium 9.3 8.5-10.1 mg/dL Magnesium Level 2.20 1.80-2.40 mg/dL Total Bilirubin 0.2 # 0.2-1.0 mg/dL Aspartate Amino Transf (AST/SGOT) 19 10-37 U/L Alanine Aminotransferase (ALT/SGPT) 31 12-78 U/L Alkaline Phosphatase 97 50-136 U/L Total Protein 6.9 6.0-8.3 g/dL Albumin 3.3 L 3.5-5.0 g/dL Bedside Glucose Comment Notified Nurse Total Creatine Kinase 26 # 21-232 U/L Troponin I High Sensitivity 19.0 4-50 ng/L DIAGNOSTICS / RADIOLOGY RESULTS: PATIENT: JOSUE SOSA MR#: [id number] : 1945 SEX: F AGE: 79 LOCATION: 2D ORDER 2300 STATUS: ADM IN REPORT#: [id number] SERVICE 0730 REASON: Atrial fibrillation/atrial tachycardia ORDERING PHYSICIAN: MINA BENSON PROCEDURE: ECHO REGINE - ECHO REGINE--TRANSESOPHAGEAL APPROVED REPORT EXAM: Transesophageal echocardiogram with color flow Doppler. Study Details: 3D/2D transesophageal echocardiogram and Doppler with color Doppler. INDICATION ICD: Atrial fibrillation Reason For Test : Rule out Intracardiac Thrombus. PROCEDURE After obtaining informed consent, patient underwent transesophageal echo in the 222 15 mL 2% Viscous Lidocaine was given as a topical anesthetic prior to the administration of the conscious sedation. Type of Sedation: Conscious Sedation Sedation was administered by Please refer to medication administration record. . Sedation was achieved with Please refer to medication administration record. intravenously. Transesophageal probe was inserted and advanced into esophagus without difficulty by Max Salinas MD . REGINE was performed and images were obtained, probe was removed without complications. Throughout the procedure, the blood pressure, pulse oximetry, cardiac rhythm, and rate were monitored. Left Ventricle The left ventricle is normal in size. There is normal LV segmental wall motion. Mild concentric left ventricular hypertrophy. Left ventricle systolic function is low normal, estimated LVEF is 50-55%. Indeterminate diastolic function. Right Ventricle The right ventricle is normal size. Right ventricular systolic function is grossly normal. Atria The left atrium is severely dilated. There is spontaneous contrast (rouleaux/smoke formation) seen in the left atrium. No thrombus was seen in the left atrium. The left atrial appendage is normal in size. Decreased velocity seen in the left atrial appendage. There is thrombus formation (1.2 x 1.0 cm) seen at the orifice of the left atrial appendage. No evidence of PFO/ASD by color doppler. The right atrium is dilated. There is no mass or thrombus suspected in the right atrium. Aortic Valve Aortic valve is trileaflet. The leaflets are mildly thickened and calcified. Mild aortic regurgitation. There is no aortic valvular stenosis. Mitral Valve The mitral valve is normal in structure and function. Trace mitral regurgitation. There is no mitral valve stenosis. Tricuspid Valve The tricuspid valve is normal in structure and function. Trace tricuspid regurgitation. Pulmonic Valve Pulmonic valve is not well visualized. Great Vessels The aortic root is normal in size. The descending thoracic aorta is normal in size. There is mild atheromatous plaque seen in the descending thoracic aorta. Pericardium No pericardial effusion. Conclusion The left atrium is severely dilated. There is spontaneous contrast (rouleaux/smoke formation) seen in the left atrium. No thrombus was seen in the left atrium. The left atrial appendage is normal in size. Decreased velocity seen in the left atrial appendage. There is thrombus formation (1.2 x 1.0 cm) seen at the orifice of the left atrial appendage. The right atrium is dilated. There is no mass or thrombus suspected in the right atrium. No evidence of PFO/ASD by color doppler. Mild concentric left ventricular hypertrophy. There is normal LV segmental wall motion. Left ventricle systolic function is low normal, estimated LVEF is 50-55%. Indeterminate diastolic function. Mild aortic regurgitation. Trace mitral regurgitation. Trace tricuspid regurgitation. No pericardial effusion. Conclusions: Thrombus formation seen in the left atrial appendage Paroxysmal atrial fibrillation, on anticoagulation Paroxysmal SVT (atrial tachycardia) DC cardioversion was not attempted because of the above-mentioned thrombus formation in the left atrial appendage. Recommendations: Optimize heart rate control medication. Management will be under the direction of EP Continue full-dose anticoagulation (currently on Lovenox). Recommend converting to Eliquis 5 mg BID DICTATED BY: MAX SALINAS MD DATE: 11/04/24 1058 ELECTRONICALLY SIGNED BY: MAX SALINAS MD DATE: 11/04/24 1249 PLAN Follow cardiology recommendations continue threat monitoring analyst continue AC with eliquis wean o2 as possible NEURO: Minimize central acting medications as possible. Maintain fall precautions, adequate lighting during the day PULMONARY: Supplemental 02 as needed. Maintain aspiration precautions at all times CARDIOVASCULAR: Follow hemodynamics. Vital signs per facility protocol GI & NUTRITION: Continue with nutritional support. Continue stool softeners and laxatives as needed. KIDNEYS & ELECTROLYTES: Strict monitoring of intake, output and overall fluid balance. Avoid nephrotoxic medications to the extent possible. Medications to be dosed according to renal function. Monitor electrolytes and replace as needed ENDOCRINE: Maintain blood glucose between 100-180 at all times. Hypoglycemia protocol in place INFECTIOUS DISEASE: Trend temperature, WBC and procalcitonin level Follow cultures, deescalate antibiotics as soon as possible. Panculture if new onset fever ONCOLOGY/HEMATOLOGY/COAGULATION: Monitor for s/s of bleeding Monitor hemoglobin, coagulation studies as needed SKIN: Pressure ulcer prevention per facility protocol Specialty mattress ORTHO/REHAB: Continue PT/OT Prophylaxis: Continue GI and DVT prophylaxis Code Status: Full Resuscitation Disposition: Home once medically stable for discharge. ATTESTATION BY PHYSICIAN The patient has been seen and evaluated, the case has been discussed with the BUDGET REPORT CLERK, I agree with the clinical findings and plan of care. Pernell Vidal MD, ECTOR N NP Nov 06, 2024 10:07
[2024-11-06 11:00] VITALS: BP 113/56; PULSE 84; RESP 20; TEMP 97.9
[2024-11-06 16:00] VITALS: BP 108/56; PULSE 85; RESP 20; TEMP 97.5
[2024-11-06 20:00] VITALS: BP 142/61; PULSE 84; RESP 18; TEMP 98.1; O2SAT 98
[2024-11-07] VITALS (8 sets, daily range): BP systolic 101–126; BP diastolic 49–68; PULSE 57–85; RESP 18–20; TEMP 97.8–98.7; O2SAT 97–99
[2024-11-07 03:59] LABS: IMMATURE GRANULOCYTE ABSOLUTE 0.03 K/uL (0-1); NUCLEATED RED BLOOD CELLS 0.0 % (0.0-0.19); PLATELET COUNT (AUTO) 233 K/uL (130-400); RED BLOOD CELL COUNT(AUTO) 4.26 MIL/uL (4.00-5.50); RED CELL DISTRIBUTION WIDTH 13.5 % (11.0-15.5); WHITE BLOOD COUNT (AUTO) 9.0 K/uL (4.8-10.8)
[2024-11-07 04:23] LABS: ASPARTATE AMINOTRANSFERASE 13.0 U/L (10-37); CREATININE 1.3 mg/dL (0.5-1.0); GLOMERULAR FILTR. RATE CALC 42.0 mL/min (>90); GLUCOSE,RANDOM 107.0 mg/dL (70-105); PHOSPHORUS 4.5 mg/dL (2.5-4.9); SODIUM SERUM 134.0 mmol/L (136-145); TOTAL PROTEIN, SERUM 6.9 g/dL (6.0-8.3); UREA NITROGEN, BLOOD 35.0 mg/dL (7-18)
[2024-11-07] MEDS: NEOMY SULF/BACITRA/POLYMYXIN B 1 EACH PACKET TP SCH (09:43)
--- NOTE | 2024-11-07 09:54 | PN ---
[facility] PROGRESS NOTE Date Patient Seen: Nov 07, 2024 Time of Visit: 09:51 Supervising Physician: Marie Poon Primary Care Physician: Dr. Jordon Ortiz Outpatient Specialists: Dr. Demond Dejesus, [facility] Inpatient Consults: Dr. Demond Dejesus, [facility] PROBLEM LIST: AFib with RVR, POA, on chronic anticoagulation with Eliquis SVT, POA S/P REGINE w/ findings of thrombus formation in the FITZ Unstable angina, POA CHF with acute exacerbation, POA LVEF 55-60%, grade 3 diastolic dysfunction per 12/15/2023 Uncontrolled hypertension, POA Acute on chronic kidney disease, GFR 42 Hyperglycemia Chronic problem list: s/p LHC/coronary angiogram done on 10/20/2022 which identified significant stenosis in the ostial OM1 (tiny vessel), a patent stent in the mid LAD CAD s/p PCI with MICHAEL placement (Promus Premier 2.5x20 mm) in the mid LAD done on 05/13/2014 Right sided breast CA s/p right lumpectomy PAD s/p left lower extremity peripheral intervention on 08/19/2021 History of GI bleed, (+) melena s/p EGD 11/07/2023 and push enteroscopy 11/11/2023 with findings of gastritis, no active bleed identified s/p colonoscopy 11/11/2023 with findings of non-bleeding AVM which was cauterized Bilateral lower extremity weakness and paresthesia with multilevel lumbar spondylosis with cord compression per MRI 11/06/2023 PLAN SUMMARY: Supplemental oxygen as needed Wean off as tolerated Continue Eliquis Continue atorvastatin Continue Plavix Continue Lasix Metoprolol Follow Cardiology recommendation PT as tolerated Out of bed to chair and ambulate Follow up with Dr. Huff recommendations INTERVAL HISTORY: Chart reviewed including all laboratory and imaging results. Patient assessed at bedside. Denies chest pain, palpitation, or shortness for breath at this time. She does report an episode of chest pain with diaphoresis and palpitations overnight. As per RN she had an episode this morning of SVT 170 beats per minute when getting up from bed. Currently heart rate between 107 and episodes of 130's. Hemodynamically stable. She is on metoprolol 5 mg IV for heart rate greater than 120bpm. RN made aware. We will continue to follow cardiology recommendations. For now bedrest. 11/06 - patient is seen sitting up in bed appears to be weak and hypoxemic currently on 2 L via nasal cannula. Patient reports she was placed on oxygen yesterday afternoon she had an episode of SVT. Currently patient's heart rate is 85 beats per minute. No acute changes reported overnight. Instructed nursing to wean off O2 as tolerated. Patient was evaluated by Cardiology and recommended EP evaluation. Patient had a REGINE performed and patient was found to have thrombus formation in the left atrial appendage. Cardioversion was not attempted secondary to the above-mentioned thrombus formation in the left atrial appendage. Recommendations are to start patient to Eliquis5 b.i.d. continue management as per Dr. Huff. Currently pending his evaluation and recommendat ions. We will continue current treatment plan for now. 11/07 - patient is seen sitting up in bed accompanied by multiple family members. Patient with no signs of acute distress. Patient has been weaned off O2 and currently on room air and denies chest discomfort, chest pain or dyspnea with exertion. Patient does appear weak however improving daily. Patient encouraged to continue ambulating as tolerated. Patient reports she did have an episode of AFib RVR yesterday evening however did not sustain and currently normal sinus rhythm with a heart rate of 85 beats per minute. Waiting further recommendations from EP. Vital signs are stable. Labs are within normal limits. We will continue current treatment plan for now. We will await further recs from cardio. REVIEW OF SYSTEMS: 12 point ROS reviewed with patient. Pertinent positives mentioned above. Otherwise negative. PHYSICAL EXAM: GENERAL: Alert, weak, awake oriented x 3 HEENT: EOMI, Sclera non icteric, moist mucosa NECK: Supple, no JVD, trachea midline LUNGS: Clear breath sounds bilaterally. No wheezes HEART: Regular rate and rhythm. Normal S1 and S2, without murmurs ABD: Abdomen soft, nontender. Bowel sounds present EXT: No clubbing cyanosis or edema NEURO: Alert and oriented X3, follows commands Vital Signs (last 8hr) Date Time Temp Pulse Resp B/P (MAP) Pulse Ox O2 Delivery O2 Flow Rate FiO2 11/07/24 08:00 97.9 85 20 108/55 99 Nasal Cannula 4.0 11/07/24 04:00 98.1 84 18 116/68 100 Nasal Cannula 2.0 LABS: Hematology Labs: Test 11/07/24 03:45 Range/Units White Blood Count 9.0 4.8-10.8 K/uL Red Blood Count 4.26 4.00-5.50 MIL/uL Hemoglobin 11.7 L 12.0-16.0 g/dL Hematocrit 36.5 36-48 % Mean Corpuscular Volume 85.7 79-99 fL Mean Corpuscular Hemoglobin 27.5 27.0-33.0 pg Mean Corpuscular Hemoglobin Concent 32.1 32.0-36.0 g/dL Red Cell Distribution Width 13.5 11.0-15.5 % Platelet Count 233 130-400 K/uL Mean Platelet Volume 10.9 H 7.5-10.5 fL Immature Granulocyte % (Auto) 0.3 0-1 % Neutrophils (%) (Auto) 54.6 40.0-77.0 % Lymphocytes (%) (Auto) 32.2 21.0-51.0 % Monocytes (%) (Auto) 9.3 3.0-13.0 % Eosinophils (%) (Auto) 3.0 0.0-8.0 % Basophils (%) (Auto) 0.6 0.0-5.0 % Neutrophils # (Auto) 4.9 1.8-7.7 K/uL Lymphocytes # (Auto) 2.9 1.0-4.8 K/uL Monocytes # (Auto) 0.8 0.1-1.0 K/uL Eosinophils # (Auto) 0.27 0.00-0.70 K/uL Basophils # (Auto) 0.05 0.00-0.20 K/uL Absolute Immature Granulocyte (auto 0.03 0-1 K/uL Nucleated Red Blood Cells 0.0 0.0-0.19 % Chemistry Labs: Test 11/07/24 03:45 11/06/24 20:36 11/05/24 15:59 11/05/24 14:48 Range/Units Sodium Level 134 L 136-145 mmol/L Potassium Level 3.6 3.5-5.1 mmol/L Chloride Level 99 L 101-111 mmol/L Carbon Dioxide Level 25 21-32 mmol/L Blood Urea Nitrogen 35 H 7-18 mg/dL Creatinine 1.3 H 0.5-1.0 mg/dL Glomerular Filtration Rate Calc 42 >90 mL/min Random Glucose 107 H 70-105 mg/dL Total Calcium 9.2 8.5-10.1 mg/dL Phosphorus Level 4.5 2.5-4.9 mg/dL Magnesium Level 2.40 1.80-2.40 mg/dL Total Bilirubin 0.2 0.2-1.0 mg/dL Aspartate Amino Transf (AST/SGOT) 13 10-37 U/L Alanine Aminotransferase (ALT/SGPT) 25 12-78 U/L Alkaline Phosphatase 99 50-136 U/L Total Protein 6.9 6.0-8.3 g/dL Albumin 3.4 L 3.5-5.0 g/dL Whole Blood Glucose 130 H 70-110 MG/DL Bedside Glucose Comment Notified Nurse Total Creatine Kinase 26 # 21-232 U/L Troponin I High Sensitivity 19.0 4-50 ng/L DIAGNOSTICS / RADIOLOGY RESULTS: PATIENT: JOSUE SOSA MR#: [id number] : 1945 SEX: F AGE: 79 LOCATION: 2DH ORDER 2300 STATUS: ADM IN REPORT#: [id number] SERVICE 0600 REASON: pp ORDERING PHYSICIAN: CAREN VILLALOBOS PROCEDURE: CXR1VW - CHEST 1VW EXAM: CR Chest, 1 View. CLINICAL HISTORY: pp COMPARISON: None provided. FINDINGS: LUNGS: There is no mass, infiltrate, or acute pulmonary abnormality. PLEURAL SPACES: No evidence of pleural effusion or pneumothorax. MEDIASTINUM: Cardiac size and mediastinal contours within normal limits. BONES: No acute osseous abnormality. MISCELLANEOUS: Right axillary surgical clips. IMPRESSION: 1. No acute cardiopulmonary findings. 2. Right axillary surgical clips. /[place] DICTATED BY: FINN ROPER MD DATE: 11/05/24953 ELECTRONICALLY SIGNED BY: FINN ROPER MD DATE: 11/05/24953 PLAN Follow cardiology recommendations continue monitor and storage bin tender continue AC with eliquis wean o2 as possible NEURO: Minimize central acting medications as possible. Maintain fall precautions, adequate lighting during the day PULMONARY: Supplemental 02 as needed. Maintain aspiration precautions at all times CARDIOVASCULAR: Follow hemodynamics. Vital signs per facility protocol GI & NUTRITION: Continue with nutritional support. Continue stool softeners and laxatives as needed. KIDNEYS & ELECTROLYTES: Strict monitoring of intake, output and overall fluid balance. Avoid nephrotoxic medications to the extent possible. Medications to be dosed according to renal function. Monitor electrolytes and replace as needed ENDOCRINE: Maintain blood glucose between 100-180 at all times. Hypoglycemia protocol in place INFECTIOUS DISEASE: Trend temperature, WBC and procalcitonin level Follow cultures, deescalate antibiotics as soon as possible. Panculture if new onset fever ONCOLOGY/HEMATOLOGY/COAGULATION: Monitor for s/s of bleeding Monitor hemoglobin, coagulation studies as needed SKIN: Pressure ulcer prevention per facility protocol Specialty mattress ORTHO/REHAB: Continue PT/OT Prophylaxis: Continue GI and DVT prophylaxis Code Status: Full Resuscitation Disposition: Home once medically stable for discharge. ATTESTATION BY PHYSICIAN I reviewed the documentation, medical decision making, and treatment plan as noted by the mid-level provider above. I agree with the findings and plan of care. Naun Poon MD, ECTOR N NP Nov 07, 2024 09:54
--- NOTE | 2024-11-07 19:19 | PN ---
[facility] CARDIOLOGY PROGRESS NOTE Date Patient Seen: Nov 07, 2024 Time of Visit: 19:07 Interval history: The patient is doing well from the standpoint of her atrial tachycardia. Unfortunately, cardioversion could not be performed due to thrombus found in her left atrial appendage. This is most likely a left atrial tachycardia. Rate control has been difficult however it has improved. She is currently on verapamil 40 mg q.i.d. and metoprolol tartrate 50 mg b.i.d.. She has been tolerating it well with respect to her blood pressure. She had some constipation when she came in however this has resolved. She does not suffer from constipation chronically as she had been on verapamil ER 240 mg daily in the past. Last night at approximately 11:00 p.m. she did have a short run of tachycardia in the 140s. This is atrial tachycardia with one-to-one conduction. She has not had any atrial fibrillation. Generally though, her heart rates are in the 80s to 90s. Since the episode last night, she has had excellent rate control, including while ambulating with physical therapy. Of note, she does have angina with her rapid heart rates so it is very important for us to control these rates. She underwent cardiac catheterization during this admission and she does have a small OM1 with a tight stenosis not amenable to intervention. Laboratory: [ ] Hematology Labs: Test 11/07/24 03:45 Range/Units White Blood Count 9.0 4.8-10.8 K/uL Red Blood Count 4.26 4.00-5.50 MIL/uL Hemoglobin 11.7 L 12.0-16.0 g/dL Hematocrit 36.5 36-48 % Mean Corpuscular Volume 85.7 79-99 fL Mean Corpuscular Hemoglobin 27.5 27.0-33.0 pg Mean Corpuscular Hemoglobin Concent 32.1 32.0-36.0 g/dL Red Cell Distribution Width 13.5 11.0-15.5 % Platelet Count 233 130-400 K/uL Mean Platelet Volume 10.9 H 7.5-10.5 fL Immature Granulocyte % (Auto) 0.3 0-1 % Neutrophils (%) (Auto) 54.6 40.0-77.0 % Lymphocytes (%) (Auto) 32.2 21.0-51.0 % Monocytes (%) (Auto) 9.3 3.0-13.0 % Eosinophils (%) (Auto) 3.0 0.0-8.0 % Basophils (%) (Auto) 0.6 0.0-5.0 % Neutrophils # (Auto) 4.9 1.8-7.7 K/uL Lymphocytes # (Auto) 2.9 1.0-4.8 K/uL Monocytes # (Auto) 0.8 0.1-1.0 K/uL Eosinophils # (Auto) 0.27 0.00-0.70 K/uL Basophils # (Auto) 0.05 0.00-0.20 K/uL Absolute Immature Granulocyte (auto 0.03 0-1 K/uL Nucleated Red Blood Cells 0.0 0.0-0.19 % Chemistry Labs: Test 11/07/24 11:08 11/07/24 03:45 Range/Units Whole Blood Glucose 101 70-110 MG/DL Sodium Level 134 L 136-145 mmol/L Potassium Level 3.6 3.5-5.1 mmol/L Chloride Level 99 L 101-111 mmol/L Carbon Dioxide Level 25 21-32 mmol/L Blood Urea Nitrogen 35 H 7-18 mg/dL Creatinine 1.3 H 0.5-1.0 mg/dL Glomerular Filtration Rate Calc 42 >90 mL/min Random Glucose 107 H 70-105 mg/dL Total Calcium 9.2 8.5-10.1 mg/dL Phosphorus Level 4.5 2.5-4.9 mg/dL Magnesium Level 2.40 1.80-2.40 mg/dL Total Bilirubin 0.2 0.2-1.0 mg/dL Aspartate Amino Transf (AST/SGOT) 13 10-37 U/L Alanine Aminotransferase (ALT/SGPT) 25 12-78 U/L Alkaline Phosphatase 99 50-136 U/L Total Protein 6.9 6.0-8.3 g/dL Albumin 3.4 L 3.5-5.0 g/dL Impression: 1. Atrial tachycardia with rapid ventricular response during episodes of one-to-one conduction, now still persistent but with good rate control 2. Left atrial appendage thrombus prohibiting cardioversion until anticoagulated for at least one month. 3. Coronary artery disease with 80% stenosis in the ostial OM1 not in amenable to percutaneous or surgical revascularization on left heart catheterization 10/30/2023. 4. Angina occurring during episodes of tachycardia. Plan: 1. Continue verapamil 40 mg q.i.d. and metoprolol tartrate 50 mg b.i.d. 2. If the patient continues without any further episodes of tachycardia, then she can be discharged home. 3. If she is still having episodes tonight or tomorrow, then I would favor increasing metoprolol rather than verapamil 4. If she is discharged, she can be sent home on verapamil ER 180 mg daily and metoprolol succinate 50 mg b.i.d.. TYRONE GARCIA MD Nov 07, 2024 19:19
[2024-11-08 03:20] VITALS: BP 98/54; PULSE 75; RESP 18; TEMP 98
[2024-11-08 03:50] LABS: IMMATURE GRANULOCYTE ABSOLUTE 0.04 K/uL (0-1); NUCLEATED RED BLOOD CELLS 0.0 % (0.0-0.19); PLATELET COUNT (AUTO) 233 K/uL (130-400); RED BLOOD CELL COUNT(AUTO) 4.04 MIL/uL (4.00-5.50); RED CELL DISTRIBUTION WIDTH 13.6 % (11.0-15.5); WHITE BLOOD COUNT (AUTO) 9.8 K/uL (4.8-10.8)
[2024-11-08 04:55] LABS: ASPARTATE AMINOTRANSFERASE 13.0 U/L (10-37); CREATININE 1.2 mg/dL (0.5-1.0); GLOMERULAR FILTR. RATE CALC 47.0 mL/min (>90); GLUCOSE,RANDOM 103.0 mg/dL (70-105); SODIUM SERUM 134.0 mmol/L (136-145); TOTAL PROTEIN, SERUM 6.7 g/dL (6.0-8.3); UREA NITROGEN, BLOOD 32.0 mg/dL (7-18)
[2024-11-08 07:00] VITALS: BP 109/59; PULSE 86; RESP 17; TEMP 97.5
[2024-11-08] MEDS ORDERED: METO50 PO (07:38)
[2024-11-08] MEDS ORDERED: CLOP-31 PO (07:38)
[2024-11-08] MEDS ORDERED: VERA180T61 PO (07:38)
[2024-11-08] MEDS ORDERED: APIX5TAB PO (07:38)
--- NOTE | 2024-11-08 07:45 | DS ---
[facility] DISCHARGE SUMMARY Date Patient Seen: Nov 08, 2024 Time of Visit: 07:40 Supervising Physician: Marie HARRINGTON Primary Care Physician: Dr. Jordon Ortiz Outpatient Specialists: Dr. Demond Dejesus, [facility] Inpatient Consults: Dr. Demond Dejesus, [facility] PROBLEM LIST: AFib with RVR, POA, on chronic anticoagulation with Eliquis - controlled SVT, POA- resolved S/P REGINE w/ findings of thrombus formation in the FITZ Unstable angina, POA CHF with acute exacerbation, POA LVEF 55-60%, grade 3 diastolic dysfunction per 12/15/2023 Uncontrolled hypertension, POA Acute on chronic kidney disease, GFR 42 Hyperglycemia Chronic problem list: s/p LHC/coronary angiogram done on 10/20/2022 which identified significant stenosis in the ostial OM1 (tiny vessel), a patent stent in the mid LAD CAD s/p PCI with MICHAEL placement (Promus Premier 2.5x20 mm) in the mid LAD done on 05/13/2014 Right sided breast CA s/p right lumpectomy PAD s/p left lower extremity peripheral intervention on 08/19/2021 History of GI bleed, (+) melena s/p EGD 11/07/2023 and push enteroscopy 11/11/2023 with findings of gastritis, no active bleed identified s/p colonoscopy 11/11/2023 with findings of non-bleeding AVM which was cauterized Bilateral lower extremity weakness and paresthesia with multilevel lumbar spondylosis with cord compression per MRI 11/06/2023 HOSPITAL COURSE: HPI (per admitting provider) Ms. Castro is a 79-year-old female with a history of atrial fibrillation, HTN on multiple BP meds, hypercholesteremia, GERD, PAD who presented to [facility] for evaluation of worsening chest pain, shortness of breath, and palpitations onset Sunday. The patient reported that the shortness of breath is worse with exertion. The patient stated that due to worsening shortness of breath has she did not take any of her medications this morning. She says Dr. Demond Dejesus, weapons and tactics instructor at [facility] who she last saw about 1 month ago when he put a stent in her left leg. ED provider reported that the patient presented to the ED with SVT, heart rate of 160s (161-167 bpm), BP 137/81, respirations 18, 97% on RA, 98.2 F.. He stated that the patient was administered adenosine 6 mg at 9:56 a.m. and then followed by metoprolol 5 mg at 10:00 a.m.. with improvement of heart rate in 130s bpm. Troponin 12, BNP 420, chest x-ray no acute cardiopulmonary pathology is evident. Initial EKG: SVT, HR 156. 2nd EKG: afib HR 131. ED provider requested patient to be admitted to the hospital with the diagnosis of AFib RVR. RN called to report that the patient's heart rate improved to 130s bpm, then 105 bpm, then increase to 160s bpm again. Metoprolol 5 mg IV ordered and administered. I assessed the patient at bedside in ED 10. Significant other was at bedside. The patient was connected to the defibrillator. The patient breathing was even, unlabored up, appeared comfortable, and in no distress. The patient's heart rate was in the 124s bpm, BP 167/115, respirations 16 bpm, 97% on room air. The patient reported ongoing jaw pain and chest pain. The patient was started on nitroglycerin. Administered Lasix 40 mg IV and aspirin 324 mg. The home medications verapamil 240 mg, atenolol 50 mg, Eliquis5 mg p.o. Dr. Dejesus, weapons and tactics instructor was consulted by RN. I informed the patient and significant others of labs, diagnostics, and plan of care. They verbalized understanding and are in agreement with the plan. Plan and assessment are listed below. Chart reviewed including all laboratory and imaging results. Patient assessed at bedside. Denies chest pain, palpitation, or shortness for breath at this time. She does report an episode of chest pain with diaphoresis and palpitations overnight. As per RN she had an episode this morning of SVT 170 beats per minute when getting up from bed. Currently heart rate between 107 and episodes of 130's. Hemodynamically stable. She is on metoprolol 5 mg IV for heart rate greater than 120bpm. RN made aware. We will continue to follow cardiology recommendations. For now bedrest. 11/06 - patient is seen sitting up in bed appears to be weak and hypoxemic currently on 2 L via nasal cannula. Patient reports she was placed on oxygen yesterday afternoon she had an episode of SVT. Currently patient's heart rate is 85 beats per minute. No acute changes reported overnight. Instructed nursing to wean off O2 as tolerated. Patient was evaluated by Cardiology and recommended EP evaluation. Patient had a REGINE performed and patient was found to have thrombus formation in the left atrial appendage. Cardioversion was not attempted secondary to the above-mentioned thrombus formation in the left atrial appendage. Recommendations are to start patient to Eliquis5 b.i.d. continue management as per Dr. Huff. Currently pending his evaluation and recommendations. We will continue current treatment plan for now. 11/07 - patient is seen sitting up in bed accompanied by multiple family members. Patient with no signs of acute distress. Patient has been weaned off O2 and currently on room air and denies chest discomfort, chest pain or dyspnea with exertion. Patient does appear weak however improving daily. Patient encouraged to continue ambulating as tolerated. Patient reports she did have an episode of AFib RVR yesterday evening however did not sustain and currently normal sinus rhythm with a heart rate of 85 beats per minute. Waiting further recommendations from EP. Vital signs are stable. Labs are within normal limits. We will continue current treatment plan for now. We will await further recs from cardio. Today patient is seen sitting up in bed accompanied by her . Patient with no signs of acute distress. Patient is heart rate has remained stable in the last24 hours. Patient was re-evaluated by recruiter and recommended patient be discharged home with verapamil ER 180 mg daily and metoprolol succinate 50 mg b.i.d.. Patient has been advised to follow up with PCP in the next 1-2 days. Patient has been advised to follow up with Dr. Huff in 1-2 weeks. Patient has been advised to continue Eliquis as well as Plavix for her left atrial appendage thrombus. Patient verbalized understanding. Vital signs are stable. Labs are within normal limits. Medication reconciliation has been completed. New prescriptions have been sent to patient's pharmacy. Education regarding current diagnosis has been provided to the patient. All questions have been answered. Patient to be discharged home. The patient was treated for the following problems: ACTIVE PROBLEM LIST FOR THE HOSPITALIZATION: AFib with RVR, POA, on chronic anticoagulation with Eliquis - controlled SVT, POA- resolved S/P REGINE w/ findings of thrombus formation in the FITZ Unstable angina, POA CHF with acute exacerbation, POA LVEF 55-60%, grade 3 diastolic dysfunction per 12/15/2023 Uncontrolled hypertension, POA Acute on chronic kidney disease, GFR 42 Hyperglycemia Chronic problem list: s/p LHC/coronary angiogram done on 10/20/2022 which identified significant stenosis in the ostial OM1 (tiny vessel), a patent stent in the mid LAD CAD s/p PCI with MICHAEL placement (Promus Premier 2.5x20 mm) in the mid LAD done on 05/13/2014 Right sided breast CA s/p right lumpectomy PAD s/p left lower extremity peripheral intervention on 08/19/2021 History of GI bleed, (+) melena s/p EGD 11/07/2023 and push enteroscopy 11/11/2023 with findings of gastritis, no active bleed identified s/p colonoscopy 11/11/2023 with findings of non-bleeding AVM which was cauterized Bilateral lower extremity weakness and paresthesia with multilevel lumbar sp ondylosis with cord compression per MRI 11/06/2023 CHRONIC PROBLEMS: continue previous management per PCP unless otherwise indicated [employer]IMAL DAMAGE [employer]OL AGENT FINDINGS/RECOMMENDATIONS: [ ] PROCEDURES: as mentioned above DISCHARGE MEDICATIONS: See DC med rec Pt hemodynamically stable and afebrile at time of discharge. PCP notified of patients admission, hospital course and discharge. New Medications: Verapamil HCl (Verapamil ER 180Mg Tab) 180 Mg Tablet.er 1 TAB PO DAILY for 30 Days, #30 TAB 0 Refills Apixaban (Eliquis) 5 Mg Tablet 5 MG PO BID for 30 Days, #60 TAB Clopidogrel Bisulfate (Plavix) 75 Mg Tablet 75 MG PO DAILY for 30 Days, #30 TAB Metoprolol Tartrate (Lopressor 50Mg Tab) 50 Mg Tab 50 MG PO BID for 30 Days, #60 TAB Continued Medications: Apixaban (Eliquis) 5 Mg Tablet 5 MG PO BID, #60 TAB 1 Refill Atorvastatin Calcium (Lipitor) 40 Mg Tablet 40 MG PO DAILY, TAB Esomeprazole Magnesium (Esomeprazole Magnesium) 40 Mg Capsule.dr 1 CAP PO DAILY for 30 Days, #30 CAP 0 Refills Furosemide (Furosemide) 40 Mg Tablet 1 TAB PO BID for 30 Days, #30 TAB 0 Refills Gabapentin (Gabapentin) 100 Mg Capsule 100 MG PO BID, CAP Letrozole (Letrozole) 2.5 Mg Tablet 1 TAB PO DAILY for 30 Days, #30 TAB 0 Refills Losartan Potassium (Losartan Potassium) 25 Mg Tablet 1 TAB PO DAILY for 30 Days, #30 TAB 0 Refills Magnesium Glycinate (Mag Glycinate) 100 Mg Tablet 200 MG PO BID, TAB Pantoprazole Sodium (Pantoprazole Sodium) 40 Mg Tablet.dr 1 TAB PO DAILY for 30 Days, #30 TAB 0 Refills Spironolactone (Spironolactone) 25 Mg Tablet 25 MG PO BID, TAB Sucralfate (Sucralfate) 1 Gram Tablet 1 TAB PO QID for 30 Days, #120 TAB 0 Refills Ubidecarenone (Co Q-10) 300 Mg Capsule 1 CAP PO DAILY for 30 Days, #60 CAP 0 Refills Discontinued Medications: Aspirin (Aspirin) 81 Mg Tab.chew 1 TAB PO DAILY for 30 Days, #30 TAB 0 Refills Atenolol (Atenolol) 100 Mg Tablet 0.5 TAB PO DAILY for 30 Days, #30 TAB 0 Refills Clopidogrel Bisulfate (Plavix) 75 Mg Tablet 75 MG PO DAILY, TAB Hydralazine HCl (Hydralazine HCl) 25 Mg Tablet 1 TAB PO BID for 30 Days, #60 TAB 0 Refills Isosorbide Mononitrate (Isosorbide Mononitrate ER) 30 Mg Tab.er.24h 30 MG PO DAILY, #30 TAB 3 Refills Verapamil HCl (Verapamil ER) 240 Mg Tablet.er 1 TAB PO BID for 30 Days, #30 TAB 0 Refills PHYSICAL EXAM: GENERAL: Alert, weak, awake oriented x 3 HEENT: EOMI, Sclera non icteric, moist mucosa NECK: Supple, no JVD, trachea midline LUNGS: Clear breath sounds bilaterally. No wheezes HEART: Regular rate and rhythm. Normal S1 and S2, without murmurs ABD: Abdomen soft, nontender. Bowel sounds present EXT: No clubbing cyanosis or edema NEURO: Alert and oriented X3, follows commands FOLLOW-UP: Follow-up with PCP in 2-3 days Follow up with recruiter in 1-2 weeks RECOMMENDATIONS: See Discharge Instructions This case was seen and discussed with my supervising physician. More than 30 minutes spent on discharge process, including evaluation of the patient, discussion with nursing staff, medication reconciliation and follow-up appointm ents ATTESTATION BY PHYSICIAN I reviewed the documentation, medical decision making, and treatment plan as noted by the mid-level provider above. I agree with the findings and plan of care. Naun Harrington MD, ECTOR N NP Nov 08, 2024 07:45
[2024-11-08 08:17] VITALS: O2SAT 100
--- NOTE | 2024-11-08 10:54 | PN ---
[facility] CARDIOLOGY PROGRESS NOTE Date Patient Seen: Nov 08, 2024 Time of Visit: 10:50 Interval history: Tele with stable heart rates Laboratory: [ ] Hematology Labs: Test 11/08/24 03:12 Range/Units White Blood Count 9.8 4.8-10.8 K/uL Red Blood Count 4.04 4.00-5.50 MIL/uL Hemoglobin 11.3 L 12.0-16.0 g/dL Hematocrit 34.0 L 36-48 % Mean Corpuscular Volume 84.2 79-99 fL Mean Corpuscular Hemoglobin 28.0 27.0-33.0 pg Mean Corpuscular Hemoglobin Concent 33.2 32.0-36.0 g/dL Red Cell Distribution Width 13.6 11.0-15.5 % Platelet Count 233 130-400 K/uL Mean Platelet Volume 11.2 H 7.5-10.5 fL Immature Granulocyte % (Auto) 0.4 0-1 % Neutrophils (%) (Auto) 55.2 40.0-77.0 % Lymphocytes (%) (Auto) 32.2 21.0-51.0 % Monocytes (%) (Auto) 8.7 3.0-13.0 % Eosinophils (%) (Auto) 2.9 0.0-8.0 % Basophils (%) (Auto) 0.6 0.0-5.0 % Neutrophils # (Auto) 5.4 1.8-7.7 K/uL Lymphocytes # (Auto) 3.2 1.0-4.8 K/uL Monocytes # (Auto) 0.9 0.1-1.0 K/uL Eosinophils # (Auto) 0.28 0.00-0.70 K/uL Basophils # (Auto) 0.06 0.00-0.20 K/uL Absolute Immature Granulocyte (auto 0.04 0-1 K/uL Nucleated Red Blood Cells 0.0 0.0-0.19 % Chemistry Labs: Test 11/08/24 03:12 11/07/24 20:37 11/07/24 03:45 Range/Units Sodium Level 134 L 136-145 mmol/L Potassium Level 4.0 3.5-5.1 mmol/L Chloride Level 100 L 101-111 mmol/L Carbon Dioxide Level 27 21-32 mmol/L Blood Urea Nitrogen 32 H 7-18 mg/dL Creatinine 1.2 H 0.5-1.0 mg/dL Glomerular Filtration Rate Calc 47 >90 mL/min Random Glucose 103 70-105 mg/dL Total Calcium 9.4 8.5-10.1 mg/dL Total Bilirubin 0.2 0.2-1.0 mg/dL Aspartate Amino Transf (AST/SGOT) 13 10-37 U/L Alanine Aminotransferase (ALT/SGPT) 23 12-78 U/L Alkaline Phosphatase 95 50-136 U/L Total Protein 6.7 6.0-8.3 g/dL Albumin 3.3 L 3.5-5.0 g/dL Whole Blood Glucose 120 H 70-110 MG/DL Phosphorus Level 4.5 2.5-4.9 mg/dL Magnesium Level 2.40 1.80-2.40 mg/dL Diagnostics / Radiology: [Copy/Paste Echos/Imaging Report here] Impression: 1. Atrial tachycardia with rapid ventricular response during episodes of one-to-one conduction, now still persistent but with good rate control 2. Left atrial appendage thrombus prohibiting cardioversion until anticoagulated for at least one month. 3. Coronary artery disease with 80% stenosis in the ostial OM1 not in amenable to percutaneous or surgical revascularization on left heart catheterization 10/30/2023. 4. Angina occurring during episodes of tachycardia. Plan: #Atrial tachycardia with rapid ventricular response during episodes of one-to-one conduction, now still persistent but with good rate control she can be sent home on verapamil ER 180 mg daily and metoprolol tartrate 50 mg b.i.d. she will need follow up in two weeks with Dr Garrido and Dr Huff consider DCCV once FITZ thrombus is resolved I will sign off. RATNA Renteria MD, MD Nov 08, 2024 10:54
--- NOTE | 2024-11-08 11:15 | NUR ---
GIVEN DISMISSAL INSTRUCTIONS, VERBALIZED UNDERSTANDING. REMOVED SALINE LOCK FROM LEFT WRIST AREA, IV SITE WITHOUT REDNESS NOTED. REMOVED TELE PACK. PER PROTOCOL PICTURE TAKEN OF LEFT MID ARM AREA REDNESS. TAKEN TO PRIVATE CAR ALONG WITH PERSONAL BELONGINGS BY INOCENCIO ALEMAN.
== END 2024-11-08 11:30 | disposition home or self-care (01) | DRG 286 ==
LOC: EDH 09:13 → EDHIP 11:17 → 2CV 22:34 → 2BH 10-29 06:03 → 2DH 10-30 13:33
PROVIDERS: ADMIT Internal Medicine; ATTEND Internal Medicine
PROC: 4A023N7 Measurement of Cardiac Sampling and Pressure, Left Heart, Percutaneous Approach (ICD-10-PCS; principal; 2024-10-29)
PROC: B2111ZZ Fluoroscopy of Multiple Coronary Arteries using Low Osmolar Contrast (ICD-10-PCS; 2024-10-29)
DX: I48.19 Other persistent atrial fibrillation (principal); I50.33 Acute on chronic diastolic (congestive) heart failure; I13.0 Hypertensive heart and chronic kidney disease with heart failure and stage 1 through stage 4 chronic kidney disease, or unspecified chronic kidney disease; I25.110 Atherosclerotic heart disease of native coronary artery with unstable angina pectoris; N17.9 Acute kidney failure, unspecified; I45.89 Other specified conduction disorders; I47.19 Other supraventricular tachycardia; E78.00 Pure hypercholesterolemia, unspecified; N18.30 Chronic kidney disease, stage 3 unspecified; I73.9 Peripheral vascular disease, unspecified; I51.3 Intracardiac thrombosis, not elsewhere classified; I44.30 Unspecified atrioventricular block; G62.9 Polyneuropathy, unspecified; K59.00 Constipation, unspecified; K21.9 Gastro-esophageal reflux disease without esophagitis; R73.9 Hyperglycemia, unspecified; Z85.3 Personal history of malignant neoplasm of breast; Z95.5 Presence of coronary angioplasty implant and graft; I25.2 Old myocardial infarction; Z79.01 Long term (current) use of anticoagulants; Z79.811 Long term (current) use of aromatase inhibitors; Z79.02 Long term (current) use of antithrombotics/antiplatelets; Z79.82 Long term (current) use of aspirin; Z79.899 Other long term (current) drug therapy; Z82.49 Family history of ischemic heart disease and other diseases of the circulatory system
CPT/HCPCS: 36415; 71045; 76376; 80048; 80053; 80076; 81001; 82550; 82948; 83036; 83735; 83880; 84100; 84443; 84484; 85025; 85027; 85610; 85730; 87086; 87426; 87804; 87880; 93005; 93306; 93312; 93325; 93356; 93458; 96374; 96375; 99291; C1760; C1894; G0378; J0153; J0360; J1644; J1650; J1815; J1938; J2250; J2270; J3010; J3490; Q9967; Q9965

== ENCOUNTER 2024-11-09 10:53 | Observation (INO) | payer OTHER ==
[~2024-11-09] VITALS: Ht 149.9 cm; Wt 60.1 kg
[~2024-11-09 10:53] MED LIST changes: -AMOX1TAB16 PO; -CILO100T3 PO; +ESOM40CA66 PO; +FURO40TA5 PO; -FURO40TA7 PO; -HYDR25TA67 PO; -ISOS30TA92 PO; +LETR2.5T7 PO; +LOSA25TA41 PO; +MAGN100T PO; -MAGN250T35 PO; +METO50 PO; +PANT40TA54 PO; -RANO10005 PO; +SUCR1TAB2 PO; +UBID300C3 PO; -UBID50TA3 PO; +VERA180T61 PO; -VERA80TA11 PO
[2024-11-09 11:27] LABS: IMMATURE GRANULOCYTE ABSOLUTE 0.03 K/uL (0-1); NUCLEATED RED BLOOD CELLS 0.0 % (0.0-0.19); PLATELET COUNT (AUTO) 289 K/uL (130-400); RED BLOOD CELL COUNT(AUTO) 4.71 MIL/uL (4.00-5.50); RED CELL DISTRIBUTION WIDTH 13.6 % (11.0-15.5); WHITE BLOOD COUNT (AUTO) 10.4 K/uL (4.8-10.8)
[2024-11-09 11:34] LABS: CREATININE 1.5 mg/dL (0.5-1.0); GLOMERULAR FILTR. RATE CALC 36.0 mL/min (>90); GLUCOSE,RANDOM 108.0 mg/dL (70-105); SODIUM SERUM 137.0 mmol/L (136-145); UREA NITROGEN, BLOOD 35.0 mg/dL (7-18)
[2024-11-09 11:39] LABS: CREATINE KINASE, TOTAL 37.0 U/L (21-232)
[2024-11-09 11:53] LABS: APPEARANCE,URINE CLEAR (CLEAR); GLUCOSE, URINE (UA) NEGATIVE (NEGATIVE); LEUKOCYTE ESTERASE ,URINE 75 Leu/uL (NEGATIVE); NITRATE,URINE NEGATIVE (NEGATIVE); OCCULT BLOOD,URINE NEGATIVE (NEGATIVE)
[2024-11-09 11:55] LABS: ADD UA MICROSCOPIC YES
[2024-11-09 11:58] LABS: SQUAMOUS EPITHELIAL CELL,UR RARE /HPF (0-2)
--- NOTE | 2024-11-09 11:58 | EKG ---
[facility] Test Date: 2024-11-09 Test Time: 11:05:57 Pat Name: JOSUE SOSA Department: ED Room: 301 Gender: F Cpo: 0699 : 1945 Requested By: NANCY DIOR Order Number: [id number] Reading MD: Max Perkins Measurements Intervals [place] Rate: 83 P: 248 NM: 244 QRS: 44 QRSD: 115 T: 35 QT: 374 QTc: 440 Interpretive Statements Sinus or ectopic atrial rhythm Prolonged NM interval Nonspecific intraventricular conduction delay Compared to ECG 11/05/2024 08:26:32 Ectopic atrial rhythm now present First degree AV block now present Intraventricular conduction delay now present Atrial fibrillation no longer present ST (T wave) deviation no longer present Possible ischemia no longer present Electronically Signed On 11-10-2024 12:51:35 CDT by Max Perkins Please click the below link to view image of tracing.
--- NOTE | 2024-11-09 12:22 | HMCIMG ---
EXAM: CR Chest, 1 View. CLINICAL HISTORY: cp COMPARISON: None provided. FINDINGS: LUNGS: The lungs show no infiltrate or other acute finding. PLEURAL SPACES: No pleural effusion or pneumothorax. MEDIASTINUM: Cardiac size and mediastinal contours within normal limits. BONES: No aggressive appearing osseous lesion seen. IMPRESSION: No acute cardiopulmonary pathology is evident. /[place]
--- NOTE | 2024-11-09 12:47 | ERN ---
General Chief Complaint: Palpitations Stated Complaint: PALPITATIONS Time Seen by MD: 10:57 Source: patient History of Present Illness Initial Comments Patient is a 79-year-old female coming in complaining of palpitations. Per patient she has been having this symptoms as soon as she was discharged home. Patient was recently diagnosed with atrial fibrillation but states that when she woke up some to walk she feels her heart rate out of control. Long with the she states he has been feeling very weak and nauseous. Allergies: Coded Allergies: No Known Allergies (Unverified Allergy, Unknown, 05/12/14) Home Meds Active Scripts Verapamil HCl (Verapamil ER 180Mg Tab) 180 Mg Tablet.er, 1 TAB PO DAILY for 30 Days, #30 TAB 0 Refills Prov:TAZ GUERRERO PLUMBING DRAFTER 11/08/24 Metoprolol Tartrate (Lopressor 50Mg Tab) 50 Mg Tab, 50 MG PO BID for 30 Days, #60 TAB Prov:TAZ GUERRERO N PLUMBING DRAFTER 11/08/24 Clopidogrel Bisulfate (Plavix) 75 Mg Tablet, 75 MG PO DAILY for 30 Days, #30 TAB Prov:TAZ GUERRERO PLUMBING DRAFTER 11/08/24 Apixaban (Eliquis) 5 Mg Tablet, 5 MG PO BID for 30 Days, #60 TAB Prov:GUERREROARLETTE SANOR N PLUMBING DRAFTER 11/08/24 Apixaban (Eliquis) 5 Mg Tablet, 5 MG PO BID, #60 TAB 1 Refill Prov:MEGHA DORAN FOUNDRY ENGINEER 11/01/23 Reported Medications Magnesium Glycinate (Mag Glycinate) 100 Mg Tablet, 200 MG PO BID, TAB 10/26/24 Ubidecarenone (Co Q-10) 300 Mg Capsule, 1 CAP PO DAILY for 30 Days, #60 CAP 0 Refills 10/26/24 Letrozole (Letrozole) 2.5 Mg Tablet, 1 TAB PO DAILY for 30 Days, #30 TAB 0 Refills 10/26/24 Losartan Potassium (Losartan Potassium) 25 Mg Tablet, 1 TAB PO DAILY for 30 Days, #30 TAB 0 Refills 10/26/24 Furosemide (Furosemide) 40 Mg Tablet, 1 TAB PO BID for 30 Days, #30 TAB 0 Refills 10/26/24 Esomeprazole Magnesium (Esomeprazole Magnesium) 40 Mg Capsule.dr, 1 CAP PO DAILY for 30 Days, #30 CAP 0 Refills 10/26/24 Pantoprazole Sodium (Pantoprazole Sodium) 40 Mg Tablet.dr, 1 TAB PO DAILY for 30 Days, #30 TAB 0 Refills 10/26/24 Sucralfate (Sucralfate) 1 Gram Tablet, 1 TAB PO QID for 30 Days, #120 TAB 0 Re fills 10/26/24 Gabapentin (Gabapentin) 100 Mg Capsule, 100 MG PO BID, CAP 11/04/23 Spironolactone (Spironolactone) 25 Mg Tablet, 25 MG PO BID, TAB 10/27/23 Atorvastatin Calcium (LIPITOR) 40 Mg Tablet, 40 MG PO DAILY, TAB 05/12/14 Discontinued Reported Medications Hydralazine HCl (Hydralazine HCl) 25 Mg Tablet, 1 TAB PO BID for 30 Days, #60 TAB 0 Refills 10/26/24 Aspirin (Aspirin) 81 Mg Tab.chew, 1 TAB PO DAILY for 30 Days, #30 TAB 0 Refills 10/26/24 Atenolol (Atenolol) 100 Mg Tablet, 0.5 TAB PO DAILY for 30 Days, #30 TAB 0 Refills 10/26/24 Verapamil HCl (Verapamil ER) 240 Mg Tablet.er, 1 TAB PO BID for 30 Days, #30 TAB 0 Refills 10/26/24 Clopidogrel Bisulfate (Plavix) 75 Mg Tablet, 75 MG PO DAILY, TAB 07/23/22 Discontinued Scripts Isosorbide Mononitrate (Isosorbide Mononitrate ER) 30 Mg Tab.er.24h, 30 MG PO DAILY, #30 TAB 3 Refills Prov:Izabela HARVEY II, MD 05/13/14 Past Medical History Past Medical History: GERD, High Cholesterol, Hypertension Medical History Other: PAD, Past Surgical History: Other Surgical History Other: RT BREAST MAST/ HYST/ HEMORRHOIDS Social History Social History: Negative Female( History) History: Not Applicable ROS Dictation CONSTITUTIONAL: No chills, no fever, weakness, no diaphoresis, no malaise. HEAD/FACE: No signs of trauma. EENT: No eye pain, no blurred vision, no tearing, no double vision, no ear pain, no ear discharge, no nose pain, no nasal congestion, no throat pain, no throat swelling, no mouth pain. RESPIRATORY: No cough, no orthopnea, no SOB, no stridor, no wheezing. CARDIOVASCULAR: No chest pain, no edema, palpitations, no syncope. GASTROINTESTINAL/ABDOMINAL: No abdominal pain, no constipation, no diarrhea, no nausea, no vomiting. GENITOURINARY: No abnormal discharge, no dysuria, no frequent urination, no hematuria. No complaints of pain in the genitals. MUSCULOSKELETAL: No back pain, no gout, no joint pain, no joint swelling, no muscle pain, no muscle stiffness, no neck pain. INTEGUMENTARY: No change in color, no change in hair/nails, no dryness, no lesion, no lumps, no rash. NEUROLOGICAL/PSYCH: No anxiety, not depressed, no emotional problem, no headache, no numbness, no pre-existing deficit, no history of seizures, no tremors, no weakness. HEMATOLOGIC/LYMPHATIC: Not anemic, no history of blood clots, no apparent bleeding, no bruising, glands not swollen. All Systems Negative, Except as Noted. Physical Exam Physical Exam Dictation VITAL SIGNS: Reviewed. GENERAL APPEARANCE: Alert, oriented x3, acute distress, obese. HEAD AND FACE: Non-traumatic. EYES: PERRL, pink conjunctivas, eyelid no trauma, anterior chamber clear. EARS: Pinnas intact and no signs of trauma or erythema. Ear canals clear and no discharge. TMs no erythema. NOSE: No discharge, no bleeding. OROPHARYNX: Mouth normal, teeth no caries, tongue pink. Pharynx clear, no erythema. Tonsils no exudates, no abscesses noted. Mucous membrane moist. NECK: Supple, non-tender, no thyromegaly, no masses, no JVD, no bruits. BREAST: Deferred. CHEST: No tenderness, no crepitus, no paradoxical movement, no retractions. LUNGS: Clear, well-ventilated, symmetric, no rales, no wheezing, no rhonchi, no stridor, good breath sounds bilaterally. HEART: Regular rate, regular rhythm, no murmur, no gallops. VASCULAR: No peripheral edema. ABDOMEN: Soft, positive bowel sounds, nondistended, no guarding, nontender, no rebound, no masses no hepatomegaly, no splenomegaly, no Ellis's sign, no hernias. RECTAL: Deferred. GENITAL: Deferred. NEUROLOGICAL: Normal speech, gross motor function intact, gross sensory function intact. MUSCULOSKELETAL: Neck nontender, full range of motion, back nontender, full range of motion. EXTREMITIES: Nontender, full range of motion. SKIN: Color pink, dry, no turgor, no rash, no lacerations, no abrasions, no contusions. LYMPHATICS: Deferred. Results Laboratory and Microbiology Lab and Micro Result Laboratory Tests Test 11/09/24 11:16 11/09/24 11:45 White Blood Count 10.4 K/uL (4.8-10.8) Red Blood Count 4.71 MIL/uL (4.00-5.50) Hemoglobin 13.1 g/dL (12.0-16.0) Hematocrit 39.3 % (36-48) Mean Corpuscular Volume 83.4 fL (79-99) Mean Corpuscular Hemoglobin 27.8 pg (27.0-33.0) Mean Corpuscular Hemoglobin Concent 33.3 g/dL (32.0-36.0) Red Cell Distribution Width 13.6 % (11.0-15.5) Platelet Count 289 K/uL (130-400) Mean Platelet Volume 10.9 fL (7.5-10.5) H Immature Granulocyte % (Auto) 0.3 % (0-1) Neutrophils (%) (Auto) 67.0 % (40.0-77.0) Lymphocytes (%) (Auto) 23.1 % (21.0-51.0) Monocytes (%) (Auto) 7.7 % (3.0-13.0) Eosinophils (%) (Auto) 1.5 % (0.0-8.0) Basophils (%) (Auto) 0.4 % (0.0-5.0) Neutrophils # (Auto) 7.0 K/uL (1.8-7.7) Lymphocytes # (Auto) 2.4 K/uL (1.0-4.8) Monocytes # (Auto) 0.8 K/uL (0.1-1.0) Eosinophils # (Auto) 0.16 K/uL (0.00-0.70) Basophils # (Auto) 0.04 K/uL (0.00-0.20) Absolute Immature Granulocyte (auto 0.03 K/uL (0-1) Nucleated Red Blood Cells 0.0 % (0.0-0.19) Sodium Level 137 mmol/L (136-145) Potassium Level 4.1 mmol/L (3.5-5.1) Chloride Level 100 mmol/L (101-111) L Carbon Dioxide Level 26 mmol/L (21-32) Blood Urea Nitrogen 35 mg/dL (7-18) H Creatinine 1.5 mg/dL (0.5-1.0) H Glomerular Filtration Rate Calc 36 mL/min (>90) Random Glucose 108 mg/dL (70-105) H Total Calcium 9.4 mg/dL (8.5-10.1) Magnesium Level 2.30 mg/dL (1.80-2.40) Total Creatine Kinase 37 U/L (21-232) # Troponin I High Sensitivity 15 ng/L (4-50) B-Type Natriuretic Peptide 188 pg/mL (0-100) H Urine Color LIGHT-YELLOW (YELLOW) Urine Appearance CLEAR (CLEAR) Urine pH 5.5 (5.0-8.0) Urine Specific [place] 1.006 (1.001-1.031) Urine Protein NEGATIVE mg/dL (NEGATIVE) Urine Glucose (UA) NEGATIVE mg/dL (NEGATIVE) Urine Ketones NEGATIVE mg/dL (NEGATIVE) Urine Occult Blood NEGATIVE (NEGATIVE) Urine Nitrate NEGATIVE (NEGATIVE) Urine Bilirubin NEGATIVE mg/dL (NEGATIVE) Urine Urobilinogen 0.2 mg/dL (0.2-1.0) Urine Leukocyte Esterase 75 [place]/uL (NEGATIVE) H Urine RBC 0-1 /HPF (0-1) Urine WBC 2-5 /HPF (0-1) H Urine Squamous Epithelial Cells RARE /HPF (0-2) Urine Bacteria RARE /HPF (None Seen) Labs Reviewed?: Yes EKG/XRAY/US/CT/MRI EKG Comment 11/09/2024 time 11:05 a.m. Ventricular rate 83 Sin[address] DC [address] wave elevation or depression X-RAY Comment IMAGING REPORT Signed PATIENT: JOSUE SOSA MR#: [id number] : 1945 SEX: F AGE: 79 LOCATION: [facility] ORDER 110 STATUS: REG ER REPORT#: [id number] SERVICE 110 REASON: cp ORDERING PHYSICIAN: NANCY DIOR MD PROCEDURE: CXR1VW - CHEST 1VW EXAM: CR Chest, 1 View. CLINICAL HISTORY: cp COMPARISON: None provided. FINDINGS: LUNGS: The lungs show no infiltrate or other acute finding. PLEURAL SPACES: No pleural effusion or pneumothorax. MEDIASTINUM: Cardiac size and mediastinal contours within normal limits. BONES: No aggressive appearing osseous lesion seen. IMPRESSION: No acute cardiopulmonary pathology is evident. /[place] DICTATED BY: GALEN HANCOCK Jr., MD DATE: 11/09/24 132 ELECTRONICALLY SIGNED BY: GALEN HANCOCK Jr., MD DATE: 11/09/24 132 MDM MDM: Differential diagnosis: AFib, UTI, dehydration Rationale: Tests considered and ordered secondary to shared decision making include: Previous outside records reviewed: Old ER visits. Risk of complication and/or morbidity or mortality of patient management: None Medications-Per medication reconciliation Need for hospitalization: Patient does meet criteria for hospitalization. Need for emergency major/minor surgery: No There are no social concerns with this patient. Prescription drug management Prescriptions will include symptomatic care Patient's prior external medical records from other ER visits were reviewed by me as indicated. Prior testing and results from previous visits were reviewed. Prior tests were taken into account with medical decision making and resource utilization, independent historian/historians were used to obtain complete medical history. I independently interpreted the test that were performed, results were reviewed by me and considered findings on radiology if ordered. Medical management and examination interpretation discussions were had by me with other qualified healthcare professionals as indicated for the patient's care. Patient will be admitted under the care of [facility] ED Course Orders Procedure Category Date Status Time Cbc With Differential LAB 11/09/24 Complete 11:04 Chest 1vw RAD 11/09/24 Resulted 11:04 12 Lead Ekg Tracing- EKG 11/09/24 Complete Technical 11:04 Magnesium LAB 11/09/24 Complete 11:04 Creatine Kinase, Total LAB 11/09/24 Complete 11:04 Troponin I High LAB 11/09/24 Complete Sensitivity 11:04 Urinalysis Profile LAB 11/09/24 Complete 11:04 Basic Metabolic Panel LAB 11/09/24 Complete 11:04 B-Type Natriuretic LAB 11/09/24 Complete Peptide 11:04 Culture Urine TRI 11/09/24 In Process 11:56 Ceftriaxone 1g Vial PHA 11/09/24 In Process (Rocephine 1g Inj) 13:30 Current Medications Medications (Trade) Dose Ordered Sig/Senia Route PRN Reason Start Time Stop Time Status Last Admin Dose Admin Ceftriaxone Sodium (ROCEphine 1G INJ) 1 gm ONCE ONCE IVPB 11/09/24 13:30 11/09/24 13:31 Vital Signs Date Time Temp Pulse Resp B/P (MAP) Pulse Ox O2 Delivery O2 Flow Rate FiO2 11/09/24 12:00 98.2 60 20 128/56 98 Room Air* 0 21 11/09/24 11:19 98.2 83 16 99/57 96 Room Air* 0 21 11/09/24 11:00 20 Room Air DX & DISP Disposition: Inpatient Decision to Admit Time: 13:25 Departure Impression: Primary Impression: UTI (urinary tract infection) Additional Impressions: Dehydration, PAROXYSMAL ATRIAL FIBRILLATION Condition: Stable Referrals: TRISTEN RODGERS MD (PCP) NANCY DIOR MD Nov 09, 2024 12:47
--- NOTE | 2024-11-09 13:52 | EKG ---
[facility] Test Date: 2024-11-09 Test Time: 13:45:20 Pat Name: JOSUE SOSA Department: ED Room: 301 Gender: F Net Developer: [id number] : 1945 Requested By: TAZ GUERRERO Order Number: [id number] Reading MD: Max Perkins Measurements Intervals [place] Rate: 59 P: -80 ND: 308 QRS: 31 QRSD: 96 T: 252 QT: 330 QTc: 328 Interpretive Statements Atrial tachycardia with block Prolonged ND interval Anteroseptal infarct, old Compared to ECG 11/09/2024 11:05:57 Myocardial infarct finding now present Intraventricular conduction delay no longer present Electronically Signed On 11-10-2024 12:52:58 CDT by Max Perkins Please click the below link to view image of tracing.
[2024-11-09] MEDS ORDERED: LACTULOSE 20 GM/30 ML UDCUP PO PRN (14:00)
[2024-11-09] MEDS ORDERED: BENZOCAINE/MENTH/CETYLPYRD CL 1 EACH LOZENGE MM PRN (14:00)
[2024-11-09] MEDS ORDERED: LOPERAMIDE HCL 2 MG CAP PO PRN (14:00)
[2024-11-09] MEDS ORDERED: NITROGLYCERIN 0.4 MG SL TAB SL PRN (14:00)
[2024-11-09] MEDS ORDERED: ARTIFICAL TEARS SOL 15 ML OP PRN (14:00)
[2024-11-09] MEDS ORDERED: MAG/ALUM/SIMETH 30 ML UDCUP PO PRN (14:00)
[2024-11-09 14:17] LABS: ABG BASE EXCESS -1.2 mmol/L (-2.0-3.0); ABG HCO3 21.3 mmol/L (21.0-28.0); ABG OXYGEN SATURATION 96.9 % (94.0-98.0); ABG PCO2 30 mmHg (32-45); ABG PH 7.468 (7.350-7.450); DEVICE COMMENT LR, JOHN,RN; PO2, ARTERIAL BG 83.7 mmHg (83.0-108.0); TEMPERATURE, CELSIUS BG 37.0 CELSIUS (35.5-37.0); VENT MODE, BG RA (ROOM AIR)
[2024-11-09 14:34] LABS: CREATINE KINASE, TOTAL 41.0 U/L (21-232)
--- NOTE | 2024-11-09 14:55 | HP ---
[facility] HISTORY & PHYSICAL Date Patient Seen: Nov 09, 2024 Time of Visit: 14:33 Supervising Physician: [Dr Poon Primary Care Physician: Jordon Ortiz Outpatient Specialists: [Dr Araujo, Dr Huff Inpatient Consults: [ ] PROBLEM LIST: AFib with RVR, POA, on chronic anticoagulation with Eliquis - controlled Acute cystitis Unstable Angina SVT, POA- resolved S/P REGINE w/ findings of thrombus formation in the FITZ CHF without acute exacerbation, POA LVEF 55-60%, grade 3 diastolic dysfunction per 12/15/2023 Uncontrolled hypertension, POA Acute on chronic kidney disease, GFR 42 Hyperglycemia Chronic problem list: s/p LHC/coronary angiogram done on 10/20/2022 which identified significant stenosis in the ostial OM1 (tiny vessel), a patent stent in the mid LAD CAD s/p PCI with MICHAEL placement (Promus Premier 2.5x20 mm) in the mid LAD done on 05/13/2014 Right sided breast CA s/p right lumpectomy PAD s/p left lower extremity peripheral intervention on 08/19/2021 History of GI bleed, (+) melena s/p EGD 11/07/2023 and push enteroscopy 11/11/2023 with findings of gastritis, no active bleed identified s/p colonoscopy 11/11/2023 with findings of non-bleeding AVM which was cauterized Bilateral lower extremity weakness and paresthesia with multilevel lumbar spondylosis with cord compression per MRI 11/06/2023 PLAN SUMMARY: Supplemental oxyen as needed Telemetry monitoring Trend troponin x 3 12 Lead EKG Continue Eliquis Continue Plavix Increase metoprolol 75 mg po bid Continue verapamil ER 180 mg daily Consult Cardiology Consult Dr Huff Rocephin 2 mg iv daily Follow urine cx results and modify abts Pt eval and treat HPI: Mrs. Susan Castro is a 79 year old female with a past medical history of a fib rvr, unstable angina, left atrial appendage thrombus, chf, gd 3 diastolic dysfunction, htn, ckd, presents to the emergency room with a chief complaint of severe palpitations, chest pain, and shortness of breath with an onset of yesterday afternoon. Patient was recently discharged from this facility where she was being treated for a fib r vr and had a REGINE performed with findings of a thrombus formation in the left atrial appendage. Pt was not amendable to cardioversion due to the atrial thrombus. Pt was instructed to continue eliquis and plavix along wit verapamil 180mg daily and metoprolol 50 mg bid. Pt reports she is compliant with her medications however she reports she could not walk without feeling short of breath and then began to feel palpitations and chest discomfort therefore she came in for further evaluation. Admission vital signs are T 98.2, heart rate 60 bpm, resp rate 20 breaths per minute, bp 118/56, 02 sat 98% on room air. Admission labs are unremarkable. UA positive for Uti. CXR unremarkable. Troponin negative. 12 Lead EKG NSR. Pt will be placed in observation for unstable angina. PAST MEDICAL HX: see above PAST SURGICAL HX: noncontributory SOCIAL HISTORY: No tobacco, ETOH, or illicit drug use Coded Allergies: No Known Allergies (Unverified Allergy, Unknown, 05/12/14) REVIEW OF SYSTEMS: 12 point ROS reviewed with patient. Pertinent positives mentioned above. Otherwise negative. PHYSICAL EXAM: GENERAL: alert, weak, awake oriented x 3 HEENT: EOMI, Sclera non icteric, moist mucosa NECK: Supple, no JVD, trachea midline LUNGS: Clear breath sounds bilaterally. No wheezes HEART: Regular rate and rhythm. Normal S1 and S2, without murmurs ABD: Abdomen soft, nontender. Bowel sounds present EXT: No clubbing cyanosis or edema NEURO: Alert and oriented to person, follows commands Vital Signs (last 8hr) Date Time Temp Pulse Resp B/P (MAP) Pulse Ox O2 Delivery O2 Flow Rate FiO2 11/09/24 12:00 98.2 60 20 128/56 98 Room Air* 0 21 11/09/24 11:19 98.2 83 16 99/57 96 Room Air* 0 21 11/09/24 11:00 20 Room Air LABS: Hematology Labs: Test 11/09/24 11:16 Range/Units White Blood Count 10.4 4.8-10.8 K/uL Red Blood Count 4.71 4.00-5.50 MIL/uL Hemoglobin 13.1 12.0-16.0 g/dL Hematocrit 39.3 36-48 % Mean Corpuscular Volume 83.4 79-99 fL Mean Corpuscular Hemoglobin 27.8 27.0-33.0 pg Mean Corpuscular Hemoglobin Concent 33.3 32.0-36.0 g/dL Red Cell Distribution Width 13.6 11.0-15.5 % Platelet Count 289 130-400 K/uL Mean Platelet Volume 10.9 H 7.5-10.5 fL Immature Granulocyte % (Auto) 0.3 0-1 % Neutrophils (%) (Auto) 67.0 40.0-77.0 % Lymphocytes (%) (Auto) 23.1 21.0-51.0 % Monocytes (%) (Auto) 7.7 3.0-13.0 % Eosinophils (%) (Auto) 1.5 0.0-8.0 % Basophils (%) (Auto) 0.4 0.0-5.0 % Neutrophils # (Auto) 7.0 1.8-7.7 K/uL Lymphocytes # (Auto) 2.4 1.0-4.8 K/uL Monocytes # (Auto) 0.8 0.1-1.0 K/uL Eosinophils # (Auto) 0.16 0.00-0.70 K/uL Basophils # (Auto) 0.04 0.00-0.20 K/uL Absolute Immature Granulocyte (auto 0.03 0-1 K/uL Nucleated Red Blood Cells 0.0 0.0-0.19 % Chemistry Labs: Test 11/09/24 11:16 Range/Units Sodium Level 137 136-145 mmol/L Potassium Level 4.1 3.5-5.1 mmol/L Chloride Level 100 L 101-111 mmol/L Carbon Dioxide Level 26 21-32 mmol/L Blood Urea Nitrogen 35 H 7-18 mg/dL Creatinine 1.5 H 0.5-1.0 mg/dL Glomerular Filtration Rate Calc 36 >90 mL/min Random Glucose 108 H 70-105 mg/dL Total Calcium 9.4 8.5-10.1 mg/dL Magnesium Level 2.30 1.80-2.40 mg/dL Total Creatine Kinase 37 # 21-232 U/L Troponin I High Sensitivity 15 4-50 ng/L B-Type Natriuretic Peptide 188 H 0-100 pg/mL DIAGNOSTICS / RADIOLOGY RESULTS: [ ] PLAN NEURO: Minimize central acting medications as possible. Maintain fall precautions, adequate lighting during the day PULMONARY: Supplemental 02 as needed. Maintain aspiration precautions at all times CARDIOVASCULAR: Follow hemodynamics. Vital signs per facility protocol GI & NUTRITION: Continue with nutritional support. Continue stool softeners and laxatives as needed. KIDNEYS & ELECTROLYTES: Strict monitoring of intake, output and overall fluid balance. Avoid nephrotoxic medications to the extent possible. Medications to be dosed according to renal function. Monitor electrolytes and replace as needed ENDOCRINE: Maintain blood glucose between 100-180 at all times. Hypoglycemia protocol in place INFECTIOUS DISEASE: Trend temperature, WBC and procalcitonin level Follow cultures, deescalate antibiotics as soon as possible. Panculture if new onset fever ONCOLOGY/HEMATOLOGY/COAGULATION: Monitor for s/s of bleeding Monitor hemoglobin, coagulation studies as needed SKIN: Pressure ulcer prevention per facility protocol Specialty mattress ORTHO/REHAB: Continue PT/OT Prophylaxis: Continue GI and DVT prophylaxis Code Status: Full Resuscitation Disposition: Home ATTESTATION BY PHYSICIAN I reviewed the documentation, medical decision making, and treatment plan as noted by the mid-level provider above. I agree with the findings and plan of care. Naun Poon MD, ECTOR N NP Nov 09, 2024 14:55
[2024-11-09] MEDS ORDERED: IOHEXOL 350 MG/ML 100ML INFUS..BTL IV ONE (15:18)
--- NOTE | 2024-11-09 15:29 | NUR ---
attempted to contact dr camara left pending call back for cardiology consult
--- NOTE | 2024-11-09 15:31 | NUR ---
DR GARCIA CALLED BACK CURRENTLY ON VACATION WILL CONTACT LOUISE FOR CONSULT
--- NOTE | 2024-11-09 16:10 | NUR ---
Jigna WANG CONSULTED S HEART ADVISED SHE WILL SEE PATIENT
--- NOTE | 2024-11-09 16:17 | NUR ---
PEND [id number] AND [id number]
[2024-11-09 16:30] VITALS: BP 124/61; PULSE 88; RESP 19; TEMP 97.4
--- NOTE | 2024-11-09 16:46 | HMCIMG ---
EXAM: CTA Chest with and without Intravenous Contrast for PE evaluation CLINICAL HISTORY: rule out pe TECHNIQUE: Axial CTA images of the chest with and without intravenous contrast using a pulmonary embolism protocol. Multiplanar reconstructed images were created and reviewed. CONTRAST: None. was administered without incident. COMPARISON: Study dated 07/23/22. FINDINGS: PULMONARY ARTERIES: No evidence of central or segmental pulmonary embolism is seen. AORTA: Atherocalcific changes in the arch of the aorta and its branches. There is no evidence for aneurysm or dissection of the thoracic aorta. LUNGS: The lungs appear clear. Right-sided post-mastectomy status. PLEURAL SPACES: No pneumothorax evident. No pleural effusions. HEART: Normal heart size. No significant pericardial effusion. LYMPH NODES: No lymphadenopathy is evident. BONES: Degenerative changes in the visualized spine. No focal osseous abnormality or acute fracture. UPPER ABDOMEN: Images of the upper abdomen are unremarkable. IMPRESSION: 1. No evidence of pulmonary embolism. /[place]
[2024-11-09 18:34] VITALS: O2SAT 93
[2024-11-09] MEDS: SUCRALFATE 1 GM TABLET PO SCH (19:36)
[2024-11-09 20:00] VITALS: O2SAT 96
[2024-11-09 20:26] VITALS: BP 112/52; PULSE 79; RESP 20; TEMP 97.7
[2024-11-09] MEDS ORDERED: FAMOTIDINE 20MG TAB PO SCH (21:00)
[2024-11-09 21:37] LABS: CREATINE KINASE, TOTAL 29.0 U/L (21-232)
[2024-11-10 00:28] VITALS: BP 102/57; PULSE 80; RESP 19; TEMP 97.5
[2024-11-10 04:06] VITALS: BP 113/55; PULSE 80; RESP 18; TEMP 98
[2024-11-10 05:20] LABS: NUCLEATED RED BLOOD CELLS 0.0 % (0.0-0.19); PLATELET COUNT (AUTO) 255.0 K/uL (130-400); RED BLOOD CELL COUNT(AUTO) 4.15 MIL/uL (4.00-5.50); RED CELL DISTRIBUTION WIDTH 13.9 % (11.0-15.5); WHITE BLOOD COUNT (AUTO) 8.8 K/uL (4.8-10.8)
[2024-11-10 05:43] LABS: ASPARTATE AMINOTRANSFERASE 12.0 U/L (10-37); CREATINE KINASE, TOTAL 26.0 U/L (21-232); CREATININE 1.4 mg/dL (0.5-1.0); GLOMERULAR FILTR. RATE CALC 39.0 mL/min (>90); GLUCOSE,RANDOM 112.0 mg/dL (70-105); PHOSPHORUS 4.2 mg/dL (2.5-4.9); SODIUM SERUM 140.0 mmol/L (136-145); TOTAL PROTEIN, SERUM 6.9 g/dL (6.0-8.3); UREA NITROGEN, BLOOD 33.0 mg/dL (7-18)
[2024-11-10 08:00] VITALS: BP 114/57; PULSE 80; RESP 18; TEMP 97.6; O2SAT 96
--- NOTE | 2024-11-10 08:02 | EKG ---
[facility] Test Date: 2024-11-09 Test Time: 21:29:05 Pat Name: JOSUE SOSA Department: [facility] Room: 301 1 Gender: F Nail Kegger: MC : 1945 Requested By: TAZ GUERRERO Order Number: [id number] Reading MD: Max Perkins Measurements Intervals [place] Rate: 83 P: 89 CO: 184 QRS: 13 QRSD: 106 T: 121 QT: 384 QTc: 451 Interpretive Statements Normal sinus rhythm Nonspecific ST and T wave abnormality Compared to ECG 11/09/2024 13:45:20 ST (T wave) deviation now present Ectopic atrial rhythm no longer present First degree AV block no longer present Myocardial infarct finding no longer present Electronically Signed On 11-10-2024 12:54:12 CDT by Max Perkins Please click the below link to view image of tracing.
--- NOTE | 2024-11-10 08:03 | EKG ---
[facility] Test Date: 2024-11-10 Test Time: 05:18:27 Pat Name: JOSUE SOSA Department: [facility] Room: 301 1 Gender: F Product Development Manager: MC : 1945 Requested By: TAZ GUERRERO Order Number: [id number] Reading MD: Max Perkins Measurements Intervals [place] Rate: 78 P: 87 AR: 286 QRS: 10 QRSD: 102 T: 65 QT: 392 QTc: 446 Interpretive Statements Sinus rhythm with 1st degree AV block Nonspecific T wave abnormality Compared to ECG 11/09/2024 21:29:05 First degree AV block now present T-wave abnormality now present ST (T wave) deviation no longer present Electronically Signed On 11-10-2024 13:42:35 CDT by Max Perkins Please click the below link to view image of tracing.
--- NOTE | 2024-11-10 08:08 | CONS ---
[facility] Cardiology Consultation Note CARDIOLOGY CONSULTATION 2024 Chief complaint: This is a 79-year-old female who presents with palpitations and was found to be in atrial fibrillation with rapid ventricular response. History of present illness: The patient was recently seen for atrial fibrillation earlier this month. At that time a transesophageal echo did demonstrate a left atrial thrombus and no cardioversion was performed. She was discharged home on verapamil and apixaban. As an outpatient she was changed from verapamil to atenolol but now presents back with palpitations and AFib with rapid rate. She was given metoprolol tartrate 75 mg b.i.d. and has converted back to sinus rhythm. Rate is currently in the 70-80 range. Past medical history: The patient has a known history of coronary disease. She underwent drug-eluting stent to the LAD May 2014 was documented to have patent stents February and in October 2022. She had a stent placed in the right coronary artery October 2023 and had a 30% distal LAD stent stenosis. She underwent recent cardiac catheterization earlier this month and the 30% stenosis in the LAD was unchanged. She has a known history of perip heral arterial disease and underwent drug coated balloon to the left popliteal left tibioperoneal junction and left anterior tibial artery August 2021. She has a history of breast carcinoma status post lumpectomy GI bleed October 2023 with cauterization of an AVM. She is on chronic anticoagulation and has a history of dyslipidemia and hypertension. She has chronic kidney disease stage IIIB. Review of systems: Denies syncope PND orthopnea or pedal edema. No chest pain. No fevers sweats or chills. No hemoptysis hematemesis or melena. Allergies: No known allergies Social history: She is a nonsmoker Surgical history: Lumpectomy for breast carcinoma Physical exam: Blood pressure running 110 systolic heart rate is in the 70-80. The patient is afebrile. There was no elevation of the jugular venous pressure no bruits or murmurs appreciable. S1 normal S2 physiologically split. Abdomen is soft extremities show no edema she is alert and oriented. Laboratory studies: Potassium 3.9 BUN 33 creatinine 1.4 estimated GFR of 39 glucose 112 troponins x3 are normal. CK x3 is normal. White count 8.8 hemoglobin 11.4 platelet count [id number]. D-dimer elevated at 561 CT scan of the chest with PE protocol showed no evidence of pulmonary embolism. Assessment: 1. Atrial fibrillation with rapid ventricular response converted back to sinus rhythm on metoprolol tartrate 75 mg b.i.d. 2. Chronic anticoagulation 3. CAD status post prior stenting procedures with patent stents documented earlier this month 4. Peripheral arterial disease status post percutaneous interventions 2021 5. Breast carcinoma status post lumpectomy 6. GI bleed status post AVN cauterization October 2023 7. Dyslipidemia 8. Hypertension 9. chronic kidney disease stage IIIB 10. Hyperglycemia Plan:This point we will ambulate the patient. If the patient remains in sinus rhythm she can be discharged home on metoprolol tartrate 75 mg b.i.d.. She can follow up with Dr. Dejesus her primary support coordinator as an outpatient. CAREN GARCIA MD Nov 10, 2024 08:07
[2024-11-10] MEDS ORDERED: NON-FORMULARY MEDICATION 1 EACH (Esomeprazole Magnesium 1 CAP) PO SCH (09:00)
[2024-11-10] MEDS: LETROZOLE PO SCH (09:00)
[2024-11-10] MEDS: VERAPAMIL 180 MG PO SCH (09:00)
[2024-11-10] MEDS ORDERED: UBIDECARENONE PO SCH (09:00)
[2024-11-10] MEDS ORDERED: METO50 PO (10:40)
--- NOTE | 2024-11-10 10:46 | DS ---
[facility] DISCHARGE SUMMARY Date Patient Seen: Nov 10, 2024 Time of Visit: 10:41 Supervising Physician: [Dr. Suhail Vidal Primary Care Physician: Jordon Ortiz Outpatient Specialists: [Dr Araujo, Dr Huff Inpatient Consults: [ ] PROBLEM LIST: AFib with RVR, POA, on chronic anticoagulation with Eliquis - controlled Acute cystitis-ruled out by urine culture Unstable Angina POA resolved SVT, POA- resolved S/P REGINE w/ findings of thrombus formation in the FITZ CHF without acute exacerbation, POA LVEF 55-60%, grade 3 diastolic dysfunction per 12/15/2023 Uncontrolled hypertension, POA Acute on chronic kidney disease, GFR 42 Hyperglycemia Chronic problem list: s/p LHC/coronary angiogram done on 10/20/2022 which identified significant stenosis in the ostial OM1 (tiny vessel), a patent stent in the mid LAD CAD s/p PCI with MICHAEL placement (Promus Premier 2.5x20 mm) in the mid LAD done on 05/13/2014 Right sided breast CA s/p right lumpectomy PAD s/p left lower extremity peripheral intervention on 08/19/2021 History of GI bleed, (+) melena s/p EGD 11/07/2023 and push enteroscopy 11/11/2023 with findings of gastritis, no active bleed identified s/p colonoscopy 11/11/2023 with findings of non-bleeding AVM which was cauterized Bilateral lower extremity weakness and paresthesia with multilevel lumbar spondylosis with cord compression per MRI 11/06/2023 HOSPITAL COURSE: HPI (per admitting provider) Mrs. Susan Castro is a 79 year old female with a past medical history of a fib rvr, unstable angina, left atrial appendage thrombus, chf, gd 3 diastolic dysfunction, htn, ckd, presents to the emergency room with a chief complaint of severe palpitations, chest pain, and shortness of breath with an onset of yesterday afternoon. Patient was recently discharged from this facility where she was being treated for a fib r vr and had a REGINE performed with findings of a thrombus formation in the left atrial appendage. Pt was not amendable to cardioversion due to the atrial thrombus. Pt was instructed to continue eliquis and plavix along wit verapamil 180mg daily and metoprolol 50 mg bid. Pt reports she is compliant with her medications however she reports she could not walk without feeling short of breath and then began to feel palpitations and chest discomfort therefore she came in for further evaluation. Admission vital signs are T 98.2, heart rate 60 bpm, resp rate 20 breaths per minute, bp 118/56, 02 sat 98% on room air. Admission labs are unremarkable. UA positive for Uti. CXR unremarkable. Troponin negative. 12 Lead EKG NSR. Pt will be placed in observation for unstable angina. Today patient is seen ambulating around the nurse's station in no acute distress. Patient has remained normal sinus rhythm since admission. Patient was evaluated by Cardiology and recommended continue [id number] mg b.i.d. as well as verapamil ER 180 mg daily. Patient was cleared for discharge from Cardiology standpoint so long as she remains in normal sinus rhythm when ambulating. Patient reports feeling much improved and denies recurrent palpitations or chest discomfort. Patient had a CT of the chest performed due to an elevated D-dimer and findings are negative for PE. Vital signs are stable. Labs are within normal limits. Patient has been advised to continue medications as prescribed. Patient has been advised to follow up with PCP in the next 1-2 days. Patient has been advised to follow up with Cardiology in 1 week. Patient has been advised to follow up with microsoft developer in 1-2 weeks for possible DCCV once LLA thrombus has resolved. Patient verbalized understanding. Vital signs are stable. Labs are within normal limits. Medication reconciliation has been completed. New prescription status sent to patient's pharmacy. Education regarding current diagnosis been provided to the patient. All questions have been answered. Patient to be discharged home with cardio follow up. The patient was treated for the following problems: ACTIVE PROBLEM LIST FOR THE HOSPITALIZATION: AFib with RVR, POA, on chronic anticoagulation with Eliquis - controlled Acute cystitis-ruled out by urine culture Unstable Angina POA resolved SVT, POA- resolved S/P REGINE w/ findings of thrombus formation in the FITZ CHF without acute exacerbation, POA LVEF 55-60%, grade 3 diastolic dysfunction per 12/15/2023 Uncontrolled hypertension, POA Acute on chronic kidney disease, GFR 42 Hyperglycemia Chronic problem list: s/p LHC/coronary angiogram done on 10/20/2022 which identified significant stenosis in the ostial OM1 (tiny vessel), a patent stent in the mid LAD CAD s/p PCI with MICHAEL placement (Promus Premier 2.5x20 mm) in the mid LAD done on 05/13/2014 Right sided breast CA s/p right lumpectomy PAD s/p left lower extremity peripheral intervention on 08/19/2021 History of GI bleed, (+) melena s/p EGD 11/07/2023 and push enteroscopy 11/11/2023 with findings of gastritis, no active bleed identified s/p colonoscopy 11/11/2023 with findings of non-bleeding AVM which was cauterized Bilateral lower extremity weakness and paresthesia with multilevel lumbar spondylosis with cord compression per MRI 11/06/2023 CHRONIC PROBLEMS: continue previous management per PCP unless otherwise indicated ARMATURE COIL WINDER FINDINGS/RECOMMENDATIONS: [ ] PROCEDURES: as mentioned above DISCHARGE MEDICATIONS: See DC med rec Pt hemodynamically stable and afebrile at time of discharge. PCP notified of patients admission, hospital course and discharge. New Medications: Metoprolol Tartrate (Lopressor 50Mg Tab) 50 Mg Tab 75 MG PO BID for 30 Days, #60 TAB Continued Medications: Apixaban (Eliquis) 5 Mg Tablet 5 MG PO BID for 30 Days, #60 TAB Atorvastatin Calcium (Lipitor) 40 Mg Tablet 40 MG PO DAILY, TAB Clopidogrel Bisulfate (Plavix) 75 Mg Tablet 75 MG PO DAILY for 30 Days, #30 TAB Esomeprazole Magnesium (Esomeprazole Magnesium) 40 Mg Capsule.dr 1 CAP PO DAILY for 30 Days, #30 CAP 0 Refills Furosemide (Furosemide) 40 Mg Tablet 1 TAB PO BID for 30 Days, #30 TAB 0 Refills Gabapentin (Gabapentin) 100 Mg Capsule 100 MG PO BID, CAP Letrozole (Letrozole) 2.5 Mg Tablet 1 TAB PO DAILY for 30 Days, #30 TAB 0 Refills Losartan Potassium (Losartan Potassium) 25 Mg Tablet 1 TAB PO DAILY for 30 Days, #30 TAB 0 Refills Magnesium Glycinate (Mag Glycinate) 100 Mg Tablet 200 MG PO BID, TAB Pantoprazole Sodium (Pantoprazole Sodium) 40 Mg Tablet.dr 1 TAB PO DAILY for 30 Days, #30 TAB 0 Refills Spironolactone (Spironolactone) 25 Mg Tablet 25 MG PO BID, TAB Sucralfate (Sucralfate) 1 Gram Tablet 1 TAB PO QID for 30 Days, #120 TAB 0 Refills Ubidecarenone (Co Q-10) 300 Mg Capsule 1 CAP PO DAILY for 30 Days, #60 CAP 0 Refills Verapamil HCl (Verapamil ER 180Mg Tab) 180 Mg Tablet.er 1 TAB PO DAILY for 30 Days, #30 TAB 0 Refills Discontinued Medications: Apixaban (Eliquis) 5 Mg Tablet 5 MG PO BID, #60 TAB 1 Refill Metoprolol Tartrate (Lopressor 50Mg Tab) 50 Mg Tab 50 MG PO BID for 30 Days, #60 TAB PHYSICAL EXAM: GENERAL: alert, weak, awake oriented x 3 HEENT: EOMI, Sclera non icteric, moist mucosa NECK: Supple, no JVD, trachea midline LUNGS: Clear breath sounds bilaterally. No wheezes HEART: Regular rate and rhythm. Normal S1 and S2, without murmurs ABD: Abdomen soft, nontender. Bowel sounds present EXT: No clubbing cyanosis or edema NEURO: Alert and oriented to person, follows commands FOLLOW-UP: Follow-up with PCP in 2-3 days Follow up with lost charge card clerk in 1 week Follow up with microsoft developer in 2 weeks RECOMMENDATIONS: See Discharge Instructions This case was seen and discussed with my supervising physician. More than 30 minutes spent on discharge process, including evaluation of the patient, discussion with nursing staff, medication reconciliation and follow-up appointments ATTESTATION BY PHYSICIAN The patient has been seen and evaluated, the case has been discussed with the STRATEGY ASSOCIATE, I agree with the clinical findings and plan of care. Pernell Vidal MD, ECTOR N NP Nov 10, 2024 10:46
--- NOTE | 2024-11-10 11:13 | NUR ---
DCP:HOME Pt currently lives at home with her . Pt does not report having any DME, home health, or provider services. Pt states that she is able to complete ADLs independently. PCP is Dr. Jordon Ortiz and uses [facility] for any RX needs. At OR pt will want to go home and family can assist with transportation. Addendum: 11/10/24 at 1115 by DANYA SOLANO SS Amended: Links added.
--- NOTE | 2024-11-10 11:55 | NUR ---
SPOKE WITH DR GARCIA REGARDING PT DC. PT ON TELE SR 80 SITTING AT BEDSIDE, PER PT TO AMBULATE BEFORE DC HOME. PT AMBULATED WITH NURSE. PER TELE PT HAS FLUTTER 70-80'S CONTROLLED AFTER AMBULATING, DR BROWNE WAS MADE AWARE. OKAY WITH DC'ING PT HOME. RX SENT TO PT PHARMACY AND APPT WITH IN SERVICE EDUCATION TEACHER HAS BEEN SET UP FOR Nov.18.
== END 2024-11-10 12:05 | disposition home or self-care (01) ==
LOC: EDH 10:53 → EDHIP 13:35 → 3AH 16:30
PROVIDERS: ADMIT Internal Medicine; ATTEND Internal Medicine
DX: I48.0 Paroxysmal atrial fibrillation (principal); I13.0 Hypertensive heart and chronic kidney disease with heart failure and stage 1 through stage 4 chronic kidney disease, or unspecified chronic kidney disease; I50.32 Chronic diastolic (congestive) heart failure; N18.32 Chronic kidney disease, stage 3b; N30.00 Acute cystitis without hematuria; I47.10 Supraventricular tachycardia, unspecified; E78.00 Pure hypercholesterolemia, unspecified; C50.919 Malignant neoplasm of unspecified site of unspecified female breast; E86.0 Dehydration; I25.110 Atherosclerotic heart disease of native coronary artery with unstable angina pectoris; I73.9 Peripheral vascular disease, unspecified; R00.2 Palpitations; R11.0 Nausea; R20.2 Paresthesia of skin; Z79.01 Long term (current) use of anticoagulants; Z79.899 Other long term (current) drug therapy; Z79.02 Long term (current) use of antithrombotics/antiplatelets; Z95.5 Presence of coronary angioplasty implant and graft; Z98.890 Other specified postprocedural states
CPT/HCPCS: 96365; 99285; 84443; 82550 ×4; 83735 ×2; 84484 ×4; 80048; 82803; 83880; 85025; 85378; 87086; 81001; 36415 ×2; 71045; 71270; 93005 ×4; 36600; 83036; 84100; 80053; 85027; 84145; G0378 ×22; J0696; Q9967

== ENCOUNTER 2024-12-22 07:30 | Day surgery (SDC) | payer OTHER ==
[2024-12-19 10:46] LABS: IMMATURE GRANULOCYTE ABSOLUTE 0.03 K/uL (0-1); NUCLEATED RED BLOOD CELLS 0.0 % (0.0-0.19); PLATELET COUNT (AUTO) 273 K/uL (130-400); RED BLOOD CELL COUNT(AUTO) 4.40 MIL/uL (4.00-5.50); RED CELL DISTRIBUTION WIDTH 13.3 % (11.0-15.5); WHITE BLOOD COUNT (AUTO) 8.2 K/uL (4.8-10.8)
[2024-12-19 10:54] LABS: CREATININE 1.5 mg/dL (0.5-1.0); GLOMERULAR FILTR. RATE CALC 36.0 mL/min (>90); GLUCOSE,RANDOM 157.0 mg/dL (70-105); SODIUM SERUM 132.0 mmol/L (136-145); UREA NITROGEN, BLOOD 22.0 mg/dL (7-18)
[2024-12-19 10:57] LABS: INR 1.16 (0.85-1.15)
[2024-12-19 11:11] VITALS: BP 118/54; PULSE 82; RESP 17; TEMP 97.3
[2024-12-22] VITALS (7 sets, daily range): BP systolic 118–128; BP diastolic 39–86; PULSE 53–80; RESP 14–15; TEMP 97.7–98
[~2024-12-22] VITALS: Ht 149.9 cm; Wt 61.7 kg
[~2024-12-22 07:30] MED LIST changes: -FURO40TA5 PO; -GABA-529 PO; +HYDR25TA67 PO; -LOSA25TA41 PO; -MAGN100T PO; -METO50 PO; +METO50TA18 PO; -PANT40TA54 PO; -SUCR1TAB2 PO
--- NOTE | 2024-12-22 09:11 | EKG ---
[facility] Test Date: 2024-12-22 Test Time: 08:35:23 Pat Name: JOSUE SOSA Department: [facility] Patient [facility]: [id number] Room: [facility] 15 Gender: F Cost Estimating Manager: [id number] : 1945 Requested By: MICHAEL HOUSE Order Number: [id number] Reading MD: Nino Moore Measurements Intervals [place] Rate: 80 P: 0 VA: 100 QRS: 54 QRSD: 100 T: 28 QT: 374 QTc: 423 Interpretive Statements Sinus rhythm Atrial premature complex Compared to ECG 11/10/2024 05:18:27 Atrial premature complex(es) now present First degree AV block no longer present T-wave abnormality no longer present Electronically Signed On 12-23-2024 13:34:09 DEHYDRATOR OPERATOR by Nino Moore Please click the below link to view image of tracing.
[2024-12-22] MEDS ORDERED: MIDAZOLAM HCL 1 MG/ML 2ML VIAL IVP ONE (09:30)
--- NOTE | 2024-12-22 10:08 | PRN ---
Procedure Note INDICATION FOR PROCEDURE: [] AF HYPERCOAGULABLE STATE PROCEDURE: [] CONSCIOUS SEDATION DCCV X 1 120J DATE OF PROCEDURE: 12/22/2024 BOWLING BALL FINISHER: MICHAEL HOUSE MD [facility] PROCEDURE NOTE: [] SEDATED WITH 75MCG FENTANYL AND 3 MG VERSED DCCV WITH 120J X 1 WITH RETURN TO NSR PLAN: [] CONTINUE WITH ELIQUIS AND METOPROLOL FU WITH DR HOUSE IN 1 WEEK MICHAEL HOUSE MD Dec 22, 2024 10:08
[2024-12-22] MEDS: MIDAZOLAM HCL 1 MG/ML 2ML VIAL IVP ONE ×2 (10:11→10:12)
--- NOTE | 2024-12-22 10:21 | EKG ---
[facility] Test Date: 2024-12-22 Test Time: 10:55:08 Pat Name: JOSUE SOSA Department: [facility] Room: [facility] 15 Gender: F Sulfur Burner: [id number] : 1945 Requested By: MICHAEL HOUSE Order Number: [id number] Reading MD: Measurements Intervals [place] Rate: 55 P: 41 IN: 205 QRS: 25 QRSD: 87 T: 43 QT: 421 QTc: 403 Interpretive Statements Sinus rhythm Compared to ECG 10/26/2024 12:18:10 Sinus tachycardia no longer present Please click the below link to view image of tracing.
--- NOTE | 2024-12-22 11:00 | NUR ---
BOTH PT AND SPOUSE GIVEN VERBAL AND WRITTEN DISCHARGE INSTRUCTIONS. IV REMOVED SITE ASYMPTOMATIC. PT TAKEN OUT VIA WHEELCHAIR SPOUSE DRIVING.
== END 2024-12-22 11:05 | disposition home or self-care (01) ==
LOC: DAH 07:30
PROVIDERS: ATTEND Internal Medicine Cardiovascular Disease
DX: I48.0 Paroxysmal atrial fibrillation (principal); I47.10 Supraventricular tachycardia, unspecified; I25.10 Atherosclerotic heart disease of native coronary artery without angina pectoris; I11.0 Hypertensive heart disease with heart failure; I50.31 Acute diastolic (congestive) heart failure; I87.1 Compression of vein; I87.2 Venous insufficiency (chronic) (peripheral); E78.5 Hyperlipidemia, unspecified; Z79.899 Other long term (current) drug therapy
CPT/HCPCS: 80048; 85025; 85610; 85730; 36415; 99152; 92960; 93005 ×2; A4223 ×3; J3010; J2250 ×2; A4215; A4657; A4222; A4221; A4663; A4216; A4606; G0500

== ENCOUNTER → 2025-02-11 | Outpatient (CLI) | payer OTHER ==
--- NOTE | 2025-02-11 11:25 | HMCIMG ---
DOUBLE CONTRAST UPPER GI SERIES: Finding: The study was performed using provocative maneuvers After swallowing effervescent crystal and thick barium, there is no definite intrinsic or extrinsic lesion seen in the esophagus. The stomach is normal in size, shape, and configuration. The rugal folds appear to be normal. The duodenal bulb, duodenal sweep, and upper jejunum appear to be normal. 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 Fluoroscopy time: 0.7 minutes. IMPRESSION: NORMAL DOUBLE CONTRAST UPPER GI SERIES.
== END | disposition home or self-care (01) ==
LOC: CANSCHCLI → RAH 08:28
PROVIDERS: ATTEND Internal Medicine Gastroenterology
DX: K57.10 Diverticulosis of small intestine without perforation or abscess without bleeding (principal); K29.70 Gastritis, unspecified, without bleeding; K44.9 Diaphragmatic hernia without obstruction or gangrene; R10.9 Unspecified abdominal pain; R12 Heartburn
CPT/HCPCS: 74240; 74246